=== PATIENT | male | born 1960 | race Caucasian/White ===

== ENCOUNTER 2022-03-31 15:21 | Outpatient (CLI) | payer OTHER, SELFPAY ==
[2022-03-31 15:17] LABS: Albumin* 4.4 g/dL (3.3-5.0); Chloride* 98 mmol/L (96-114); Sodium* 136 mmol/L (135-149)
[2022-03-31 15:18] LABS: Potassium* 4.3 mmol/L (3.6-5.1)
[2022-03-31 15:20] LABS: Alanine Aminotransferase* 30 U/L (4-50); Alkaline Phosphatase* 59 U/L (40-150); Aspartate Amino Transferase* 34 U/L (12-35); Bilirubin Total* 1.1 mg/dL (0.1-1.5); Blood Urea Nitrogen* 24 mg/dL (7-30); Calcium* 9.7 mg/dL (8.4-10.6); Carbon Dioxide* 32 mmol/L (20-32); Cholesterol* 166 mg/dL (90-199); Estimated Glomerular Filt Rate 86 ml/min; Glucose* 91 mg/dL (60-115); Total Protein* 6.4 g/dL (6.0-8.3); Triglycerides* 88 mg/dL (40-149)
[2022-03-31 15:21] LABS: HDL Cholesterol* 55 mg/dL (>=40); LDL Cholesterol Calculated 93 mg/dL (<100)
[2022-03-31 15:51] LABS: PSA Screen* 0.85 ng/mL (0.10-4.00)
== END 2022-03-31 15:22 | disposition home or self-care (01) ==
PROVIDERS: PCP Family Medicine; Visit Provider Family Medicine
DX: Z12.5 Encounter for screening for malignant neoplasm of prostate (principal); Z13.228 Encounter for screening for other metabolic disorders
CPT/HCPCS: 80053; 80061; 84153

== ENCOUNTER 2024-01-23 13:08 | Outpatient (CLI) | payer OTHER, SELFPAY | END 2024-01-23 13:09 | disposition home or self-care (01) | LOC: LKVREF 13:08 | PROVIDERS: PCP Family Medicine; Visit Provider Nurse Practitioner Family | DX: R50.9 Fever, unspecified (principal) | CPT/HCPCS: 86618 ==

== ENCOUNTER 2024-01-29 18:31 | Outpatient (CLI) | payer OTHER, SELFPAY ==
[2024-01-29 18:56] LABS: Appearance Urine Clear (Clear); Bilirubin Urine Negative (Negative); Blood Urine Negative (Negative); Color Urine Yellow (Yellow); Glucose Urine Negative (Negative); Ketones Urine Negative (Negative); Leukocyte Esterase Urine Negative (Negative); Nitrite Urine Negative (Negative); Protein Urine Negative (Negative); Specific Gravity Urine 1.025 (1.000-1.030); Urobilinogen Urine 0.2 (0.2-1.0)
[2024-01-29 18:59] LABS: Basophils Absolute Auto 0.02 K/uL (0.00-0.30); Basophils Percent Auto 0.3 % (0.0-3.0); Eosinophils Absolute Auto 0.02 K/uL (0.00-0.50); Eosinophils Percent Auto 0.3 % (0.0-7.0); Hematocrit 37.3 % (37.0-53.0); Hemoglobin* 12.4 gm/dL (13.5-17.5); Immature Granulocytes Abs Auto 0.01 K/uL (0.00-0.30); Immature Granulocytes Pct Auto 0.1 %; Lymphocytes Percent Auto 10.7 % (20-44); Mean Corpuscular HGB Conc 33 gm/dL (32-36); Mean Corpuscular Hemoglobin 29 pg (26-34); Mean Corpuscular Volume 87 fL (80-100); Monocytes Percent Auto 6.3 % (0.0-11.0); Neutrophils Percent Auto 82.3 % (42.0-72.0); Platelet Count* 138 K/uL (140-440); RDW Coefficient of Variation % 12.2 % (11.5-15.5); Red Blood Count 4.27 m/uL (4.30-5.90); White Blood Count* 7.31 K/uL (4.50-11.00)
[2024-01-29 19:03] LABS: Slide Review Reflex No
[2024-01-29 19:13] LABS: Albumin* 3.7 g/dL (3.3-5.0); Chloride* 96 mmol/L (96-114); Sodium* 130 mmol/L (135-149)
[2024-01-29 19:14] LABS: Potassium* 4.3 mmol/L (3.6-5.1)
[2024-01-29 19:16] LABS: Anion Gap 5 mEq/L (7-15); Aspartate Amino Transferase* 75 U/L (12-35); Bilirubin Total* 0.8 mg/dL (0.1-1.5); Carbon Dioxide* 29 mmol/L (20-32); Estimated Glomerular Filt Rate 85 ml/min; Total Protein* 6.4 g/dL (6.0-8.3)
[2024-01-29 19:17] LABS: Alanine Aminotransferase* 73 U/L (4-50); Alkaline Phosphatase* 64 U/L (40-150); Blood Urea Nitrogen* 15 mg/dL (7-30); Calcium* 8.9 mg/dL (8.4-10.6); Glucose* 129 mg/dL (60-115)
[2024-01-29 20:21] LABS: Erythrocyte SedimentationRate* 31 mm/hr (2-15)
== END 2024-01-29 18:32 | disposition home or self-care (01) ==
PROVIDERS: PCP Family Medicine; Visit Provider Family Medicine
DX: R50.9 Fever, unspecified (principal); R53.83 Other fatigue; E03.9 Hypothyroidism, unspecified; I10 Essential (primary) hypertension
CPT/HCPCS: 36415; 80053; 81003; 84443; 85025; 85651; 86140; 86480; 87040; 87077; 87186; 87468; 87469; 87484; 87798

== ENCOUNTER 2024-04-17 08:40 | Outpatient (CLI) | payer OTHER, SELFPAY ==
--- OUTSIDE RECORDS SUMMARY | 2024-04-18 08:23 | XMS_ITS | Clinical Summary ---
Author Organization [facility] Address [place], [place] [address] Care Team Providers Care Carton Wrapper Name Role Phone Fritz Hitchcock MD Primary Care Provider [phone] Allergies No known active allergies Medications Medication Sig Dispensed Refills Start Date End Date Status aspirin 81 mg tablet Take 1 tablet by mouth once daily with a meal. 0 11/12/2009 Active cholecalciferol (VITAMIN D) 1,000 unit tablet Take 1 tablet by mouth once daily. 0 05/12/2010 Active multivitamin (MVI) tablet Take 1 tablet by mouth once daily. 0 11/09/2011 Active pravastatin (PRAVACHOL) 40 mg tabletIndications:Ot her hyperlipidemia Take 1 tablet by mouth at bedtime. 90 tablet 3 12/22/2015 Active coenzyme Q10 (H2Q COQ10) 200 mg/gram powd Take by mouth. 0 12/22/2015 Active omega 9-usn-zlg-fish oil (FISH OIL) 900-1,400 mg cpDR Take by mouth. 0 12/22/2015 Act taz Calcium-Cholecalcife rol, D3, (CALCIUM 500+D) 500 mg(1,250mg) -400 unit chewable tablet Take 1 tablet by mouth 3 times daily with meals. 0 12/22/2015 Active magnesium gluconate (MAGONATE) 500 mg Take 1 tablet by mouth 2 times daily. 0 12/22/2015 Active loratadine (CLARITIN) 10 mg tablet Take 1 tablet by mouth once daily. 0 12/22/2015 Active amoxicillin (AMOXIL) 500 mg capsuleIndications:P hysical exam 4 prior to Dental work 32 capsule 0 12/22/2015 Active HYDROcodone-acetamin ophen, 5-325 mg, (NORCO) per tabletIndications:Mi dline low back pain without sciatica, unspecified chronicity Take 1 tablet by mouth every 4 hours if needed for Pain Max acetaminophen dose: 4000mg in 24 hrs. 60 tablet 04/11/2016 Active predniSONE (DELTASONE) 20 mg tabletIndications:Po kike alea Take 2 for 5 days, then 1 for 5 days. 15 tablet 04/11/2016 Active Active Problems Problem Noted Date Diagnosed Date H/O aortic valve replacement 12/24/2015 Other and unspecified hyperlipidemia 04/30/2011 Spinal stenosis, unspecified region other than c ervical 04/30/2011 Pain medication agreement 04/30/2011 Overview (04/30/2011): Controlled substance agreement for her OxyContin 10 mg 40 per month on file and signed 04/30/2011. Designated pharmacy: Prescribing physician: Dori Hitchcock Diagnosis: Spinal stenosis Routine health maintenance 11/12/2009 Overview (11/12/2009): Last CPX: 06/2009 Last Lipids: 04/2009 Encounters Date Type Department Care Team Description 02/01/2024 Lab Requisition [facility] [phone] Unknown, Doctor from Last 3 Months Immunizations Name Administration Dates Next Due Td (Age >=7 Years) 07/24/2006 Family History Medical History Relation Name Comments Cancer-prostate Father Heart Disease Father bypass Hyperlipidemia Father Hypertension Father Cancer Mother lung Relation Name Status Comments Father Mother Social History Tobacco Use Types Packs/Day Years Used Date Smoking Tobacco: Never Smokeless Tobacco: Never Tobacco Cessation:Counseling Given: Yes Alcohol Use Standard Drinks/Week Comments No 0 (1 standard drink = 0.6 oz pur e alcohol) Sex and Gender Information Value Date Recorded Sex Assigned at Not on file Gender Identity Not on file Sexual Orientation Not on file Obstetrics History Last Filed Vital Signs Vital Sign Reading Time Taken Comments Blood Pressure 122/80 03/29/2016 2:18 PM CDT Pulse 64 12/22/2015 8:58 AM CDT Temperature 36.7 ??C (98 ??F) 07/23/2014 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 Respiratory Rate - - Oxygen Saturation - - Inhaled Oxygen Concentration - - Weight 88.9 kg (196 lb) 03/29/2016 2:18 PM CDT Height 177.8 cm (5' 10) 12/22/2015 8:58 AM CDT Body Mass Index 28.12 12/22/2015 8:58 AM CDT Plan of Treatment Health Maintenance Due Date Last Done Comments Tdap 10/27/1971 HIV for age 15-65 10/27/1975 Hepatitis C screening for age 18-79 1978 Zoster (shingles) series for age 50+ (1 of 2) 2010 Tetanus booster 07/24/2016 07/24/2006 BMI (ht and wt on same day) for age 18+ 12/21/2016 12/22/2015 Depression screening for age 12+ 12/21/2016 12/22/2015 Lipids for age 45-75 12/21/2020 12/22/2015, 07/23/2014, 02/28/2012, Additional history exists COVID-19 vaccine series ( season) 2024 Influenza for age 50-64 02/11/2024 Colonoscopy through age 75 08/30/2032 08/30/2022, Pneumococcal series for age 6-64 Aged Out No longer eligible based on patient's age to complete this topic Procedures Procedure Name Priority Date/Time Associated Diagnosis Comments REFERRAL ID/JORDAN,NONURINE Routine 01/29/2024 6:40 PM CDT SCAN-COLONOSCOPY 08/30/2022 10:0 0 AM CDT LIPID PANEL Routine 12/22/2015 9:49 AM CDT Other hyperlipidemia from Last 3 Months or Most Recently Relevant to Health Maintenance Results * (ABNORMAL) REFERRAL ID/SUSC,NONURINE (01/29/2024 6:40 PM CDT) CULTURE RESULT(A) 02/04/2024 11:36 AM CDT [facility] CULTURE Streptococcus mitis group 02/04/2024 11:36 AM CDT [facility] Comment:Further identified a s - Streptococcus sanguinis Blood Client Collect / Unknown 01/29/2024 6:40 PM CDT 02/01/2024 10:01 PM CDT Narrative Organism Antibiotic Method Susceptibility Streptococcus mitis group PENICILLIN 0.25: I Streptococcus mitis group CEFTRIAXONE <=0.12: S Streptococcus mitis group ERYTHROMYCIN <=0.12: S Streptococcus mitis group CLINDAMYCIN <=0.25: S Streptococcus mitis group VANCOMYCIN 0.5: S Streptococcus mitis group AMPICILLIN 0.5: I Streptococcus mitis group CLARITHROMYCIN S Doctor Unknown MICROBIOLOGY [facility] [address] [place] [id number], * SCAN-COLONOSCOPY (08/30/2022 10:00 AM CDT) Narrative Procedure Note Armand Lyles DO - 08/30/2022 9:05 AM CDT [facility] [address], [address], [place] [address] Patient Name: Adonis Ritchie Gender: Male Exam Date: 08/30/2022 Visit Number: [id number] Age: 61 Years 10 Months Date of : 1960 Attending MD: Armand Lyles DO Medical Record#: [id number] ----- Procedure: Colonoscopy Indications: Colorectal cancer screening Referring MD: Seferino Hanley MD Primary MD: Seferino Hanley MD Medications: Intra Procedure Medications: Patient received monitored anesthesia care. Complications: No immediate complications Procedure: An examination of the heart and lungs was performed and found to be withinacceptable limits. The patient was therefore deemed a reasonablecandidate for endoscopy and monitored anesthesia care. The risks and benefits of the procedure were explained to the patient.After obtaining informed consent, the patient received monitoredanesthesia care and I passed the scope without difficulty via the rectumto the cecum. The appendiceal orifice and ic valve were identified. Thescope was retroflexed during the examination The quality of the prep wasgood (Saravanan/Gat Split). This was a complete examination throughout the entire colon. Findings: The entire colon was normal. Impression: Screening Colonoscopy Plan: Repeat colonoscopy in 10 years. If you have signs or symptoms of lower GI illness or a new diagnosis ofcolon cancer in an immediate family member, you should contact your GIprovider or your primary provider to discuss whether your next examshould be repeated sooner. We will attempt to contact you at appropriate intervals via U.S. mail. Wemay not be able to find you or contact you at that time, therefore youshould know that the responsibility for following our recommendation restswith you. If you don't hear from us at the time your procedure is due,please contact our office to schedule an appointment. If your contactinformation should change, please contact our office so that we can updateyour records. Electronically signed by: Armand Lyles DO 08/30/2022 Medications: Medication Dose Sig Description PRN Status PRN Reason Comments aspirin 81 mg Tab 81 mg take 1 tablet (81MG) by oral route every day N atorvastatin 20 mg tablet 20 mg take 1 tablet by oral route every day N calcium citrate 200 mg (950 mg) tablet 200 mg (950 mg) N Claritin 10 mg chewable tablet 10 mg N lisinopril 20 mg tablet 20 mg take 1 tablet by oral route every day N Mag Glycinate 100 mg tablet 100 mg take 4 by oral route every day N Allergies: Medication Name Ingredient Reaction Comment NO KNOWN DRUG ALLERGIES Vital Signs: Date Time Systolic Diastolic Height Weight BMI 08/30/2022 9:44 AM 145 82 70 in 170.01 24.40 Race: White Ethnicity: Not or Preferred Language: Azerbaijani cc: Seferino Hanley MD cc: Seferino Hanley MD cc: John Escobedo MD [facility] [phone] Armand Mart Rafal GABRIEL OTHER * (ABNORMAL) LIPID PANEL (12/22/2015 9:49 AM CDT) CHOLESTEROL,TOTAL 259(H) 100 - 199 mg/dL 12/22/2015 3:40 PM CDT [facility] TRIGLYCERIDES 388(H) <150 mg/dL 12/22/2015 3:40 PM CDT [facility] [email or web address] [facility] HDL CHOLESTEROL 38(L) >40 mg/dL 12/22/2015 3:40 PM CDT [facility] NON-HDL CHOLESTEROL 221(H) <145 mg/dl 12/22/2015 3:40 PM CDT [facility] CHOL/HDL RATIO 6.82(H) <4.50 12/22/2015 3:40 PM CDT [facility] LDL CHOLESTEROL 143(H) <=130 mg/dL 12/22/2015 3:40 PM CDT [facility] [email or web address] [facility] PATIENT STATUS NOT GIVEN 12/22/2015 3:40 PM CDT [facility] [email or web address] [facility] Blood BLOOD SPECIMEN / Unknown Venipuncture / Unknown 12/22/2015 9:49 AM CDT 12/22/2015 9:49 AM CDT Fritz Hitchcock MD CHEMISTRY [facility] [address] [place] [address], [place] from Last 3 Months or Most Recently Relevant to Health Maintenance Care Teams Carton Wrapper Relationship Specialty Start Date End Date Fritz Hitchcock MD PCP - General 09/02/09
--- OUTSIDE RECORDS SUMMARY | 2024-04-18 08:23 | XMS_ITS | Clinical Summary ---
Author Organization [facility] Address [address] [address] Phone Care Team Providers Care Armature Straightener Name Role Phone Unavailable Primary Care Provider Unavailabl e Medications Medication Sig Dispensed Refills Start Date End Date Status amoxicillin (AMOXIL) 500 MG capsule 4 capsules 1 hour prior to proceedure 12/22/2015 Active aspirin (ST WING) 81 MG EC tablet 1 (one) time each day at the same time Active aspirin (ST WING) 81 MG EC tablet Take 81 mg by mouth in the morning. Active Calcium Carb-Cholecalciferol 500-10 MG-MCG chewable tablet Chew 1 tablet in the morning and 1 tablet at noon and 1 tablet in the evening. 12/22/2015 Active calcium carbonate (OS-HAWK) 600 MG tablet Take 1 tablet by mouth in the morning. Active cholecalciferol (Vitamin D-[address]) 25 MCG (1000 UT) tablet Take 1,000 Units by mouth in the morning. 05/12/2010 Active cholecalciferol (VITAMIN D-3 SUPER STRENGTH) 50 MCG (2000 UT) tablet Take 50 mcg by mouth in the morning. Active coenzyme Q-10 200 MG capsule Take 1 tablet by mouth in the morning. Active HYDROcodone-acetamin ophen (NORCO) 5-325 MG per tablet Take 1 tablet by mouth every 30 minutes as needed 04/11/2016 Active lisinopril (PRINIVIL) 20 MG tablet Take 20 mg by mouth in the morning. 04/06/2023 Active lisinopril (PRINIVIL) 20 MG tablet 1 (one) time each day at the same time Active loratadine (CLARITIN) 10 MG tablet Take 10 mg by mouth 12/22/2015 Activ e Lutein 20 MG capsule Take 20 mg by mouth in the morning. Active magnesium, as gluconate, (Mag-G) 500 (27 Mg) MG tablet Take 500 mg by mouth in the morning and 500 mg in the evening. 12/22/2015 Active Multiple Vitamin (One-A-Day Essential) tablet Take 1 tablet by mouth in the morning. 11/09/2011 Active [place]-3 Fatty Acids (Fish Oil Triple Strength) 1400 MG capsule Take by mouth 12/22/2015 Active omega-3 (FISH OIL) 1200 MG capsule Take 2,400 mg by mouth in the morning. Active pravastatin (PRAVACHOL) 40 MG tablet Take 40 mg by mouth in the morning. 12/22/2015 Active predniSONE (DELTASONE) 20 MG tablet every 12 hours 04/11/2016 Active rosuvastatin (CRESTOR) 20 MG tablet Take 20 mg by mouth in the morning. 04/06/2023 Active rosuvastatin (CRESTOR) 20 MG tablet 1 (one) time each day at the same time Active Active Problems Problem Noted Date Diagnosed Date Aortic valve regurgitation 02/26/2024 Overview (02/26/2024): per 09/25 echo, mild (1+) aortic valve regurgitation Bilateral inguinal hernia 02/26/2024 Bacteremia 01/30/2024 Aneurysm of ascending aorta 09/23/2015 Overview (02/26/2024): Per 09/16/15 echo, ascending aorta 3.8 cm History of aortic valve replacement 01/22/2014 Sleep apnea 01/22/2014 Hyperlipidemia 04/30/2011 Spinal stenosis, excluding cervical region 04/30 Encounters Date Type Department Care Team Description 03/14/2024 Telephone [facility] [address] [place] [address] Isaura Johns RN 02/27/2024 9:00 AM CDT Office Visit [facility] [address] [place] [address] Diamond Gerardo PA Bacteremia (Primary Dx); History of aortic valve replacement; Aneurysm of ascending aorta (CMS-HCC) from Last 3 Months Immunizations Name Administration Dates Next Due Td 07/24/2006 Tdap 05/17/2022 Social History Tobacco Use Types Packs/Day Years Used Date Smoking Tobacco: Never Assessed Sex and Gender Information Value Date Recorded Sex Assigned at Not on file Gender Identity Not on file Sexual Orientation Not on file Plan of Treatment Health Maintenance Due Date Last Done Comments Pneumococcal PPSV23 Highest Risk Adult (1 of 3 - PCV13 ) 10/27/1979 Influenza Vaccine (#1) 2024
--- OUTSIDE RECORDS SUMMARY | 2024-04-18 08:23 | XMS_ITS | Encounter Summary ---
Author Organization [facility] Address [address] [address] Phone Care Team Providers Care Cider Press Operator Name Role Phone Unavailable Primary Care Provider Unavailabl e Encounter Details Date Type Department Care Team (Late st Contact Info) Description 02/27/2024 9:00 AM CDT Office Visit [facility] [address] [place] [address] Diamond Gerardo PA [address] [place], [place] [phone] Bacteremia (Primary Dx); History of aortic valve replacement; Aneurysm of ascending aorta ([facility]) Social History Tobacco Use Types Packs/Day Years Used Date Smoking Tobacco: Never Assessed Sex and Gender Information Value Date Recorded Sex Assigned at Not on file Gender Identity Not on file Sexual Orientation Not on file documented as of this encounter Progress Notes * OSCAR Rothman - 02/27/2024 9:00 AM CDT Images from the original note were not included. Infectious Disease Progress Note History of Present Illness: Adonis Ritchie is a 63 y.o. male with a history of bicuspid aortic valve with history of aortic valve replacement in 2009. [facility]-week history of fevers, weakness, sweating episodes and chills. He was sent home but called 2 days later and told that his blood cultures were positive for gram-positive cocci, ultimately growing Streptococcus sanguinous. He was subsequently transferred to [facility] for further care. RUSH was negative for santa rosa or bioprosthetic valve vegetations, no evidence of endocarditis. Given high risk organism, plan was for prolonged course of IV antibiotics with Ceftriaxone. He is doing well and tolerating antibiotics without problem. He presently has no complaints. He is due to follow-up with Cardiology in March. Review of Systems Constitutional: Negative. Respiratory: Negative. Cardiovascular: Negative. Gastrointestinal: Negative. Musculoskeletal: Negative. Skin: Negative. All other systems reviewed and are negative. Current Outpatient Medications Medication Sig Dispense Refill amoxicillin (AMOXIL) 500 MG capsule 4 capsules 1 hour prior to proceedure Calcium Carb-Cholecalciferol 500-10 MG-MCG chewable tablet Chew 1 tablet in the morning and 1 tablet at noon and 1 tablet in the evening. cefTRIAXone (ROCEPHIN) 2 g injection Infuse 2 g into a venous catheter 1 (one) time each day at thesame time cholecalciferol (Vitamin D-[address]) 25 MCG (1000 UT) tablet Take 1,000 Units by mouth in the morning. HYDROcodone-acetaminophen (NORCO) 5-325 MG per tablet Take 1 tablet by mouth every 30 minutes as needed lisinopril (PRINIVIL) 20 MG tablet Take 20 mg by mouth in the morning. loratadine (CLARITIN) 10 MG tablet Take 10 mg by mouth magnesium, as gluconate, (Mag-G) 500 (27 Mg) MG tablet Take 500 mg by mouth in the morning and 500 mg in the evening. Multiple Vitamin (One-A-Day Essential) tablet Take 1 tablet by mouth in the morning. [place]-3 Fatty Acids (Fish Oil Triple Strength) 1400 MG capsule Take by mouth pravastatin (PRAVACHOL) 40 MG tablet Take 40 mg by mouth in the morning. predniSONE (DELTASONE) 20 MG tablet every 12 hours rosuvastatin (CRESTOR) 20 MG tablet Take 20 mg by mouth in the morning. aspirin (ST WING) 81 MG EC tablet 1 (one) time each day at the same time aspirin (ST WING) 81 MG EC tablet Take 81 mg by mouth in the morning. calcium carbonate (OS-HAWK) 600 MG tablet Take 1 tablet by mouth in the morning. cholecalciferol (VITAMIN D-3 SUPER STRENGTH) 50 MCG (2000 UT) tablet Take 50 mcg by mouth in the morning. coenzyme Q-10 200 MG capsule Take 1 tablet by mouth in the morning. lisinopril (PRINIVIL) 20 MG tablet 1 (one) time each day at the same time Lutein 20 MG capsule Take 20 mg by mouth in the morning. omega-3 (FISH OIL) 1200 MG capsule Take 2,400 mg by mouth in the morning. rosuvastatin (CRESTOR) 20 MG tablet 1 (one) time each day at the same time No current facility-administered medications for this visit. Objective There were no vitals taken for this visit. Physical Exam Unable to do a physical exam as this was a phone visit. Laboratory Data: Component Latest Ref Rng 02/22/2024 7:50 AM WBC 4.0 - 11.0 10e3/uL 5.5 RBC Count 4.40 - 5.90 10e6/uL 4.30 (L) Hemoglobin 13.3 - 17.7 g/dL 12.8 (L) Hematocrit 40.0 - 53.0 % 38.8 (L) MCV 78 - 100 fL 90 MCH 26.5 - 33.0 pg 29.8 MCHC 31.5 - 36.5 g/dL 33.0 RDW 10.0 - 15.0 % 13.6 Platelet Count 150 - 450 10e3/uL 182 % Neutrophils % 62 % Lymphocytes % 23 % Monocytes % 10 % Eosinophils % 4 % Basophils % 1 % Immature Granulocytes % 0 NRBCs per 100 WBC <1 /100 0 Absolute Neutrophils 1.6 - 8.3 10e3/uL 3.4 Absolute Lymphocytes 0.8 - 5.3 10e3/uL 1.3 Absolute Monocytes 0.0 - 1.3 10e3/uL 0.6 Absolute Eosinophils 0.0 - 0.7 10e3/uL 0.2 Absolute Basophils 0.0 - 0.2 10e3/uL 0.0 Absolute Immature Granulocytes <=0.4 10e3/uL 0.0 Absolute NRBCs 10e3/uL 0.0 Creatinine 0.67 - 1.17 mg/dL 1.02 GFR Estimate >60 mL/min/1.73m2 83 ALT 0 - 70 U/L 25 AST 0 - 45 U/L 26 CRP Inflammation <5.00 mg/L <3.00 02/01/2024 1644 02/06/2024 2046 Blood Culture Hand, Right [[id number]] Blood from Hand, Right Final result Component Value Culture No Growth 01/30/2024202902/06/2024 0707 Blood Culture Peripheral Blood [[id number]] (Abnormal) Peripheral Blood Edited Result - FINAL Component Value Culture Positive on the 1st day of incubation Abnormal Streptococcus sanguinis Panic C 2 of 2 bottles Susceptibilities done on previous cultures 01/30/2024 1628 02/06/2024 0706 Blood Culture Arm, Right [[id number]] (Abnormal) Blood from Arm, Right Final result Component Value Culture Positive on the 1st day of incubation Abnormal Streptococcus sanguinis Panic 2 of 2 bottles Susceptibility Streptococcus sanguinis GEE Cefotaxime <=0.25 ug/mL Susceptible Ceftriaxone <=0.25 ug/mL Susceptible Clindamycin <=0.12 ug/mL Susceptible Meropenem <=0.25 ug/mL Susceptible Penicillin 0.25 ug/mL Intermediate Vancomycin 0.5 ug/mL Susceptible Radiology Results: Complete RUSH Adult 02/01/24 Interpretation Summary Status post surgical bioprosthetic aortic valve replacement with a 25-mm tissue prosthesis for bicuspid aortic valve disease, 2009. No evidence of prosthetic or santa rosa valve endocarditis. 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 No periprosthetic regurgitation. Trace to mild prosthetic regurgitation. The prosthetic valve opens well. Mean systolic gradient 24 mmHg. Normal left ventricular systolic function. Estimated LVEF 60-65%. Normal right ventricular size and systolic function. Bubble study negative for inter-atrial shunt. Assessment 63 yo presented to an OSH for 2-week history of fevers, weakness, sweating episodes and chills. History of bicuspid aortic valve with history of aortic valve replacement in 2009 Blood cultures were positive for strep sanguinis RUSH with no evidence of endocarditis. Discharged on Ceftriaxone, doing well. Recommendations Strep sanguinis GEE to PCN is intermediate, Ceftriaxone GEE is 0.25 Continue Ceftriaxone for 6 weeks total (until 03/14/24). Upon completion of antibiotics, remove PICC. Repeat blood cultures one week after stopping IV antibiotics. Follow up with Cardiology as planned in March. Follow up with ID as needed. Patient and plan discussed with Dr. Gustavo Gerardo PA-C documented in this encounter Plan of Treatment Not on file documented as of this encounter Visit Diagnoses Diagnosis Bacteremia- Primary History of aortic valve replacement Aneurysm of ascending aorta (CMS-HCC) documented in this encounter
--- OUTSIDE RECORDS SUMMARY | 2024-04-18 08:23 | XMS_ITS | Encounter Summary ---
Author Organization [facility] Address [address] [place] [address] Phone Care Team Providers Care Coil Placer Name Role Phone Unavailable Primary Care Provider Unavailabl e Encounter Details Date Type Department Care Team (Late st Contact Info) Description 03/14/2024 Telephone [facility] [address] [place] [address] Isaura Johns RN Social History Tobacco Use Types Packs/Day Years Used Date Smoking Tobacco: Never Assessed Sex and Gender Information Value Date Recorded Sex Assigned at Not on file Gender Identity Not on file Sexual Orientation Not on file documented as of this encounter Miscellaneous Notes * Telephone Encounter - Patricia Villarreal RN - 03/26/2024 9:06 AM CDT Received final blood cultures which are no growth for bacteria - call to patient reviewed labs, he is feeling well and afebrile today, has follow up with cardiology in the near future. All questions answered patient verbalized understanding and agrees with plan. * Telephone Encounter - Isaura Johns RN - 03/14/2024 11:17 AM CDT Spoke with spouse to set up where blood culture orders can go. Faxed to [facility] out patient lab. Adonis will go next week to have the blood draw. documented in this encounter Plan of Treatment Not on file documented as of this encounter Visit Diagnoses Not on filedocumented in this encounter
--- OUTSIDE RECORDS SUMMARY | 2024-04-18 08:23 | XMS_ITS | Patient Health Record ---
Author Organization [facility] at N Address [address] [facility] [place] [address] Care Team Providers Care Receiving Dock Checker Name Role Phone JOVI WILLIAMSON Primary Care Provider Unavailabl e Allergies No Known Allergies Reason For Referral No Information Medications Medication SIG (Take, Route, Frequency, Duration) Notes Start Date End Date Status Amoxicillin 500 MG 1 tablet Orally twice a day for dental work Active predniSONE 20 MG 1 tablet Orally twice a day with rash Active Lisinopril 20 MG 1 tablet Orally Once a day Active Rosuvastatin Calcium 20 MG 1 tablet Orally Once a day Active Aspirin 81 81 MG 1 tablet Orally Once a day Active Social History Tobacco Use: Social History Observation Description Date Details (start date - stop date) Never Smoker NA - NA Tobacco Use/Smoking Question Answer Notes Are you a nonsmoker Problems Problem Type SNOMED Code ICD Code Onset Dates Problem Status W/U Status Risk Notes Problem [id number] Non-recurrent bilateral inguinal hernia without obstruction or gangrene (K40.20) Active confirmed Plan Of Treatment No Information Insurance Providers Payer Name Payer Address Payer Phone Subscriber Number Group Number Insured Name Patient Relationship to Insured Coverage Start Date Coverage End Date [employer] [facility] [address] [address] [place] [address] [id number] LEOALEA JESSICA Self - patient is the insured Medical (General) History Medical History History ICD Code external hemorrhoids Inguinal hernia Back pain Aortic valve replacement Allergic reaction (Acute) HTN Surgical History Surgery Date(Month/Year) Aortic valve replaced colonoscopy 08/30/22
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
--- OUTSIDE RECORDS SUMMARY | 2024-04-18 08:24 | XMS_ITS | Encounter Summary ---
Author Organization [facility] Address [address] [place] [address]. [place] [address] Care Team Providers Care Ehs Manager Name Role Phone Seferino Hanley MD Primary Care Provider [phone] Physicians, [place] Family Unavailable [phone] [phone] Martinez Rogers MD Unavailable Encounter Details Date Type Department Care Team (Late st Contact Info) Description 03/20/2024 12:05 PM CDT Lab [facility] [address] [place] [address] Bacteremia Social History Tobacco Use Types Packs/Day Years Used Date Smoking Tobacco: Never Smokeless Tobacco: Former Quit: 1979 Alcohol Use Standard Drinks/Week Comments No 0 (1 standard drink = 0.6 oz pur e alcohol) PHQ-2 Answer Date Recorded PHQ-2 Score 0 07/04/2022 Adolescent Education Answer Date Record ed Getting [...] Answer Date Recorded Do you have housing? (Housin g is defined as stable permanent housing and does not include staying ouside in a car, in a tent, in an abandoned building, in an overnight custodial, or couch-surfing.) No 01/31/2024 Are you worried [...] on file Legal Sex Male 2:58 AM HEADING PINNER Gender Identity Not on file Sexual Orientation Not on file documented as of this encounter Plan of Treatment Upcoming Encounters Date Type Department Care Team (Late st Contact Info) Description 04/22/2024 12:30 PM HEADING PINNER Office Visit [facility] [place] [facility] [address] [address] Seferino Hanley MD [address] [place] [phone] documented as of this encounter Procedures Procedure Name Priority Date/Time Associated Diagnosis Comments CRP INFLAMMATION STAT 03/20/2024 12:1 2 PM CDT Bacteremia BLOOD CULTURE Routine 03/20/2024 12:12 PM CDT Bacteremia documented in this encounter Results * Blood Culture Arm, Right (03/20/2024 12:12 PM CDT) Culture No Growth 03/25/2024 4:06 PM CDT [facility] Blood STRUCTURE OF RIGHT UPPER LIMB / Unknown Venipuncture / Unknown 03/20/2024 12:12 PM CDT 03/20/2024 12:13 PM CDT us Diamond Gerardo PA-C LAB - MICRO GENERAL ORDER PRICILLA Final Result [facility] Inf. Diseases Diag. Lab [address] [facility], [address] [place] [address], [facility] * CRP inflammation (03/20/2024 12:12 PM CDT) CRP Inflammation <3.00 <5.00 mg/L 03/20/20 12:31 PM CDT LABORATORY Blood STRUCTURE OF RIGHT UPPER LIMB / Unknown Venipuncture / Unknown 03/20/2024 12:12 PM CDT 03/20/2024 12:13 PM CDT us Lacey Chen MD LAB - BLOOD ORDERABLES Final Res ult [facility] Acute [facility] Lab [address] Lab (1st floor, no room number) [place] [address], [facility] documented in this encounter Visit Diagnoses Diagnosis Bacteremia documented in this encounter Care Teams Ehs Manager Relationship Specialty Start Date End Date Seferino Hanley MD [address] [place] [address] PCP - General Family Medicine 05/13/22 Physicians, [place] [facility] [address] [place] [phone] Assigned PCP 07/06/23 Martinez Rogers MD [address] [place] [address] Cardiovascular Disease 12/22/23 documented as of this encounter
--- OUTSIDE RECORDS SUMMARY | 2024-04-18 08:24 | XMS_ITS | Encounter Summary ---
Author Organization [facility] Address [address] [place] [address]. [place] [address] Care Team Providers Care Earth Science Faculty Member Name Role Phone Seferino Hanley MD Primary Care Provider [phone] Physicians, [place] Family Unavailable [phone] [phone] Martinez Rogers MD Unavailable Encounter Details Date Type Department Care Team (Latest Contact Info) Description 03/27/2024 Travel Social History Tobacco Use Types Packs/Day Years Used Date Smoking Tobacco: Never Smokeless Tobacco: Former Quit: 1978 Alcohol Use Standard Drinks/Week Comments No 0 [...] on file Legal Sex Male 2:58 AM MANAGER USER INTERFACE Gender Identity Not on file Sexual Orientation Not on file documented as of this encounter Plan of Treatment Upcoming Encounters Date Type Department Care Team (Late st Contact Info) Description 04/22/2024 12:30 PM MANAGER USER INTERFACE Office Visit [facility] [address] [place] [address] [place] [phone] Seferino Hanley MD [address] [place] [address] documented as of this encounter Visit Diagnoses Not on filedocumented in this encounter Care Teams Earth Science Faculty Member Relationship Specialty Start Date End Date Seferino Hanley MD [address] [place] [phone] PCP - General Family Medicine 05/13/22 Physicians, [place] [address] [address] [facility] [address] [place] [address] [phone] Assigned PCP 07/06/23 Martinez Rogers MD [address] [place] [address] Cardiovascular Disease 12/22/23 documented as of this encounter
--- OUTSIDE RECORDS SUMMARY | 2024-04-18 08:24 | XMS_ITS | Encounter Summary ---
Author Organization [facility] Address [address] [place] [address]. [place] [address] Care Team Providers Care Traffic Reporter Name Role Phone Seferino Hanley MD Primary Care Provider + -[phone] Physicians, [facility] Unavailable + [phone] Martinez Rogers MD Unavailable Reason for Visit * Reason Comments Wart Wart on right foot p inky toe, wants removed today.Has been frozen a few times before over the years and gets smaller and asx. As it gets bigger it will start to become more irritating again. Has been bothersome recently. No other warts. Derm Problem Two areas on back, s imilar to prior cysts he had removed. No drainage, pain or redness. 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 Epidermoid cyst of skin of back Has had prior cysts removed, no current s/sx infection, reviewed option of elective removal. 2. Plantar warts (Primary) Recurrent with intermittent follow-up, reviewed tx options and discussed referral to podiatry givenrecurrent nature. Pt declines, elects cryo here. - DESTRUCT BENIGN LESION, UP TO 14 Cyst removal scheduled next week Reasons to follow-up sooner or seek emergent care reviewed. Seferino Hanley MD, [facility] Subjective Adonis Ritchie is a 63 year old male who presents to clinic today for the following health issues: HPI Chief Complaint Patient presents with Wart Wart on right foot pinky toe, wants removed today. Has been frozen a few times before over the years and gets smaller and asx. As it gets bigger it will start to become more irritating again. Has been bothersome recently. No other warts. Derm Problem Two areas on back, similar to prior cysts he had removed. No drainage, pain or redness. Objective BP 132/80 (BP Location: Right arm, Patient Position: Sitting, Cuff Size: Adult Large) Pulse 69 Resp 18 Wt 79.4 kg (175 lb) SpO2 99% BMI 25.84 kg/m?? Body mass index is 25.84 kg/m??. Alert, NAD NC/AT Sclerae anicteric Regular Resp nonlabored Speech intact. Appropriate affect Epidermoid cyst left perisp thoracic area. One plantar wart, 8mm, medial 5th toe R foot. PROCEDURE: After verbal consent obtained, the wart was pared with a #15 blade. Then liquid nitrogenwas applied to both the wart on R 5th toet. Liquid nitrogen is then applied in 3 freeze/thaw cycles. Tolerated well. No complications. Declined bandage. Post-procedure precautions reviewed. documented in this encounter Nursing Notes * Magaly Conde CMA - 04/03/2024 9:00 AM CDT Chief Complaint Patient presents with Wart Wart on right foot pinky toe, wants removed today Pre-visit Screening: Immunizations: up to date Colonoscopy: is up to date Mammogram: na Asthma Action Test/Plan: na PHQ9: phq2 done today GAD7: na Questioned patient about current smoking habits Pt. has never smoked. Ok to leave detailed message on voice mail for today's visit only yes., phone # ph documented in this encounter Plan of Treatment Upcoming Encounters Date Type Department Care Team (Late st Contact Info) Description 04/22/2024 12:30 PM INTERNETWORKING TECHNICIAN Office Visit [facility] [address] [phone] Seferino Hanley MD [address] [place] [phone] documented as of this encounter Procedures Procedure Name Priority Date/Time Associated Diagnosis Comments ID DESTRUCT BENIGN LESION, UP TO 14 Routine 04/04/2024 5:33 PM CDT Plantar warts documented in this encounter Visit Diagnoses Diagnosis Plantar warts- Primary Plantar wart Epidermoid cyst of skin of back documented in this encounter Care Teams Traffic Reporter Relationship Specialty Start Date End Date Seferino Hanley MD [address] [place] [address] PCP - General Family Medicine 05/13/22 Physicians, [address] [place] [phone] Assigned PCP 07/06/23 Martinez Rogers MD [address] [place] [address] Cardiovascular Disease 12/22/23 documented as of this encounter
--- OUTSIDE RECORDS SUMMARY | 2024-04-18 08:24 | XMS_ITS | Encounter Summary ---
Author Organization [facility] Address [address] [place] [address]. [place] [address] Care Team Providers Care Slab Conditioner Supervisor Name Role Phone Seferino Hanley MD Primary Care Provider [phone] [phone] Physicians, [place] Family Unavailable [phone] [phone] Martinez Rogers MD Unavailable Encounter Details Date Type Department Care Team (Latest Contact Info) Description 04/02/2024 Travel Social History Tobacco Use Types Packs/Day [...] on file Legal Sex Male 2:58 AM CYCLE DIRECTOR Gender Identity Not on file Sexual Orientation Not on file documented as of this encounter Plan of Treatment Upcoming Encounters Date Type Department Care Team (Late st Contact Info) Description 04/22/2024 12:30 PM CYCLE DIRECTOR Office Visit [facility] Physicians [address] [place] [address] [place] [phone] Seferino Hanley MD [address] [place] [phone] documented as of this encounter Visit Diagnoses Not on filedocumented in this encounter Care Teams Slab Conditioner Supervisor Relationship Specialty Start Date End Date Seferino Hanley MD [address] [place] [address] [phone] PCP - General Family Medicine 05/13/22 Physicians, [place] [address] [address] [facility] [address] [place] [address] [phone] Assigned PCP 07/06/23 Martinez Rogers MD [address] [place] [address] Cardiovascular Disease 12/22/23 documented as of this encounter
--- OUTSIDE RECORDS SUMMARY | 2024-04-18 08:24 | XMS_ITS | Referral Summary ---
Author Organization [place] Address [address] [place] [address] Care Team Providers Care Doctor Of Dental Medicine Name Role Phone Seferino Hanley MD Primary Care Provider [phone] [facility], [place] [facility] Unavailable + [phone] Jeet Milligan MD Unavailable Encounters Date Type Department Care Team Description 04/10/2024 Travel 04/10/2024 11:00 AM CDT Office Visit [facility] [address] [place] [address] [address] [place] [phone] Seferino Hanley MD Epidermoid cyst of skin of back (Primary Dx) 04/03/2024 9:00 AM CDT Office Visit [facility] [address] [place] [address] [address] [place] [phone] Seferino Hanley MD Plantar warts (Primary Dx); Epidermoid cyst of skin of back 04/02/2024 Travel 04/02/2024 7:45 AM CDT Office Visit [facility] [place] [address] [facility] [address] [place] [phone] Jeet Milligan MD Ascending aorta dilatation (H); Essential hypertension; Hyperlipidemia LDL goal <100; S/P AVR (aortic valve replacement) 03/27/2024 Travel 03/27/2024 7:19 AM CDT - 03/27/2024 11:59 PM CDT Hospital Encounter [facility] [address] [facility] [address] [place] [phone] Jeet Milligan MD Ascending aorta dilatation (H) Discharge Disposition: Home or Self Care 03/20/2024 Travel 03/20/2024 12:05 PM CDT Lab [facility] [address] [place] [address] Bacteremia 03/14/2024 Orders Only [facility] [address] [place] [address] Diamond Gerardo PA-C Bacteremia (Primary Dx) 03/08/2024 Orders Only [facility] [address] [place] [phone] Lacey Chen MD Bacteremia (Primary Dx) 03/08/2024 Home Infusion [facility] [address] [place] [phone] Jake Beyer RPH Bacteremia (Primary Dx) 02/07/2024 Care Coordination [facility] [address] [place] [address] Seferino Hanley MD Clinic Care Coordination - Post Hospital (Bacteremia ) 02/06/2024 Telephone [facility] [place] [address] [place] [phone] Jeet Milligan MD Appointment (Hospital follow up ) 01/30/2024 5:37 PM CDT - 02/05/2024 7:25 PM CDT Hospital Encounter [place] [address] [facility] [address] [place] [address] Joselito Mar MD Biala, Vivek, MD Bacteremia Discharge Disposition: Home or Self Care 02/02/2024 Home Infusion ([facility]) [facility] [address] [place] [phone] Gila Miramontes RPH Home Infusion 02/01/2024 Hospital Encounter [facility] [address] [place] [address] Taina Ignacio MD 01/30/2024 Travel from Last 3 Months Allergies No known active allergies Medications calcium carbonate (OS-HAWK) 600 MG tablet Take 1 tablet by mouth at bedtime Active MAGNESIUM GLYCINATE PLUS PO Take 1 tablet by mouth at bedtime Active [place]-3 Fatty Acids (FISH OIL) 1200 MG CAPS Take 2,400 mg by mouth daily Active Coenzyme Q10 (COQ-10) 200 MG CAPS Take 1 tablet by mouth daily Active loratadine (CLARITIN) 10 MG tablet Take 10 mg by mouth daily as needed for allergies or other (when goes outside) Active Multiple Vitamins-Mineral s (MULTI FOR HIM PO) Take by mouth daily Active aspirin 81 MG EC tablet Take 81 mg by mouth at bedtime Active vitamin D3 (CHOLECALCIFEROL ) 50 mcg (2000 units) tablet Take 50 mcg by mouth at bedtime Active Lutein 20 MG CAPS Take 20 mg by mouth daily Active lisinopril (ZESTRIL) 20 MG tabletIndication s:Essential hypertension Take 1 tablet (20 mg) by mouth daily. 90 tablet 3 4 Active rosuvastatin (CRESTOR) 20 MG tabletIndication s:Hyperlipidemia LDL goal <100 Take 1 tablet (20 mg) by mouth at bedtime. 90 tablet 3 4 Active amoxicillin (AMOXIL) 500 MG capsuleIndicatio ns:S/P AVR (aortic valve replacement) 4 capsules 1 hour prior to proceedure 4 capsule 1 4 Active rosuvastatin (CRESTOR) 20 MG tabletIndication s:Hyperlipidemia LDL goal <100 Take 1 tablet (20 mg) by mouth at bedtime 90 tablet 3 3 024 Discontin ued(Reord er (No AVS)) lisinopril (ZESTRIL) 20 MG tabletIndication s:Essential hypertension Take 1 tablet (20 mg) by mouth daily 90 tablet 3 3 024 Discontin ued(Reord er (No AVS)) amoxicillin (AMOXIL) 500 MG capsuleIndicatio ns:S/P AVR (aortic valve replacement) 4 capsules 1 hour prior to proceedure 4 capsule 1 3 10/22/2 024 Discontin ued(Reord er (No AVS)) Active Problems Problem Noted Date Diagnosed Date Bacteremia 01/30/2024 Thoracic ascending aortic aneurysm 09/23/2015 S/P AVR (aortic valve replacement) 01/22/2014 Sleep apnea 01/22/2014 Hyperlipidemia 04/30/2011 Pain medication agreement 04/30/2011 Overview (12/10/2019): Controlled substance agreement for her OxyContin 10 mg 40 per month on file and signed 04/30/2011. Designated pharmacy: Prescribing physician: Dori Hitchcock Diagnosis: Spinal stenosis Spinal stenosis of lumbar re gion without neurogenic claudication 04/30/2011 Routine health maintenance 11/12/2009 Overview (12/10/2019): Last CPX: 06/2009 Last Lipids: 04/2009 Ascending aorta dilatation Overview (09/22/2015): Per 09/16/15 echo, ascending aorta 3.8 cm Aortic valve regurgitation Overview (09/22/2015): per 09/25 echo, mild (1+) aortic valve regurgitation Immunizations Name Administration Dates Next Due TDAP (Adacel,Boostrix) 05/17/2022 Td (Adult), Adsorbed 07/24/2006 Social History Tobacco Use Types Packs/Day Years [...] in an abandoned building, in an overnight half-way, or couch-surfing.) No 01/31/2024 Are you worried [...] on file Legal Sex Male 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 Gender Identity Not on file Sexual Orientation Not on file Last Filed Vital Signs Vital Sign Reading Time Taken Comments Blood Pressure 124/78 04/10/2024 11:01 AM CDT Pulse 73 04/10/2024 11:01 AM CDT Temperature 36.4 ??C (97.6 ??F) 04/10/2024 1 1:01 AM CDT Respiratory Rate 18 04/03/2024 9:07 AM CDT Oxygen Saturation 96% 04/10/2024 11: 01 AM CDT Inhaled Oxygen Concentration - - Weight 79.3 kg (174 lb 12.8 oz) 024 11:01 AM CDT Height 175.3 cm (5' 9) 04/02/2024 7:50 AM CDT Body Mass Index 25.81 04/02/2024 7:50 AM CDT Plan of Treatment Upcoming Encounters Date Type Department Care Team (Late st Contact Info) Description 04/22/2024 12:30 PM 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 Office Visit [facility] [address] [place] [address] [address] [place] [address] Seferino Hanley MD [address] [place] [address] Medical Devices Implanted Type Area Marking Stitcher Device Identifier Shelf Expiration Date Model / Serial / Lot Aortic Valve-25 Mm Bioprosthetic Valve Procedures Procedure Name Priority Date/Time Associated Diagnosis Comments NC EXC BENIGN SKIN LESION TRUNK/ARM/LEG 2.1-3.0 CM Routine 04/10/2024 12:21 PM CDT Epidermoid cyst of skin of back NC DESTRUCT BENIGN LESION, UP TO 14 Routine 04/04/2024 5:33 PM CDT Plantar warts ECHO COMPLETE Routine 03/27/2024 8:14 AM CDT Ascending aorta dilatation (H) BLOOD CULTURE Routine 03/20/2024 12:12 PM CDT Bacteremia CRP INFLAMMATION STAT 03/20/2024 12:1 2 PM CDT Bacteremia CRP INFLAMMATION STAT 03/08/2024 8:05 AM CDT Bacteremia CBC WITH PLATELETS & DIFFERENTIAL Routine 03/07/2024 8:05 AM CDT Bacteremia CBC WITH PLATELETS AND DIFFERENTIAL Routine 03/07/2024 8:05 AM CDT Bacteremia CREATININE Routine 03/07/2024 8:05 AM CDT Bacteremia AST Routine 03/07/2024 8:05 AM CDT Bacteremia ALT Routine 03/07/2024 8:05 AM CDT Bacteremia CBC WITH PLATELETS & DIFFERENTIAL Routine 02/28/2024 8:15 AM CDT Bacteremia CBC WITH PLATELETS AND DIFFERENTIAL Routine 02/28/2024 8:15 AM CDT Bacteremia CREATININE Routine 02/28/2024 8:15 AM CDT Bacteremia CRP INFLAMMATION Routine 02/28/2024 8:15 AM CDT Bacteremia AST Routine 02/28/2024 8:15 AM CDT Bacteremia ALT Routine 02/28/2024 8:15 AM CDT Bacteremia CBC WITH PLATELETS & DIFFERENTIAL Routine 02/22/2024 7:50 AM CDT Bacteremia CBC WITH PLATELETS AND DIFFERENTIAL Routine 02/22/2024 7:50 AM CDT Bacteremia CREATININE Routine 02/22/2024 7:50 AM CDT Bacteremia CRP INFLAMMATION Routine 02/22/2024 7:50 AM CDT Bacteremia AST Routine 02/22/2024 7:50 AM CDT Bacteremia ALT Routine 02/22/2024 7:50 AM CDT Bacteremia CBC WITH PLATELETS & DIFFERENTIAL Routine 02/15/2024 9:00 AM CDT Bacteremia CBC WITH PLATELETS AND DIFFERENTIAL Routine 02/15/2024 9:00 AM CDT Bacteremia CREATININE Routine 02/15/2024 9:00 AM CDT Bacteremia CRP INFLAMMATION Routine 02/15/2024 9:00 AM CDT Bacteremia AST Routine 02/15/2024 9:00 AM CDT Bacteremia ALT Routine 02/15/2024 9:00 AM CDT Bacteremia CBC WITH PLATELETS & DIFFERENTIAL Routine 02/08/2024 8:15 AM CDT Bacteremia CBC WITH PLATELETS AND DIFFERENTIAL Routine 02/08/2024 8:15 AM CDT Bacteremia CREATININE Routine 02/08/2024 8:15 AM CDT Bacteremia CRP INFLAMMATION Routine 02/08/2024 8:15 AM CDT Bacteremia AST Routine 02/08/2024 8:15 AM CDT Bacteremia ALT Routine 02/08/2024 8:15 AM CDT Bacteremia XR CHEST PORT 1 VIEW STAT 02/05/2024 6:26 PM CDT PICC SINGLE LUMEN PLACEMENT Routine 02/05/2024 6:22 PM CDT MAGNESIUM Routine 02/05/2024 6:56 AM CDT POTASSIUM Routine 02/05/2024 6:56 AM CDT CREATININE Routine 02/05/2024 6:56 AM CDT PLATELET COUNT Routine 02/05/2024 6:56 AM CDT EXTRA PURPLE TOP TUBE Routine 02/04/2024 7:11 AM CDT EXTRA TUBE Routine 02/04/2024 7:11 AM CDT MAGNESIUM Routine 02/04/2024 7:11 AM CDT POTASSIUM Routine 02/04/2024 7:11 AM CDT CREATININE Routine 02/04/2024 7:11 AM CDT MAGNESIUM Routine 02/03/2024 5:45 AM CDT POTASSIUM Routine 02/03/2024 5:45 AM CDT CREATININE Routine 02/03/2024 5:45 AM CDT BASIC METABOLIC PANEL Routine 02/02/2024 6:39 AM CDT CBC WITH PLATELETS Routine 02/02/2024 6: 39 AM CDT MAGNESIUM Routine 02/02/2024 6:39 AM CDT BLOOD CULTURE STAT 02/01/2024 4:44 PM CDT POTASSIUM Routine 02/01/2024 4:44 PM CDT ECHO RUSH Routine 02/01/2024 1:42 PM CDT CBC WITH PLATELETS & DIFFERENTIAL Routine 02/01/2024 9:21 AM CDT T4 FREE Routine 02/01/2024 9:21 AM CDT CBC WITH PLATELETS AND DIFFERENTIAL Routine 02/01/2024 9:21 AM CDT MAGNESIUM Routine 02/01/2024 9:21 AM CDT TSH WITH FREE T4 REFLEX Routine 02/01/2024 9:21 AM CDT BASIC METABOLIC PANEL Routine 02/01/2024 9:21 AM CDT MAGNESIUM Routine 01/31/2024 6:53 AM CDT CBC WITH PLATELETS Routine 01/31/2024 6: 53 AM CDT BASIC METABOLIC PANEL Routine 01/31/2024 6:53 AM CDT EKG 12-LEAD, TRACING ONLY STAT 01/30/2024 9:33 PM CDT XR CHEST 2 VIEWS STAT 01/30/2024 8:34 PM CDT BLOOD CULTURE STAT 01/30/2024 8:30 PM CDT INFLUENZA A/B, RSV, & SARS-COV2 PCR STAT 01/30/2024 6:01 PM CDT CBC WITH PLATELETS & DIFFERENTIAL STAT 01/30/2024 4:28 PM CDT VERIGENE GP PANEL Routine 01/30/2024 4:2 8 PM CDT BLOOD CULTURE STAT 01/30/2024 4:28 PM CDT HEPATIC FUNCTION PANEL STAT 01/30/2024 4:28 PM CDT PROCALCITONIN STAT 01/30/2024 4:28 PM CDT CRP INFLAMMATION STAT 01/30/2024 4:28 PM CDT CBC WITH PLATELETS AND DIFFERENTIAL STAT 01/30/2024 4:28 PM CDT LACTIC ACID WHOLE BLOOD STAT 01/30/2024 4:28 PM CDT BASIC METABOLIC PANEL STAT 01/30/2024 4:28 PM CDT POTASSIUM (EXTERNAL RESULT) Routine 01/29/2024 6:40 PM CDT CREATININE (EXTERNAL RESULT) Routine 01/29/2024 6:40 PM CDT GLUCOSE (EXTERNAL RESULT) Routine 01/29/2024 6:40 PM CDT AST (EXTERNAL RESULT) Routine 01/29/2024 6:40 PM CDT ALT (EXTERNAL RESULT) Routine 01/29/2024 6:40 PM CDT LAB RESULT - HIM SCAN 01/29/2024 12:00 AM CDT XRAY IMAGING - HIM SCAN 01/23/2024 12:00 AM CDT LIPID PANEL (BFP) Routine 06/24/2020 Essential hypertension from Last 3 Months or Most Recently Relevant to Health Maintenance Results * ECHO COMPLETE (03/27/2024 8:14 AM CDT) [facility] Signature LVEF 65-70% CARDIOLOGY RESULTS Anatomical Region Laterality Modality Echocardiography 03/27/2024 7:27 AM CDT Narrative 03/27/2024 11:02 AM CDT [id number]^SRINI^JEET^[facility] Echocardiography Laboratory [address] [place] [address] Name: JESSICA RITCHIE : 1960 Study Date: 03/27/2024 07:27 AM Age: 63 yrs Gender: Male Patient Location: [facility] Reason For Study: Ascending aorta dilatation (H) Ordering Physician: JEET MILLIGAN Referring Physician: Seferino Hanley Performed By: Yuly Boswell RDCS BSA: 2.0 m2 Height: 69 in Weight: 175 lb HR: 61 BP: 139/75 mmHg Procedure Complete Echo Adult. Interpretation Summary 25mm Bioprosthetic AV with Pericardial patch of the aorta The gradients across the aortic valve are somewhat higher than we typically see with a bioprosthetic valve but they are less than last year. There is mild (1+) aortic regurgitation. On the short axis views the aortic regurgitation appears to be valvular rather than paravalvular. The aortic regurgitation is highly eccentric which makes it somewhat difficult to assess the degree of aortic regurgitation but it is most likely mild especially when viewed in the parasternal short axis views. The visual ejection fraction is 65-70%. Left ventricular systolic function is normal. Ascending aorta dilatation is present. The ascending aorta is the same dimension as it was last year [4.0 cm] Left Ventricle The left ventricle is normal in size. There is mild concentric left ventricular hypertrophy. The visual ejection fraction is 65-70%. Left ventricular systolic function is normal. Diastolic Doppler findings (E/E' ratio and/or other parameters) suggest left ventricular filling pressures are normal. Right Ventricle The right ventricle is normal in size and function. Atria Normal left atrial size. Right atrial size is normal. There is no color Doppler evidence of an atrial shunt. Mitral Valve The mitral valve leaflets are mildly thickened. There is mild (1+) mitral regurgitation. Tricuspid Valve There is mild (1+) tricuspid regurgitation. The right ventricular systolic pressure is approximated at 19.0 mmHg plus the right atrial pressure. Aortic Valve Thickened aortic valve leaflets. There is mild (1+) aortic regurgitation. There is an eccentric jet of aortic insufficiency directed against the septum. On the short axis views the aortic regurgitation appears to be valvular rather than paravalvular. The aortic regurgitation is highly eccentric which makes it somewhat difficult to assess the degree of aortic regurgitation but it is most likely mild especially when viewed in the parasternal short axis views. The peak AoV pressure gradient is 34.0 mmHg. The mean AoV pressure gradient is 17.5 mmHg. The gradients across the aortic valve are somewhat higher than we typically see with a bioprosthetic valve but they are less than last year. 25mm Bioprosthetic AV with Pericardial patch of the aorta. Pulmonic Valve There is trace pulmonic valvular regurgitation. Normal pulmonic valve velocity. Vessels The aortic root is normal size. Ascending aorta dilatation is present. IVC diameter <2.1 cm collapsing >50% with sniff suggests a normal RA pressure of 3 mmHg. Pericardium There is no pericardial effusion. Rhythm Sinus rhythm was noted. MMode/2D Measurements & Calculations IVSd: 1.3 cm LVIDd: 4.4 cm LVIDs: 2.1 cm LVPWd: 1.2 cm FS: 51.2 % LV mass(C)d: 198.8 grams LV mass(C)dI: 101.8 grams/m2 Ao root diam: 3.3 cm LA dimension: 3.9 cm asc Aorta Diam: 4.0 cm LA/Ao: 1.2 LVOT diam: 2.0 cm LVOT area: 3.0 cm2 Ao root diam index Ht(cm/m): 1.9 Ao root diam index BSA (cm/m2): 1.7 Asc Ao diam index BSA (cm/m2): 2.1 Asc Ao diam index Ht(cm/m): 2.3 LA Volume (BP): 57.7 ml LA Volume Index (BP): 29.6 ml/m2 RV Base: 3.5 cm RWT: 0.55 TAPSE: 1.8 cm Doppler Measurements & Calculations MV E max haseeb: 84.9 cm/sec MV A max haseeb: 69.2 cm/sec MV E/A: 1.2 MV dec time: 0.26 sec Ao V2 max: 293.1 cm/sec Ao max P.0 mmHg Ao V2 mean: 191.3 cm/sec Ao mean P.5 mmHg Ao V2 VTI: 59.7 cm THIERRY(I,D): 1.5 cm2 THIERRY(V,D): 1.5 cm2 AI P1/2t: 604.2 msec LV V1 max P.0 mmHg LV V1 max: 141.0 cm/sec LV V1 VTI: 29.8 cm SV(LVOT): 89.9 ml SI(LVOT): 46.1 ml/m2 PA acc time: 0.10 sec TR max haseeb: 217.7 cm/sec TR max P.0 mmHg AV Haseeb Ratio (DI): 0.48 THIERRY Index (cm2/m2): 0.77 E/E' av.3 Lateral E/e': 9.0 Medial E/e': 7.6 RV S Haseeb: 11.2 cm/sec Report approved by: Sheron Dunn 03/27/2024 11:02 AM Procedure Note Deepak Harrington MD - 03/27/2024 [id number]^SRINI^JEET^[facility] Echocardiography Laboratory [address] [place] [address] Name: JESSICA RITCHIE : 1960 Study Date: 03/27/2024 07:27 AM Age: 63 yrs Gender: Male Patient Location: [facility] Reason For Study: Ascending aorta dilatation (H) Ordering Physician: JEET MILLIGAN Referring Physician: Seferino Hanley Performed By: Yuly Boswell RDCS BSA: 2.0 m2 Height: 69 in Weight: 175 lb HR: 61 BP: 139/75 mmHg Procedure Complete Echo Adult. Interpretation Summary 25mm Bioprosthetic AV with Pericardial patch of the aorta The gradients across the aortic valve are somewhat higher than wetypically see with a bioprosthetic valve but they are less than last year. There is mild (1+) aortic regurgitation. On the short axis views the aortic regurgitation appears to be valvularrather than paravalvular. The aortic regurgitation is highly eccentric whichmakes it somewhat difficult to assess the degree of aortic regurgitation but it ismost likely mild especially when viewed in the parasternal short axis views. The visual ejection fraction is 65-70%. Left ventricular systolic function is normal. Ascending aorta dilatation is present. The ascending aorta is the same dimension as it was last year [4.0 cm] Left Ventricle The left ventricle is normal in size. There is mild concentric left ventricular hypertrophy. The visual ejection fraction is 65-70%. Left ventricular systolic function is normal. Diastolic Doppler findings(E/E' ratio and/or other parameters) suggest left ventricular filling pressuresare normal. Right Ventricle The right ventricle is normal in size and function. Atria Normal left atrial size. Right atrial size is normal. There is no color Doppler evidence of an atrial shunt. Mitral Valve The mitral valve leaflets are mildly thickened. There is mild (1+)mitral regurgitation. Tricuspid Valve There is mild (1+) tricuspid regurgitation. The right ventricularsystolic pressure is approximated at 19.0 mmHg plus the right atrial pressure. Aortic Valve Thickened aortic valve leaflets. There is mild (1+) aorticregurgitation. There is an eccentric jet of aortic insufficiency directed against theseptum. On the short axis views the aortic regurgitation appears to be valvularrather than paravalvular. The aortic regurgitation is highly eccentric whichmakes it somewhat difficult to assess the degree of aortic regurgitation but it ismost likely mild especially when viewed in the parasternal short axis views.The peak AoV pressure gradient is 34.0 mmHg. The mean AoV pressure gradientis 17.5 mmHg. The gradients across the aortic valve are somewhat higher thanwe typically see with a bioprosthetic valve but they are less than lastyear. 25mm Bioprosthetic AV with Pericardial patch of the aorta. Pulmonic Valve There is trace pulmonic valvular regurgitation. Normal pulmonic valve velocity. Vessels The aortic root is normal size. Ascending aorta dilatation is present.IVC diameter <2.1 cm collapsing >50% with sniff suggests a normal RA pressureof 3 mmHg. Pericardium There is no pericardial effusion. Rhythm Sinus rhythm was noted. MMode/2D Measurements & Calculations IVSd: 1.3 cm LVIDd: 4.4 cm LVIDs: 2.1 cm LVPWd: 1.2 cm FS: 51.2 % LV mass(C)d: 198.8 grams LV mass(C)dI: 101.8 grams/m2 Ao root diam: 3.3 cm LA dimension: 3.9 cm asc Aorta Diam: 4.0 cm LA/Ao: 1.2 LVOT diam: 2.0 cm LVOT area: 3.0 cm2 Ao root diam index Ht(cm/m): 1.9 Ao root diam index BSA (cm/m2): 1.7 Asc Ao diam index BSA (cm/m2): 2.1 Asc Ao diam index Ht(cm/m): 2.3 LA Volume (BP): 57.7 ml LA Volume Index (BP): 29.6 ml/m2 RV Base: 3.5 cm RWT: 0.55 TAPSE: 1.8 cm Doppler Measurements & Calculations MV E max haseeb: 84.9 cm/sec MV A max haseeb: 69.2 cm/sec MV E/A: 1.2 MV dec time: 0.26 sec Ao V2 max: 293.1 cm/sec Ao max P.0 mmHg Ao V2 mean: 191.3 cm/sec Ao mean P.5 mmHg Ao V2 VTI: 59.7 cm THIERRY(I,D): 1.5 cm2 THIERRY(V,D): 1.5 cm2 AI P1/2t: 604.2 msec LV V1 max P.0 mmHg LV V1 max: 141.0 cm/sec LV V1 VTI: 29.8 cm SV(LVOT): 89.9 ml SI(LVOT): 46.1 ml/m2 PA acc time: 0.10 sec TR max haseeb: 217.7 cm/sec TR max P.0 mmHg AV Haseeb Ratio (DI): 0.48 THIERRY Index (cm2/m2): 0.77 E/E' av.3 Lateral E/e': 9.0 Medial E/e': 7.6 RV S Haseeb: 11.2 cm/sec Report approved by: Sheron Dunn 03/27/2024 11:02 AM us Jeet Milligan MD CV ECHO ORDERABLES Edited Result - Final * CRP inflammation (03/20/2024 12:12 PM CDT) Only the most recent of7 resultswithin the time period is included. [facility] CRP Inflammation <3.00 <5.00 mg/L 03/20/20 12:31 PM CDT LABORATORY Blood STRUCTURE OF RIGHT UPPER LIMB / Unknown Venipuncture / Unknown 03/20/2024 12:12 PM CDT 03/20/2024 12:13 PM CDT us Lacey Chne MD LAB - BLOOD ORDERABLES Final Res ult LABORATORY [facility] Lab [address] [facility] Lab (1st floor, no room number) [place] [address], [facility] * Blood Culture Arm, Right (03/20/2024 12:12 PM CDT) Only the most recent of4 resultswithin the time period is included. [facility] Culture No Growth 03/25/2024 4:06 PM CDT [facility] Blood STRUCTURE OF RIGHT UPPER LIMB / Unknown Venipuncture / Unknown 03/20/2024 12:12 PM CDT 03/20/2024 12:13 PM CDT us Diamond Gerardo PA-C LAB - MICRO GENERAL ORDER PRICILLA Final Result [facility]ORAT[facility] Inf. Diseases Diag. Lab [address] [facility], [address] [place] [address] * CBC with platelets and differential (03/07/2024 8:05 AM CDT) Only the most recent of7 resultswithin the time period is included. WBC Count 6.7 4.0 - 11.0 10e3/uL 03/07/2024 10:21 AM CDT [facility]ATORY RBC Count 4.70 4.40 - 5.90 10e6/uL 03/07/2024 10:21 AM CDT [facility] Hemoglobin 14.1 13.3 - 17.7 g/dL 03/07/2024 10:21 AM CDT [facility] Hematocrit 41.8 40.0 - 53.0 % 03/07/2024 10:21 AM CDT [facility] MCV 89 78 - 100 fL 03/07/2024 10:21 AM CDT [facility] MCH 30.0 26.5 - 33.0 pg 03/07/2024 10:21 AM CDT [facility] MCHC 33.7 31.5 - 36.5 g/dL 03/07/2024 10:21 AM CDT [facility] RDW 13.3 10.0 - 15.0 % 03/07/2024 10:21 AM CDT [facility] Platelet Count 209 150 - 450 10e3/uL 03/07/2024 10:21 AM CDT [facility] % Neutrophils 70 % 03/07/2024 10:21 AM CDT [facility] % Lymphocytes 18 % 03/07/2024 10:21 AM CDT [facility] % Monocytes 8 % 03/07/2024 10:21 AM CDT [facility] % Eosinophils 4 % 03/07/2024 10:21 AM CDT [facility] % Basophils 0 % 03/07/2024 10:21 AM CDT [facility] % Immature Granulocytes 0 % 03/07/2024 10:21 AM CDT [facility] NRBCs per 100 WBC 0 <1 /100 024 10:21 AM CDT [facility] Absolute Neutrophils 4.7 1.6 - 8.3 10e3/uL 03/07/2024 10:21 AM CDT [facility] Absolute Lymphocytes 1.2 0.8 - 5.3 10e3/uL 03/07/2024 10:21 AM CDT [facility] Absolute Monocytes 0.6 0.0 - 1.3 10e3/uL 03/07/2024 10:21 AM CDT [facility] Absolute Eosinophils 0.2 0.0 - 0.7 10e3/uL 03/07/2024 10:21 AM CDT [facility] Absolute Basophils 0.0 0.0 - 0.2 10e3/uL 03/07/2024 10:21 AM CDT [facility] Absolute Immature Granulocytes 0.0 <=0.4 10e3/uL 03/07/2024 10:21 AM CDT [facility] Absolute NRBCs 0.0 10e3/uL 03/07/2024 10:21 AM CDT [facility] Blood CENTRAL VENOUS CATHETER / Unknown Client Draw / Unknown 03/07/2024 8:05 AM CDT 03/07/2024 10:16 AM CDT us Shaheeni Gustavo BRIGHT LAB - BLOOD ORDERABLES Final Res ult LABORATORY [facility] [address] Lab (1st floor, no room number) [place] [address], [facility] * Creatinine (03/07/2024 8:05 AM CDT) Only the most recent of8 resultswithin the time period is included. Creatinine 1.03 0.67 - 1.17 mg/dL 03/07/2024 10:45 AM CDT [facility] GFR Estimate 82 >60 mL/min/1.7 3m2 03/07/2024 10:45 AM CDT [facility] Comment:eGFR calculated usin 2020 CKD-EPI equation. Blood CENTRAL VENOUS CATHETER / Unknown Client Draw / Unknown 03/07/2024 8:05 AM CDT 03/07/2024 10:16 AM CDT Lacey Chen MD LAB - BLOOD ORDERABLES Final Res ult Performing Organization Address [facility] Co de Phone Number [facility] Lab [address] Lab (1st floor, no room number) [place] [address] * AST (03/07/2024 8:05 AM CDT) Only the most recent of5 resultswithin the time period is included. AST 29 0 - 45 U/L 03/07/2024 10:45 AM CDT [facility] Blood CENTRAL VENOUS CATHETER / Unknown Client Draw / Unknown 03/07/2024 8:05 AM CDT 03/07/2024 10:16 AM CDT us Lacey Chen MD LAB - BLOOD ORDERABLES Final Res ult Performing Organization Address [facility] Co de Phone Number [facility] [address] Lab (1st floor, no room number) [place] [address] * ALT (03/07/2024 8:05 AM CDT) Only the most recent of5 resultswithin the time period is included. ALT 25 0 - 70 U/L 03/07/2024 10:45 AM CDT [facility] Blood CENTRAL VENOUS CATHETER / Unknown Client Draw / Unknown 03/07/2024 8:05 AM CDT 03/07/2024 10:16 AM CDT Lacey Chen MD LAB - BLOOD ORDERABLES Final Res ult Performing Organization Address City/[facility]/ZIP Co de Phone Number [facility] [address] Lab (1st floor, no room number) [place] [address], [facility] * XR Chest Port 1 View (02/05/2024 6:26 PM CDT) Anatomical Region Laterality Modality Chest Digital Radiogra phy 02/05/2024 6:26 PM CDT Impressions 02/05/2024 7:09 PM CDT IMPRESSION: Right PICC line tip at the cavoatrial level. No acute airspace disease. Normal cardiac silhouette. Narrative 02/05/2024 7:09 PM CDT EXAM: XR CHEST PORT 1 VIEW LOCATION: [facility] DATE: 02/05/2024 INDICATION: RN placed PICC, verify tip placement. COMPARISON: 01/30/2024. Procedure Note Patrick Garcia MD - 02/05/2024 EXAM: XR CHEST PORT 1 VIEW LOCATION: [facility] DATE: 02/05/2024 INDICATION: RN placed PICC, verify tip placement. COMPARISON: 01/30/2024. IMPRESSION: Right PICC line tip at the cavoatrial level. No acute airspacedisease. Normal cardiac silhouette. Danyell Barrett MD IMG DIAGNOSTIC IMAGING ORDERABLE S Final Result * Single Lumen PICC Placement (02/05/2024 6:22 PM CDT) Narrative Kenya Becker RN - 02/05/2024 6:22 PM CDT Kenya Becker RN ? 02/05/2024 ??6:43 PM [facility] Single Lumen PICC Placement Date/Time: 02/05/2024 6:22 PM Performed by: Kenya Becker RN Authorized by: Danyell Barrett MD ??Indications: vascular access UNIVERSAL PROTOCOL Site Marked: Yes Prior Images Obtained and Reviewed: ??Yes Required items: Required blood products, implants, devices and special equipment available ?? Patient identity confirmed: ??Verbally with patient, arm band and hospital-assigned identification number NA - No sedation, light sedation, or local anesthesia Confirmation Checklist: ??Patient's identity using two indicators, relevant allergies, procedure was appropriate and matched the consent or emergent situation and correct equipment/implants were available Time out: Immediately prior to the procedure a time out was called ?? [place] Protocol: the Joint Commission [place] Protocol was followed ?? Preparation: Patient was prepped and draped in usual sterile fashion ?? ANESTHESIA Local Anesthetic: ??Lidocaine 1% without epinephrine Anesthetic Total (mL): ??1 SEDATION Patient Sedated: No ?? Skin prep agent: skin prep agent completely dried prior to procedure Sterile barriers: maximum sterile barriers were used: cap, mask, sterile gown, sterile gloves, and large sterile sheet Hand hygiene: hand hygiene performed prior to central venous catheter insertion Type of line used: PICC Catheter type: single lumen Lumen type: power PICC and valved Catheter size: 4 Fr Brand: [employer] Lot number: [id number] Placement method: MST and venipuncture Number of attempts: 1 Difficulty threading catheter: no Successful placement: yes Orientation: right Location: basilic vein Tip Location: SVC Arm circumference: adults 10 cm Extremity circumference: 30 Visible catheter length: 4 Total catheter length: 52 Internal Lumen Volume: 48 mL Dressing and securement: chlorhexidine patch applied, site cleansed, subcutaneous anchor securement system, transparent securement dressing, transparent dressing, sterile dressing applied, securement device and line secured Post procedure assessment: placement verified by 3CG technology, blood return through all ports and placement verified by x-ray PROCEDURE Patient Tolerance: ??Patient tolerated the procedure well with no immediate complicationsDescribe Procedure: Nursing note Successfully placed single lumen PICC on the right basilic vein on one attempt with good blood return noted. Tip placement is in the low SVC/CAJ, confirmed with 3CG Sherlock tip confirmation system. Pt bedside nurse notified that PICC is ready for use immediately. Bedside nurse asked if CXR needed, the clinician told her no, it is not necessary to expose pt to radiation when 3 CG Sherlock tip confirmation system was used to confirm the tip location. Pt bedside RN went and discussed with the floor charge nurse, and came back and told the clinician that charge said CXR is needed. The clinician explained to both charge nurse and pt bedside nurse why CXR is not necessary on this case. Strip image taken after the procedure was placed on the pt folder. Disposal: sharps and needle count correct at the end of procedure, needles and guidewire disposed in sharps container Danyell Barrett MD PROCEDURE/MINOR SURGICAL ORDERAB LES Edited Result - Final * Potassium (02/05/2024 6:56 AM CDT) Only the most recent of4 resultswithin the time period is included. Potassium 3.9 3.4 - 5.3 mmol/L 02/05/2024 7:24 AM CDT [facility] Blood STRUCTURE OF RIGHT HAND / Unknown Venipuncture / Unknown 02/05/2024 6:56 AM CDT 02/05/2024 7:02 AM CDT Osmar Triplett MD LAB - BLOOD ORDERABLES Final Res ult LABORATORY [facility] [address] Lab (1st floor, no room number) [address] * Platelet count (02/05/2024 6:56 AM CDT) Platelet Count 296 150 - 450 10e3/uL 02/05/2024 7:05 AM CDT [facility] Blood STRUCTURE OF RIGHT HAND / Unknown Venipuncture / Unknown 02/05/2024 6:56 AM CDT 02/05/2024 7:02 AM CDT Alan Alvarez MD LAB - BLOOD ORDERABLES Final Res ult Performing Organization Address [facility]/ZIP Co de Phone Number [facility] [address] Lab (1st floor, no room number) [address] * Magnesium (02/05/2024 6:56 AM CDT) Only the most recent of6 resultswithin the time period is included. Magnesium 2.3 1.7 - 2.3 mg/dL 02/05/2024 7:24 AM CDT [facility] Blood STRUCTURE OF RIGHT HAND / Unknown Venipuncture / Unknown 02/05/2024 6:56 AM CDT 02/05/2024 7:02 AM CDT us Osmar Triplett MD LAB - BLOOD ORDERABLES Final Res ult LABORATORY [facility] [address] Lab (1st floor, no room number) [place] [address] * Extra Purple Top Tube (02/04/2024 7:11 AM CDT) Hold Specimen JIC 02/04/2024 8:31 AM CDT LABORATORY Blood BLOOD SPECIMEN / Unknown Venipuncture / Unknown 02/04/2024 7:11 AM CDT 02/04/2024 7:18 AM CDT us Alan Alvarez MD LAB - BLOOD ORDERABLES Final Res ult Performing Organization Address [facility]/ZIP Co de Phone Number LABORATORY [facility] [address] Lab (1st floor, no room number) [place] [phone] * (ABNORMAL) Basic metabolic panel (02/02/2024 6:39 AM CDT) Only the most recent of4 resultswithin the time period is included. Sodium 137 135 - 145 mmol/L 02/02/2024 7:49 AM CDT [facility] Potassium 4.1 3.4 - 5.3 mmol/L 02/02/2024 7:49 AM CDT LABORATORY Chloride 102 98 - 107 mmol/L 02/02/2024 7:49 AM CDT LABORATORY Carbon Dioxide (CO2) 24 22 - 29 mmol/L 02/02/2024 7:49 AM CDT [facility] Anion Gap 11 7 - 15 mmol/L 02/02/2024 7:49 AM CDT [facility] Urea Nitrogen 12.3 8.0 - 23.0 mg/dL 02/02/2024 7:49 AM CDT [facility] Creatinine 1.05 0.67 - 1.17 mg/dL 02/02/2024 7:49 AM CDT [facility] GFR Estimate 80 >60 mL/min/1.7 3m2 02/02/2024 7:49 AM CDT [facility] Comment:eGFR calculated usin 2020 CKD-EPI equation. Calcium 8.7(L) 8.8 - 10.4 mg/dL 02/02/2024 7:49 AM CDT [facility] Comment:Reference intervals for this test were updated on 12/26/2023 to reflect our healthy population more accurately. There may be differences in the flagging of prior results with similar values performed with this method. Those prior results can be interpreted in the context of the updated reference intervals. Glucose 96 70 - 99 mg/dL 02/02/2024 7:49 AM CDT [facility] Blood STRUCTURE OF RIGHT HAND / Unknown Venipuncture / Unknown 02/02/2024 6:39 AM CDT 02/02/2024 7:23 AM CDT us Osmar Triplett MD LAB - BLOOD ORDERABLES Final Res ult RH LABORATORY [facility] [address] [facility] Lab (1st floor, no room number) [place] [address], [facility] * (ABNORMAL) CBC with platelets (02/02/2024 6:39 AM CDT) Only the most recent of2 resultswithin the time period is included. WBC Count 6.0 4.0 - 11.0 10e3/uL 02/02/2024 7:27 AM CDT [facility] RBC Count 3.91(L) 4.40 - 5.90 10e6/uL 02/02/2024 7:27 AM CDT [facility] Hemoglobin 11.4(L) 13.3 - 17.7 g/dL 02/02/2024 7:27 AM CDT [facility] Hematocrit 35.0(L) 40.0 - 53.0 % 02/02/2024 7:27 AM CDT [facility] MCV 90 78 - 100 fL 02/02/2024 7:27 AM CDT [facility] MCH 29.2 26.5 - 33.0 pg 02/02/2024 7:27 AM CDT [facility] MCHC 32.6 31.5 - 36.5 g/dL 02/02/2024 7:27 AM CDT [facility] RDW 12.3 10.0 - 15.0 % 02/02/2024 7:27 AM CDT [facility] Platelet Count 241 150 - 450 10e3/uL 02/02/2024 7:27 AM CDT LABORATORY Blood STRUCTURE OF RIGHT HAND / Unknown Venipuncture / Unknown 02/02/2024 6:39 AM CDT 02/02/2024 7:23 AM CDT us Osmar Triplett MD LAB - BLOOD ORDERABLES Final Res ult LABORATORY [facility] [address] [facility] Lab (1st floor, no room number) [place] [address], [facility] * ECHO RUSH (02/01/2024 1:42 PM CDT) LVEF 60-65% CARDIOLOGY RESULTS Anatomical Region Laterality Modality Echocardiography 02/01/2024 11:5 3 AM CDT Narrative 02/01/2024 4:16 PM CDT [id number] [facility], [facility] [id number]^ARAVIND^[facility] Echocardiography Laboratory [address] [place] [address] Name: JESSICA RITCHIE : 1960 Study Date: 02/01/2024 11:53 AM Age: 63 yrs Gender: Male Patient Location: [facility] Reason For Study: Endocarditis Ordering Physician: ALAN ALVAREZ Performed By: MONET Coto BSA: 2.0 m2 Height: 69 in Weight: 175 lb HR: 83 BP: 133/81 mmHg Procedure Complete RUSH Adult. 3D image acquisition, reconstruction, and real-time interpretation was performed. RUSH Probe serial #[id number] ([id number]) was used during the procedure. The heart rate, respiratory rate and response to care were monitored throughout the procedure with the assistance of the nurse. Interpretation Summary Status post surgical bioprosthetic aortic valve replacement with a 25-mm tissue prosthesis for bicuspid aortic valve disease, 2009. No evidence of prosthetic or [place] valve endocarditis. 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 No periprosthetic regurgitation. Trace to mild prosthetic regurgitation. The prosthetic valve opens well. Mean systolic gradient 24 mmHg. Normal left ventricular systolic function. Estimated LVEF 60-65%. Normal right ventricular size and systolic function. Bubble study negative for inter-atrial shunt. RUSH I determined this patient to be an appropriate candidate for the planned sedation and procedure and have reassessed the patient immediately prior to sedation and procedure. Total sedation time: 15 minutes of continuous bedside 1:1 monitoring. Versed (3mg) was given intravenously. Fentanyl (50mcg) was given intravenously. 3D image acquisition, reconstruction, and real-time interpretation was performed. Prior to the exam, the oral cavity was checked and no overcrowding was noted. Consent to the procedure was obtained prior to sedation. The transesophageal probe was passed without difficulty. There were no complications associated with this procedure. Left Ventricle The left ventricle is normal in size. There is normal left ventricular wall thickness. Left ventricular systolic function is normal. The visual ejection fraction is 60-65%. Right Ventricle The right ventricle is normal in size and function. Atria Normal left atrial size. No left atrial mass or thrombus visualized. Right atrial size is normal. No evidence of right atrial mass/thrombus. A contrast injection (Bubble Study) was performed that was negative for flow across the interatrial septum. There is no atrial shunt seen. The left atrial appendage was well visualized and free of thrombus. Mitral Valve The mitral valve leaflets appear normal. There is no evidence of stenosis, fluttering, or prolapse. There is no vegetation seen on the mitral valve. There is mild (1+) mitral regurgitation. Tricuspid Valve Normal tricuspid valve. There is no vegetation on the tricuspid valve. There is trace tricuspid regurgitation. Aortic Valve There is a bioprosthetic aortic valve. The prosthetic aortic valve is well- seated. The prosthetic aortic valve appears to open well. Mean systolic gradient 24 mmHg. This degree of valvular regurgitation is within normal limits. Pulmonic Valve Normal pulmonic valve. There is no vegetation on the pulmonic valve. There is trace pulmonic valvular regurgitation. Vessels Normal size aorta. Normal size ascending aorta. Normal ascending, transverse (arch), and descending aorta. Normal pulmonary venous drainage. Pericardial/Pleural There is no pericardial effusion. Rhythm Sinus rhythm was noted. Doppler Measurements & Calculations Ao V2 max: 328.3 cm/sec Ao max P.0 mmHg Ao V2 mean: 225.8 cm/sec Ao mean P.7 mmHg Ao V2 VTI: 60.4 cm Report approved by: Dr Taina Moreno 02/01/2024 04:16 PM Procedure Note Taina Ignacio MD - 02/01/2024 [id number]^ARAVIND^[facility] Echocardi[facility] Laboratory [address] [place] [address] Name: TERRANCE JESSICA W : 1960 Study Date: 02/01/2024 11:53 AM Age: 63 yrs Gender: Male Patient Location: [facility] Reason For Study: Endocarditis Ordering Physician: ALAN ALVAREZ Performed By: MONET Coto BSA: 2.0 m2 Height: 69 in Weight: 175 lb HR: 83 BP: 133/81 mmHg Procedure Complete RUSH Adult. 3D image acquisition, reconstruction, and real-time interpretation was performed. RUSH Probe serial #[id number] ([id number]) was used duringthe procedure. The heart rate, respiratory rate and response to care were monitored throughout the procedure with the assistance of the nurse. Interpretation Summary Status post surgical bioprosthetic aortic valve replacement with a 25-mm tissue prosthesis for bicuspid aortic valve disease, 2009. No evidence of prosthetic or [place] valve endocarditis. 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 No periprostheticregurgitation. Trace to mild prosthetic regurgitation. The prosthetic valve opens well. Mean systolic gradient 24 mmHg. Normal left ventricular systolic function. Estimated LVEF 60-65%. Normal right ventricular size and systolic function. Bubble study negative for inter-atrial shunt. RUSH I determined this patient to be an appropriate candidate for the planned sedation and procedure and have reassessed the patient immediately priorto sedation and procedure. Total sedation time: 15 minutes of continuousbedside 1:1 monitoring. Versed (3mg) was given intravenously. Fentanyl (50mcg)was given intravenously. 3D image acquisition, reconstruction, and real-time interpretation was performed. Prior to the exam, the oral cavity waschecked and no overcrowding was noted. Consent to the procedure was obtained priorto sedation. The transesophageal probe was passed without difficulty. Therewere no complications associated with this procedure. Left Ventricle The left ventricle is normal in size. There is normal left ventricularwall thickness. Left ventricular systolic function is normal. The visualejection fraction is 60-65%. Right Ventricle The right ventricle is normal in size and function. Atria Normal left atrial size. No left atrial mass or thrombus visualized.Right atrial size is normal. No evidence of right atrial mass/thrombus. Acontrast injection (Bubble Study) was performed that was negative for flow acrossthe interatrial septum. There is no atrial shunt seen. The left atrialappendage was well visualized and free of thrombus. Mitral Valve The mitral valve leaflets appear normal. There is no evidence ofstenosis, fluttering, or prolapse. There is no vegetation seen on the mitralvalve. There is mild (1+) mitral regurgitation. Tricuspid Valve Normal tricuspid valve. There is no vegetation on the tricuspid valve.There is trace tricuspid regurgitation. Aortic Valve There is a bioprosthetic aortic valve. The prosthetic aortic valve iswell- seated. The prosthetic aortic valve appears to open well. Mean systolic gradient 24 mmHg. This degree of valvular regurgitation is within normal limits. Pulmonic Valve Normal pulmonic valve. There is no vegetation on the pulmonic valve. Thereis trace pulmonic valvular regurgitation. Vessels Normal size aorta. Normal size ascending aorta. Normal ascending,transverse (arch), and descending aorta. Normal pulmonary venous drainage. Pericardial/Pleural There is no pericardial effusion. Rhythm Sinus rhythm was noted. Doppler Measurements & Calculations Ao V2 max: 328.3 cm/sec Ao max P.0 mmHg Ao V2 mean: 225.8 cm/sec Ao mean P.7 mmHg Ao V2 VTI: 60.4 cm Report approved by: Dr Taina Moreno 02/01/2024 04:16 PM Alan Alvarez MD CV ECHO ORDERABLES Edited Result - Final * (ABNORMAL) TSH with free T4 reflex (02/01/2024 9:21 AM CDT) TSH 4.50(H) 0.30 - 4.20 uIU/mL 02/01/2024 10:06 AM CDT [facility] Blood STRUCTURE OF LEFT HAND / Unknown Venipuncture / Unknown 02/01/2024 9:21 AM CDT 02/01/2024 9:36 AM CDT Key Penn MD LAB - BLOOD ORDERABLES Final Result Performing Organization Address City/[facility]/ZIP Co de Phone Number [facility] [email or web address] Lab (1st floor, no room number) [place] [address] * T4 free (02/01/2024 9:21 AM CDT) Free T4 1.12 0.90 - 1.70 ng/dL 02/01/2024 11:10 AM CDT [facility] Blood STRUCTURE OF LEFT HAND / Unknown Venipuncture / Unknown 02/01/2024 9:21 AM CDT 02/01/2024 9:36 AM CDT us Key Penn MD LAB - BLOOD ORDERABLES Final Result [facility] Lab [address] Lab (1st floor, no room number) [place] [address] * EKG 12-lead, tracing only (01/30/2024 9:33 PM CDT) Systolic Blood Pressure mmHg RADIOLOGY RESULTS Diastolic Blood Pressure mmHg RADIOLOGY RESULTS Ventricular Rate 75 BPM RAD IOLOGY RESULTS Atrial Rate 75 BPM RADIOLOG Y RESULTS NC Interval 180 ms RADIOLOG Y RESULTS QRS Duration 90 ms RADIOLO GY RESULTS QT 372 ms RADIOLOGY RESULTS QTc 415 ms RADIOLOGY RESULTS P Carroll 34 degrees RADIOLOGY RESULTS R AXIS 43 degrees RADIOLOGY RESULTS T Carroll 51 degrees RADIOLOGY RESULTS Interpretation ECG Sinus rhythm Minimal voltage criteria for LVH, may be normal variant ( Sokolow-Tse ) Borderline ECG When compared with ECG of 18-Oct-2022 10:50, No significant change was found Unconfirmed report - interpretation of this ECG is computer generated - see medical record for final interpretation Confirmed by - EMERGENCY ROOM, PHYSICIAN ([id number]), senior technical editor FARZANA GOLDBERG ([id number]) on 01/31/2024 6:48:46 AM RADIOLOGY RESULTS 01/30/2024 9:33 PM CDT 01/31/2024 6:48 AM CDT us Alan Alvarez MD ECG ORDERABLES Edited Result - Final RADIOLOGY RESULTS * Chest XR, PA & LAT (01/30/2024 8:34 PM CDT) Anatomical Region Laterality Modality Chest Computed Radiogr aphy 01/30/2024 8:34 PM CDT Impressions 01/30/2024 9:15 PM CDT IMPRESSION: Heart size is normal. Aortic valve replacement. Lungs are clear bilaterally. Mediastinum and visualized bony structures are unremarkable. Narrative 01/30/2024 9:15 PM CDT EXAM: XR CHEST 2 VIEWS LOCATION: [facility] DATE: 01/30/2024 INDICATION: Fever, chills. COMPARISON: 07/16/2009 Procedure Note Sunil Richardson MD - 01/30/2024 EXAM: XR CHEST 2 VIEWS LOCATION: [facility] DATE: 01/30/2024 INDICATION: Fever, chills. COMPARISON: 07/16/2009 IMPRESSION: Heart size is normal. Aortic valve replacement. Lungs areclear bilaterally. Mediastinum and visualized bony structures areunremarkable. Joselito Mar MD IMG DIAGNOSTIC IMAGING ORDERABLE S Final Result * Symptomatic Influenza A/B, RSV, & SARS-CoV2 PCR (COVID-19) Nasopharyngeal (01/30/2024 6:01 PM CDT) Influenza A PCR Negative Negative 01/30/2024 7:01 PM CDT [facility] Influenza B PCR Negative Negative 01/30/2024 7:01 PM CDT [facility] RSV PCR Negative Negative 01/30/2024 7:01 PM CDT [facility] SARS CoV2 PCR Negative Negative 01/30/2024 7:01 PM CDT [facility] Comment:NEGATIVE: SARS-CoV-2 (COVID-19) RNA not detected, presumed negative. Swab NASOPHARYNGEAL STRUCTURE / Unknown Non-blood Collection / Unknown 01/30/2024 6:01 PM CDT 01/30/2024 6:23 PM CDT Narrative [facility] - 01/30/2024 7:01 PM CDT Testing was performed using the Xpert Xpress CoV2/Flu/RSV Assay on the Are [employer] Human GeneXpert Instrument. This test should be ordered for the detection of SARS-CoV-2, influenza, and RSV viruses in individuals who meet clinical and/or epidemiological criteria. Test performance is unknown in asymptomatic patients. This test is for in vitro diagnostic use under the FDA EUA for laboratories certified under CLIA to perform high or moderate complexity testing. This test has not been FDA cleared or approved. A negative result does not rule out the presence of PCR inhibitors in the specimen or target RNA in concentration below the limit of detection for the assay. If only one viral target is positive but coinfection with multiple targets is suspected, the sample should be re-tested with another FDA cleared, approved, or authorized test, if coinfection would change clinical management. This test was validated by the [facility] [employer]. These laboratories are certified under the Clinical Laboratory Improvement Amendments of 1988 (CLIA-88) as qualified to perform high complexity laboratory testing. us Joselito Mar MD LAB - MICRO GENERAL ORDERABLES F inal Result [facility] Lab [address] Lab (1st floor, no room number) [place] [address], [facility] * (ABNORMAL) Verigene GP Panel (01/30/2024 4:28 PM CDT) Staphylococcus species Not Detected Not Detected 01/31/2024 2:17 PM CDT [facility] Staphylococcus aureus Not Detected Not Detected 01/31/2024 2:17 PM CDT [facility] Staphylococcus epidermidis Not Detected Not Detected 01/31/2024 2:17 PM CDT [facility] Staphylococcus lugdunensis Not Detected Not Detected 01/31/2024 2:17 PM CDT [facility] Enterococcus faecalis Not Detected Not Detected 01/31/2024 2:17 PM CDT [facility] Enterococcus faecium Not Detected Not Detected 01/31/2024 2:17 PM CDT [facility] Streptococcus species Detected(A) Not Detected 01/31/2024 2:17 PM CDT [facility] Comment:Positive for Strepto coccus species other than Streptococcus pneumococcus, Streptococcus anginosus group, Streptococcus pyogenes and Streptococcus agalactiae. Performed using Pocketigene multiplex nucleic acid test. Final identification and antimicrobial susceptibility testing will be verified by standard methods. Streptococcus agalactiae Not Detected Not Detected 01/31/2024 2:17 PM CDT [facility] Streptococcus anginosus group Not Detected Not Detected 01/31/2024 2:17 PM CDT [facility] Streptococcus pneumoniae Not Detected Not Detected 01/31/2024 2:17 PM CDT [facility] Streptococcus pyogenes Not Detected Not Detected 01/31/2024 2:17 PM CDT [facility] Listeria species Not Detected Not Detected 01/31/2024 2:17 PM CDT [facility] Blood STRUCTURE OF RIGHT UPPER LIMB / Unknown Venipuncture / Unknown 01/30/2024 4:28 PM CDT 01/30/2024 5:06 PM CDT Narrative [facility] - 01/31/2024 2:17 PM CDT Specimen tested with Verigene multiplex, gram-positive blood culture nucleic acid test for the following targets: Staphylococcus aureus, Staphylococcus epidermidis, Staphylococcus lugdunensis, other Staphylococcus species, Enterococcus faecalis, Enterococcus faecium, Streptococcus species, Streptococcus agalactiae, Streptococcus anginosus group, Streptococcus pneumoniae, Streptococcus pyogenes, Listeria species, mecA (methicillin resistance), and Juan David/vanB (vancomycin resistance). us Tito Waller MD LAB - MICRO GENERAL ORDE VITALIY Final Result [facility] Inf. Diseases Diag. Lab [address] [facility], [address] [place] [address] * (ABNORMAL) Procalcitonin (01/30/2024 4:28 PM CDT) Procalcitonin 0.85(H) <0.50 ng/mL 01/30/2024 6:30 PM CDT LABORATORY Comment: Interpretation and Recommendations <0.5 ng/mL: Systemic bacterial infection unlikely. Local bacterial infection is possible. 0.5-1.99 ng/mL: Systemic bacterial infection possible, but various other conditions are known to induce PCT as well. >=2.00 ng/mL: Systemic bacterial infection likely, unless other causes are known. Decision to start antibiotics should not be based on procalcitonin level alone. See Procalcitonin Guidance document for more details. [email or web address] Factors that may affect PCT levels (not all-inclusive): ?? - Increased PCT level ?Severe trauma/carrillo ?Invasive surgery ?Cooling therapy after cardiac arrest/surgery ?Treatment with agents which stimulate cytokines ?Acute kidney injury ?Chronic kidney disease and end stage renal disease ?Acute graft vs host disease ?Non-specific shock causing decreased organ perfusion and/or infarction ?? - Normal or unchanged PCT level ?Early in infections (if low and infection is suspected, repeating in 6-12 hours is recommended) ?Chronic infections (endocarditis, osteomyelitis, prosthetic device/graft infections) ?Localized infections (cellulitis, wound infections, intra-abdominal abscess) Note: PCT has not been extensively studied in /, pediatrics, severe immunosuppression, and cystic fibrosis. Blood STRUCTURE OF RIGHT UPPER LIMB / Unknown Venipuncture / Unknown 01/30/2024 4:28 PM CDT 01/30/2024 5:01 PM CDT Joselito Mar MD LAB - BLOOD ORDERABLES Final Res ult Performing Organization Address [facility] Co de Phone Number [facility] [email or web address] Lab (1st floor, no room number) [address] * Lactic acid whole blood (01/30/2024 4:28 PM CDT) Lactic Acid 1.1 0.7 - 2.0 mmol/L 01/30/2024 5:11 PM CDT LABORATORY Blood STRUCTURE OF RIGHT UPPER LIMB / Unknown Venipuncture / Unknown 01/30/2024 4:28 PM CDT 01/30/2024 5:01 PM CDT Tito Waller MD LAB - BLOOD ORDERABLES F inal Result Performing Organization Address [facility]/ZIP Co de Phone Number [facility] Lab [email or web address] Lab (1st floor, no room number) [address] * (ABNORMAL) Hepatic function panel (01/30/2024 4:28 PM CDT) Protein Total 6.4 6.4 - 8.3 g/dL 01/30/2024 8:56 PM CDT LABORATORY Albumin 3.4(L) 3.5 - 5.2 g/dL 01/30/2024 8:56 PM CDT LABORATORY Bilirubin Total 0.5 <=1.2 mg/dL 01/30/2024 8:56 PM CDT LABORATORY Alkaline Phosphatase 66 40 - 150 U/L 01/30/2024 8:56 PM CDT [facility] LABORATORY AST 44 0 - 45 U/L 01/30/2024 8:56 PM CDT LABORATORY ALT 64 0 - 70 U/L 01/30/2024 8:56 PM CDT LABORATORY Bilirubin Direct <0.20 0.00 - 0.30 mg/dL 01/30/2024 8:56 PM CDT LABORATORY Blood STRUCTURE OF RIGHT UPPER LIMB / Unknown Venipuncture / Unknown 01/30/2024 4:28 PM CDT 01/30/2024 5:01 PM CDT us Joselito Mar MD LAB - BLOOD ORDERABLES Final Res ult LABORATORY [facility] [address] [facility] Lab (1st floor, no room number) [place] [address], [facility] * Potassium (External Result) (01/29/2024 6:40 PM CDT) Potassium (External) 4.3 3.6 - 5.1 mmol/L [facility] Blood 01/29/2024 6:[address] [facility] - 01/29/2024 6:40 PM CDT [facility]-External Lab Results us Provider Outside LAB - HIM EXTERNAL RESULT Edite d Result - Final [facility] [address] [place] [address], [facility] [phone] * (ABNORMAL) Glucose (External Result) (01/29/2024 6:40 PM CDT) Glucose (External) 129(A) 60 - 115 mg/dL [facility] Blood 01/29/2024 6:40 PM CDT [facility] - 01/29/2024 6:40 PM CDT [facility]-External Lab Results us Provider Outside LAB - [facility] EXTERNAL RESULT Final Result Performing Organization Address [facility]/ZIP Co de Phone Number [address] [phone] * Creatinine (External Result) (01/29/2024 6:40 PM CDT) Creatinine (External) 1.0 0.5 - 1.5 mg/dL [facility] Blood 01/29/2024 6:40 PM CDT [facility] - 01/29/2024 6:40 PM CDT [facility]-External Lab Results us Provider Outside LAB - [facility] EXTERNAL RESULT Final Result Performing Organization Address [facility]/ZIP Co de Phone Number [address] [address], [facility] [phone] * (ABNORMAL) AST (External Result) (01/29/2024 6:40 PM CDT) AST (External) 75(A) 12 - 35 U/L [facility] Blood 01/29/2024 6:40 PM CDT [facility] - 01/29/2024 6:40 PM CDT [facility]-External Lab Results us Provider Outside LAB - HIM EXTERNAL RESULT Final Result Performing Organization Address [facility]/ZIP Co de Phone Number [address] [address], [facility] [phone] * (ABNORMAL) ALT (External Result) (01/29/2024 6:40 PM CDT) ALT (External) 73(A) 4 - 50 U/L [facility] Blood 01/29/2024 6:[address] [facility] - 01/29/2024 6:40 PM CDT [facility]-External Lab Results us Provider Outside LAB - HIM EXTERNAL RESULT Final Result [facility] [address] [place] [address], [facility] [phone] * Lab Result - HIM Scan (01/29/2024 12:00 AM CDT) 01/29/2024 us Provider Outside NON-BEAKER LAB TESTING Final Result * Xray Imaging - HIM Scan (01/23/2024 12:00 AM CDT) Anatomical Region Laterality Modality Other 01/23/2024 us Provider Outside IMG DIAGNOSTIC IMAGING ORDERABL ES Final Result * (ABNORMAL) Lipid Panel ([facility]) (06/24/2020) Cholesterol 211(A) 0 - 199 mg/dL [facility] Triglycerides 82 0 - 149 mg/dL [facility] HDL Cholesterol 63 40 - 150 mg/dL [facility] LDL Cholesterol Direct 132(A) 0 - 130 mg/dL [facility] Cholesterol/HDL Ratio 3 0 - 5 [facility] Blood specimen (specimen) 06/24/2020 us Fritz Hitchcock MD LAB - NON-BEAKER BLOOD LAB S Final Result [facility] [address] [place] [address] [address] [place] [address], [facility] from Last 3 Months or Most Recently Relevant to Health Maintenance [place] [address] [address] [employer] Advance Directives For more information, please contact: [phone] * Full Code (Latest Code Status on File) Date Activated Date Inactivated Comments 02/05/2024 9:36 AM Question Answer Comments Code status determined by: Discussion with yumiko nt/ legal decision maker * Full Code Date Activated Date Inactivated Comments 01/30/2024 10:09 PM 02/05/2024 9:36 AM All basic a nd advanced life-sustaining interventions are performed as appropriate Question Answer Comments Code status determined by: Discussion with patie nt/ legal decision maker Care Teams Doctor Of Dental Medicine Relationship Specialty Start Date End Date Seferino Hanley MD [address] [place] [address] PCP - General Family Medicine 05/13/22 Physicians, [address] [place] [id number] Assigned PCP 07/06/23 Jeet Milligan MD [address] [facility] [address] [place] [address] Cardiovascular Disease 12/22/23
--- OUTSIDE RECORDS SUMMARY | 2024-04-18 08:24 | XMS_ITS | Encounter Summary ---
Author Organization [facility] Address [address] [place] [address]. [place] [address] Care Team Providers Care Wafer Machine Operator Name Role Phone Seferino Hanley MD Primary Care Provider [phone] [facility] Unavailable + [phone] Jeet Milligan MD Unavailable Reason for Referral * CV Testing (Routine) - Pending Review Specialty Diagnoses / Procedures Referred By Contac t Referred To Contact Diagnoses Ascending aorta dilatation (H) S/P AVR (aortic valve replacement) Procedures Echocardiogram Complete ZZHC TTE W/DOPPLER, COMPLETE [facility] ECHO COMPLETE W DOPPLER W CONTRAST ZZHC ECHO COMPLETE W DOPPLER W/O CONTRAST ZZHC IV PUSH SINGLE, INITIAL SUBSTANCE ZZHC US GUIDE FOR PERICARDIOCENTESIS ZZHC ECHO MYOCARD BX ZZC INJECTION, PERFLUTREN LIPID MICROSPHERES, PER ML ZZHC STATISTIC IV PUSH SINGLE INITIAL SUBSTANCE WA ECHO MYOCARD BX WA INJECTION, PERFLUTREN LIPID MICROSPHERES, PER ML WA TTE W/DOPPLER, COMPLETE WA IV PUSH SINGLE, INITIAL SUBSTANCE WA TTE W/DOPPLER, COMPLETE WA TTE W/DOPPLER, COMPLETE HC US GUIDE FOR PERICARDIOCENTESIS HC ECHO MYOCARD BX HC IV PUSH SINGLE, INITIAL SUBSTANCE HC STATISTIC IV PUSH SINGLE INITIAL SUBSTANCE HC ECHO COMPLETE W DOPPLER W CONTRAST HC ECHO COMPLETE W DOPPLER W/O CONTRAST Jeet Milligan MD [address] [place] [address] Phone: tel: fax: Referral ID Status Reason Start Date Expiration Date V isits Requested Visits Authorized [id number] Pending Review 04/02/2024 04/02/2025 1 1 * CV Testing (Routine) - Pending Review Specialty Diagnoses / Procedures Referred By Contac t Referred To Contact Diagnoses Ascending aorta dilatation (H) S/P AVR (aortic valve replacement) Procedures Echocardiogram Complete ZZHC TTE W/DOPPLER, COMPLETE ZZHC ECHO COMPLETE W DOPPLER W CONTRAST ZZHC ECHO COMPLETE W DOPPLER W/O CONTRAST ZZHC IV PUSH SINGLE, INITIAL SUBSTANCE ZZHC US GUIDE FOR PERICARDIOCENTESIS ZZHC ECHO MYOCARD BX ZZC INJECTION, PERFLUTREN LIPID MICROSPHERES, PER ML ZZHC STATISTIC IV PUSH SINGLE INITIAL SUBSTANCE WA ECHO MYOCARD BX WA INJECTION, PERFLUTREN LIPID MICROSPHERES, PER ML WA TTE W/DOPPLER, COMPLETE WA IV PUSH SINGLE, INITIAL SUBSTANCE WA TTE W/DOPPLER, COMPLETE WA TTE W/DOPPLER, COMPLETE HC US GUIDE FOR PERICARDIOCENTESIS HC ECHO MYOCARD BX HC IV PUSH SINGLE, INITIAL SUBSTANCE HC STATISTIC IV PUSH SINGLE INITIAL SUBSTANCE HC ECHO COMPLETE W DOPPLER W CONTRAST HC ECHO COMPLETE W DOPPLER W/O CONTRAST Jeet Milligan MD [address] [place] [address] Phone: tel: fax: Referral ID Status Reason Start Date Expiration Date V isits Requested Visits Authorized [id number] Pending Review 04/02/2024 04/02/2025 1 1 * Consultation (Routine: Next available opening) - Pending Review Specialty Diagnoses / Procedures Referred By Contac t Referred To Contact Cardiovascular Disease Diagnoses Ascending aorta dilatation (H) S/P AVR (aortic valve replacement) Jeet Milligan MD [address] [place] [address] Phone: tel: fax: Referral ID Status Reason Start Date Expiration Date V isits Requested Visits Authorized [id number] Pending Review 04/02/2024 04/02/2025 1 1 Question Answer Follow-up with: Self Scheduling Instructions: [facility] will call you to coordinate your care as prescribed by your provider. If you have concerns about scheduling, please call [phone]. Comments [facility] will call you to coordinate your care as prescribed by your provider. If you have concerns about scheduling, please call [phone]. Reason for Visit * Reason Comments Follow Up 2 year follow up * Consultation (Routine: Next available opening) - Closed Specialty Diagnoses / Procedures Referred By Contac t Referred To Contact Cardiovascular Disease Diagnoses Ascending aorta dilatation (H) Jeet Milligan MD [address] [place] [address] Phone: tel: fax: Referral ID Status Reason Start Date Expiration Date Visits Re quested Visits Authorized [id number] Closed 04/06/2023 04/05/2024 1 1 Encounter Details Date Type Department Care Team (Late st Contact Info) Description 04/02/2024 7:45 AM CDT Office Visit [facility] [address] [place] [phone] Jeet Milligan MD [address] [place] [id number] Ascending aorta dilatation (H); Essential hypertension; Hyperlipidemia LDL goal <100; S/P AVR (aortic valve replacement) Social History Tobacco Use Types Packs/Day Years Used Date Smoking Tobacco: Never Smokeless Tobacco: Former Quit: 1979 Tobacco Cessation:Counseling Given: Not Answered Alcohol Use [...] on file 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 Gender Identity Not on file Sexual Orientation Not on file documented as of this encounter Last Filed Vital Signs Vital Sign Reading Time Taken Comments Blood Pressure 112/70 04/02/2024 7:50 AM CDT Pulse 66 04/02/2024 7:50 AM CDT Temperature - - Respiratory Rate - - Oxygen Saturation - - Inhaled Oxygen Concentration - - Weight 78.9 kg (174 lb) 04/02/2024 7:50 AM CDT Height 175.3 cm (5' 9) 04/02/2024 7:50 AM CDT Body Mass Index 25.7 04/02/2024 7:50 AM CDT documented in this encounter Patient Instructions * Patient Instructions* Jeet Milligan MD - 04/02/2024 7:45 AM CDT Images from the original note were not included. April 02, 2024 Thank you for allowing our Cardiology team to participate in your care. Please note the following changes to your heart treatment plan: Medication changes: - none Tests to be done: - TTE in 6 months - TTE in 12 months Follow up: - Follow up in 1 year, or sooner as needed For scheduling, please call [phone]. Please contact our team through [employer] or our Nurse Team Voicemail service [phone], or the General Clinic [phone] for any questions or concerns. If you are having a medical emergency, please call [phone]. Sincerely, Jeet Milligan MD, [facility] Cardiology [facility] - [facility] - [place] documented in this encounter Progress Notes * Jeet Milligan MD - 04/02/2024 7:45 AM CDT Images from the original note were not included. Cardiology Clinic Progress Note: April 02, 2024 Patient Name: Jessica Carlos Patient Consult indication: s/p SAVR HPI: I had the opportunity to see patient Jessica Carlos in cardiology clinic for a follow up visit.Patient is followed by our colleague Dr. Seferino Hanley MD with Primary Care. As you know, patient is a pleasant 63-year-old male with a past medical history significant for bicuspid aortic valve complicated by severe aortic stenosis status post minimally invasive bioprosthetic aortic valve replacement with a pericardial patch of the aorta (06/2009), HTN, HL, coronary calciumscore 24.7 (2016), who presents for follow up. Patient was previously followed by my colleague Dr. Cook. Patient initially presented with syncope in 2008, and was found to have severe aortic stenosis due to bicuspid aortic valve. He underwent minimally invasive aortic valve replacement with a 25 mm bioprosthetic aortic valve with a pericardial patch of the aorta on 06/24/2009. He has done well since then, though over the last several years has been noted to have mild aortic insufficiency and an elevated gradient across the prosthetic valve. Since our last visit 03/2022, patient was hospitalized 01/2024 with fevers, weakness, chills, found to have Streptococcus sanguinous bacteremia. RUSH was negative for belkofski or bioprosthetic valve vegetations, no evidence of endocarditis. Given high risk organism he was treated with a prolonged course of IV antibiotics. He does endorse that he may have had a dental procedure prior to this and had forgotten to take the amoxicillin prophylaxis that we prescribed before, though he did not wish to discuss this further. TTE 03/27/2024 demonstrates stable bioprosthetic aortic valve gradients, V-max 2.9 m/s, mean gradient 17.5 mmHg, mild AI. Overall similar to prior TTE 04/05/2023. Blood cultures have cleared. CRP normalized. He is no longer on antibiotics. Patient continues to be very active, engages in softball, pickleball, regular exercising without issue. Specifically no chest pain, chest pressure, normal shortness of breath. BP in clinic 112/70 mmHg, similar to his blood pressure log that he brings with him today in clinic. Assessment and Plan/Recommendations: # BAV and severe aortic stenosis s/p SAVR with a 25 mm bioprosthetic aortic valve with a pericardial patch of the aorta on 06/24/2009. Mild aortic insufficiency present since at least 2010, mean gradient was mildly elevated since 11/2011. Stable on recent TTE 03/2024. # Bacteremia 01/2024, no endocarditis on RUSH 02/01/2204 # Dilated ascending aorta, history of pericardial patch at time of SAVR. 4.[address] 01/2020. St[address] CT 03/2022. # HTN. Well controlled. # HL. Well controlled on statin. # Mild calcific CAD. CT calcium scan 06/15/2020 demonstrated a total calcium score of 24.7. On aspirin and statin - Overall patient is in stable cardiac health, he has recovered well from the bacteremia, follow-upTTE demonstrates stable bioprosthetic aortic valve function - Reviewed natural course of bioprosthetic valve dysfunction, anticipate will need valve replacement in the future, [facility], assured patient that we would be able to send records to facilitate this as appropriate - Continue current regimen of aspirin, lisinopril, rosuvastatin, amoxicillin for endocarditis prophylaxis - Encouraged continued healthy lifestyle habits including regular aerobic exercise - TTE in 6 months - Follow-up in 1 year with repeat TTE at that time, or sooner as needed Thank you for allowing our team to participate in the care of Jessica Carlos. Please do not hesitate to call or page me with any questions or concerns. Sincerely, Jeet Milligan MD, [facility] Cardiology Text Page April 02, 2024 Voice recognition software utilized. Total time spent on this encounter today: Greater than 40 minutes, providing care in this encounterincluding, but not limited to, reviewing prior medical records, laboratory data, imaging studies, diagnostic studies, procedure notes, formulating an assessment and plan, recommendations, discussion and counseling with patient face to face, dictation. Past Medical History: Past Medical History: Diagnosis Date Aortic valve regurgitation per 09/25 echo, mild (1+) aortic valve regurgitation Bicuspid aortic valve Hx of AVR in 2009 Hyperlipidemia Mild dilation of ascending aorta Spinal stenosis Past Surgical History: Past Surgical History: Procedure Laterality Date REPLACE VALVE AORTIC 06/2009 Medications (outpatient): Current Outpatient Medications Medication Sig Dispense Refill amoxicillin (AMOXIL) 500 MG capsule 4 capsules 1 hour prior to proceedure 4 capsule 1 aspirin 81 MG EC tablet Take 81 mg by mouth at bedtime calcium carbonate (OS-HAWK) 600 MG tablet Take 1 tablet by mouth at bedtime Coenzyme Q10 (COQ-10) 200 MG CAPS Take 1 tablet by mouth daily lisinopril (ZESTRIL) 20 MG tablet Take 1 tablet (20 mg) by mouth daily. 90 tablet 3 loratadine (CLARITIN) 10 MG tablet Take 10 mg by mouth daily as needed for allergies or other (whengoes outside) Lutein 20 MG CAPS Take 20 mg by mouth daily MAGNESIUM GLYCINATE PLUS PO Take 1 tablet by mouth at bedtime Multiple Vitamins-Minerals (MULTI FOR HIM PO) Take by mouth daily [place]-3 Fatty Acids (FISH OIL) 1200 MG CAPS Take 2,400 mg by mouth daily rosuvastatin (CRESTOR) 20 MG tablet Take 1 tablet (20 mg) by mouth at bedtime. 90 tablet 3 vitamin D3 (CHOLECALCIFEROL) 50 mcg (2000 units) tablet Take 50 mcg by mouth at bedtime Allergies: No Known Allergies Social History: History Drug Use Not on file History Smoking Status Never Smokeless Tobacco Former Quit date: 1978 Social History Substance and Sexual Activity Alcohol use: No Family History: Family History Problem Relation Age of Onset Cancer Mother Cardiovascular Father Review of Systems: A complete review of systems was negative except as mentioned in the History of Present Illness. Objective & Physical Exam: BP 112/70 Pulse 66 Ht 1.753 m (5' 9) Wt 78.9 kg (174 lb) BMI 25.70 kg/m?? Wt Readings from Last 2 Encounters: 04/02/24 78.9 kg (174 lb) 01/30/24 79.4 kg (175 lb) Body mass index is 25.7 kg/m??. Body surface area is 1.96 meters squared. Constitutional: appears stated age, in no apparent distress, appears to be well nourished Pulmonary: clear to auscultation bilaterally, no wheezes, no rales, no increased work of breathing Cardiovascular: JVP normal, regular rate, regular rhythm, 1-2/6 JUAN DAVID at the RUSB, no lower extremityedema Neurologic: awake, alert, moves all extremities Skin: no jaundice, warm on limited exam Data reviewed: Lab Results Component Value Date WBC 6.7 03/07/2024 WBC 14.8 (H) 04/19/2019 RBC 4.70 03/07/2024 RBC 5.18 04/19/2019 HGB 14.1 03/07/2024 HGB 15.8 06/24/2020 HCT 41.8 03/07/2024 HCT 46.8 04/19/2019 MCV 89 03/07/2024 MCV 90 04/19/2019 MCH 30.0 03/07/2024 MCH 29.5 04/19/2019 MCHC 33.7 03/07/2024 MCHC 32.7 04/19/2019 RDW 13.3 03/07/2024 RDW 12.1 04/19/2019 PLT 209 03/07/2024 PLT 193 04/19/2019 Sodium Date Value Ref Range Status 02/02/2024 137 135 - 145 mmol/L Final 06/24/2020 140.4 135 - 146 mmol/L Final Potassium Date Value Ref Range Status 02/05/2024 3.9 3.4 - 5.3 mmol/L Final 06/24/2020 4.9 3.5 - 5.3 mmol/L Final Chloride Date Value Ref Range Status 02/02/2024 102 98 - 107 mmol/L Final 06/24/2020 101.4 98 - 110 mmol/L Final Carbon Dioxide Date Value Ref Range Status 06/24/2020 29.6 20 - 32 mmol/L Final Carbon Dioxide (CO2) Date Value Ref Range Status 02/02/2024 24 22 - 29 mmol/L Final Anion Gap Date Value Ref Range Status 02/02/2024 11 7 - 15 mmol/L Final 04/19/2019 4 3 - 14 mmol/L Final Glucose Date Value Ref Range Status 02/02/2024 96 70 - 99 mg/dL Final 06/24/2020 99 60 - 99 mg/dL Final Urea Nitrogen Date Value Ref Range Status 02/02/2024 12.3 8.0 - 23.0 mg/dL Final 06/24/2020 17 7 - 25 mg/dL Final BUN/Creatinine Ratio Date Value Ref Range Status 06/24/2020 13.1 6 - 22 Final Creatinine Date Value Ref Range Status 03/07/2024 1.03 0.67 - 1.17 mg/dL Final 06/24/2020 1.30 0.60 - 1.30 mg/dL Final GFR Estimate Date Value Ref Range Status 03/07/2024 82 >60 mL/min/1.73m2 Final Comment: eGFR calculated using 2020 CKD-EPI equation. 04/19/2019 79 >60 mL/min/[1.73_m2] Final Comment: Non GFR Calc Starting 05/29/2018, serum creatinine based estimated GFR (eGFR) will be calculated using the Chronic Kidney Disease Epidemiology Collaboration (CKD-EPI) equation. Calcium Date Value Ref Range Status 02/02/2024 8.7 (L) 8.8 - 10.4 mg/dL Final Comment: Reference intervals for this test were updated on 12/26/2023 to reflect our healthy population more accurately. There may be differences in the flagging of prior results with similar values performed with this method. Those prior results can be interpreted in the context of the updated reference intervals. 06/24/2020 10.2 8.6 - 10.3 mg/dL Final Bilirubin Total Date Value Ref Range Status 01/30/2024 0.5 <=1.2 mg/dL Final 04/19/2019 0.8 0.2 - 1.3 mg/dL Final Alkaline Phosphatase Date Value Ref Range Status 01/30/2024 66 40 - 150 U/L Final 04/19/2019 54 40 - 150 U/L Final ALT Date Value Ref Range Status 03/07/2024 25 0 - 70 U/L Final 04/19/2019 43 0 - 70 U/L Final AST Date Value Ref Range Status 03/07/2024 29 0 - 45 U/L Final 04/19/2019 27 0 - 45 U/L Final Recent Labs Lab Test 06/24/20 0000 CHOL 211* HDL 63 LDL 132* TRIG 82 CHOLHDLRATIO 3 Lab Results Component Value Date A1C 5.9 06/22/2009 Recent Results (from the past 4320 hour(s)) Echocardiogram Complete Result Value LVEF 65-70% Narrative [id number]^SRINI^JEET^Yumiko [facility] Echocardiography Laboratory [address] [place] [address] Name: JESSICA CARLOS : 1960 Study Date: 03/27/2024 07:27 AM Age: 63 yrs Gender: Male Patient Location: [facility] Reason For Study: Ascending aorta dilatation (H) [...] same dimension as it was last year 4.0 cm Left Ventricle The left ventricle is normal [...] approved by: Sheron Dunn 03/27/2024 11:02 AM Echocardiogram RUSH Result Value LVEF 60-65% [facility] [id number]^ARAVIND^BLU [facility] Echocardiography Laboratory [address] [place] [id number] Name: JESSICA CARLOS : 1960 Study Date: 02/01/2024 11:53 AM Age: 63 yrs Gender: Male Patient Location: [facility] Reason For Study: Endocarditis Ordering Physician: BLU NAZARIO Performed By: MONET Coto BSA: 2.0 m2 [...] disease, 2009. No evidence of prosthetic or belkofski valve endocarditis. 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 PROFESSOR Office Visit [facility] [address] [place] [address] [address] [place] [phone] Seferino Hanley MD [address] [place] [address] [address] [place] [address] Scheduled Orders Name Type Priority Associated Diagnoses Order Schedule Echocardiogram Complete Echocardiography Routine Ascending aorta dilatation (H) S/P AVR (aortic valve replacement) Expected: 10/01/2024 (Approximate), Expires: 07/03/2025 Echocardiogram Complete Echocardiography Routine Ascending aorta dilatation (H) S/P AVR (aortic valve replacement) Expected: 04/02/2025 (Approximate), Expires: 07/03/2025 Scheduled Referrals Name Type Priority Associated Diagnoses Orde r Schedule Follow-Up with Cardiology Referral Routine: Next available opening Ascending aorta dilatation (H) S/P AVR (aortic valve replacement) Expected: 04/02/2025 (Approximate), Expires: 04/02/2025 documented as of this encounter Visit Diagnoses Diagnosis Ascending aorta dilatation (H) Thoracic aortic ectasia Essential hypertension Unspecified essential hypertension Hyperlipidemia LDL goal <100 Other and unspecified hyperlipidemia S/P AVR (aortic valve replacement) Heart valve replaced by other means documented in this encounter Care Teams Wafer Machine Operator Relationship Specialty Start Date End Date Seferino Hanley MD [address] [place] [address] PCP - General Family Medicine 05/13/22 Physicians, [place] [address] [facility] [address] [place] [phone] Assigned PCP 07/06/23 Jeet Milligan MD [address] [place] [address] Cardiovascular Disease 12/22/23 documented as of this encounter
--- OUTSIDE RECORDS SUMMARY | 2024-04-18 08:24 | XMS_ITS | Clinical Summary ---
Author Organization [place] Address [address] [place] [address] Care Team Providers Care Director Oracle Name Role Phone Seferino Hanley MD Primary Care Provider [phone] [facility], [place] [facility] Unavailable [phone] Jeet Milligan MD Unavailable Allergies No known active allergies Medications calcium carbonate (OS-HAWK) 600 MG tablet Take 1 tablet by mouth at bedtime Active MAGNESIUM GLYCINATE PLUS PO Take 1 tablet by mouth at bedtime Active [place]-3 Fatty Acids (FISH OIL) 1200 MG CAPS [...] prior to proceedure 4 capsule 1 3 024 Discontin ued(Reord er (No AVS)) Active [...] 09/25 echo, mild (1+) aortic valve regurgitation Encounters Date Type Department Care Team Description 04/10/2024 11:00 AM CDT Office Visit [facility]icians [address] [place] [address] [address] [place] [address] Seferino Hanley MD Epidermoid cyst of skin of back (Primary Dx) 04/10/2024 Travel 04/03/2024 9:00 AM CDT Office Visit [facility] [address] [place] [address] [address] [place] [phone] Seferino Hanley MD Plantar warts (Primary Dx); Epidermoid cyst of skin of back 04/02/2024 7:45 AM CDT Office Visit [facility] [address] [place] [phone] Jeet Milligan MD Ascending aorta dilatation (H); Essential hypertension; Hyperlipidemia LDL goal <100; S/P AVR (aortic valve replacement) 04/02/2024 Travel 03/27/2024 7:19 AM CDT - 03/27/2024 11:59 PM CDT Hospital Encounter [facility] [address] [place] [address] Jeet Milligan MD Ascending aorta dilatation (H) Discharge Disposition: Home or Self Care 03/27/2024 Travel 03/20/2024 12:05 PM CDT Lab [facility] [address] [place] [address] Bacteremia 03/20/2024 Travel 03/14/2024 Orders Only [facility] [address] [place] [address] Diamond Gerardo PA-C Bacteremia (Primary Dx) 03/08/2024 Orders Only [facility] [address] [place] [phone] Lacey Chen MD Bacteremia (Primary Dx) 03/08/2024 Home Infusion [facility] [address] [place] [phone] Jake Beyer RPH Bacteremia (Primary Dx) 02/07/2024 Care Coordination [facility] [address] [place] [address] [address] [place] [phone] Seferino Hanley MD Clinic Care Coordination - Post Hospital (Bacteremia ) 02/06/2024 Telephone [facility] [place] [address] [facility] [address] [place] [address] Jeet Milligan MD Appointment (Hospital follow up ) 02/02/2024 Home Infusion ([facility]) [facility] [address] [place] [address] Gila Miramontes [facility] Home Infusion 02/01/2024 Hospital Encounter [facility] [address] [place] [phone] Taina Ignacio MD 01/30/2024 5:37 PM CDT - 02/05/2024 7:25 PM CDT Hospital Encounter [place] [address] [facility] [address] [place] [phone] Joselito Mar MD Biala, Vivek, MD Bacteremia Discharge Disposition: Home or Self Care 01/30/2024 Travel from Last 3 Months Immunizations Name Administration Dates Next Due TDAP (Adacel,Boostrix) 05/17/2022 Td (Adult), Adsorbed 07/24/2006 Family History Medical History Relation Comments Cardiovascular Father Cancer Mother Relation Status Comments Father Alive HTN, CAD Mother (Age 70) Social History Tobacco Use Types Packs/Day Years [...] Date Recorded Do you have housing? 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 Office Visit [facility] [address] [place] [phone] Seferino Hanley MD [address] [place] [address] Health Maintenance Due Date Last Done Comments ADVANCE CARE PLANNING 1960 ANNUAL REVIEW OF HM ORDERS 1960 CT COLONOGRAPHY 1960 FIT 1960 FLEX SIG 1960 YEARLY PREVENTIVE VISIT 1960 sDNA (Cologuard) 1960 HIV SCREENING 10/27/1975 HEPATITIS C SCREENING 1978 LIPID 06/24/2021 06/24/2020, 07/23/2014 INFLUENZA VACCINE (#1) 2024 BMP 02/01/2025 02/02/2024, 01/11, 01/31/2024, Additional history exists COVID-19 Vaccine ( - season) 2025 Postponed from 02/11/2024 (Other) RSV VACCINE (1 - Risk 60-74 years 1-dose series) 04/03/2025 Postponed from 2020 (Other) ZOSTER IMMUNIZATION (1 of 2) 04/03/2025 Postponed from 2010 (Insurance Coverage) GLUCOSE 02/01/2027 02/02/2024, 01/11, 01/31/2024, Additional history exists DTAP/TDAP/TD IMMUNIZATION (2 - Td or Tdap) 05/17/2032 05/17/2022, 07/24/2006 COLONOSCOPY 08/30/2032 08/30/2022 COLORECTAL CANCER SCREENING 08/30/2032 PHQ-2 (once per calendar year) Completed 04/03/2024, 07/04/2022, 05/17/2022, Additional history exists HPV IMMUNIZATION Aged Out No longer e ligible based on patient's age to complete this topic MENINGITIS IMMUNIZATION Aged Out No l onger eligible based on patient's age to complete this topic Pneumococcal Vaccine: Pediatrics (0 to 5 Years) and At-Risk Patients (6 to 64 Years) Aged Out No longer eligible based on patient's age to complete this topic RSV MONOCLONAL ANTIBODY Aged Out No l onger eligible based on patient's age to complete this topic Medical Devices Implanted Type Area Fleet Coordinator Device Identifier Shelf Expiration Date Model / Serial / Lot Aortic Valve-25 Mm Bioprosthetic Valve Procedures Procedure Name Priority Date/Time Associated Diagnosis Comments MI EXC BENIGN SKIN LESION TRUNK/ARM/LEG 2.1-3.0 CM Routine 04/10/2024 12:21 PM CDT Epidermoid cyst of skin of back MI DESTRUCT BENIGN LESION, UP TO 14 Routine [...] * ECHO COMPLETE (03/27/2024 8:14 AM CDT) LVEF 65-70% CARDIOLOGY RESULTS Anatomical Region Laterality Modality Echocardiography 03/27/2024 7:27 AM CDT Narrative 03/27/2024 11:02 AM CDT [id number]^SRINI^JEET^[facility] Echocardiography Laboratory [address] [place] [address] Name: JESSICA RITCHIE : 1960 Study Date: 03/27/2024 07:27 AM Age: 63 yrs Gender: Male Patient Location: [facility] Reason For Study: Ascending aorta [...] Procedure Note Deepak Harrington MD - 03/27/2024 [id number]^SRINI^JEET^[facility] Echocardiography Laboratory [address] [place] [address] Name: JESSICA RITCHIE : 1960 Study Date: 03/27/2024 07:27 AM Age: 63 yrs Gender: Male Patient Location: [facility] Reason For Study: Ascending aorta [...] of7 resultswithin the time period is included. Pathologist [facility] CRP Inflammation <3.00 <5.00 mg/L 03/20/20 12:31 PM CDT LABORATORY Blood STRUCTURE OF RIGHT UPPER LIMB / Unknown Venipuncture / Unknown 03/20/2024 12:12 PM CDT 03/20/2024 12:13 PM CDT us Lacey Chen MD LAB - BLOOD ORDERABLES Final Res ult LABORATORY [facility] Acute Care Lab [address] [facility] Lab (1st floor, no room number) [place] [address], [facility] * Blood Culture Arm, Right (03/20/2024 12:12 PM CDT) Only the most recent of4 resultswithin the time period is included. [facility] Culture No Growth 03/25/2024 4:06 PM CDT [facility] ID[facility] LABORATORY Blood STRUCTURE OF RIGHT UPPER LIMB / Unknown Venipuncture / Unknown 03/20/2024 12:12 PM CDT 03/20/2024 12:13 PM CDT us Diamond Gerardo PA-C LAB - MICRO GENERAL ORDER PRICILLA Final Result [facility] IDD LABORATORY [facility] Inf. Diseases Diag. Lab [address] [facility], [address] [place] [phone], [facility] * CBC with platelets and differential (03/07/2024 [...] NRBCs 0.0 10e3/uL 03/07/2024 10:21 AM CDT LABORATORY Blood CENTRAL VENOUS CATHETER / Unknown Client Draw / Unknown 03/07/2024 8:05 AM CDT 03/07/2024 10:16 AM CDT us Dipi Gustavo BRIGHT LAB - BLOOD ORDERABLES Final Res ult LABORATORY [facility] Acute Care Lab [address] Lab (1st floor, no room number) [place] [address], [facility] * Creatinine (03/07/2024 8:05 AM CDT) Only the most recent of8 resultswithin the time period is included. Creatinine 1.03 0.67 - 1.17 mg/dL 03/07/2024 10:45 AM CDT LABORATORY GFR Estimate 82 >60 mL/min/1.7 3m2 03/07/2024 10:45 AM CDT RH LABORATORY Comment:eGFR calculated usin 2020 CKD-EPI equation. Blood CENTRAL VENOUS CATHETER / Unknown Client Draw / Unknown 03/07/2024 8:05 AM CDT 03/07/2024 10:16 AM CDT Lacey Chen MD LAB - BLOOD ORDERABLES Final Res ult Performing Organization Address City/[facility]/ZIP Co de Phone Number [facility] Lab [address] [employer] Lab (1st floor, no room number) [place] [phone] [place] [address] * AST (03/07/2024 8:05 AM CDT) Only the most recent of5 resultswithin the time period is included. AST 29 0 - 45 U/L 03/07/2024 10:45 AM CDT RH LABORATORY Blood CENTRAL VENOUS CATHETER / Unknown Client Draw / Unknown 03/07/2024 8:05 AM CDT 03/07/2024 10:16 AM CDT us Lacey Chen MD LAB - BLOOD ORDERABLES Final Res ult Performing Organization Address City/[facility]/ZIP Co de Phone Number [facility] [address] Lab (1st floor, no room number) [place] [phone] * ALT (03/07/2024 8:05 AM CDT) Only the most recent of5 resultswithin the time period is included. ALT 25 0 - 70 U/L 03/07/2024 10:45 AM CDT RH LABORATORY Blood CENTRAL VENOUS CATHETER / Unknown Client Draw / Unknown 03/07/2024 8:05 AM CDT 03/07/2024 10:16 AM CDT Lacey Chen MD LAB - BLOOD ORDERABLES Final Res ult [facility] [address] Lab (1st floor, no room number) [address] * XR Chest Port 1 View (02/05/2024 6:26 PM CDT) Anatomical Region Laterality Modality Chest Digital Radiogra phy 02/05/2024 6:26 PM CDT Impressions 02/05/2024 7:09 PM CDT IMPRESSION: Right PICC line tip at the cavoatrial level. No acute airspace disease. Normal cardiac silhouette. Narrative 02/05/2024 7:09 PM CDT EXAM: XR CHEST PORT 1 VIEW LOCATION: [facility] DATE: 02/05/2024 INDICATION: RN placed PICC, verify tip placement. COMPARISON: 01/30/2024. Procedure Note Patrick Garcia MD - 02/05/2024 EXAM: XR CHEST PORT 1 VIEW LOCATION: [facility] DATE: 02/05/2024 INDICATION: RN placed PICC, verify tip placement. COMPARISON: 01/30/2024. IMPRESSION: Right PICC line tip at the cavoatrial level. No acute airspacedisease. Normal cardiac silhouette. Danyell Barrett MD IMG DIAGNOSTIC IMAGING ORDERABLE S Final Result * Single Lumen PICC Placement (02/05/2024 6:22 PM CDT) Narrative Kenya Becker RN - 02/05/2024 6:22 PM CDT Kenya Becker RN ? 02/05/2024 ??6:43 PM [facility] Single Lumen PICC Placement Date/Time: 02/05/2024 6:22 [...] procedure a time out was called ?? [place] Protocol: the Joint Commission [place] Protocol was followed ?? Preparation: Patient was [...] and valved Catheter size: 4 Fr Brand: Bard Lot number: [id number] Placement method: MST and venipuncture Number of [...] needles and guidewire disposed in sharps container us Danyell Barrett MD PROCEDURE/MINOR SURGICAL ORDERAB LES [...] ORDERABLES Final Res ult Performing Organization Address City/[facility]/ZIP Co de Phone Number [facility] Care Lab [address] Lab (1st floor, no room number) [place] [phone] * Platelet count (02/05/2024 6:56 AM CDT) Platelet Count 296 150 - 450 10e3/uL 02/05/2024 7:05 AM CDT LABORATORY Blood STRUCTURE OF RIGHT HAND / Unknown Venipuncture / Unknown 02/05/2024 6:56 AM CDT 02/05/2024 7:02 AM CDT Alan Alvarez MD LAB - BLOOD ORDERABLES Final Res ult Performing Organization Address [facility] Co de Phone Number [facility] [address] Lab (1st floor, no room number) [place] [phone] [place] [address] * Magnesium (02/05/2024 6:56 AM CDT) Only the most recent of6 resultswithin the time period is included. Magnesium 2.3 1.7 - 2.3 mg/dL 02/05/2024 7:24 AM CDT LABORATORY Blood STRUCTURE OF RIGHT HAND / Unknown Venipuncture / Unknown 02/05/2024 6:56 AM CDT 02/05/2024 7:02 AM CDT us Osmar Triplett MD LAB - BLOOD ORDERABLES Final Res ult [facility] Acute Care Lab [address] Lab (1st floor, no room number) [place] [phone] [place] [address] * Extra Purple Top Tube (02/04/2024 7:11 AM CDT) Hold Specimen JIC 02/04/2024 8:31 AM CDT LABORATORY Blood BLOOD SPECIMEN / Unknown Venipuncture / Unknown 02/04/2024 7:11 AM CDT 02/04/2024 7:18 AM CDT us Alan Alvarez MD LAB - BLOOD ORDERABLES Final Res ult LABORATORY [facility] Care Lab [address] Lab (1st floor, no room number) [address] * (ABNORMAL) Basic metabolic panel (02/02/2024 6:39 AM CDT) Only the most recent of4 resultswithin the time period is included. Sodium 137 135 - 145 mmol/L 02/02/2024 7:49 AM CDT LABORATORY Potassium 4.1 3.4 - 5.3 mmol/L 02/02/2024 7:49 AM CDT LABORATORY Chloride 102 98 - 107 mmol/L 02/02/2024 7:49 AM CDT LABORATORY Carbon Dioxide (CO2) 24 22 - 29 mmol/L 02/02/2024 7:49 AM CDT LABORATORY Anion Gap 11 7 - 15 mmol/L 02/02/2024 7:49 AM CDT LABORATORY Urea Nitrogen 12.3 8.0 - 23.0 mg/dL 02/02/2024 7:49 AM CDT LABORATORY Creatinine 1.05 0.67 - 1.17 mg/dL 02/02/2024 7:49 AM CDT LABORATORY GFR Estimate 80 >60 mL/min/1.7 3m2 02/02/2024 7:49 AM CDT LABORATORY Comment:eGFR calculated us2020 CKD-EPI equation. Calcium 8.7(L) 8.8 - 10.4 [...] BLOOD ORDERABLES Final Res ult RH LABORATORY [facility] Lab [address] [facility] Lab (1st floor, no room number) [place] [address], [facility] * (ABNORMAL) CBC with platelets (02/02/2024 6:39 [...] - 450 10e3/uL 02/02/2024 7:27 AM CDT RH LABORATORY Blood STRUCTURE OF RIGHT HAND / Unknown Venipuncture / Unknown 02/02/2024 6:39 AM CDT 02/02/2024 7:23 AM CDT Osmar Triplett MD LAB - BLOOD ORDERABLES Final Res ult LABORATORY [facility] Lab [address] [facility] Lab (1st floor, no room number) [place] [address] * ECHO [place] (02/01/2024 1:42 PM CDT) LVEF 60-65% CARDIOLOGY RESULTS Anatomical Region Laterality Modality Echocardiography 02/01/2024 11:5 3 AM CDT Narrative 02/01/2024 4:16 PM CDT [id number] [facility] [id number]^ARAVIND^[facility] Echocardiography Laboratory [address] [place] [address] Name: JESSICA RITCHIE : 1960 Study Date: 02/01/2024 11:53 AM Age: 63 yrs Gender: Male Patient Location: [facility] Reason For Study: Endocarditis Ordering Physician: ALAN [...] disease, 2009. No evidence of prosthetic or [place] valve endocarditis. 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 [...] Procedure Note Taina Ignacio MD - 02/01/2024 [id number] [facility] [id number]^ARAVIND^[facility] Echocardiography Laboratory [address] [place] [address] Name: JESSICA RITCHIE : 1960 Study Date: 02/01/2024 11:53 AM Age: 63 yrs Gender: Male Patient Location: [facility] Reason For Study: Endocarditis Ordering Physician: ALAN [...] disease, 2009. No evidence of prosthetic or [place] valve endocarditis. 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 [...] BLOOD ORDERABLES Final Result Performing Organization Address City/[facility]/ZIP Co de Phone Number [facility] [address] Lab (1st floor, no room number) [address] * T4 free (02/01/2024 9:21 AM CDT) Free T4 1.12 0.90 - 1.70 ng/dL 02/01/2024 11:10 AM CDT RH LABORATORY Blood STRUCTURE OF LEFT HAND / Unknown Venipuncture / Unknown 02/01/2024 9:21 AM CDT 02/01/2024 9:36 AM CDT Key Penn MD LAB - BLOOD ORDERABLES Final Result [facility] Acute Care Lab [address] [employer] Lab (1st floor, no room number) [place] [address] * EKG 12-lead, tracing only (01/30/2024 9:33 PM CDT) Systolic Blood Pressure mmHg RADIOLOGY RESULTS Diastolic Blood Pressure mmHg RADIOLOGY RESULTS Ventricular Rate 75 BPM RAD IOLOGY RESULTS Atrial Rate 75 BPM RADIOLOG Y RESULTS MI Interval 180 ms RADIOLOG Y RESULTS QRS Duration 90 ms RADIOLO GY RESULTS QT 372 ms RADIOLOGY RESULTS QTc 415 ms RADIOLOGY RESULTS P [place] 34 degrees RADIOLOGY RESULTS R AXIS 43 degrees RADIOLOGY RESULTS T [place] 51 degrees RADIOLOGY RESULTS Interpretation ECG Sinus rhythm Minimal voltage criteria for LVH, may be normal variant ( Sokolow-Tse ) Borderline ECG When compared with ECG of 18-Oct-2022 10:50, No significant change was found Unconfirmed report - interpretation of this ECG is computer generated - see medical record for final interpretation Confirmed by - EMERGENCY ROOM, PHYSICIAN ([id number]), technical editor FARZANA GOLDBERG ([id number]) on 01/31/2024 6:48:46 AM RADIOLOGY RESULTS 01/30/2024 [...] CDT EXAM: XR CHEST 2 VIEWS LOCATION: [facility] DATE: 01/30/2024 INDICATION: Fever, chills. COMPARISON: 07/16/2009 Procedure Note Sunil Richardson MD - 01/30/2024 EXAM: XR CHEST 2 VIEWS LOCATION: [facility] DATE: 01/30/2024 INDICATION: Fever, chills. COMPARISON: 07/16/2009 [...] the Xpert Xpress CoV2/Flu/RSV Assay on the [employer] GeneXpert Instrument. This test should be ordered [...] management. This test was validated by the [facility] Electrolytic Ozone. These laboratories are certified under the Clinical Laboratory Improvement Amendments of 1988 (CLIA-88) as qualified to perform high complexity laboratory testing. Joselito Mar MD LAB - MICRO GENERAL ORDERABLES F inal Result LABORATORY [facility] Lab [address] Lab (1st floor, no room number) [place] [address], [facility] * (ABNORMAL) Verigene GP Panel (01/30/2024 4:28 [...] Streptococcus pyogenes and Streptococcus agalactiae. Performed using [employer] multiplex nucleic acid test. Final identification and [...] ORDE VITALIY Final Result [facility]U IDD LABORATORY [facility] Inf. Diseases Diag. Lab [address] [facility], [address] [place] [address] * (ABNORMAL) Procalcitonin (01/30/2024 4:28 PM CDT) [...] See Procalcitonin Guidance document for more details. [email or web address] [email or web address] Factors that may affect PCT levels (not [...] ORDERABLES Final Res ult Performing Organization Address [facility] Co de Phone Number [facility] Care Lab [address] [employer] Lab (1st floor, no room number) [address] [place] [address] * Lactic acid whole blood (01/30/2024 4:28 PM CDT) Lactic Acid 1.1 0.7 - 2.0 mmol/L 01/30/2024 5:11 PM CDT LABORATORY Blood STRUCTURE OF RIGHT UPPER LIMB / Unknown Venipuncture / Unknown 01/30/2024 4:28 PM CDT 01/30/2024 5:01 PM CDT Tito Waller MD LAB - BLOOD ORDERABLES F inal Result Performing Organization Address [facility] Co de Phone Number [facility] Lab [address] Lab (1st floor, no room number) [address] [place] [address] * (ABNORMAL) Hepatic function panel (01/30/2024 4:28 PM CDT) Protein Total 6.4 6.4 - 8.3 g/dL 01/30/2024 8:56 PM CDT LABORATORY Albumin 3.4(L) 3.5 - 5.2 g/dL 01/30/2024 8:56 PM CDT LABORATORY Bilirubin Total 0.5 <=1.2 mg/dL 01/30/2024 8:56 PM CDT LABORATORY Alkaline Phosphatase 66 40 - 150 U/L 01/30/2024 8:56 PM CDT LABORATORY AST 44 0 - 45 U/L [...] - BLOOD ORDERABLES Final Res ult LABORATORY [facility] Lab [address] [facility] Lab (1st floor, no room number) [place] [address], [facility] * Potassium (External Result) (01/29/2024 6:40 PM CDT) Potassium (External) 4.3 3.6 - 5.1 mmol/L [facility] Blood 01/29/2024 6:40 PM CDT Narrative [facility] - 01/29/2024 6:40 PM CDT [facility]-External Lab Results us Provider Outside LAB - HIM EXTERNAL RESULT Edite d Result - Final [facility] [address] [place] [address], [facility] [phone] * (ABNORMAL) Glucose (External Result) (01/29/2024 6:40 PM CDT) Glucose (External) 129(A) 60 - 115 mg/dL [facility] Blood 01/29/2024 6:40 PM CDT [facility] - 01/29/2024 6:40 PM CDT [facility]-External Lab Results us Provider Outside LAB - HIM EXTERNAL RESULT Final Result Performing Organization Address [facility]/ZIP Co de Phone Number [address] [address], [facility] [phone] * Creatinine (External Result) (01/29/2024 6:40 PM CDT) Creatinine (External) 1.0 0.5 - 1.5 mg/dL [facility] Blood 01/29/2024 6:40 PM CDT [facility] - 01/29/2024 6:40 PM CDT [facility]-External Lab Results us Provider Outside LAB - [facility] EXTERNAL RESULT Final Result Performing Organization Address [facility] Co de Phone Number [address] [address], [facility] [phone] * (ABNORMAL) AST (External Result) (01/29/2024 6:40 PM CDT) AST (External) 75(A) 12 - 35 U/L [facility] Blood 01/29/2024 6:40 PM CDT [facility] - 01/29/2024 6:40 PM CDT [facility]-External Lab Results us Provider Outside LAB - HIM EXTERNAL RESULT Final Result Performing Organization Address City/[facility]/ZIP Co de Phone Number [address] [address], [facility] [phone] * (ABNORMAL) ALT (External Result) (01/29/2024 6:40 PM CDT) ALT (External) 73(A) 4 - 50 U/L [facility] Blood 01/29/2024 6:40 PM CDT [facility] - 01/29/2024 6:40 PM CDT [facility]-External Lab Results us Provider Outside LAB - HIM EXTERNAL RESULT Final Result [facility] [address] [place] [address], [facility] [phone] * Lab Result - HIM Scan (01/29/2024 [...] 5 [facility] Blood specimen (specimen) 06/24/2020 Fritz Hitchcock MD LAB - NON-BEAKER BLOOD LAB S Final Result [facility] [address] [place] [address], [facility] from Last 3 Months or Most Recently Relevant to Health Maintenance Insurance [employer] [facility] [employer] Advance Directives For more information, please contact: [phone] * Full Code (Latest Code Status on File) Date Activated Date Inactivated Comments 02/05/2024 9:36 AM Question Answer Comments Code status determined by: Discussion with markiee nt/ legal decision maker * Full Code Date Activated Date Inactivated Comments 01/30/2024 10:09 PM 02/05/2024 9:36 AM All basic a nd advanced life-sustaining interventions are performed as appropriate Question Answer Comments Code status determined by: Discussion with patie nt/ legal decision maker Care Teams Director Oracle Relationship Specialty Start Date End Date Seferino Hanley MD [address] [place] [address] PCP - General Family Medicine 05/13/22 Physicians, [address] [facility] [address] [place] [phone] Assigned PCP 07/06/23 Jeet Milligan MD [address] [place] [address] Cardiovascular Disease 12/22/23
--- OUTSIDE RECORDS SUMMARY | 2024-04-18 08:24 | XMS_ITS | Encounter Summary ---
Author Organization [facility] Address [address] [place] [address]. [place] [address] Care Team Providers Care Automotive Machinist Name Role Phone Seferino Hanley MD Primary Care Provider [phone] Physicians, [place] [facility] Unavailable [phone] Jeet Milligan MD Unavailable Reason for Referral * CV Testing (Routine) - Closed Specialty Diagnoses / Procedures Referred By Contac t Referred To Contact Cardiology Diagnoses Ascending aorta dilatation (H) Procedures Echocardiogram Complete ZZHC TTE W/DOPPLER, COMPLETE ZZHC ECHO COMPLETE W DOPPLER W CONTRAST ZZHC ECHO COMPLETE W DOPPLER W/O CONTRAST ZZHC IV PUSH SINGLE, INITIAL SUBSTANCE ZZHC US GUIDE FOR PERICARDIOCENTESIS ZZHC ECHO MYOCARD BX ZZC INJECTION, PERFLUTREN LIPID MICROSPHERES, PER ML ZZHC STATISTIC IV PUSH SINGLE INITIAL SUBSTANCE MS ECHO MYOCARD BX MS INJECTION, PERFLUTREN LIPID MICROSPHERES, PER ML MS TTE W/DOPPLER, COMPLETE MS IV PUSH SINGLE, INITIAL SUBSTANCE MS TTE W/DOPPLER, COMPLETE MS TTE W/DOPPLER, COMPLETE HC US GUIDE FOR PERICARDIOCENTESIS HC ECHO MYOCARD BX HC IV PUSH SINGLE, INITIAL SUBSTANCE HC STATISTIC IV PUSH SINGLE INITIAL SUBSTANCE HC ECHO COMPLETE W DOPPLER W CONTRAST HC ECHO COMPLETE W DOPPLER W/O CONTRAST Jeet Milligan MD [address] [place] [address] Phone: tel: fax: [facility] [address] [facility] [address] [place] [address] Phone: tel: fax: Referral ID Status Reason Start Date Expiration Date Visits Re quested Visits Authorized [id number] Closed 04/06/2023 04/05/2024 1 1 Reason for Visit * CV Testing (Routine) - Closed Specialty Diagnoses / Procedures Referred By Contac t Referred To Contact Cardiology Diagnoses Ascending aorta dilatation (H) Procedures Echocardiogram Complete ZZHC TTE W/DOPPLER, COMPLETE ZZHC ECHO COMPLETE W DOPPLER W CONTRAST ZZHC ECHO COMPLETE W DOPPLER W/O CONTRAST ZZHC IV PUSH SINGLE, INITIAL SUBSTANCE ZZHC US GUIDE FOR PERICARDIOCENTESIS ZZHC ECHO MYOCARD BX ZZC INJECTION, PERFLUTREN LIPID MICROSPHERES, PER ML ZZHC STATISTIC IV PUSH SINGLE INITIAL SUBSTANCE MS ECHO MYOCARD BX MS INJECTION, PERFLUTREN LIPID MICROSPHERES, PER ML MS TTE W/DOPPLER, COMPLETE MS IV PUSH SINGLE, INITIAL SUBSTANCE MS TTE W/DOPPLER, COMPLETE MS TTE W/DOPPLER, COMPLETE HC US GUIDE FOR PERICARDIOCENTESIS HC ECHO MYOCARD BX HC IV PUSH SINGLE, INITIAL SUBSTANCE HC STATISTIC IV PUSH SINGLE INITIAL SUBSTANCE HC ECHO COMPLETE W DOPPLER W CONTRAST HC ECHO COMPLETE W DOPPLER W/O CONTRAST Jeet Milligan MD [address] [place] [address] Phone: tel: fax: [facility] [address] [facility] [address] [place] [address] Phone: tel: fax: Referral ID Status Reason Start Date Expiration Date Visits Re quested Visits Authorized [id number] Closed 04/06/2023 04/05/2024 1 1 Encounter Details Date Type Department Care Team (Latest Contact Info) Description 03/27/2024 7:19 AM CDT - 03/27/2024 11:59 PM CDT Hospital Encounter [facility] [address] [facility] [address] [place] [address] Jeet Milligan MD [address] [place] [id number] Ascending aorta dilatation (H) Discharge Disposition: Home or Self Care Social History Tobacco Use Types Packs/Day Years [...] in an abandoned building, in an overnight mcfp, or couch-surfing.) No 01/31/2024 Are you worried [...] on file 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 Gender Identity Not on file Sexual Orientation Not on file documented as of this encounter Medications at Time of Discharge aspirin 81 MG EC tablet Take 81 mg by mouth at bedtime calcium carbonate (OS-HAWK) 600 MG tablet Take 1 tablet by mouth at bedtime Coenzyme Q10 (COQ-10) 200 MG CAPS Take 1 tablet by mouth daily loratadine (CLARITIN) 10 MG tablet Take 10 mg by mouth daily as needed for allergies or other (when goes outside) Lutein 20 MG CAPS Take 20 mg by mouth daily MAGNESIUM GLYCINATE PLUS PO Take 1 tablet by mouth at bedtime Multiple Vitamins-Minerals (MULTI FOR HIM PO) Take by mouth daily [place]-3 Fatty Acids (FISH OIL) 1200 MG CAPS Take 2,400 mg by mouth daily vitamin D3 (CHOLECALCIFEROL) 50 mcg (2000 units) tablet Take 50 mcg by mouth at bedtime amoxicillin (AMOXIL) 500 MG capsuleIndications :S/P AVR (aortic valve replacement) 4 capsules 1 hour prior to proceedure 4 capsule 1 04/25/2023 4 lisinopril (ZESTRIL) 20 MG tabletIndications: Essential hypertension Take 1 tablet (20 mg) by mouth daily 90 tablet 3 04/06/2023 4 rosuvastatin (CRESTOR) 20 MG tabletIndications: Hyperlipidemia LDL goal <100 Take 1 tablet (20 mg) by mouth at bedtime 90 tablet 3 04/06/2023 4 documented as of this encounter Plan of Treatment Upcoming Encounters Date Type Department Care Team (Late st Contact Info) Description 04/22/2024 12:30 PM FINANCIAL SUPERVISOR Office Visit [facility] [address] [place] [phone] Seferino Hanley MD [address] [place] [address] documented as of this encounter Procedures Procedure Name Priority Date/Time Associated Diagnosis Comments ECHO COMPLETE Routine 03/27/2024 8:14 AM CDT Ascending aorta dilatation (H) documented in this encounter Results * ECHO COMPLETE (03/27/2024 8:14 AM CDT) LVEF 65-70% CARDIOLOGY RESULTS Anatomical Region Laterality Modality Echocardiography 03/27/2024 7:27 AM CDT Narrative 03/27/2024 11:02 AM CDT [id number]^JEET^[facility] [address] [place] [address] Name: JESSICA CARLOS : 1960 Study Date: 03/27/2024 07:27 AM Age: 63 yrs Gender: Male Patient Location: [facility] Reason For Study: Ascending aorta dilatation [...] Procedure Note Deepak Harrington MD - 03/27/2024 [id number]^SRINI^JEET^[facility] [address] [place] [address] Name: JESSICA CARLOS : 1960 Study Date: 03/27/2024 07:27 AM Age: 63 yrs Gender: Male Patient Location: [facility] Reason For Study: Ascending aorta dilatation [...] CV ECHO ORDERABLES Edited Result - Final documented in this encounter Visit Diagnoses Diagnosis Ascending aorta dilatation (H) Thoracic aortic ectasia documented in this encounter Care Teams Automotive Machinist Relationship Specialty Start Date End Date Seferino Hanley MD [address] [place] [address] PCP - General Family Medicine 05/13/22 Physicians, [address] [place] [phone] Assigned PCP 07/06/23 Jeet Milligan MD [address] [place] [address] Cardiovascular Disease 12/22/23 documented as of this encounter
--- OUTSIDE RECORDS SUMMARY | 2024-04-18 08:24 | XMS_ITS | Encounter Summary ---
Author Organization [facility] Address [address] [place] [address]. [place] [address] Care Team Providers Care Curriculum Assistant Name Role Phone Seferino Hanley MD Primary Care Provider [phone] Physicians, [place] Family Unavailable [phone] [phone] Martinez Rogers MD Unavailable Encounter Details Date Type Department Care Team (Latest Contact Info) Description 04/10/2024 Travel Social History Tobacco Use Types Packs/Day [...] in an abandoned building, in an overnight snf, or couch-surfing.) No 01/31/2024 Are you worried [...] on file Legal Sex Male 2:58 AM TEAMCENTER SOLUTION ARCHITECT Gender Identity Not on file Sexual Orientation Not on file documented as of this encounter Plan of Treatment Upcoming Encounters Date Type Department Care Team (Late st Contact Info) Description 04/22/2024 12:30 PM TEAMCENTER SOLUTION ARCHITECT Office Visit [facility] [address] [place] [address] [place] [phone] Seferino Hanley MD [address] [place] [address] documented as of this encounter Visit Diagnoses Not on filedocumented in this encounter Care Teams Curriculum Assistant Relationship Specialty Start Date End Date Seferino Hanley MD [address] [place] [phone] PCP - General Family Medicine 05/13/22 Physicians, [place] [address] [address] [facility] [address] [place] [phone] Assigned PCP 07/06/23 Martinez Rogers MD [address] [place] [address] Cardiovascular Disease 12/22/23 documented as of this encounter
--- OUTSIDE RECORDS SUMMARY | 2024-04-18 08:24 | XMS_ITS | Encounter Summary ---
Author Organization [facility] Address [address] [place] [address]. 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 Gender Identity Not on file Sexual Orientation Not on file documented as of this encounter Plan of Treatment Upcoming Encounters Date Type Department Care Team (Late st Contact Info) Description 04/22/2024 12:30 PM LOGISTICS ACCOUNT MANAGER Office Visit [facility] [address] [place] [address] [place] [phone] Seferino Hanley MD [address] [place] [address] documented as of this encounter Visit Diagnoses Not on filedocumented in this encounter Care Teams Double End Tenoner Setter Relationship Specialty Start Date End Date Seferino Hanley MD [address] [place] [phone] PCP - General Family Medicine 05/13/22 Physicians, [place] [address] [address] [facility] [address] [place] [address] [phone] Assigned PCP 07/06/23 Martinez Rogers MD [address] [place] [address] Cardiovascular Disease 12/22/23 documented as of this encounter
--- OUTSIDE RECORDS SUMMARY | 2024-04-18 08:25 | XMS_ITS | Encounter Summary ---
Author Organization [facility] Address [address] [facility] [address] Care Team Providers Care Bucket Hooker Name Role Phone Seferino Hanley MD Primary Care Provider [phone] Physicians, [place] Family Unavailable [phone] Martinez Rogers MD Unavailable Encounter Details Date Type Department Care Team (Late st Contact Info) Description 03/08/2024 Home Infusion [facility] [address] [place] [address] Pepito, Jake, RPH Bacteremia (Primary Dx) Social History Tobacco Use Types [...] Answer Date Recorded Do you have housing? (Philin g is defined as stable permanent housing and does not include staying ouside in a car, in a tent, in an abandoned building, in an overnight fpc, or couch-surfing.) No 01/31/2024 Are you worried [...] on file Legal Sex Male 2:58 AM FLAP PRESSER Gender Identity Not on file Sexual Orientation Not on file documented as of this encounter Plan of Treatment Upcoming Encounters Date Type Department Care Team (Late st Contact Info) Description 04/22/2024 12:30 PM FLAP PRESSER Office Visit [facility] [address] [place] [phone] Seferino Hanley MD [address] [place] [address] documented as of this encounter Procedures Procedure Name Priority Date/Time Associated Diagnosis Comments CRP INFLAMMATION STAT 03/08/2024 8:05 AM CDT Bacteremia documented in this encounter Results * CRP inflammation (03/08/2024 8:05 AM CDT) CRP Inflammation <3.00 <5.00 mg/L 03/08/20 3:34 PM CDT [facility] Blood BLOOD SPECIMEN / Unknown Venipuncture / Unknown 03/08/2024 8:05 AM CDT 03/08/2024 3:21 PM CDT us Lacey Chen MD LAB - BLOOD ORDERABLES Final Res ult LABORATORY [facility] [address] [facility] (1st floor, no room number) [place] [address], [facility] documented in this encounter Visit Diagnoses Diagnosis Bacteremia- Primary documented in this encounter Care Teams Bucket Hooker Relationship Specialty Start Date End Date Seferino Hanley MD [address] [place] [address] PCP - General Family Medicine 05/13/22 Physicians, [place] [address] [address] [facility] [address] [place] [phone] Assigned PCP 07/06/23 Martinez Rogers MD [address] [place], [place] [phone] Cardiovascular Disease 12/22/23 documented as of this encounter
--- OUTSIDE RECORDS SUMMARY | 2024-04-18 08:25 | XMS_ITS | Encounter Summary ---
Author Organization [facility] Address [address] [place] [address] Care Team Providers Care Customer Loyalty Representative Name Role Phone None, Bfp Primary Care Provider UnavailFritz Waldrop MD Primary Care Provider Cynthia vailable Fritz Lagunas MD Unavailable Unavailab Barron Godron MD Unavailable Unavail able Martinez Rogers MD Unavailable Seferino Hanley MD Primary Care Provider [phone] [phone] Fritz Lagunas MD Unavailable Unavailab vero [facility] Unavailable + [phone] Martinez Rogers MD Unavailable Encounter Details Date Type Department Care Team (Late st Contact Info) Description 11/30/2010 Office Visit-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 DATE: 11/30/2010 JESSICA CARLOS DATE OF : 1960 AGE: [age] years old Referring Physician: FRITZ LAGUNAS Referring Clinic: [facility] CURRENT DIAGNOSES 1. - Valve Replacement AV, V43.3 ALLERGIES NKA MEDICATIONS (prior to changes made today) 1. Aspirin 81 mg Tablet, 1 p.o. daily 2. Pravastatin 20 mg Tablet, 1 p.o. daily 3. Vitamin D 1,000 unit Tablet, 1 p.o. daily 4. Claritin 10 mg Tablet, 1 p.o. PRN as Directed CHIEF COMPLAINTS Followup of - Valve Replacement AV HISTORY OF PRESENT ILLNESS I had the pleasure of seeing Mr. Carlos today. This 50-year-old gentleman was seen in followup ofhis history of a bicuspid aortic valve, for which he underwent a bioprosthetic aortic valve replacement in June of 2009. He was noted to have a mildly dilated ascending aorta at that time, and it was unclear whether this was related to aortic pathology that can accompany bicuspid aortic valves or just a function of post stenotic dilatation. He has had borderline blood pressures and has been reluctant to consider FRANCISCO/ARB treatment for his dilated aorta and blood pressure. I had him take a number of blood pressures over the year. He states, these are averaging right around 140/70 to 80, although they are occasionally 145. He has not calibrated his cuff within the last year with an office cuff. Otherwise, he is feeling well and at full activity without limitations. He has no new symptoms or intervening problems. His review of systems is negative. Follow-up echocardiography was done to follow up on his valve and his aorta. He now has a normal left ventricular chamber size (it was dilated preoperatively) with an ejection fraction of 60 to 65%. There was essentially normal bioprosthetic aortic valve function with mild AI and a mean pressure gradient of 11 mmHg, which is normal for this valve and is unchanged from a year ago. The ascending aorta was without further change. PAST HISTORY Past Medical Illnesses: dyslipidemia Past Cardiac Illnesses: severe aortic stenosis, aortic valve stenosis, heart murmur since childhood, bicuspid aortic valve Cardiac and Vascular Surgeries: 06/21 AVR- 25-mm tissue prosthesis with a pericardial patch of his aorta Cardiac/Vasc Procedures-Invasive: PTCA 05/20 Cardiology Procedures-NonInvasive: echo 04/20, CT thoracic abd 06/21: moderate calcified AV, mild-mod left ventricular hypertrophy, echo 07/22, 03/21 Cardiac Cath Results: normal coronary arteries by angiography 05/20 PMHx Echo Results: 04/20 moderately dilated LA and LV, calcified AV, severe aortic stenosis, mod- severe aortic insufficiency Left Ventricular Ejection Fraction: 60-65% by echo 04/20, 07/22 EF 55-60% by echo, EF<GT>55% by Echo -Mar 2010 SOCIAL HISTORY Alcohol Use - denies drinking; Smoking - never smoked; Diet - low sodium (less than 2 grams), fruits and veggies and caffeine use-1-2 per day; Exercise - 2-3 days a week to gym and treadmill; Seat Belt Use - always; 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 INTEGUMENTARY denies any change in hair or nails, rashes, or skin lesions. EYES wears eye glasses/contact lenses EARS, NOSE, THROAT, MOUTH denies any hearing loss, epistaxis, hoarseness or difficulty speaking. RESPIRATORY denies dyspnea, snoring, cough, wheezing or hemoptysis. CARDIOVASCULAR negative for palpitations, chest pain, orthopnea, PND, peripheral edema, syncope or claudication. ABDOMINAL denies ulcer disease, hematochezia or melena. MUSCULOSKELETAL denies any history of arthritic symptoms or back problems. NEUROLOGICAL denies any history of recurrent strokes, headaches, TIA, or seizure disorder. PSYCHIATRIC denies any history of depression, substance abuse or change in cognitive functions. ENDOCRINE denies any history of thyroid disease or diabetes mellitus. HEMATOLOGICAL/IMMUNOLOGIC seasonal allergies PHYSICAL EXAMINATION VITAL SIGNS: Blood Pressure: 130/80Sitting, Left arm, large cuff Pulse- 62.00/min. Weight- 196.00 lbs. Height- 70.00 Temperature- .00 CONSTITUTIONAL well developed, well nourished, in no acute distress SKIN warm and dry to touch, no apparent skin lesions, or masses noted. HEAD normocephalic, atraumatic EYES Pupils equal and round ENT no pallor or cyanosis, dentition good NECK JVP normal, no carotid bruit, thyroid not enlarged CHEST clear to auscultation, normal respiratory excursion, healed right chest incision CARDIAC S1,S2, no S3 or S4 present, regular rhythm, apical impulse not displaced, grade 3/6 systolic ejection murmur heard best at the base radiating to the LLSB ABDOMEN abdomen soft, bowel sounds normoactive PERIPHERAL PULSES pulses full and equal in all extremities, no bruits auscultated. EXTREMITIES & BACK no clubbing, cyanosis or edema NEUROLOGICAL no gross motor deficits noted, affect appropriate, oriented to time, person and place. MEDICATIONS UPDATED/STARTED TODAY: Claritin 10 mg Tablet, 1 p.o. PRN as Directed, #0 Vitamin D 1,000 unit Tablet, 1 p.o. daily, #0 MEDICATIONS REFILLED/STOPPED TODAY: Carvedilol 3.125 Mg Tablet 1 p.o. in AM 2 in PM #-1 Substitution IMPRESSIONS/PLAN 1. Status-post aortic valve replacement for a bicuspid aortic valve. Normal valve function, asymptomatic. 2. Mild ascending aortic dilatation. Again, this may have been related to his aortic stenosis. I will repeat an echocardiogram in one year and if it is unchanged, we can then go to less frequent echocardiograms. 3. Borderline hypertension. I would prefer to see his average blood pressure 130 systolic or less. He has gained some weight and I think he might be able to obtain those pressures with lifestyle intervention, and we reviewed the appropriate lifestyle interventions today. He will try this for a year. He will continue to follow his blood pressure and have his blood pressure cuff calibrated. I will see him back in a year, as above. It was a pleasure seeing this gentleman. Please let me know if you have any questions. TODAYS ORDERS 1. F/U with Barron Cook MD 1 year 2. 2D, color flow, doppler 1 year Barron Cook M.D. documented in this encounter Plan of Treatment Upcoming Encounters Date Type Department Care Team (Late st Contact Info) Description 04/22/2024 12:30 PM INSPECTOR MACHINED PARTS Office Visit [facility] [address] [place] [phone] Seferino Hanley MD [address] [place] [address] documented as of this encounter Visit Diagnoses Not on filedocumented in this encounter Additional Health Concerns Infection Onset Date Last Indicated Resolved Time Rule Out COVID-19 01/30/2024 01/30/2024 01/30/2024 7:01 PM CDT documented as of this encounter Care Teams Customer Loyalty Representative Relationship Specialty Start Date End Date None, Bfp PCP - General 06/25/99 11/20/11 Fritz Lagunas MD PCP - General Family Practice 11/21/11 07/29/20 Seferino Hanley MD [address] [place] [address] PCP - General Family Medicine 05/13/22 Fritz Lagunas MD INACTIVE IN [place] 10/09/2020 Assigned PCP 11/22/19 05/27/22 Barron Cook MD Assigned Heart and Vascular Provider 04/03/20 03/27/21 Martinez Rogers MD [address] [facility] [address] [place] [address] Assigned Heart and Vascular Provider 03/28/21 11/01/23 Fritz Lagunas MD INACTIVE IN [place] 10/09/2020 Assigned PCP 08/06/22 03/03/23 Physicians, [address] [place] [address] Assigned PCP 07/06/23 Martinez Rogers MD [address] [place] [id number] Cardiovascular Disease 12/22/23 documented as of this encounter
--- OUTSIDE RECORDS SUMMARY | 2024-04-18 08:25 | XMS_ITS | Encounter Summary ---
Author Organization [place] Address [facility] [place] [address] Care Team Providers Care Miller Apprentice Name Role Phone Seferino Hanley MD Primary Care Provider [phone] [facility] Unavailable + -[phone] Martinez Rogers MD Unavailable Reason for Visit * Reason Onset Date Comments Appointment 02/06/2024 Hospital follow up Encounter Details Date Type Department Care Team (Late st Contact Info) Description 02/06/2024 Telephone [facility] [place] [address] [facility] [address] [place] [address] Martinez Rogers MD [address] [facility] [address] [place], [place] [address] Appointment (Hospital follow up ) Social History Tobacco Use Types Packs/Day Years [...] in an abandoned building, in an overnight group home, or couch-surfing.) No 01/31/2024 Are you worried [...] on file 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 Martinez Rogers MD Hiljus, Audrey G, RN Cc: P Te[facility] Heart Team 2 Caller: Unspecified (Yesterday, 12:46 PM) I wasn't involved with the hospitalization so if the hospital team wanted follow up sooner then should have a TTE and LEI follow up sooner if able or other MD no other availability. [phone] called patient's spouse. They will discuss if they feel they need to talk with someone before March. They do NOT want to lose their spot with Dr. Rogers. They are willing to come to [place] or [facility] and will meet with an LEI if they feel they need to talk with someone before March. They will all back if they want a visit. * Telephone Encounter - Sally Girard - 02/06/2024 12:46 PM CDT [facility] Phone Message May a detailed message be left on voicemail: yes Reason for Call: Other: Patient's spouse Ludivina called to schedule appt with Dr. Rogers within 2-3 weeks per recent hospital discharge paper. Ludivina stated patient was in the ER due to a bacterial infection. There is no availability within 2-3 weeks, and Ludivina wanting to know if it's ok for them tojust wait until Mar appt to be seen. Please call Ludivina back to further discuss. Action Taken: Other: Cardiology Travel Screening: Not Applicable Thank you! [facility] documented in this encounter Plan of Treatment Upcoming Encounters Date Type Department Care Team (Late st Contact Info) Description 04/22/2024 12:30 PM STEEL RULE INSPECTOR Office Visit [facility] [address] [place] [address] [place] [phone] Seferino Hanley MD [address] [place] [phone] documented as of this encounter Visit Diagnoses Not on filedocumented in this encounter Care Teams Miller Apprentice Relationship Specialty Start Date End Date Seferino Hanley MD [address] [place] [id number] PCP - General Family Medicine 05/13/22 Physicians, [place] [address] [phone] Assigned PCP 07/06/23 Martinez Rogers MD [address] [place] [id number] Cardiovascular Disease 12/22/23 documented as of this encounter
--- OUTSIDE RECORDS SUMMARY | 2024-04-18 08:25 | XMS_ITS | Encounter Summary ---
Author Organization [place] Address [address] [place] [address] Care Team Providers Care Burring Machine Operator Name Role Phone Seferino Hanley MD Primary Care Provider [phone] Physicians, [place] Family Unavailable [phone] Martinez Rogers MD Unavailable Reason for Visit * Reason Comments Clinic Care Coordination - Post Hospital Bacteremia Encounter Details Date Type Department Care Team (Latest Contact Info) Description 02/07/2024 Care Coordination [facility] [address] [phone] Seferino Hanley MD [address] [phone] Clinic Care Coordination - Post Hospital (Bacteremia ) Social History Tobacco Use Types Packs/Day [...] in an abandoned building, in an overnight jail, or couch-surfing.) No 01/31/2024 Are you worried [...] on file 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 He was dischargedon 02/05/24 with instructions to follow up with PCP and with infectious disease. PCP: Seferino Hanley Referral Source: ED/IP List Utilization: Last PCP Appt.: 07/29/22 Health Maintenance Reviewed: Yes Current Medical Health Concerns: Please review patients current medical problem list. Patient/Caregiver Understanding: NA-did not answer the phone at this time Medication Management: NA-did not answer the phone Functional Status: NA-did not answer the phone to review Current Behavioral Health Concerns: NA-did not answer the phone to review Patient/Caregiver Understanding: NA-did not answer the phone to review Psychosocial: NA-did not answer the phone Gaps: NA Resources Given: NA Plan: I attempted to reach the patient by phone but there was no answer. I was able to send him a mychartmessage informing him to call and get scheduled. documented in this encounter Plan of Treatment Upcoming Encounters Date Type Department Care Team (Late st Contact Info) Description 04/22/2024 12:30 PM FUEL CELL ENGINEER Office Visit [facility] [address] [place] [address] [place] [phone] Seferino Hanley MD [address] [place] [address] [place] [address] documented as of this encounter Visit Diagnoses Not on filedocumented in this encounter Care Teams Burring Machine Operator Relationship Specialty Start Date End Date Seferino Hanley MD [address] [place] [phone] PCP - General Family Medicine 05/13/22 Physicians, [address] [place] [address] [phone] Assigned PCP 07/06/23 Martinez Rogers MD [address] [place] [address] Cardiovascular Disease 12/22/23 documented as of this encounter
--- OUTSIDE RECORDS SUMMARY | 2024-04-18 08:25 | XMS_ITS | Encounter Summary ---
Author Organization [place] Address [facility] [place] [address] Care Team Providers Care Primary Care Nurse Practitioner Name Role Phone Seferino Hanley MD Primary Care Provider [phone] Phys[facility], [place] [facility] Unavailable + [phone] Martinez Rogers MD Unavailable Encounter Details Date Type Department Care Team (Late st Contact Info) Description 03/14/2024 [facility] [address] [place] [address] Diamond Gerardo PA-C [address] [facility] [address] [place], [place] [phone] Bacteremia (Primary Dx) Social History Tobacco Use [...] in an abandoned building, in an overnight [place] [facility], or couch-surfing.) No 01/31/2024 Are you worried [...] on file 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 Gender Identity Not on file Sexual Orientation Not on file documented as of this encounter Plan of Treatment Upcoming Encounters Date Type Department Care Team ([facility] Contact Info) Description 04/22/2024 12:30 PM TEAM FACILITATOR Office Visit [facility] [address] [place] [address] [phone] Seferino Hanley MD [address] [place] [phone] documented as of this encounter Results * Blood Culture Arm, Right (03/20/2024 12:12 PM CDT) Culture No Growth 03/25/2024 4:06 PM CDT [facility] Blood STRUCTURE OF RIGHT UPPER LIMB / Unknown Venipuncture / Unknown 03/20/2024 12:12 PM CDT 03/20/2024 12:13 PM CDT us Diamond Gerardo PA-C LAB - MICRO GENERAL ORDER PRICILLA Final Result [facility] Inf. Diseases Diag. Lab [address] [facility], [address] [place] [address], [facility] documented in this encounter Visit Diagnoses Diagnosis Bacteremia- Primary documented in this encounter Care Teams Primary Care Nurse Practitioner Relationship Specialty Start Date End Date Seferino Hanley MD [address] [place] [address] PCP - General Family Medicine 05/13/22 Physicians, [address] [place] [phone] Assigned PCP 07/06/23 Martinez Rogers MD [address] [place], [place] [phone] Cardiovascular Disease 12/22/23 documented as of this encounter
--- OUTSIDE RECORDS SUMMARY | 2024-04-18 08:25 | XMS_ITS | Encounter Summary ---
Author Organization [facility] Address [address] [place] [address] Care Team Providers Care Warehouse Attendant Name Role Phone Tressa Hanley MD Primary Care Provider [phone] [facility] [place] [facility] [facility] Unavailable + [phone] Martinez Rogers MD Unavailable Reason for Referral * Care Coordination (Routine: Next available opening) - Pending Review Specialty Diagnoses / Procedures Referred By Contac t Referred To Contact Diagnoses Bacteremia Justin Elizalde MD [address] [place] [address] Phone: tel:[phone] fax: Referral ID Status Reason Start Date Expiration Date V isits Requested Visits Authorized [id number] Pending Review 02/05/2024 02/04/2025 1 1 Question Answer Reason for Referral: Care Transition Transition: Inpatient to outpatient Clinical Staff have discussed the Care Coordination Referral with the patient and/or caregiver: No Comments * Consultation (Routine: Next available opening) Specialty Diagnoses / Procedures Referred By Contac t Referred To Contact Diagnoses [facility] [address] [place] [address] Phone: tel: fax: Referral ID Status Reason Start Date Expiration Date Visits Re quested Visits Authorized Question Answer Preferred Location: [facility] Infusion - [phone] May draw labs from Venous Catheter: Yes Comments See ID notes for plan, duration Reason for Visit * Reason Comments Abnormal Labs * Auth/Cert Specialty Diagnoses / Procedures Referred By Sherif t Referred To Contact EMERGENCY MEDICINE Diagnoses Bacteremia [facility] Emergency Dept [address] [place] [address] Phone: tel: fax: Referral ID Status Reason Start Date Expiration Date Visits Re quested Visits Authorized [id number] 1 1 Encounter Details Date Type Department Care Team (Late st Contact Info) Description 01/30/2024 5:37 PM CDT - 02/05/2024 7:25 PM CDT Hospital Encounter [facility] 3 Medical Surgical [address] [place] [id number] Joselito Mar MD [facility] [address] [place], [place] [id number] Alan Alvarez MD [address] [facility] [place] [id number] Bacteremia Discharge Disposition: Home or Self Care Social [...] on file Legal Sex Male 2:58 AM [employer] Gender Identity Not on file Sexual Orientation Not on file documented as of this encounter Last Filed Vital Signs Vital Sign Reading Time Taken Comments Blood Pressure 135/82 02/05/2024 4:44 PM CDT Pulse 70 02/05/2024 4:44 PM CDT Temperature 37 ??C (98.6 ??F) 02/05/2024 4:44 PM CDT Respiratory Rate 17 02/05/2024 4:44 PM CDT Oxygen Saturation 98% 02/05/2024 4:44 PM CDT Inhaled Oxygen Concentration - - Weight 79.4 kg (175 lb) 01/30/2024 10:12 PM CDT Height 175.3 cm (5' 9) 01/30/2024 4:07 PM CDT Body Mass Index 25.84 01/30/2024 4:07 PM CDT documented in this encounter Discharge Summaries * Justin Elizalde MD - 02/05/2024 9:38 AM CDT [facility] Hospitalist Discharge Summary Date of Admission: 01/30/2024 Date of Discharge: 02/05/2024 Discharging Provider: Justin Elizalde MD, MD Discharge Service: Hospitalist Service Discharge Diagnoses Fever with gram-positive coccemia concern for subacute bacterial endocarditis of bioprosthetic aortic valve Streptococcus sanguinous bacteremia Benign essential hypertension Dyslipidemia Euthyroid sick syndrome Clinically Significant Risk Factors # Overweight: Estimated body mass index is 25.84 kg/m?? as calculated from the following: Height as of this encounter: 1.753 m (5' 9). Weight as of this encounter: 79.4 kg (175 lb). Follow-ups Needed After Discharge Follow-up Appointments Follow-up and recommended labs and tests Follow up with primary care provider, TRESSA HANLEY, within 7 days to evaluate medication change, to evaluate treatment change, and for hospital follow- up. Follow-up with infectious disease service as scheduled. Recommended to follow-up as well with cardiology in the next 2 to 3 weeks. Unresulted Labs Ordered in the Past 30 Days of this Admission Date and Time Order Name Status Description 02/01/2024 11:47 AM Blood Culture Hand, Right Preliminary 01/30/2024 8:13 PM Blood Culture Peripheral Blood Preliminary 01/30/2024 4:14 PM Blood Culture Arm, Right Preliminary These results will be followed up by PCP, ID Discharge Disposition Discharged to home Condition at discharge: Stable Hospital Course Addendum: PICC line was inserted IV antibiotics planned and prescribed by ID service Patient eventually was discharged in the hospital with continuation of antibiotics as outpatient Redd is a pleasant gentleman with prior history of bioprosthetic aortic valve sequelae initially presented with generalized weakness, intermittent fevers and eventually found with Streptococcus bacteremia with concerns for possible subacute bacterial endocarditis. Fortunately DAVID revealed no clear evidence of endocarditis or abscess. He is currently being treated with IV antibiotics with intentions and plans to continue upon discharge. Awaiting for PICC line insertion and logistics for outpatient IV antibiotics. Fortunately he responded well currently remained afebrile. Stable hemodynamics. Tolerating oral diet with no complaints of any nausea vomiting or diarrhea. He is hopeful for hospital discharge soon as able. Micah Ritchie is a 63 year old male admitted on 01/30/2024. He has history of bicuspid aortic valve with history of aortic valve replacement in 2009. He was seen in [facility] with a 2-week history of fevers, weakness, sweating episodes and chills. He was called today that his blood cultures are positive for gram-positive cocci and came to the ER. Blood cultures growing Streptococcussanguinous. DAVID negative for agdaagux or bioprosthetic valve vegetations, no evidence of endocarditis. Given high risk organism we will still plan on prolonged course of IV antibiotics. Could likely get PICC on 02/04 if last blood culture remains negative. Fever with gram-positive coccemia concern for subacute bacterial endocarditis of bioprosthetic aortic valve Streptococcus sanguinous bacteremia -Started on vancomycin and ceftriaxone. Follow-up on repeat blood cultures. -Infectious disease following, appreciate assistance -Blood cultures from 01/29 growing Streptococcus sanguinous in 2/2 bottles -DAVID without evidence of endocarditis, however high risk organism with strep sanguinous so will need 6 weeks IV antibiotics per ID -PICC could be placed Sunday 02/04 if last blood culture from 01/31 remains negative, social work andID helping with home infusion set up -Narrowed to ceftriaxone alone based on culture sensitivity result Abnormal thyroid testing at outside hospital He was started on Synthroid but given he does not have any symptoms of hypothyroidism and has acuteillness, he likely had euthyroid sick syndrome. TSH elevated to 4.5, free T4 normal at 1.12. No thyroid replacement right now. Will likely need repeat test done as an outpatient after acute illness resolves. Essential hypertension Prior to admission on lisinopril, will hold due to low normal blood pressure. Hyperlipidemia On Crestor, can be continued. Diet: Regular diet after DAVID DVT Prophylaxis: Heparin SQ Malcolm Catheter: Not present Lines: None Cardiac Monitoring: None Code Status: Full code DVT Prophylaxis: Pneumatic Compression Devices Code Status: Full Code Consultations This Hospital Stay PHARMACY TO DOSE VANCO PHARMACY TO DOSE VANCO INFECTIOUS DISEASES IP CONSULT CARE MANAGEMENT / SOCIAL WORK IP CONSULT CARE MANAGEMENT / SOCIAL WORK IP CONSULT CARE MANAGEMENT / SOCIAL WORK IP CONSULT Code Status Full Code Time Spent on this Encounter I, Justin Elizalde MD, MD, personally saw the patient today and spent greater than 30 minutes discharging this patient. Justin Elizalde MD, MD [address] SURGICAL [address] [facility] [address] Physical Exam Vital Signs: Temp: 97.7 ??F (36.5 ??C) Temp src: Oral BP: 122/74 Pulse: 76 Resp: 16 SpO2: 96 % O2 Device: None (Room air) Weight: 175 lbs 0 oz HEENT; Atraumatic, normocephalic, pinkish conjuctiva, pupils bilateral reactive Skin: warm and moist, no rashes Lungs: equal chest expansion, clear to auscultation, no wheezes, no stridor, no crackles, Heart: normal rate, normal rhythm, no rubs or gallops. Abdomen: normal bowel sounds, no tenderness, no peritoneal signs, no guarding Extremities: no deformities, no edema Neuro; follow commands, alert and oriented x3, spontaneous speech, coherent, moves all extremities spontaneously Psych; no hallucination, euthymic mood, not agitated Primary Care Physician TRESSA HANLEY Discharge Orders Reason for your hospital stay Redd is a pleasant gentleman with prior history of bioprosthetic aortic valve sequelae initially presented with generalized weakness, intermittent fevers and eventually found with Streptococcus bacteremia with concerns for possible subacute bacterial endocarditis. Fortunately DAVID revealed no clear evidence of endocarditis or abscess. He is currently being treated with IV antibiotics with intentions and plans to continue upon discharge. Awaiting for PICC line insertion and logistics for outpatient IV antibiotics. Fortunately he responded well currently remained afebrile. Stable hemodynamics. Tolerating oral diet with no complaints of any nausea vomiting or diarrhea. He is hopeful for hospital discharge soon as able. Follow-up and recommended labs and tests Follow up with primary care provider, TRESSA HANLEY, within 7 days to evaluate medication change, to evaluate treatment change, and for hospital follow- up. Follow-up with infectious disease service as scheduled. Recommended to follow-up as well with cardiology in the next 2 to 3 weeks. Activity Your activity upon discharge: activity as tolerated Full Code Diet Follow this diet upon discharge: Current Diet:Orders Placed This Encounter Combination Diet Regular Diet Adult Significant Results and Procedures Most Recent 3 CBC's: Recent Labs Lab Test 08/26/24 0656 02/02/24 0639 02/01/24 0921 01/31/24 0653 WBC -- 6.0 7.9 8.3 HGB -- 11.4* 13.1* 11.2* MCV -- 90 88 88 PLT 296 241 240 159 Most Recent 3 BMP's: Recent Labs Lab Test 02/05/24 0656 02/04/24 0711 02/03/24 0545 02/02/24 0639 02/01/24 1644 02/01/24 0921 01/31/24 0653 NA -- -- -- 137 -- 137 133* POTASSIUM 3.9 4.3 4.2 4.1 < > 4.2 4.7 CHLORIDE -- -- -- 102 -- 101 98 CO2 -- -- -- 24 -- BUN -- -- -- 12.3 -- 14.3 11.4 CR 0.97 1.02 1.02 1.05 -- 1.08 1.05 ANIONGAP -- -- -- 11 -- 11 12 HAWK -- -- -- 8.7* -- 9.4 8.5* GLC -- -- -- 96 -- 98 99 < > = values in this interval not displayed. Most Recent 2 LFT's: Recent Labs Lab Test 01/30/24 1628 04/19/19 0451 AST 44 27 ALT 64 43 ALKPHOS 66 54 BILITOTAL 0.5 0.8 , Results for orders placed or performed during the hospital encounter of 01/30/24 Chest XR, PA & LAT Narrative EXAM: XR CHEST 2 VIEWS LOCATION: [facility] DATE: 01/30/2024 INDICATION: Fever, chills. COMPARISON: 07/16/2009 Impression IMPRESSION: Heart size is normal. Aortic valve replacement. Lungs are clear bilaterally. Mediastinum and visualized bony structures are unremarkable. Echocardiogram DAVID Value LVEF 60-65% Narrative [id number] [facility] [id number]^BIALA^[facility] [address] [place] [address] Name: MICAH RITCHIE : 1960 Study Date: 02/01/2024 11:53 AM Age: 63 yrs Gender: Male Patient Location: [facility] Reason For Study: Endocarditis Ordering Physician: ALAN ALVAREZ Performed By: MONET Coto BSA: 2.0 m2 Height: 69 in Weight: 175 lb HR: 83 BP: 133/81 mmHg Procedure Complete DAVID Adult. 3D image acquisition, reconstruction, and real-time interpretation was performed. DAVID Probe serial #[id number] ([id number]) was used during the procedure. The heart rate, respiratory rate and response to care were monitored throughout the procedure with the assistance of the nurse. Interpretation Summary Status post surgical bioprosthetic aortic valve replacement with a 25-mm tissue prosthesis for bicuspid aortic valve disease, 2009. No evidence of prosthetic or agdaagux valve endocarditis. 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 No periprosthetic regurgitation. Trace to mild prosthetic regurgitation. The prosthetic valve opens well. Mean systolic gradient 24 mmHg. Normal left ventricular systolic function. Estimated LVEF 60-65%. Normal right ventricular size and systolic function. Bubble study negative for inter-atrial shunt. DAVID I determined this patient to be an [...] by: Dr Taina Moreno 02/01/2024 04:16 PM Discharge Medications Current Discharge Medication List CONTINUE these medications which have NOT CHANGED Details amoxicillin (AMOXIL) 500 MG capsule 4 capsules 1 hour prior to proceedure Qty: 4 capsule, Refills: 1 Associated Diagnoses: S/P AVR (aortic valve replacement) aspirin 81 MG EC tablet Take 81 mg by mouth at bedtime calcium carbonate (OS-HAWK) 600 MG tablet Take 1 tablet by mouth at bedtime Coenzyme Q10 (COQ-10) 200 MG CAPS Take 1 tablet by mouth daily lisinopril (ZESTRIL) 20 MG tablet Take 1 tablet (20 mg) by mouth daily Qty: 90 tablet, Refills: 3 Associated Diagnoses: Essential hypertension loratadine (CLARITIN) 10 MG tablet Take 10 mg by mouth daily as needed for allergies or other (whengoes outside) Lutein 20 MG CAPS Take 20 mg by mouth daily MAGNESIUM GLYCINATE PLUS PO Take 1 tablet by mouth at bedtime Multiple Vitamins-Minerals (MULTI FOR HIM PO) Take by mouth daily Carolina-3 Fatty Acids (FISH OIL) 1200 MG CAPS Take 2,400 mg by mouth daily rosuvastatin (CRESTOR) 20 MG tablet Take 1 tablet (20 mg) by mouth at bedtime Qty: 90 tablet, Refills: 3 Associated Diagnoses: Hyperlipidemia LDL goal <100 vitamin D3 (CHOLECALCIFEROL) 50 mcg (2000 units) tablet Take 50 mcg by mouth at bedtime Allergies No Known Allergies documented in this encounter Discharge Instructions * Discharge Instructions* Layla Hanley RN - 02/05/2024 3:34 PM CDT Your doctor has ordered IV antibiotics after your hospital stay. This service will be provided by [facility]. They will contact you regarding your first visit. If you have any questions about this service, please call them at . * Attachments The following attachments cannot be sent through Care Everywhere. * PICC (Peripherally Inserted Central Catheter) (Iraqi) * Caring for Your PICC or Central IV Line: Video (Iraqi) * Getting Treatment Through a PICC or Central Line: Video (Iraqi) * Blood Culture (Iraqi) documented in this encounter Medications at Time of Discharge [...] FOR HIM PO) Take by mouth daily Carolina-3 Fatty Acids (FISH OIL) 1200 MG CAPS Take 2,400 mg by mouth daily vitamin D3 (CHOLECALCIFEROL) 50 mcg (2000 units) tablet Take 50 mcg by mouth at bedtime cefTRIAXone (ROCEPHIN) 2 GM vialIndications:En docarditis Inject 2 g over 30 minutes into the vein every 24 hours. 02/05/2024 4 amoxicillin (AMOXIL) 500 MG capsuleIndications :S/P AVR [...] 04/06/2023 4 documented as of this encounter Progress Notes * Brenda Santana RN - 02/05/2024 7:25 PM CDT Pt discharged to home at this time. PICC placed, flushes well. Discharge instructions read and pt verbalizes understanding. transporting to home. * Layla Hanley RN - 02/05/2024 1:47 PM CDT Care Management Discharge Note Discharge Date: 02/05/2024 Discharge Disposition: Home Infusion Discharge Services: None Discharge DME: None Discharge Transportation: family or friend will provide Education Provided on the Discharge Plan: Yes Persons Notified of Discharge Plans: Bedside RN, provider, patient Patient/Family in Agreement with the Plan: Yes Additional Information: CM following for care coordination/discharge planning to home with anticipated need for home IV abx. Per bedside RN patient will have line placement this afternoon. [facility] is planning to follow for home IV abx at discharge. If patient discharges today with home IV abx, home infusion referral will need to be on the discharge order. [facility] requesting discharge orders signed by 1630 if patient is discharging today, hospitalist notified. Bedside RN was updated that we anticipate patient will need to get his antibiotic dose today prior to discharge as home infusion would plan to see him at home tomorrow for teaching and first home dose. Layla Hanley RN, BSN Inpatient Care Coordination [facility] [phone] * Leni Pereira CRNI - 02/05/2024 11:53 AM CDT [facility] Received request for benefit check should pt require home IV abx. This patient has coverage for IV abx through their [employer] plan, patient has a deductible of $7,800.00 (met $184.47 to date).Once the deductible is met patient is covered at 100%. [facility] has no line preference. I spoke with Redd to introduce home infusion services and review benefits. He would like to proceedwith [facility] for home IV abx needs. Addendum @ 1545h: Pt will discharge home today with new IV ceftriaxone q24hrs. Pt requesting a homeRN visit tomorrow for IV teaching around 1600h, which [facility] will coordinate. Pt will need to dose his IV ceftriaxone at [facility] today prior to discharge home. Pt will need PICC line prior to discharge home. [facility] will deliver medication and supplies to pt's home this evening. Pt instructed on proper abx storage and he verbalized understanding. Thank you for the referral. Leni Pereira RN [facility] Liaison [phone] (Mon thru Fri 8am - 5pm) [phone] Office * Danyell Barrett MD - 02/05/2024 11:37 AM CDT Images from the original note were not included. [facility] Infectious Disease Progress Note Date of Service : 02/05/2024 Assessment 63 yo presented to the OSH for 2-week history of fevers, weakness, sweating episodes and chills. He was called yesterday that his blood cultures are positive for gram-positive cocci and came to the ER. He was also tested for Lyme disease and was told that his Lyme test was negative. Nevertheless he was prescribed doxycycline for possible unspecified tickborne illness and he has taken 1 dose History of bicuspid aortic valve with history of aortic valve replacement in 2009 DAVID pending Blood cultures here are are positive for strep species further identified as strep sanguis pending susceptibilities Full report of blood cultures from OSH are also pending He was started on Vanco and ceftriaxone. Now just on Ceftriaxone Recommendations Strep sanguinis GEE to PCN is intermediate, Ceftriaxone GEE is 0.25 Continue Ceftriaxone PICC OPIV antibiotic orders placed in [facility] for 6 weeks from negative blood cxs (01/31) until 03/14 Can discharge from the ID stand point once antibiotics are arranged Follow with Dr Chen in 3 weeks Danyell Barrett MD Interval History Feels ok, no new complaints, tolerating antibiotics without side effects Planned for discharge today. DAVID has remained negative for endocarditis Physical Exam Temp: 97.7 ??F (36.5 ??C) Temp src: Oral BP: 122/74 Pulse: 76 Resp: 16 SpO2: 96 % O2 Device: None (Room air) Vitals: 01/30/24 1607 01/30/24 2212 Weight: 77.1 kg (170 lb) 79.4 kg (175 lb) Vital Signs with Ranges Temp: [97.7 ??F (36.5 ??C)-97.9 ??F (36.6 ??C)] 97.7 ??F (36.5 ??C) Pulse: [64-76] 76 Resp: [16-21] 16 BP: (119-122)/(72-77) 122/74 SpO2: [96 %-99 %] 96 % Constitutional: Awake, alert, cooperative, no apparent distress Lungs: non labored breathing Skin: No rashes, no cyanosis, no edema Other: Medications Current Facility-Administered Medications Medication Dose Route Frequency Provider Last Rate Last Admin Current Facility-Administered Medications Medication Dose Route Frequency Provider Last Rate Last Admin aspirin (ASA) chewable tablet 81 mg 81 mg Oral Daily Alan Alvarez MD 81 mg at 02/04/24 2150 cefTRIAXone (ROCEPHIN) 2 g vial to attach to NS 100 ml bag for ADULTS or NS 50 ml bag for PEDS 2 g Intravenous Q24H Alan Alvarez MD 200 mL/hr at 02/04/24 1810 2 g at 02/04/24 1810 rosuvastatin (CRESTOR) tablet 20 mg 20 mg Oral At Bedtime Alan Alvarez MD 20 mg at 02/04/24 2150 sodium chloride (PF) 0.9% PF flush 3 mL 3 mL Intracatheter Q8H Alan Alvarez MD 3 mL at 02/04/24 1641 Data All microbiology laboratory data reviewed. Recent Labs Lab Test 02/05/24 0656 02/02/24 0639 02/01/24 0921 01/31/24 0653 WBC -- 6.0 7.9 8.3 HGB -- 11.4* 13.1* 11.2* HCT -- 35.0* 39.4* 33.7* MCV -- 90 88 88 PLT 296 241 240 159 Recent Labs Lab Test 02/05/24 0656 02/04/24 0711 02/03/24 0545 CR 0.97 1.02 1.02 Microbiology 02/01/2024 1644 02/04/2024 2046 Blood Culture Hand, Right [[id number]] Blood from Hand, Right Preliminary result Component Value Culture No growth after 3 days P 01/30/2024 2030 02/05/2024 0953 Blood Culture Peripheral Blood [[id number]] (Abnormal) Peripheral Blood Preliminary result Component Value Culture Positive on the 1st day of incubation Abnormal P Streptococcus sanguinis Panic C 2 of 2 bottles Susceptibilities done on previous cultures 01/30/2024 1801 01/30/2024 1901 Symptomatic Influenza A/B, RSV, & SARS-CoV2 PCR (COVID-19) Nasopharyngeal [[id number]] Swab from Nasopharyngeal Final result Component Value Influenza A PCR Negative Influenza B PCR Negative RSV PCR Negative SARS CoV2 PCR Negative NEGATIVE: SARS-CoV-2 (COVID-19) RNA not detected, presumed negative. 01/30/2024 1628 02/05/2024 0954 Blood Culture Arm, Right [[id number]] (Abnormal) Blood from Arm, Right Preliminary result Component Value Culture Positive on the 1st day of incubation Abnormal P Streptococcus sanguinis Panic P 2 of 2 bottles Susceptibility Streptococcus sanguinis GEE Amoxicillin/Clavulanate <=0.5 ug/mL * Cefepime <=0.25 ug/mL * Cefotaxime <=0.25 ug/mL Susceptible Ceftriaxone <=0.25 ug/mL Susceptible Clindamycin <=0.12 ug/mL Susceptible Daptomycin 1 ug/mL Susceptible * Erythromycin <=0.12 ug/mL Susceptible * Levofloxacin <=1 ug/mL Susceptible * Linezolid 1 ug/mL Susceptible * Meropenem <=0.25 ug/mL Susceptible Moxifloxacin <=1 ug/mL * Penicillin 0.25 ug/mL Intermediate Tetracycline <=1 ug/mL Susceptible * Vancomycin 0.5 ug/mL Susceptible 01/31 David nterpretation Summary Status post surgical bioprosthetic aortic valve replacement with a 25-mm tissue prosthesis for bicuspid aortic valve disease, 2009. No evidence of prosthetic or agdaagux valve endocarditis. 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 No periprosthetic regurgitation. Trace to mild prosthetic regurgitation. The prosthetic valve opens well. Mean systolic gradient 24 mmHg. Normal left ventricular systolic function. Estimated LVEF 60-65%. Normal right ventricular size and systolic function. Bubble study negative for inter-atrial shunt. * Osmar Triplett MD - 02/04/2024 12:32 PM CDT [facility] Hospitalist Progress Note Provider : Osmar Triplett MD Date of Service (when I saw the patient): 02/04/2024 Assessment & Plan Micah Ritchie is a 63 year old male admitted on 01/30/2024. He has history of bicuspid aortic valve with history of aortic valve replacement in 2009. He was seen in [facility] with a 2-week history of fevers, weakness, sweating episodes and chills. He was called today that his blood cultures are positive for gram-positive cocci and came to the ER. Blood cultures growing Streptococcussanguinous. DAVID negative for agdaagux or bioprosthetic valve vegetations, no evidence of endocarditis. Given high risk organism we will still plan on prolonged course of IV antibiotics. Could likely get PICC on 02/04 if last blood culture remains negative. Fever with gram-positive coccemia concern for subacute bacterial endocarditis of bioprosthetic aortic valve Streptococcus sanguinous bacteremia -Started on vancomycin and ceftriaxone. Follow-up on repeat blood cultures. -Infectious disease following, appreciate assistance -Blood cultures from 01/29 growing Streptococcus sanguinous in 2/2 bottles -DAVID without evidence of endocarditis, however high risk organism with strep sanguinous so will need 6 weeks IV antibiotics per ID -PICC could be placed Sunday 02/04 if last blood culture from 01/31 remains negative, social work andID helping with home infusion set up -Narrowed to ceftriaxone alone based on culture sensitivity result Abnormal thyroid testing at outside hospital He was started on Synthroid but given he does not have any symptoms of hypothyroidism and has acuteillness, he likely had euthyroid sick syndrome. TSH elevated to 4.5, free T4 normal at 1.12. No thyroid replacement right now. Will likely need repeat test done as an outpatient after acute illness resolves. Essential hypertension Prior to admission on lisinopril, will hold due to low normal blood pressure. Hyperlipidemia On Crestor, can be continued. Diet: Regular diet after DAVID DVT Prophylaxis: Heparin SQ Malcolm Catheter: Not present Lines: None Cardiac Monitoring: None Code Status: Full code DVT Prophylaxis: Pneumatic Compression Devices Code Status: Full Code Disposition: Hopeful for discharge 02/04 if blood cultures remain negative, PICC can be placed at that time. Social work helping with outpatient infusion set up. Osmar Triplett MD Interval History No acute events overnight. Feeling well, no acute concerns or complaints. -Data reviewed today: I reviewed all new labs and imaging results over the last 24 hours. I personally reviewed no images or EKG's today. Physical Exam Temp: 97.7 ??F (36.5 ??C) Temp src: Oral BP: 133/79 Pulse: 67 Resp: 22 SpO2: 97 % O2 Device: None (Room air) Vitals: 01/30/24 1607 01/30/24 2212 Weight: 77.1 kg (170 lb) 79.4 kg (175 lb) Vital Signs with Ranges Temp: [97.6 ??F (36.4 ??C)-97.7 ??F (36.5 ??C)] 97.7 ??F (36.5 ??C) Pulse: [62-77] 67 Resp: [18-22] 22 BP: (125-144)/(7-79) 133/79 SpO2: [96 %-97 %] 97 % I/O last 3 completed shifts: In: 1200 [P.O.:1200] Out: - GEN: Alert, oriented x 3, appears comfortable, NAD. HEENT: Normocephalic/atraumatic, no scleral icterus, no nasal discharge, mouth moist. CV: Regular rate and rhythm, no murmur or JVD. S1 + S2 noted, no S3 or S4. LUNGS: Clear to auscultation bilaterally without rales/rhonchi/wheezing/retractions. Symmetric chest rise on inhalation noted. ABD: Active bowel sounds, soft, non-tender/non-distended. No rebound/guarding/rigidity. EXT: No edema or cyanosis. Hands/feet warm to touch with good signs of peripheral perfusion. No joint synovitis noted. SKIN: Dry to touch, no exanthems noted in the visualized areas. NEURO: Symmetric muscle strength, sensation to touch grossly intact. No new focal deficits appreciated. Medications Current Facility-Administered Medications Medication Dose Route Frequency Provider Last Rate Last Admin Current Facility-Administered Medications Medication Dose Route Frequency Provider Last Rate Last Admin aspirin (ASA) chewable tablet 81 mg 81 mg Oral Daily Alan Alvarez MD 81 mg at 02/03/242131 cefTRIAXone (ROCEPHIN) 2 g vial to attach to NS 100 ml bag for ADULTS or NS 50 ml bag for PEDS 2 g Intravenous Q24H Alan Alvarez MD 200 mL/hr at 02/03/24 192 2 g at 02/03/241923 rosuvastatin (CRESTOR) tablet 20 mg 20 mg Oral At Bedtime Alan Alvarez MD 20 mg at 02/03/242131 sodium chloride (PF) 0.9% PF flush 3 mL 3 mL Intracatheter Q8H Alan Alvarez MD 3 mL at 02/04/24 1139 Data Recent Labs Lab 02/04/24 0711 02/03/24 0545 02/02/24 0639 02/01/24 1644 02/01/24 0921 01/31/24 0653 01/30/24 1628 WBC -- -- 6.0 -- 7.9 8.3 7.9 HGB -- -- 11.4* -- 13.1* 11.2* 12.5* MCV -- -- 90 -- 88 88 89 PLT -- -- 241 -- 240 159 162 NA -- -- 137 -- 137 133* 135 POTASSIUM 4.3 4.2 4.1 < > 4.2 4.7 4.4 CHLORIDE -- -- 102 -- 101 98 98 CO2 -- -- -- BUN -- -- 12.3 -- 14.3 11.4 13.3 CR 1.02 1.02 1.05 -- 1.08 1.05 1.09 ANIONGAP -- -- 11 -- 11 12 13 HAWK -- -- 8.7* -- 9.4 8.5* 9.0 GLC -- -- 96 -- 98 99 97 ALBUMIN -- -- -- -- -- -- 3.4* PROTTOTAL -- -- -- -- -- -- 6.4 BILITOTAL -- -- -- -- -- -- 0.5 ALKPHOS -- -- -- -- -- -- 66 ALT -- -- -- -- -- -- 64 AST -- -- -- -- -- -- 44 < > = values in this interval not displayed. No results found for this or any previous visit (from the past 24 hour(s)). * Osmar Triplett MD - 02/03/2024 12:57 PM CDT [facility] Hospitalist Progress Note Provider : Osmar Triplett MD Date of Service (when I saw the patient): 02/03/2024 Assessment & Plan Micah Ritchie is a 63 year old male admitted on 01/30/2024. He has history of bicuspid aortic valve with history of aortic valve replacement in 2009. He was seen in [facility] with a 2-week history of fevers, weakness, sweating episodes and chills. He was called today that his blood cultures are positive for gram-positive cocci and came to the ER. Blood cultures growing Streptococcussanguinous. DAVID negative for agdaagux or bioprosthetic valve vegetations, no evidence of endocarditis. Given high risk organism we will still plan on prolonged course of IV antibiotics. Could likely get PICC on 02/04 if last blood culture remains negative. Fever with gram-positive coccemia concern for subacute bacterial endocarditis of bioprosthetic aortic valve Streptococcus sanguinous bacteremia -Started on vancomycin and ceftriaxone. Follow-up on repeat blood cultures. -Infectious disease following, appreciate assistance -Blood cultures from 01/29 growing Streptococcus sanguinous in 2/2 bottles -DAVID without evidence of endocarditis, however high risk organism with strep sanguinous so will need 6 weeks IV antibiotics per ID -PICC could be placed Monday if last blood culture from 01/31 remains negative, social work helping with home infusion set up -Narrowed to ceftriaxone alone based on culture sensitivity results Abnormal thyroid testing at outside hospital He was started on Synthroid but given he does not have any symptoms of hypothyroidism and has acuteillness, he likely had euthyroid sick syndrome. TSH elevated to 4.5, free T4 normal at 1.12. No thyroid replacement right now. Will likely need repeat test done as an outpatient after acute illness resolves. Essential hypertension Prior to admission on lisinopril, will hold due to low normal blood pressure. Hyperlipidemia On Crestor, can be continued. Diet: Regular diet after DAVID DVT Prophylaxis: Heparin SQ Malcolm Catheter: Not present Lines: None Cardiac Monitoring: None Code Status: Full code DVT Prophylaxis: Pneumatic Compression Devices Code Status: Full Code Disposition: Hopeful for discharge 02/04 if blood cultures remain negative, PICC can be placed at that time. Social work helping with outpatient infusion set up. Osmar Triplett MD Interval History No acute events overnight. Feeling well, no acute concerns or complaints. -Data reviewed today: I reviewed all new labs and imaging results over the last 24 hours. I personally reviewed no images or EKG's today. Physical Exam Temp: 97.7 ??F (36.5 ??C) Temp src: Oral BP: 117/75 Pulse: 64 Resp: 18 SpO2: 93 % O2 Device: None (Room air) Vitals: 01/30/24 1607 01/30/24 2212 Weight: 77.1 kg (170 lb) 79.4 kg (175 lb) Vital Signs with Ranges Temp: [97.7 ??F (36.5 ??C)-97.9 ??F (36.6 ??C)] 97.7 ??F (36.5 ??C) Pulse: [64-70] 64 Resp: [17-18] 18 BP: (111-123)/(71-75) 117/75 SpO2: [93 %-97 %] 93 % I/O last 3 completed shifts: In: 850 [P.O.:850] Out: 1600 [Urine:1600] GEN: Alert, oriented x 3, appears comfortable, NAD. HEENT: Normocephalic/atraumatic, no scleral icterus, no nasal discharge, mouth moist. CV: Regular rate and rhythm, no murmur or JVD. S1 + S2 noted, no S3 or S4. LUNGS: Clear to auscultation bilaterally without rales/rhonchi/wheezing/retractions. Symmetric chest rise on inhalation noted. ABD: Active bowel sounds, soft, non-tender/non-distended. No rebound/guarding/rigidity. EXT: No edema or cyanosis. Hands/feet warm to touch with good signs of peripheral perfusion. No joint synovitis noted. SKIN: Dry to touch, no exanthems noted in the visualized areas. NEURO: Symmetric muscle strength, sensation to touch grossly intact. No new focal deficits appreciated. Medications Current Facility-Administered Medications Medication Dose Route Frequency Provider Last Rate Last Admin Current Facility-Administered Medications Medication Dose Route Frequency Provider Last Rate Last Admin aspirin (ASA) chewable tablet 81 mg 81 mg Oral Daily Alan Alvarez MD 81 mg at 02/02/242151 cefTRIAXone (ROCEPHIN) 2 g vial to attach to NS 100 ml bag for ADULTS or NS 50 ml bag for PEDS 2 g Intravenous Q24H Alan Alvarez MD 200 mL/hr at 02/02/242026 2 g at 02/02/242026 [Held by provider] heparin ANTICOAGULANT injection 5,000 Units 5,000 Units Subcutaneous Q8H Alan Alvarez MD 5,000 Units at 01/31/24 1355 rosuvastatin (CRESTOR) tablet 20 mg 20 mg Oral At Bedtime Alan Alvarez MD 20 mg at 02/02/242151 sodium chloride (PF) 0.9% PF flush 3 mL 3 mL Intracatheter Q8H Alan Alvarez MD 3 mL at 02/03/24 0115 vancomycin (VANCOCIN) 1,750 mg in 0.9% NaCl 500 mL intermittent infusion 1,750 mg Intravenous Q24H Alan Alvarez MD 250 mL/hr at 02/02/24 2146 1,750 mg at 02/02/24 2146 Data Recent Labs Lab 02/03/24 0545 02/02/24 0639 02/01/24 1644 02/01/24 0921 01/31/24 0653 01/30/24 1628 WBC -- 6.0 -- 7.9 8.3 7.9 HGB -- 11.4* -- 13.1* 11.2* 12.5* MCV -- 90 -- 88 88 89 PLT -- 241 -- 240 159 162 NA -- 137 -- 137 133* 135 POTASSIUM 4.2 4.1 3.9 4.2 4.7 4.4 CHLORIDE -- 102 -- 101 98 98 CO2 -- 24 -- 25 23 24 BUN -- 12.3 -- 14.3 11.4 13.3 CR 1.02 1.05 -- 1.08 1.05 1.09 ANIONGAP -- 11 -- 11 12 13 HAWK -- 8.7* -- 9.4 8.5* 9.0 GLC -- 96 -- 98 99 97 ALBUMIN -- -- -- -- -- 3.4* PROTTOTAL -- -- -- -- -- 6.4 BILITOTAL -- -- -- -- -- 0.5 ALKPHOS -- -- -- -- -- 66 ALT -- -- -- -- -- 64 AST -- -- -- -- -- 44 No results found for this or any previous visit (from the past 24 hour(s)). * Osmar Triplett MD - 02/02/2024 2:07 PM CDT [facility] Hospitalist Progress Note Provider : Osmar Triplett MD Date of Service (when I saw the patient): 02/02/2024 Assessment & Plan Micah Ritchie is a 63 year old male admitted on 01/30/2024. He has history of bicuspid aortic valve with history of aortic valve replacement in 2009. He was seen in [facility] with a 2-week history of fevers, weakness, sweating episodes and chills. He was called today that his blood cultures are positive for gram-positive cocci and came to the ER. Blood cultures growing Streptococcussanguinous. DAVID negative for agdaagux or bioprosthetic valve vegetations, no evidence of endocarditis. Given high risk organism we will still plan on prolonged course of IV antibiotics. Could likely get PICC on 02/04 if last blood culture remains negative. Fever with gram-positive coccemia concern for subacute bacterial endocarditis of bioprosthetic aortic valve Streptococcus sanguinous bacteremia -Started on vancomycin and ceftriaxone. Follow-up on repeat blood cultures. -Infectious disease following, appreciate assistance -Blood cultures from 01/29 growing Streptococcus sanguinous in 2/2 bottles -DAVID without evidence of endocarditis, however high risk organism with strep sanguinous so will need 6 weeks IV antibiotics per ID -PICC could be placed Monday if last blood culture remains negative, social work helping with home infusion set up -Await culture sensitivities before narrowing antibiotics, hopeful for ceftriaxone alone Abnormal thyroid testing at outside hospital He was started on Synthroid but given he does not have any symptoms of hypothyroidism and has acuteillness, he likely had euthyroid sick syndrome. TSH elevated to 4.5, free T4 normal at 1.12. No thyroid replacement right now. Will likely need repeat test done as an outpatient after acute illness resolves. Essential hypertension Prior to admission on lisinopril, will hold due to low normal blood pressure. Hyperlipidemia On Crestor, can be continued. Diet: Regular diet after DAVID DVT Prophylaxis: Heparin SQ Malcolm Catheter: Not present Lines: None Cardiac Monitoring: None Code Status: Full code DVT Prophylaxis: Pneumatic Compression Devices Code Status: Full Code Disposition: Hopeful for discharge 02/04 if blood cultures remain negative, PICC can be placed at that time. Social work helping with outpatient infusion set up. Osmar Triplett MD Interval History No acute events overnight. TTE negative, discussed with patient that the bacteremia is still high risk for endocarditis so he will need prolonged course of IV antibiotics. Patient understanding of this plan. Discussed that we need negative cultures x 72 hours before PICC placement, will be here until Monday. -Data reviewed today: I reviewed all new labs and imaging results over the last 24 hours. I personally reviewed no images or EKG's today. Physical Exam Temp: 97.5 ??F (36.4 ??C) Temp src: Oral BP: 111/64 Pulse: 74 Resp: 18 SpO2: 97 % O2 Device: None (Room air) Vitals: 01/30/24 1607 01/30/24 2212 Weight: 77.1 kg (170 lb) 79.4 kg (175 lb) Vital Signs with Ranges Temp: [97.4 ??F (36.3 ??C)-98.5 ??F (36.9 ??C)] 97.5 ??F (36.4 ??C) Pulse: [59-77] 74 Resp: [16-18] 18 BP: (111-122)/(63-75) 111/64 SpO2: [96 %-97 %] 97 % I/O last 3 completed shifts: In: - Out: 1750 [Urine:1750] GEN: Alert, oriented x 3, appears comfortable, NAD. HEENT: Normocephalic/atraumatic, no scleral icterus, no nasal discharge, mouth moist. CV: Regular rate and rhythm, no murmur or JVD. S1 + S2 noted, no S3 or S4. LUNGS: Clear to auscultation bilaterally without rales/rhonchi/wheezing/retractions. Symmetric chest rise on inhalation noted. ABD: Active bowel sounds, soft, non-tender/non-distended. No rebound/guarding/rigidity. EXT: No edema or cyanosis. Hands/feet warm to touch with good signs of peripheral perfusion. No joint synovitis noted. SKIN: Dry to touch, no exanthems noted in the visualized areas. NEURO: Symmetric muscle strength, sensation to touch grossly intact. No new focal deficits appreciated. Medications Current Facility-Administered Medications Medication Dose Route Frequency Provider Last Rate Last Admin Current Facility-Administered Medications Medication Dose Route Frequency Provider Last Rate Last Admin aspirin (ASA) chewable tablet 81 mg 81 mg Oral Daily Alan Alvarez MD 81 mg at 02/01/242112 cefTRIAXone (ROCEPHIN) 2 g vial to attach to NS 100 ml bag for ADULTS or NS 50 ml bag for PEDS 2 g Intravenous Q24H Alan Alvarez MD 2 g at 02/01/242014 [Held by provider] heparin ANTICOAGULANT injection 5,000 Units 5,000 Units Subcutaneous Q8H Alan Alvarez MD 5,000 Units at 01/31/24 1355 rosuvastatin (CRESTOR) tablet 20 mg 20 mg Oral At Bedtime Alan Alvarez MD 20 mg at 02/01/242112 sodium chloride (PF) 0.9% PF flush 3 mL 3 mL Intracatheter Q8H Alan Alvarez MD 3 mL at 02/02/24 0536 vancomycin (VANCOCIN) 1,750 mg in 0.9% NaCl 500 mL intermittent infusion 1,750 mg Intravenous Q24H Alan Alvarez MD 250 mL/hr at 02/01/242112 1,750 mg at 02/01/242112 Data Recent Labs Lab 02/02/24 0639 02/01/24 1644 02/01/24 0921 01/31/24 0653 01/30/24 1628 WBC 6.0 -- 7.9 8.3 7.9 HGB 11.4* -- 13.1* 11.2* 12.5* MCV 90 -- 88 88 89 PLT 241 -- 240 159 162 NA 137 -- 137 133* 135 POTASSIUM 4.1 3.9 4.2 4.7 4.4 CHLORIDE 102 -- 101 98 98 CO2 24 -- 25 23 24 BUN 12.3 -- 14.3 11.4 13.3 CR 1.05 -- 1.08 1.05 1.09 ANIONGAP 11 -- 11 12 13 HAWK 8.7* -- 9.4 8.5* 9.0 GLC 96 -- 98 99 97 ALBUMIN -- -- -- -- 3.4* PROTTOTAL -- -- -- -- 6.4 BILITOTAL -- -- -- -- 0.5 ALKPHOS -- -- -- -- 66 ALT -- -- -- -- 64 AST -- -- -- -- 44 No results found for this or any previous visit (from the past 24 hour(s)). * Lacey Chen MD - 02/02/2024 11:56 AM CDT [facility] Infectious Disease Progress Note Date of Service (when I saw the patient): 02/02/2024 Assessment & Plan Micah Ritchie is a 63 year old male who was admitted on 01/30/2024. Impression: 63 yo presented to the OSH for 2-week history of fevers, weakness, sweating episodes and chills. He was called yesterday that his blood cultures are positive for gram-positive cocci and came to the ER. He was also tested for Lyme disease and was told that his Lyme test was negative. Nevertheless he was prescribed doxycycline for possible unspecified tickborne illness and he has taken 1 dose History of bicuspid aortic valve with history of aortic valve replacement in 2009 DAVID pending Blood cultures here are are positive for strep species further identified as strep sanguis pending susceptibilities Full report of blood cultures from OSH are also pending He was started on Vanco and ceftriaxone Recommendations Strep sanguis in the cultures DAVID: no endocarditis Continue on vancomycin and ceftriaxone Follow up on the susceptibilities Anticipate 6 weeks of IV Antibiotics on discharge should be ready early next week given still waiting on repeat cultures Lacey Chen MD Interval History No fever DAVID negative Physical Exam Temp: 97.5 ??F (36.4 ??C) Temp src: Oral BP: 111/64 Pulse: 74 Resp: 18 SpO2: 97 % O2 Device: None (Room air) Oxygen Delivery: 4 LPM Vitals: 01/30/24 1607 01/30/24 2212 Weight: 77.1 kg (170 lb) 79.4 kg (175 lb) Vital Signs with Ranges Temp: [97.4 ??F (36.3 ??C)-98.5 ??F (36.9 ??C)] 97.5 ??F (36.4 ??C) Pulse: [59-83] 74 Resp: [7-22] 18 BP: (111-171)/(63-106) 111/64 SpO2: [96 %-100 %] 97 % GENERAL APPEARANCE: awake EYES: Eyes grossly normal to inspection NECK: no adenopathy RESP: lungs clear CV: regular rates and rhythm LYMPHATICS: normal ant/post cervical and supraclavicular nodes ABDOMEN: soft, nontender MS: extremities normal SKIN: no suspicious lesions or rashes Medications Current Facility-Administered Medications Medication Dose Route Frequency Provider Last Rate Last Admin Current Facility-Administered Medications Medication Dose Route Frequency Provider Last Rate Last Admin aspirin (ASA) chewable tablet 81 mg 81 mg Oral Daily Alan Alvarez MD 81 mg at 02/01/242112 cefTRIAXone (ROCEPHIN) 2 g vial to attach to NS 100 ml bag for ADULTS or NS 50 ml bag for PEDS 2 gIntravenous Q24H Alan Alvarez MD 2 g at 02/01/242014 [Held by provider] heparin ANTICOAGULANT injection 5,000 Units 5,000 Units Subcutaneous Q8H Alan Alvarez MD 5,000 Units at 01/31/24 1355 rosuvastatin (CRESTOR) tablet 20 mg 20 mg Oral At Bedtime Alan Alvarez MD 20 mg at 02/01/242112 sodium chloride (PF) 0.9% PF flush 3 mL 3 mL Intracatheter Q8H Alan Alvarez MD 3 mL at 02/02/24 0536 vancomycin (VANCOCIN) 1,750 mg in 0.9% NaCl 500 mL intermittent infusion 1,750 mg Intravenous Q24H Alan Alvarez MD 250 mL/hr at 02/01/242112 1,750 mg at 02/01/242112 Data All microbiology laboratory data reviewed. Recent Labs Lab Test 02/02/24 0639 02/01/24 0921 01/31/24 0653 WBC 6.0 7.9 8.3 HGB 11.4* 13.1* 11.2* HCT 35.0* 39.4* 33.7* MCV 90 88 88 PLT 241 240 159 Recent Labs Lab Test 02/02/24 0639 02/01/24 0921 01/31/24 0653 CR 1.05 1.08 1.05 No lab results found. No lab results found. Invalid input(s): All cultures: Recent Labs Lab 02/01/24 1644 01/30/24 2030 01/30/24 1628 CULTURE No growth after 12 hours Positive on the 1st day of incubation* Streptococcus sanguinis* Positive on the 1st day of incubation* Streptococcus sanguinis* Blood culture: Results for orders placed or performed during the hospital encounter of 01/30/24 Blood Culture Hand, Right Specimen: Hand, Right; Blood Result Value Ref Range Culture No growth after 12 hours Blood Culture Peripheral Blood Specimen: Peripheral Blood Result Value Ref Range Culture Positive on the 1st day of incubation (A) Culture Streptococcus sanguinis (AA) Blood Culture Arm, Right Specimen: Arm, Right; Blood Result Value Ref Range Culture Positive on the 1st day of incubation (A) Culture Streptococcus sanguinis (AA) Urine culture: No results found for this or any previous visit. * Osmar Triplett MD - 02/01/2024 3:30 PM CDT [facility] Hospitalist Progress Note Provider : Osmar Triplett MD Date of Service (when I saw the patient): 02/01/2024 Assessment & Plan Micah Ritchie is a 63 year old male admitted on 01/30/2024. He has history of bicuspid aortic valve with history of aortic valve replacement in 2009 He was seen in [facility] with a 2-week history of fevers, weakness, sweating episodes andchills. He was called today that his blood cultures are positive for gram-positive cocci and came to the ER. He was also tested for Lyme disease and was told that his Lyme test was negative. Nevertheless he was prescribed doxycycline for possible unspecified tickborne illness and he has taken 1 dose this morning. He was also noted to have abnormal thyroid test and was started on Synthroid 50 mcg daily. 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 He denies any localizing infectious symptoms like sore throat, URI symptoms, cough, expectoration, abdominal pain or dysuria. Upon arrival to ER, the temperature was 98.4 with heart rate of 68, blood pressure of 160/69 with oxygen saturation of 99% on room air. CMP and CBC were unremarkable but had elevated procalcitonin of0.85 and elevated CRP of 73. Repeat blood cultures were drawn in the ER, growing staph species. Fever with gram-positive coccemia concern for subacute bacterial endocarditis of bioprosthetic aortic valve Streptococcus sanguinous bacteremia -Started on vancomycin and ceftriaxone. Follow-up on repeat blood cultures. -Infectious disease following, appreciate assistance -Blood cultures from 01/29 growing Streptococcus sanguinous in 2/2 bottles -DAVID being completed 01/31. May need cardiovascular surgery given prosthetic valve if there is evidence of endocarditis. Will consult cardiology following DAVID pending results. Abnormal thyroid testing at outside hospital. -He was started on Synthroid but given he does not have any symptoms of hypothyroidism and has acute illness, he likely had euthyroid sick syndrome. TSH elevated to 4.5, free T4 normal at 1.12. Will likely need repeat test done as an outpatient after acute illness resolves. Essential hypertension. -Prior to admission on lisinopril, will hold due to low normal blood pressure. Hyperlipidemia. -On Crestor, can be continued. Diet: Regular diet after DAVID DVT Prophylaxis: Heparin SQ Malcolm Catheter: Not present Lines: None Cardiac Monitoring: None Code Status: Full code DVT Prophylaxis: Pneumatic Compression Devices Code Status: Full Code Disposition: TBD pending DAVID results and possible need for procedural intervention if there is evidence of bioprosthetic valve endocarditis Osmar Triplett MD Interval History No acute events overnight. Was n.p.o. overnight for DAVID today. No acute concerns or complaints at this time, will follow-up after DAVID to discuss next steps based on results. -Data reviewed today: I reviewed all new labs and imaging results over the last 24 hours. I personally reviewed no images or EKG's today. Physical Exam Temp: 98.5 ??F (36.9 ??C) Temp src: Oral BP: 121/63 Pulse: 73 Resp: 16 SpO2: 96 % O2 Device: None (Room air) Oxygen Delivery: 4 LPM Vitals: 01/30/24 1607 01/30/24 2212 Weight: 77.1 kg (170 lb) 79.4 kg (175 lb) Vital Signs with Ranges Temp: [98 ??F (36.7 ??C)-98.6 ??F (37 ??C)] 98.5 ??F (36.9 ??C) Pulse: [69-83] 73 Resp: [7-22] 16 BP: (110-171)/(63-106) 121/63 SpO2: [95 %-100 %] 96 % I/O last 3 completed shifts: In: - Out: 3725 [Urine:3725] GEN: Alert, oriented x 3, appears comfortable, NAD. HEENT: Normocephalic/atraumatic, no scleral icterus, no nasal discharge, mouth moist. CV: Regular rate and rhythm, no murmur or JVD. S1 + S2 noted, no S3 or S4. LUNGS: Clear to auscultation bilaterally without rales/rhonchi/wheezing/retractions. Symmetric chest rise on inhalation noted. ABD: Active bowel sounds, soft, non-tender/non-distended. No rebound/guarding/rigidity. EXT: No edema or cyanosis. Hands/feet warm to touch with good signs of peripheral perfusion. No joint synovitis noted. SKIN: Dry to touch, no exanthems noted in the visualized areas. NEURO: Symmetric muscle strength, sensation to touch grossly intact. No new focal deficits appreciated. Medications Current Facility-Administered Medications Medication Dose Route Frequency Provider Last Rate Last Admin Current Facility-Administered Medications Medication Dose Route Frequency Provider Last Rate Last Admin aspirin (ASA) chewable tablet 81 mg 81 mg Oral Daily Alan Alvarez MD 81 mg at 01/31/24 0906 cefTRIAXone (ROCEPHIN) 2 g vial to attach to NS 100 ml bag for ADULTS or NS 50 ml bag for PEDS 2 g Intravenous Q24H Alan Alvarez MD 2 g at 01/31/242012 [Held by provider] heparin ANTICOAGULANT injection 5,000 Units 5,000 Units Subcutaneous Q8H Alan Alvarez MD 5,000 Units at 01/31/24 1355 rosuvastatin (CRESTOR) tablet 20 mg 20 mg Oral At Bedtime Alan Alvarez MD 20 mg at 01/31/24 2110 sodium chloride (PF) 0.9% PF flush 3 mL 3 mL Intracatheter Q8H Alan Alvarez MD 3 mL at 02/01/24 0614 vancomycin (VANCOCIN) 1,750 mg in 0.9% NaCl 500 mL intermittent infusion 1,750 mg Intravenous Q24H Alan Alvarez MD 250 mL/hr at 01/31/24 2100 1,750 mg at 01/31/24 2100 Data Recent Labs Lab 02/01/24 0921 01/31/24 0653 01/30/24 1628 WBC 7.9 8.3 7.9 HGB 13.1* 11.2* 12.5* MCV 88 88 89 PLT -- 159 162 NA 137 133* 135 POTASSIUM 4.2 4.7 4.4 CHLORIDE 101 98 98 CO2 25 23 24 BUN 14.3 11.4 13.3 CR 1.08 1.05 1.09 ANIONGAP 11 12 13 HAWK 9.4 8.5* 9.0 GLC 98 99 97 ALBUMIN -- -- 3.4* PROTTOTAL -- -- 6.4 BILITOTAL -- -- 0.5 ALKPHOS -- -- 66 ALT -- -- 64 AST -- -- 44 No results found for this or any previous visit (from the past 24 hour(s)). * Lacey Chen MD - 02/01/2024 11:47 AM CDT [facility] Infectious Disease Progress Note Date of Service (when I saw the patient): 02/01/2024 Assessment & Plan Micah Ritchie is a 63 year old male who was admitted on 01/30/2024. Impression: 63 yo presented to the OSH for 2-week history of fevers, weakness, sweating episodes and chills. He was called yesterday that his blood cultures are positive for gram-positive cocci and came to the ER. He was also tested for Lyme disease and was told that his Lyme test was negative. Nevertheless he was prescribed doxycycline for possible unspecified tickborne illness and he has taken 1 dose History of bicuspid aortic valve with history of aortic valve replacement in 2009 DAVID pending Blood cultures here are are positive for strep species further identified as strep sanguis pending susceptibilities Full report of blood cultures from OSH are also pending He was started on Vanco and ceftriaxone Recommendations Follow-up in the full culture report from outside hospital Follow-up on the pending DAVID Continue current antibiotics Follow-up on the blood cultures here Repeat blood cultures daily till clears Lacey Chen MD Interval History Not in room Physical Exam Temp: 98.4 ??F (36.9 ??C) Temp src: Oral BP: 133/78 Pulse: 75 Resp: 22 SpO2: 97 % O2 Device: None (Room air) Vitals: 01/30/24 1607 01/30/24 2212 Weight: 77.1 kg (170 lb) 79.4 kg (175 lb) Vital Signs with Ranges Temp: [98 ??F (36.7 ??C)-98.6 ??F (37 ??C)] 98.4 ??F (36.9 ??C) Pulse: [69-77] 75 Resp: [18-22] 22 BP: (110-133)/(68-78) 133/78 SpO2: [95 %-97 %] 97 % Medications Current Facility-Administered Medications Medication Dose Route Frequency Provider Last Rate Last Admin sodium chloride 0.9 % infusion 1,000 mL Intravenous Continuous Alan Alvarez MD sodium chloride 0.9 % infusion 1,000 mL Intravenous Continuous Taina Ignacio MD Current Facility-Administered Medications Medication Dose Route Frequency Provider Last Rate Last Admin aspirin (ASA) chewable tablet 81 mg 81 mg Oral Daily Alan Alvarez MD 81 mg at 01/31/24 0906 benzocaine 20% (HURRICAINE/TOPEX) 20 % spray 0.5-2 mL 1-4 spray Mouth/Throat Once Alan Alvarez MD benzocaine 20% (HURRICAINE/TOPEX) 20 % spray 0.5-2 mL 1-4 spray Mouth/Throat Once Taina Ignacio MD benzocaine 20% (HURRICAINE/TOPEX) 20 % spray cefTRIAXone (ROCEPHIN) 2 g vial to attach to NS 100 ml bag for ADULTS or NS 50 ml bag for PEDS 2 g Intravenous Q24H Alan Alvarez MD 2 g at 01/31/242012 fentaNYL (PF) (SUBLIMAZE) 100 MCG/2ML injection flumazenil (ROMAZICON) 0.5 MG/5ML injection glycopyrrolate (ROBINUL) 0.2 MG/ML injection glycopyrrolate (ROBINUL) injection 0.1 mg 0.1 mg Intravenous Once Taina Ignacio MD [Held by provider] heparin ANTICOAGULANT injection 5,000 Units 5,000 Units Subcutaneous Q8H Alan Alvarez MD 5,000 Units at 01/31/24 1355 lidocaine (viscous) (XYLOCAINE) 2 % solution 15 mL 15 mL Mouth/Throat Once Alan Alvarez MD lidocaine (viscous) (XYLOCAINE) 2 % solution 15 mL 15 mL Mouth/Throat Once Taina Ignacio MD lidocaine (XYLOCAINE) 5 % ointment Topical Once Alan Alvarez MD Or lidocaine (XYLOCAINE) 4 % solution 1.5 mL 1.5 mL Topical Once Alan Alvarez MD lidocaine (XYLOCAINE) 5 % ointment Topical Once Taina Ignacio MD Or lidocaine (XYLOCAINE) 4 % solution 1.5 mL 1.5 mL Topical Once Taina Ignacio MD midazolam (VERSED) 1 MG/ML injection naloxone (NARCAN) 0.4 MG/ML injection rosuvastatin (CRESTOR) tablet 20 mg 20 mg Oral At Bedtime Alan Alvarez MD 20 mg at 01/31/24 2110 sodium chloride (PF) 0.9% PF flush 3 mL 3 mL Intracatheter Q8H Alan Alvarez MD 3 mL at 02/01/24 0614 vancomycin (VANCOCIN) 1,750 mg in 0.9% NaCl 500 mL intermittent infusion 1,750 mg Intravenous Q24H Alan Alvarez MD 250 mL/hr at 01/31/24 2100 1,750 mg at 01/31/24 2100 Data All microbiology laboratory data reviewed. Recent Labs Lab Test 02/01/24 0921 01/31/24 0653 01/30/24 1628 06/24/20 0809 04/19/19 0451 WBC 7.9 8.3 7.9 -- 14.8* HGB 13.1* 11.2* 12.5* < > 15.3 HCT 39.4* 33.7* 38.1* -- 46.8 MCV 88 88 89 -- 90 PLT -- 159 162 -- 193 < > = values in this interval not displayed. Recent Labs Lab Test 01/31/24 0653 01/30/24 1628 10/18/22 1106 CR 1.05 1.09 0.95 No lab results found. No lab results found. Invalid input(s): All cultures: Recent Labs Lab 01/30/24202901/30/24 162 CULTURE Positive on the 1st day of incubation* Streptococcus sanguinis* Positive on the 1st day of incubation* Streptococcus sanguinis* Blood culture: Results for orders placed or performed during the hospital encounter of 01/30/24 Blood Culture Peripheral Blood Specimen: Peripheral Blood Result Value Ref Range Culture Positive on the 1st day of incubation (A) Culture Streptococcus sanguinis (AA) Blood Culture Arm, Right Specimen: Arm, Right; Blood Result Value Ref Range Culture Positive on the 1st day of incubation (A) Culture Streptococcus sanguinis (AA) Urine culture: No results found for this or any previous visit. * Millicent Briones RN - 01/31/2024 3:00 PM CDT 01/31/24 1000 Critical Test Results/Notification Critical Lab Result (Lab Name and Value) Gram postive Cocci in pairs and chains What Time Did The Lab Notify You? 1450 Provider Notified yes Date of Provider Notification 01/31/24 Time of Provider Notification 1452 Mechanism of Provider notification page What Provider Did You Notify? Dr. Penn Response orders obtained * Millicent Briones RN - 01/31/2024 2:30 PM CDT 01/31/24 1400 Critical Test Results/Notification Critical Lab Result (Lab Name and Value) positive streptococcus species What Time Did The Lab Notify You? 1425 Provider Notified yes Date of Provider Notification 01/31/24 Time of Provider Notification 1426 Mechanism of Provider notification page What Provider Did You Notify? Dr. Penn Response orders obtained * Millicent Briones RN - 01/31/2024 11:50 AM CDT 01/31/24 1100 Critical Test Results/Notification Critical Lab Result (Lab Name and Value) Gram Postive Cocci in chains and kieran. What Time Did The Lab Notify You? 1143 Provider Notified yes Date of Provider Notification 01/31/24 Time of Provider Notification 1144 Mechanism of Provider notification page What Provider Did You Notify? Dr. Penn Response orders obtained * Key Penn MD - 01/31/2024 10:36 AM CDT [facility] Hospitalist Progress Note Provider : Key Penn MD, MD Date of Service (when I saw the patient): 01/31/2024 Assessment & Plan Micah Ritchie is a 63 year old male admitted on 01/30/2024. He has history of bicuspid aortic valve with history of aortic valve replacement in 2009 He was seen in [facility] with a 2-week history of fevers, weakness, sweating episodes andchills. He was called today that his blood cultures are positive for gram-positive cocci and came to the ER. He was also tested for Lyme disease and was told that his Lyme test was negative. Nevertheless he was prescribed doxycycline for possible unspecified tickborne illness and he has taken 1 dose this morning. He was also noted to have abnormal thyroid test and was started on Synthroid 50 mcg daily. 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 He denies any localizing infectious symptoms like sore throat, URI symptoms, cough, expectoration, abdominal pain or dysuria. Upon arrival to ER, the temperature was 98.4 with heart rate of 68, blood pressure of 160/69 with oxygen saturation of 99% on room air. CMP and CBC were unremarkable but had elevated procalcitonin of0.85 and elevated CRP of 73. Repeat blood cultures were drawn in the ER. 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 -Started on vancomycin and ceftriaxone. Follow-up on repeat blood cultures. -I called lab at [facility] today. Final culture and sensitivity not available yet. Will follow culture and sensitivity report -DAVID planned for tomorrow. NPO after midnight. Given prosthetic valve he might be a candidate for surgery, defer decision to ID. Will consult cardiology depending on DAVID findings including size of vegetations and any periannular abscesses. Addendum: 12:10 PM. Per report from lab, positive for Gram positive cocci in pairs and chains. Final result pending. Will await ID input. Abnormal thyroid testing at outside hospital. -He was started on Synthroid but given he does not have any symptoms of hypothyroidism and has acute illness, he likely had euthyroid sick syndrome. - Will check TSH and free T4 Essential hypertension. -Prior to admission on lisinopril, will hold due to low normal blood pressure.. Hyperlipidemia. -On Crestor, can be continued. Diet: Regular diet, n.p.o. at midnight for DAVID. DVT Prophylaxis: Heparin SQ Malcolm Catheter: Not present Lines: None Cardiac Monitoring: None Code Status: Full code DVT Prophylaxis: Pneumatic Compression Devices Code Status: Full Code Disposition: Expected discharge in 1-2 days Key Penn MD Interval History Patient seen and examined today. Chart reviewed. Patient stated that he is feeling OK. He denies fever today. He has no chills. He also denies cough, shortness of breath, chest pain, nausea, vomiting. He has no abdominal pain. -Data reviewed today: I reviewed all new labs and imaging results over the last 24 hours. I personally reviewed no images or EKG's today. Physical Exam Temp: 98.6 ??F (37 ??C) Temp src: Oral BP: 105/65 Pulse: 68 Resp: 20 SpO2: 94 % O2 Device: None (Room air) Vitals: 01/30/24 1607 01/30/24 2212 Weight: 77.1 kg (170 lb) 79.4 kg (175 lb) Vital Signs with Ranges Temp: [98.4 ??F (36.9 ??C)-98.6 ??F (37 ??C)] 98.6 ??F (37 ??C) Pulse: [68-94] 68 Resp: [18-20] 20 BP: (105-129)/(65-71) 105/65 SpO2: [94 %-99 %] 94 % I/O last 3 completed shifts: In: 354 [I.V.:354] Out: 650 [Urine:650] GEN: Alert, oriented x 3, appears comfortable, NAD. HEENT: Normocephalic/atraumatic, no scleral icterus, no nasal discharge, mouth moist. CV: Regular rate and rhythm, no murmur or JVD. S1 + S2 noted, no S3 or S4. LUNGS: Clear to auscultation bilaterally without rales/rhonchi/wheezing/retractions. Symmetric chest rise on inhalation noted. ABD: Active bowel sounds, soft, non-tender/non-distended. No rebound/guarding/rigidity. EXT: No edema or cyanosis. Hands/feet warm to touch with good signs of peripheral perfusion. No joint synovitis noted. SKIN: Dry to touch, no exanthems noted in the visualized areas. NEURO: Symmetric muscle strength, sensation to touch grossly intact. No new focal deficits appreciated. Medications Current Facility-Administered Medications Medication Dose Route Frequency Provider Last Rate Last Admin lactated ringers infusion Intravenous Continuous Alan Alvarez MD 75 mL/hr at 01/31/24 0103 New Bagat 01/31/24 0103 Current Facility-Administered Medications Medication Dose Route Frequency Provider Last Rate Last Admin aspirin (ASA) chewable tablet 81 mg 81 mg Oral Daily Alan Alvarez MD 81 mg at 01/31/24 0906 cefTRIAXone (ROCEPHIN) 2 g vial to attach to NS 100 ml bag for ADULTS or NS 50 ml bag for PEDS 2 g Intravenous Q24H Alan Alvarez MD heparin ANTICOAGULANT injection 5,000 Units 5,000 Units Subcutaneous Q8H Alan Alvarez MD 5,000 Units at 01/31/24 0548 rosuvastatin (CRESTOR) tablet 20 mg 20 mg Oral At Bedtime Alan Alvarez MD 20 mg at 01/30/24 2322 sodium chloride (PF) 0.9% PF flush 3 mL 3 mL Intracatheter Q8H Alan Avlarez MD vancomycin (VANCOCIN) 1,750 mg in 0.9% NaCl 500 mL intermittent infusion 1,750 mg Intravenous Q24H Alan Alvarez MD Data Recent Labs Lab 01/31/24 0653 01/30/24 1628 WBC 8.3 7.9 HGB 11.2* 12.5* MCV 88 89 PLT 159 162 NA 133* 135 POTASSIUM 4.7 4.4 CHLORIDE 98 98 CO2 23 24 BUN 11.4 13.3 CR 1.05 1.09 ANIONGAP 12 13 HAWK 8.5* 9.0 GLC 99 97 ALBUMIN -- 3.4* PROTTOTAL -- 6.4 BILITOTAL -- 0.5 ALKPHOS -- 66 ALT -- 64 AST -- 44 Recent Results (from the past 24 hour(s)) Chest XR, PA & LAT Narrative EXAM: XR CHEST 2 VIEWS LOCATION: [facility] DATE: 01/30/2024 INDICATION: Fever, chills. COMPARISON: 07/16/2009 Impression IMPRESSION: Heart size is normal. Aortic valve replacement. Lungs are clear bilaterally. Mediastinum and visualized bony structures are unremarkable. documented in this encounter H&P Notes * Alan Alvarez MD - 01/30/2024 8:36 PM CDT [facility] History and Physical - Hospitalist Service Date of Admission: 01/30/2024 Assessment & Plan Micah Ritchie is a 63 year old male admitted on 01/30/2024. He has history of bicuspid aortic valve with history of aortic valve replacement in 2009 He was seen in [facility] with a 2-week history of fevers, weakness, sweating episodes andchills. He was called today that his blood cultures are positive for gram-positive cocci and came to the ER. He was also tested for Lyme disease and was told that his Lyme test was negative. Nevertheless he was prescribed doxycycline for possible unspecified tickborne illness and he has taken 1 dose this morning. He was also noted to have abnormal thyroid test and was started on Synthroid 50 mcg daily. 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 He denies any localizing infectious symptoms like sore throat, URI symptoms, cough, expectoration, abdominal pain or dysuria. Upon arrival to ER, the temperature was 98.4 with heart rate of 68, blood pressure of 160/69 with oxygen saturation of 99% on room air. CMP and CBC were unremarkable but had elevated procalcitonin of0.85 and elevated CRP of 73. Repeat blood cultures were drawn in the ER. 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 Started on vancomycin and ceftriaxone. Follow-up on repeat blood cultures. Please call [facility] in the morning to get culture and sensitivity report. Follow-up on repeat blood cultures done in the ER. DAVID in the morning. Given prosthetic valve he might be a candidate for surgery, defer decision to ID. Consult cardiology depending on DAVID findings including size of vegetations and any periannular abscesses. Check EKG, placed on telemetry. Continue aspirin. Abnormal thyroid testing at outside hospital. He was started on Synthroid but given he does not have any symptoms of hypothyroidism and has acuteillness, he likely had euthyroid sick syndrome. Check thyroid panel again in the morning, hold off on starting Synthroid. Essential hypertension. Prior to admission on lisinopril, will hold due to low normal blood pressure.. Hyperlipidemia. On Crestor, can be continued. Diet: Regular diet, n.p.o. at midnight for DAVID. DVT Prophylaxis: Heparin SQ Malcolm Catheter: Not present Lines: None Cardiac Monitoring: None Code Status: Full code Clinically Significant Risk Factors Present on Admission # Drug Induced Platelet Defect: home medication list includes an antiplatelet medication # Hypertension: Home medication list includes antihypertensive(s) # Overweight: Estimated body mass index is 25.1 kg/m?? as calculated from the following: Height as of this encounter: 1.753 m (5' 9). Weight as of this encounter: 77.1 kg (170 lb). Disposition Plan Medically Ready for Discharge: Anticipated in 2-4 Days Alan Alvarez MD Hospitalist Service [facility] Securely message with Mevvy (more info) Text page via [facility] Paging/Directory Chief Complaint Fevers History is obtained from the patient. at bedside. History of Present Illness Micah Ritchie is a 63 year old male admitted on 01/30/2024. He has history of bicuspid aortic valve with history of aortic valve replacement in 2009 He was seen in [facility] with a 2-week history of fevers, weakness, sweating episodes andchills. He was called today that his blood cultures are positive for gram-positive cocci and came to the ER. He was also tested for Lyme disease and was told that his Lyme test was negative. Nevertheless he was prescribed doxycycline for possible unspecified tickborne illness and he has taken 1 dose this morning. He was also noted to have abnormal thyroid test and was started on Synthroid 50 mcg daily. 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 He denies any localizing infectious symptoms like sore throat, URI symptoms, cough, expectoration, abdominal pain or dysuria. Upon arrival to ER, the temperature was 98.4 with heart rate of 68, blood pressure of 160/69 with oxygen saturation of 99% on room air. CMP and CBC were unremarkable but had elevated procalcitonin of0.85 and elevated CRP of 73. Repeat blood cultures were drawn in the ER. Past Medical History Past Medical History: Diagnosis Date Aortic valve regurgitation per 09/25 echo, mild (1+) aortic valve regurgitation Bicuspid aortic valve Hx of AVR in 2009 Hyperlipidemia Mild dilation of ascending aorta Spinal stenosis Past Surgical History Past Surgical History: Procedure Laterality Date REPLACE VALVE AORTIC 06/2009 Prior to Admission Medications Prior to Admission Medications Prescriptions Last Dose Informant Patient Reported? Taking? Cholecalciferol (VITAMIN D-3 PO) Yes No Coenzyme Q10 (COQ-10) 200 MG CAPS Yes No Sig: Take by mouth daily HYDROcodone-acetaminophen (NORCO) 7.5-325 MG per tablet No No Sig: Take 1 tablet by mouth every 6 hours as needed for severe pain Patient not taking: Reported on 07/29/2022 MAGNESIUM GLYCINATE PLUS PO Yes No Multiple Vitamins-Minerals (MULTI FOR HIM PO) Yes No Sig: Take by mouth daily [place]-3 Fatty Acids (FISH OIL) 1200 MG CAPS Yes No Sig: Take 2,400 mg by mouth daily amoxicillin (AMOXIL) 500 MG capsule No No Si capsules 1 hour prior to proceedure aspirin 81 MG tablet Yes No Sig: Take 81 mg by mouth daily calcium carbonate (OS-HAWK) 600 MG tablet Yes No Sig: Take 1 tablet by mouth daily lisinopril (ZESTRIL) 20 MG tablet No No Sig: Take 1 tablet (20 mg) by mouth daily loratadine (CLARITIN) 10 MG tablet Yes No Sig: Take 10 mg by mouth daily rosuvastatin (CRESTOR) 20 MG tablet No No Sig: Take 1 tablet (20 mg) by mouth at bedtime Facility-Administered Medications: None Review of Systems The 10 point Review of Systems is negative other than noted in the HPI or here. Physical Exam Vital Signs: Temp: 98.4 ??F (36.9 ??C) Temp src: Temporal BP: 116/69 Pulse: 68 Resp: 18 SpO2: 99 % Weight: 170 lbs 0 oz General Appearance: Alert awake and oriented x 3 Respiratory: Clear to auscultation Cardiovascular: S1-S2 normal. Systolic and diastolic murmur in aortic area. GI: Soft and nontender Skin: No rash Other: No edema Medical Decision Making MANAGEMENT DISCUSSED with the following over the past 24 hours: ER provider, RN, patient and Data I have personally reviewed the following data over the past 24 hrs: 7.9 \ 12.5 (L) / 162 135 98 13.3 / 97 4.4 24 1.09 \ ALT: 64 AST: 44 AP: 66 TBILI: 0.5 ALB: 3.4 (L) TOT PROTEIN: 6.4 LIPASE: N/A Procal: 0.85 (H) CRP: 73.42 (H) Lactic Acid: 1.1 Imaging results reviewed over the past 24 hrs: Recent Results (from the past 24 hour(s)) Chest XR, PA & LAT Narrative EXAM: XR CHEST 2 VIEWS LOCATION: [facility] DATE: 01/30/2024 INDICATION: Fever, chills. COMPARISON: 07/16/2009 Impression IMPRESSION: Heart size is normal. Aortic valve replacement. Lungs are clear bilaterally. Mediastinum and visualized bony structures are unremarkable. documented in this encounter Procedure Notes * Kenya Becker RN - 02/05/2024 6:36 PM CDTAssociated Order(s): Single Lumen PICC Placement [facility] Single Lumen PICC Placement Date/Time: 02/05/2024 6:22 PM Performed by: Kenya Becker RN Authorized by: Danyell Barrett MD Indications: vascular access UNIVERSAL PROTOCOL Site Marked: Yes Prior Images Obtained and Reviewed: Yes Required items: Required blood products, implants, devices and special equipment available Patient identity confirmed: Verbally with patient, arm band and hospital- assigned identification number NA - No sedation, light sedation, or local anesthesia Confirmation Checklist: Patient's identity using two indicators, relevant allergies, procedure was appropriate and matched the consent or emergent situation and correct equipment/implants were available Time out: Immediately prior to the procedure a time out was called [place] Protocol: the Joint Commission [place] Protocol was followed Preparation: Patient was prepped and draped in usual sterile fashion ANESTHESIA Local Anesthetic: Lidocaine 1% without epinephrine Anesthetic Total (mL): 1 SEDATION Patient Sedated: No Skin prep agent: skin prep agent completely dried prior to procedure Sterile barriers: maximum sterile barriers were used: cap, mask, sterile gown, sterile gloves, and large sterile sheet Hand hygiene: hand hygiene performed prior to central venous catheter insertion Type of line used: PICC Catheter type: single lumen Lumen type: power PICC and valved Catheter size: 4 Fr Brand: Bard Lot number: [id number] Placement method: MST and venipuncture Number of attempts: 1 Difficulty threading catheter: no Successful placement: yes Orientation: right Location: basilic vein Tip Location: SVC Arm circumference: adults 10 cm Extremity circumference: 30 Visible catheter length: 4 Total catheter length: 52 Internal Lumen Volume: 48 mL Dressing and securement: chlorhexidine patch applied, site cleansed, subcutaneous anchor securementsystem, transparent securement dressing, transparent dressing, sterile dressing applied, securementdevice and line secured Post procedure assessment: placement verified by 3CG technology, blood return through all ports andplacement verified by x-ray PROCEDURE Patient Tolerance: Patient tolerated the procedure well with no immediate complicationsDescribe Procedure: Nursing note Successfully placed single lumen PICC on the right basilic vein on one attempt with good blood return noted. Tip placement is in the low SVC/CAJ, confirmed with 3CG Sherlock tip confirmation system. Pt bedside nurse notified that PICC is ready for use immediately. Bedside nurse asked if CXR needed,the clinician told her no, it is not [...] needles and guidewire disposed in sharps container documented in this encounter Consult Notes * Layla Hanley RN - 02/02/2024 3:05 PM CDTAssociated Order(s): CARE MANAGEMENT / SOCIAL WORK IP CONSULT Care Management Initial Consult General Information Assessment completed with: Patient, Type of CM/SW Visit: Initial Assessment Primary Care Provider verified and updated as needed: Readmission within the last 30 days: no previous admission in last 30 days Reason for Consult: care coordination/care conference, discharge planning Communication Assessment Patient's communication style: spoken language (Iraqi or Bilingual) Hearing Difficulty or Deaf: no Wear Glasses or Blind: yes Cognitive Cognitive/Neuro/Behavioral: WDL Level of Consciousness: alert Arousal Level: opens eyes spontaneously Orientation: oriented x 4 Mood/Behavior: calm, cooperative Best Language: 0 - No aphasia Speech: clear, spontaneous Living Environment: Current living Arrangements: house Current Resources: Equipment currently used at home: none Lifestyle & Psychosocial Needs: Social Determinants of Health Food Insecurity: Low Risk (01/31/2024) Food Insecurity Within the past 12 months, did you worry that your food would run out before you got money to buy more?: No Within the past 12 months, did the food you bought just not last and you didn???t have money to getmore?: No Depression: Not at risk (07/04/2022) PHQ-2 PHQ-2 Score: 0 Housing Stability: High Risk (01/31/2024) Housing Stability Do you have housing? : No Are you worried about losing your housing?: No Tobacco Use: Medium Risk (07/29/2022) Patient History Smoking Tobacco Use: Never Smokeless Tobacco Use: Former Passive Exposure: Not on file Financial Resource Strain: Low Risk (01/31/2024) Financial Resource Strain Within the past 12 months, have you or your family members you live with been unable to get utilities (heat, electricity) when it was really needed?: No Alcohol Use: Not on file Transportation Needs: Low Risk (01/31/2024) Transportation Needs Within the past 12 months, has lack of transportation kept you from medical appointments, getting your medicines, non-medical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 improvingOverall Patient Progress: improving Outcome Evaluation: On IV Rocephine Q24 hours. BC is still negative growth. Pssible discharge on Monday with PICC insertion for continued ABX treatment. * Plan of Care - Marilu Adorno RN - 02/04/2024 1:40 PM CDT Pt A&Ox4. Denies pain. Up ad shabbir. Ambulates [place] frequently. On IV rocephin, blood cultures positive on 01/29 and pending. Possible PICC placement on Monday pending on blood cultures. Cardiology, ID, SW following. Potential discharge home tomorrow with PICC placement. Current blood cultures - nogrowth x 2 days. Goal Outcome Evaluation: Plan of Care Reviewed With: patient Overall Patient Progress: improvingOverall Patient Progress: improving Outcome Evaluation: continue IV abx, possible PICC placement tomorrow. Problem: Adult Inpatient Plan of Care Goal: Plan of Care Review Description: The Plan of Care Review/Shift note should be completed every shift. The Outcome Evaluation is a brief statement about your assessment that the patient is improving, declining, or no change. This information will be displayed automatically on your shift note. Outcome: Progressing Flowsheets (Taken 02/04/2024 1340) Outcome Evaluation: continue IV abx, possible PICC placement tomorrow. Plan of Care Reviewed With: patient Overall Patient Progress: improving Goal: Patient-Specific Goal (Individualized) Description: You can add care plan individualizations to a care plan. Examples of Individualizationmight be: Parent requests to be called daily at 9am for status, I have a hard time hearing out of my right ear, or Do not touch me to wake me up as it startles me. Outcome: Progressing Goal: Absence of Hospital-Acquired Illness or Injury Outcome: Progressing Intervention: Identify and Manage Fall Risk Recent Flowsheet Documentation Taken 02/04/2024 1157 by Marilu Adorno RN Safety Promotion/Fall Prevention: safety round/check completed Intervention: Prevent Skin Injury Recent Flowsheet Documentation Taken 02/04/2024 1157 by Marilu Adorno RN Body Position: position changed independently Intervention: Prevent and Manage VTE (Venous Thromboembolism) Risk Recent Flowsheet Documentation Taken 02/04/2024 1157 by Marilu Adorno RN VTE Prevention/Management: SCDs off (sequential compression devices) Goal: Optimal Comfort and Wellbeing Outcome: Progressing Goal: Readiness for Transition of Care Outcome: Progressing * Plan of Care - Kay Key RN - 02/04/2024 4:56 AM CDT BP 125/77 Pulse 62 Temp 97.6 ??F Resp 20 SpO2 97% Patient is alert and oriented x4, no complaint of pain during the night, independent in his room, continent of bowel and bladder, tolerating diet well, IV saline locked. Slept well at night. Problem: Adult Inpatient Plan of Care Goal: Plan of Care Review Description: The Plan of Care Review/Shift note should be completed every shift. The Outcome Evaluation is a brief statement about your assessment that the patient is improving, declining, or no change. This information will be displayed automatically on your shift note. Outcome: Progressing Goal: Patient-Specific Goal (Individualized) Description: You can add care plan individualizations to a care plan. Examples of Individualizationmight be: Parent requests to be called daily at 9am for status, I have a hard time hearing out of my right ear, or Do not touch me to wake me up as it startles me. Outcome: Progressing Goal: Absence of Hospital-Acquired Illness or Injury Outcome: Progressing Intervention: Identify and Manage Fall Risk Recent Flowsheet Documentation Taken 02/04/2024205 by Kay Key RN Safety Promotion/Fall Prevention: safety round/check completed Intervention: Prevent Skin Injury Recent Flowsheet Documentation Taken 02/04/2024205 by Kay Key RN Body Position: position changed independently Intervention: Prevent Infection Recent Flowsheet Documentation Taken 02/04/2024205 by Kay Key RN Infection Prevention: cohorting utilized hand hygiene promoted rest/sleep promoted single patient room provided Goal: Optimal Comfort and Wellbeing Outcome: Progressing Goal: Readiness for Transition of Care Outcome: Progressing Problem: Comorbidity Management Goal: Blood Pressure in Desired Range Outcome: Progressing Problem: Infection Goal: Absence of Infection Signs and Symptoms Outcome: Progressing * Plan of Care - Cheri Davis RN - 02/03/2024 10:23 PM CDT A&O X4. Vitals stable. Up ad shabbir. Ambulated the hallway several times. Continue with ABX Rocephin. IV Vancomycin discontinued. Problem: Adult Inpatient Plan of Care Goal: Plan of Care Review Description: The Plan of Care Review/Shift note should be completed every shift. The Outcome Evaluation is a brief statement about your assessment that the patient is improving, declining, or no change. This information will be displayed automatically on your shift note. Outcome: Progressing Flowsheets (Taken 02/03/2024 2219) Outcome Evaluation: IV vancomycin discontinued. Continue IV ABX Rocephine Q 24 hours. Plan of Care Reviewed With: patient spouse Overall Patient Progress: improving Goal: Patient-Specific Goal (Individualized) Description: You can add care plan individualizations to a care plan. Examples of Individualizationmight be: Parent requests to be called daily at 9am for status, I have a hard time hearing out of my right ear, or Do not touch me to wake me up as it startles me. Outcome: Progressing Goal: Absence of Hospital-Acquired Illness or Injury Outcome: Progressing Intervention: Identify and Manage Fall Risk Recent Flowsheet Documentation Taken 02/03/2024 1634 by Cheri Davis RN Safety Promotion/Fall Prevention: nonskid shoes/slippers when out of bed safety round/check completed Intervention: Prevent Skin Injury Recent Flowsheet Documentation Taken 02/03/2024 1634 by Cheri Davis RN Body Position: position changed independently Intervention: Prevent and Manage VTE (Venous Thromboembolism) Risk Recent Flowsheet Documentation Taken 02/03/2024 1634 by Cheri Davis RN VTE Prevention/Management: SCDs off (sequential compression devices) Intervention: Prevent Infection Recent Flowsheet Documentation Taken 02/03/2024 1634 by Cheri Davis RN Infection Prevention: hand hygiene promoted single patient room provided Goal: Optimal Comfort and Wellbeing Outcome: Progressing Intervention: Monitor Pain and Promote Comfort Recent Flowsheet Documentation Taken 02/03/2024 1935 by Cheri Davis RN Pain Management Interventions: medication (see MAR) Taken 02/03/2024 1629 by Cheri Davis RN Pain Management Interventions: declines rest Goal: Readiness for Transition of Care Outcome: Progressing Problem: Comorbidity Management Goal: Blood Pressure in Desired Range Outcome: Progressing Intervention: Maintain Blood Pressure Management Recent Flowsheet Documentation Taken 02/03/2024 1634 by Cheri Davis, drill rig operator Review/Management: medications reviewed Problem: Infection Goal: Absence of Infection Signs and Symptoms Outcome: Progressing Goal Outcome Evaluation: Plan of Care Reviewed With: patient, spouse Overall Patient Progress: improvingOverall Patient Progress: improving Outcome Evaluation: IV vancomycin discontinued. Continue IV ABX Rocephine Q 24 hours. * Plan of Care - Marilu Adorno RN - 02/03/2024 1:06 PM CDT Pt A&Ox4. Denies pain. Up ad shabbir. Ambulates [place] frequently. Shower today. On IV rocephin, blood cultures positive on 01/29 and pending. Possible PICC placement on Monday pending on blood cultures. Cardiology, ID, SW following. Discharge TBD. Goal Outcome Evaluation: Plan of Care Reviewed With: patient Overall Patient Progress: improvingOverall Patient Progress: improving Outcome Evaluation: IV abx, continue POC, vanco level check at 1800. Problem: Adult Inpatient Plan of Care Goal: Plan of Care Review Description: The Plan of Care Review/Shift note should be completed every shift. The Outcome Evaluation is a brief statement about your assessment that the patient is improving, declining, or no change. This information will be displayed automatically on your shift note. Outcome: Progressing Flowsheets (Taken 02/03/2024 1208) Outcome Evaluation: IV abx, continue POC, vanco level check at 1800. Plan of Care Reviewed With: patient Overall Patient Progress: improving Goal: Patient-Specific Goal (Individualized) Description: You can add care plan individualizations to a care plan. Examples of Individualizationmight be: Parent requests to be called daily at 9am for status, I have a hard time hearing out of my right ear, or Do not touch me to wake me up as it startles me. Outcome: Progressing Goal: Absence of Hospital-Acquired Illness or Injury Outcome: Progressing Intervention: Identify and Manage Fall Risk Recent Flowsheet Documentation Taken 02/03/2024 1154 by Marilu Adorno RN Safety Promotion/Fall Prevention: safety round/check completed Taken 02/03/2024 0905 by Marilu Adorno RN Safety Promotion/Fall Prevention: safety round/check completed Taken 02/03/2024 0725 by Marilu Adorno RN Safety Promotion/Fall Prevention: safety round/check completed Intervention: Prevent Skin Injury Recent Flowsheet Documentation Taken 02/03/2024 0725 by Marilu Adorno RN Body Position: position changed independently Intervention: Prevent and Manage VTE (Venous Thromboembolism) Risk Recent Flowsheet Documentation Taken 02/03/2024 1154 by Marilu Adorno RN VTE Prevention/Management: SCDs off (sequential compression devices) Goal: Optimal Comfort and Wellbeing Outcome: Progressing Goal: Readiness for Transition of Care Outcome: Progressing * Plan of Care - Amy Roman RN - 02/03/2024 2:30 AM CDT Goal Outcome Evaluation: Plan of Care Reviewed With: patient Overall Patient Progress: improvingOverall Patient Progress: improving Outcome Evaluation: .Stable Vitals VSS Neuro A&Ox4 Respiratory 97% RA Cardiac/Tele WDL GI/ WDL Skin Intact LDAs PIV SL Labs K+ Mag protocols, recheck in for am Diet Regular Activity Ind Plan Awaiting repeat cultures. Continue with antibiotics. Problem: Adult Inpatient Plan of Care Goal: Plan of Care Review Description: The Plan of Care Review/Shift note should be completed every shift. The Outcome Evaluation is a brief statement about your assessment that the patient is improving, declining, or no change. This information will be displayed automatically on your shift note. Outcome: Progressing Flowsheets (Taken 02/03/2024 022) Outcome Evaluation: . Plan of Care Reviewed With: patient Overall Patient Progress: improving Goal: Patient-Specific Goal (Individualized) Description: You can add care plan individualizations to a care plan. Examples of Individualizationmight be: Parent requests to be called daily at 9am for status, I have a hard time hearing out of my right ear, or Do not touch me to wake me up as it startles me. Outcome: Progressing Goal: Absence of Hospital-Acquired Illness or Injury Outcome: Progressing Intervention: Identify and Manage Fall Risk Recent Flowsheet Documentation Taken 02/03/2024 0002 by Amy Roman RN Safety Promotion/Fall Prevention: safety round/check completed clutter free environment maintained Intervention: Prevent Skin Injury Recent Flowsheet Documentation Taken 02/03/2024 0002 by Amy Roman RN Body Position: position changed independently Goal: Optimal Comfort and Wellbeing Outcome: Progressing Intervention: Monitor Pain and Promote Comfort Recent Flowsheet Documentation Taken 02/03/2024 0138 by Amy Roman RN Pain Management Interventions: rest Taken 02/03/2024 0121 by Amy Roman RN Pain Management Interventions: rest Taken 02/03/2024 0037 by Amy Roman RN Pain Management Interventions: medication (see MAR) Taken 02/03/2024 0001 by Amy Roman RN Pain Management Interventions: rest Goal: Readiness for Transition of Care Outcome: Progressing * Plan of Care - Cheri Davis RN - 02/02/2024 7:32 PM CDT Patient is A&OX4. LS clear. VSS stable. Tele discontinued. Patient ambulated the hallway independently per MD's order. MD states it is ok for patient to ambulate independently or with his . Continue on IV Rocephin and Iv Vancomycin. Continue POC and monitoring. Problem: Adult Inpatient Plan of Care Goal: Plan of Care Review Description: The Plan of Care Review/Shift note should be completed every shift. The Outcome Evaluation is a brief statement about your assessment that the patient is improving, declining, or no change. This information will be displayed automatically on your shift note. Outcome: Progressing Flowsheets (Taken 02/02/20241928) Outcome Evaluation: Up independently, MD ok for patient to ambulate indepently. Gave Hydromophone for lower back pain. Ambulated the [place] [address]. Plan of Care Reviewed With: patient Overall Patient Progress: improving Goal: Patient-Specific Goal (Individualized) Description: You can add care plan individualizations to a care plan. Examples of Individualizationmight be: Parent requests to be called daily at 9am for status, I have a hard time hearing out of my right ear, or Do not touch me to wake me up as it startles me. Outcome: Progressing Goal: Absence of Hospital-Acquired Illness or Injury Outcome: Progressing Intervention: Identify and Manage Fall Risk Recent Flowsheet Documentation Taken 02/02/2024 1546 by Cheri Davis RN Safety Promotion/Fall Prevention: safety round/check completed nonskid shoes/slippers when out of bed Intervention: Prevent Skin Injury Recent Flowsheet Documentation Taken 02/02/2024 1546 by Cheri Davis RN Body Position: position changed independently Intervention: Prevent and Manage VTE (Venous Thromboembolism) Risk Recent Flowsheet Documentation Taken 02/02/2024 1546 by Cheri Davis RN VTE Prevention/Management: SCDs on (sequential compression devices) Intervention: Prevent Infection Recent Flowsheet Documentation Taken 02/02/2024 1546 by Cheri Davis RN Infection Prevention: hand hygiene promoted single patient room provided Goal: Optimal Comfort and Wellbeing Outcome: Progressing Intervention: Monitor Pain and Promote Comfort Recent Flowsheet Documentation Taken 02/02/2024 1543 by Cheri Davis RN Pain Management Interventions: medication (see MAR) Goal: Readiness for Transition of Care Outcome: Progressing Problem: Comorbidity Management Goal: Blood Pressure in Desired Range Outcome: Progressing Intervention: Maintain Blood Pressure Management Recent Flowsheet Documentation Taken 02/02/2024 1546 by Cheri Davis RN Medication Review/Management: medications reviewed Problem: Infection Goal: Absence of Infection Signs and Symptoms Outcome: Progressing Goal Outcome Evaluation: Plan of Care Reviewed With: patient Overall Patient Progress: improvingOverall Patient Progress: improving Outcome Evaluation: Up independently, ok for patient to ambulate indepently. Gave Hydromophone for lower back pain. Ambulated the [place] [address]. * Plan of Care - Marilu Adorno RN - 02/02/2024 2:49 PM CDT Pt A&Ox4. Denies pain. Up ad shabbir. Ambulates [place] frequently. Tele discontinued. NSR. DAVID yesterday - negative for endocarditis. On IV ABX, blood cultures positive and pending. Possible PICC placement on Monday pending on blood cultures. Cardiology, ID, SW following. Discharge TBD. Goal Outcome Evaluation: Plan of Care Reviewed With: patient Overall Patient Progress: improvingOverall Patient Progress: improving Outcome Evaluation: up ad shabbir, DAVID - negative for endocarditits. BC positive. IV abx. Problem: Adult Inpatient Plan of Care Goal: Plan of Care Review Description: The Plan of Care Review/Shift note should be completed every shift. The Outcome Evaluation is a brief statement about your assessment that the patient is improving, declining, or no change. This information will be displayed automatically on your shift note. Outcome: Progressing Flowsheets (Taken 02/02/2024 1231) Outcome Evaluation: up ad shabbir, DAVID - negative for endocarditits. BC positive. IV abx. Plan of Care Reviewed With: patient Overall Patient Progress: improving Goal: Patient-Specific Goal (Individualized) Description: You can add care plan individualizations to a care plan. Examples of Individualizationmight be: Parent requests to be called daily at 9am for status, I have a hard time hearing out of my right ear, or Do not touch me to wake me up as it startles me. Outcome: Progressing Goal: Absence of Hospital-Acquired Illness or Injury Outcome: Progressing Intervention: Identify and Manage Fall Risk Recent Flowsheet Documentation Taken 02/02/2024 09 by Marilu Adorno RN Safety Promotion/Fall Prevention: safety round/check completed Taken 02/02/2024 0730 by Marilu Adorno RN Safety Promotion/Fall Prevention: safety round/check completed Intervention: Prevent Skin Injury Recent Flowsheet Documentation Taken 02/02/2024 09 by Marilu Adorno RN Body Position: position changed independently Intervention: Prevent and Manage VTE (Venous Thromboembolism) Risk Recent Flowsheet Documentation Taken 02/02/2024 09 by Marilu Adorno RN VTE Prevention/Management: SCDs off (sequential compression devices) Goal: Optimal Comfort and Wellbeing Outcome: Progressing Goal: Readiness for Transition of Care Outcome: Progressing * Plan of Care - Alejandra Arizmendi RN - 02/02/2024 4:30 AM CDT [id number] Inpatient Progress Note: BP 118/75 (BP Location: Left arm) Pulse 59 Temp 97.6 ??F (36.4 ??C) (Oral) Resp 18 Ht 1.753m (5' 9) Wt 79.4 kg (175 lb) SpO2 96% BMI 25.84 kg/m?? Orientation: A&O x4 Pain status: Pt complained of 4/10 lower back pain, Managed w oral dilaudid. Activity: Ind Resp: WDL, denies SOB Cardiac: WDL, denies chest pain GI: WDL : WDL, voids spontaneously Skin: X, scattered bruising LDA: R forearm Infusions: SL- IV Vanco and Rocephin Pertinent Labs: new pending- pending D/C Diet: Regular Consults: ID/Cardiology Discharge Plan: TBD Pt had DAVID yesterday pending results-cardiology to review Will continue to monitor and provide cares. Alejandra Arizmendi RN Problem: Adult Inpatient Plan of Care Goal: Plan of Care Review Description: The Plan of Care Review/Shift note should be completed every shift. The Outcome Evaluation is a brief statement about your assessment that the patient is improving, declining, or no change. This information will be displayed automatically on your shift note. Outcome: Progressing Flowsheets (Taken 02/02/2024 0428) Outcome Evaluation: A&Ox 4, Ind in room. Pt having lower back pain 4/10 managed w oral dilaudid. Pt on Vanco & Rocephin. BC pending for D/C tomorrow. Cardiology DAVID pending review in morning. Plan of Care Reviewed With: patient Overall Patient Progress: improving Goal: Patient-Specific Goal (Individualized) Description: You can add care plan individualizations to a care plan. Examples of Individualizationmight be: Parent requests to be called daily at 9am for status, I have a hard time hearing out of my right ear, or Do not touch me to wake me up as it startles me. Outcome: Progressing Goal: Absence of Hospital-Acquired Illness or Injury Outcome: Progressing Intervention: Identify and Manage Fall Risk Recent Flowsheet Documentation Taken 02/02/2024 003 by Alejandra Arizmendi RN Safety Promotion/Fall Prevention: safety round/check completed room organization consistent room door open nonskid shoes/slippers when out of bed clutter free environment maintained Intervention: Prevent Skin Injury Recent Flowsheet Documentation Taken 02/02/2024 003 by Alejandra Arizmenid RN Body Position: position changed independently Goal: Optimal Comfort and Wellbeing Outcome: Progressing Intervention: Monitor Pain and Promote Comfort Recent Flowsheet Documentation Taken 02/02/2024 0123 by Alejandra Arizmendi RN Pain Management Interventions: medication (see MAR) Goal: Readiness for Transition of Care Outcome: Progressing Problem: Comorbidity Management Goal: Blood Pressure in Desired Range Outcome: Progressing Intervention: Maintain Blood Pressure Management Recent Flowsheet Documentation Taken 02/02/202435 by Alejandra Arizmendi RN Medication Review/Management: medications reviewed Problem: Infection Goal: Absence of Infection Signs and Symptoms Outcome: Progressing Goal Outcome Evaluation: Plan of Care Reviewed With: patient Overall Patient Progress: improvingOverall Patient Progress: improving Outcome Evaluation: A&Ox 4, Ind in room. Pt having lower back pain 4/10 managed w oral dilaudid. Pt on Vanco & Rocephin. BC pending for D/C tomorrow. Cardiology DAVID pending review in morning. * Plan of Care - Kelly Snyder RN - 02/01/2024 10:12 PM CDT Problem: Adult Inpatient Plan of Care Goal: Plan of Care Review Description: The Plan of Care Review/Shift note should be completed every shift. The Outcome Evaluation is a brief statement about your assessment that the patient is improving, declining, or no change. This information will be displayed automatically on your shift note. Outcome: Progressing Flowsheets (Taken 02/01/20242203) Outcome Evaluation: Mild headache reported, but declined pain med, IV vanco and rocephin. Pending result for blood culture before discharge home tomorrow. Plan of Care Reviewed With: patient Overall Patient Progress: improving Goal: Patient-Specific Goal (Individualized) Description: You can add care plan individualizations to a care plan. Examples of Individualizationmight be: Parent requests to be called daily at 9am for status, I have a hard time hearing out of my right ear, or Do not touch me to wake me up as it startles me. Outcome: Progressing Goal: Absence of Hospital-Acquired Illness or Injury Outcome: Progressing Intervention: Identify and Manage Fall Risk Recent Flowsheet Documentation Taken 02/01/20242028 by Kelly Snyder RN Safety Promotion/Fall Prevention: assistive device/personal items within reach clutter free environment maintained increased rounding and observation increase visualization of patient lighting adjusted nonskid shoes/slippers when out of bed patient and family education room organization consistent safety round/check completed Goal: Optimal Comfort and Wellbeing Outcome: Progressing Goal: Readiness for Transition of Care Outcome: Progressing Problem: Comorbidity Management Goal: Blood Pressure in Desired Range Outcome: Progressing Intervention: Maintain Blood Pressure Management Recent Flowsheet Documentation Taken 02/01/20242028 by Kelly Snyder RN Medication Review/Management: medications reviewed Problem: Infection Goal: Absence of Infection Signs and Symptoms Outcome: Progressing Goal Outcome Evaluation: Plan of Care Reviewed With: patient Overall Patient Progress: improvingOverall Patient Progress: improving Outcome Evaluation: Mild headache reported, but declined pain med, IV vanco and rocephin. Pending result for blood culture before discharge home tomorrow. * Plan of Care - Lindsey Randall RN - 02/01/2024 7:25 PM CDT Goal Outcome Evaluation: Plan of Care Reviewed With: patient, spouse Overall Patient Progress: improving Outcome Evaluation: Tolerating regular diet. Independent. Dilaudid and tylenol given for head and back pain. Problem: Adult Inpatient Plan of Care Goal: Plan of Care Review Outcome: Progressing Flowsheets (Taken 02/01/2024 1924) Outcome Evaluation: Tolerating regular diet. Independent. Dilaudid and tylenol given for head and back pain. Plan of Care Reviewed With: patient spouse Overall Patient Progress: improving Goal: Patient-Specific Goal (Individualized) Outcome: Progressing Goal: Absence of Hospital-Acquired Illness or Injury Outcome: Progressing Intervention: Identify and Manage Fall Risk Recent Flowsheet Documentation Taken 02/01/20241827 by Lindsey Randall RN Safety Promotion/Fall Prevention: assistive device/personal items within reach clutter free environment maintained increased rounding and observation increase visualization of patient lighting adjusted nonskid shoes/slippers when out of bed patient and family education room organization consistent safety round/check completed Intervention: Prevent Skin Injury Recent Flowsheet Documentation Taken 02/01/20241827 by Lindsey Randall RN Body Position: position changed independently Intervention: Prevent and Manage VTE (Venous Thromboembolism) Risk Recent Flowsheet Documentation Taken 02/01/20241827 by Lindsey Randall RN VTE Prevention/Management: SCDs off (sequential compression devices) Goal: Optimal Comfort and Wellbeing Outcome: Progressing Intervention: Monitor Pain and Promote Comfort Recent Flowsheet Documentation Taken 02/01/20241827 by Lindsey Randall RN Pain Management Interventions: pain management plan reviewed with patient/caregiver Goal: Readiness for Transition of Care Outcome: Progressing Problem: Comorbidity Management Goal: Blood Pressure in Desired Range Outcome: Progressing Problem: Infection Goal: Absence of Infection Signs and Symptoms Outcome: Progressing * Pre-Procedure - Taina Ignacio MD - 02/01/2024 11:39 AM CDT GENERAL PRE-PROCEDURE: Procedure: Transesophageal echocardiogram. Date/Time: 02/01/2024 11:39 AM Verbal consent obtained?: Yes Written consent obtained?: Yes Risks and benefits: Risks, benefits and alternatives were discussed Consent given by: Patient Patient states understanding of procedure being performed: Yes Patient's understanding of procedure matches consent: Yes Procedure consent matches procedure scheduled: Yes Expected level of sedation: Moderate Appropriately NPO: Yes ASA Class: 2 Mallampati : Grade 2- soft palate, base of uvula, tonsillar pillars, and portion of posterior pharyngeal wall visible Lungs: Lungs clear with good breath sounds bilaterally Heart: Normal heart sounds and rate History & Physical reviewed: History and physical reviewed and no updates needed Statement of review: I have reviewed the lab findings, diagnostic data, medications, and the plan for sedation * Plan of Care - Millicent Briones RN - 02/01/2024 11:20 AM CDT Goal Outcome Evaluation: Plan of Care Reviewed With: patient, spouse Overall Patient Progress: improvingOverall Patient Progress: improving Outcome Evaluation: DAVID completed this AM, pain managed with prn dilaudid and tylenol, continues with abx tx. A/Ox4, up independently, VSS, on RA, denies sob, DAVID done this shift, continues with poc. Problem: Adult Inpatient Plan of Care Goal: Plan of Care Review Description: The Plan of Care Review/Shift note should be completed every shift. The Outcome Evaluation is a brief statement about your assessment that the patient is improving, declining, or no change. This information will be displayed automatically on your shift note. 02/01/2024 1117 by Millicent Briones RN Outcome: Progressing Flowsheets (Taken 02/01/2024 1117) Outcome Evaluation: DAVID completed this AM, pain managed with prn dilaudid and tylenol, continues with abx tx. Plan of Care Reviewed With: patient spouse Overall Patient Progress: improving 02/01/2024 1116 by Millicent Briones RN Outcome: Progressing Flowsheets (Taken 02/01/2024 1116) Outcome Evaluation: DAVID completed this AM, pain managed with prn dilaudid and tylenol, continues with abx tx. Goal: Patient-Specific Goal (Individualized) Description: You can add care plan individualizations to a care plan. Examples of Individualizationmight be: Parent requests to be called daily at 9am for status, I have a hard time hearing out of my right ear, or Do not touch me to wake me up as it startles me. Outcome: Progressing Goal: Absence of Hospital-Acquired Illness or Injury Outcome: Progressing Intervention: Identify and Manage Fall Risk Recent Flowsheet Documentation Taken 02/01/2024 1100 by Millicent Briones RN Safety Promotion/Fall Prevention: activity supervised safety round/check completed Intervention: Prevent and Manage VTE (Venous Thromboembolism) Risk Recent Flowsheet Documentation Taken 02/01/2024 1100 by Millicent Briones RN VTE Prevention/Management: SCDs off (sequential compression devices) Intervention: Prevent Infection Recent Flowsheet Documentation Taken 02/01/2024 1100 by Millicent Briones RN Infection Prevention: single patient room provided Goal: Optimal Comfort and Wellbeing Outcome: Progressing Goal: Readiness for Transition of Care Outcome: Progressing Problem: Comorbidity Management Goal: Blood Pressure in Desired Range Outcome: Progressing Intervention: Maintain Blood Pressure Management Recent Flowsheet Documentation Taken 02/01/2024 1100 by Millicent Briones RN Medication Review/Management: medications reviewed Problem: Infection Goal: Absence of Infection Signs and Symptoms Outcome: Progressing Problem: Adult Inpatient Plan of Care Goal: Patient-Specific Goal (Individualized) Description: You can add care plan individualizations to a care plan. Examples of Individualizationmight be: Parent requests to be called daily at 9am for status, I have a hard time hearing out of my right ear, or Do not touch me to wake me up as it startles me. Outcome: Progressing * Plan of Care - Jillian Petersen RN - 02/01/2024 4:07 AM CDT A&O. VSS. C/o back pain- PRN Dilaudid given. LS clear. Tele SR. NPO at midnight for DAVID today. Independent in room. Continue IV antibiotics. Goal Outcome Evaluation: Plan of Care Reviewed With: patient Overall Patient Progress: no changeOverall Patient Progress: no change Outcome Evaluation: Continue antibiotics Problem: Adult Inpatient Plan of Care Goal: Plan of Care Review Description: The Plan of Care Review/Shift note should be completed every shift. The Outcome Evaluation is a brief statement about your assessment that the patient is improving, declining, or no change. This information will be displayed automatically on your shift note. Outcome: Progressing Flowsheets (Taken 02/01/2024 0406) Outcome Evaluation: Continue antibiotics Plan of Care Reviewed With: patient Overall Patient Progress: no change Goal: Patient-Specific Goal (Individualized) Description: You can add care plan individualizations to a care plan. Examples of Individualizationmight be: Parent requests to be called daily at 9am for status, I have a hard time hearing out of my right ear, or Do not touch me to wake me up as it startles me. Outcome: Progressing Goal: Absence of Hospital-Acquired Illness or Injury Outcome: Progressing Intervention: Identify and Manage Fall Risk Recent Flowsheet Documentation Taken 02/01/2024 0005 by Jillian Petersen RN Safety Promotion/Fall Prevention: safety round/check completed nonskid shoes/slippers when out of bed Intervention: Prevent Skin Injury Recent Flowsheet Documentation Taken 02/01/2024 0005 by Jillian Petersen RN Body Position: position changed independently Intervention: Prevent and Manage VTE (Venous Thromboembolism) Risk Recent Flowsheet Documentation Taken 02/01/2024 0005 by Jillian Petersen RN VTE Prevention/Management: SCDs off (sequential compression devices) Goal: Optimal Comfort and Wellbeing Outcome: Progressing Intervention: Monitor Pain and Promote Comfort Recent Flowsheet Documentation Taken 02/01/2024 0134 by Jillian Petersen RN Pain Management Interventions: medication (see MAR) Taken 02/01/2024 0014 by Jillian Petersen RN Pain Management Interventions: declines Goal: Readiness for Transition of Care Outcome: Progressing * Plan of Care - Janell Silver RN - 01/31/2024 11:03 PM CDT Goal Outcome Evaluation: Plan of Care Reviewed With: patient Outcome Evaluation: c/o back pain, po Dilaudid 2mg given. IV abx x2 given. NPO afte rmidnight. C/o LINN, prn Tylenol given. A & O, VSS, Tele SR, LS clear, O2 96% RA, K+ & Mg+ protocol, recheck am. Abx infusing. DAVID tomorrow. Use urinal. Transfer SBA/Independent in room. Continue POC and monitoring. Problem: Adult Inpatient Plan of Care Goal: Plan of Care Review Description: The Plan of Care Review/Shift note should be completed every shift. The Outcome Evaluation is a brief statement about your assessment that the patient is improving, declining, or no change. This information will be displayed automatically on your shift note. Outcome: Progressing Flowsheets (Taken 01/31/2024 2300) Outcome Evaluation: c/o back pain, po Dilaudid 2mg given. IV abx x2 given. NPO afte rmidnight Plan of Care Reviewed With: patient Goal: Patient-Specific Goal (Individualized) Description: You can add care plan individualizations to a care plan. Examples of Individualizationmight be: Parent requests to be called daily at 9am for status, I have a hard time hearing out of my right ear, or Do not touch me to wake me up as it startles me. Outcome: Progressing Goal: Absence of Hospital-Acquired Illness or Injury Outcome: Progressing Intervention: Identify and Manage Fall Risk Recent Flowsheet Documentation Taken 01/31/2024 1600 by Janell Silver RN Safety Promotion/Fall Prevention: activity supervised treat underlying cause treat reversible contributory factors nonskid shoes/slippers when out of bed Intervention: Prevent Skin Injury Recent Flowsheet Documentation Taken 01/31/2024 1600 by Janell Silver RN Body Position: position changed independently Intervention: Prevent and Manage VTE (Venous Thromboembolism) Risk Recent Flowsheet Documentation Taken 01/31/2024 1600 by Janell Silver RN VTE Prevention/Management: (pt refused) SCDs off (sequential compression devices) Intervention: Prevent Infection Recent Flowsheet Documentation Taken 01/31/2024 2154 by Janell Silver RN Infection Prevention: single patient room provided Goal: Optimal Comfort and Wellbeing Outcome: Progressing Intervention: Monitor Pain and Promote Comfort Recent Flowsheet Documentation Taken 01/31/2024 1904 by Janell Silver RN Pain Management Interventions: medication (see MAR) Goal: Readiness for Transition of Care Outcome: Progressing Problem: Comorbidity Management Goal: Blood Pressure in Desired Range Outcome: Progressing Intervention: Maintain Blood Pressure Management Recent Flowsheet Documentation Taken 01/31/2024 1600 by Janell Silver RN Medication Review/Management: medications reviewed * Plan of Care - Millicent Briones RN - 01/31/2024 11:16 AM CDT Goal Outcome Evaluation: Plan of Care Reviewed With: patient Overall Patient Progress: improvingOverall Patient Progress: improving Outcome Evaluation: VSS, DAVID rescheduled to 02/01/24 at 1100 to be NPO tonight. A/Ox4 up A1, VSS, denies sob, on RA. Tolerates diet with fair appetite, continues with poc. Problem: Adult Inpatient Plan of Care Goal: Plan of Care Review Description: The Plan of Care Review/Shift note should be completed every shift. The Outcome Evaluation is a brief statement about your assessment that the patient is improving, declining, or no change. This information will be displayed automatically on your shift note. Outcome: Progressing Flowsheets (Taken 01/31/2024 1114) Outcome Evaluation: VSS, DAVID rescheduled to 02/01/24 at 1100 to be NPO tonight. Plan of Care Reviewed With: patient Overall Patient Progress: improving Goal: Patient-Specific Goal (Individualized) Description: You can add care plan individualizations to a care plan. Examples of Individualizationmight be: Parent requests to be called daily at 9am for status, I have a hard time hearing out of my right ear, or Do not touch me to wake me up as it startles me. Outcome: Progressing Goal: Absence of Hospital-Acquired Illness or Injury Outcome: Progressing Intervention: Identify and Manage Fall Risk Recent Flowsheet Documentation Taken 01/31/2024 1000 by Millicent Briones RN Safety Promotion/Fall Prevention: safety round/check completed Intervention: Prevent and Manage VTE (Venous Thromboembolism) Risk Recent Flowsheet Documentation Taken 01/31/2024 1000 by Millicent Briones RN VTE Prevention/Management: SCDs off (sequential compression devices) Intervention: Prevent Infection Recent Flowsheet Documentation Taken 01/31/2024 1000 by Millicent Briones RN Infection Prevention: hand hygiene promoted single patient room provided Goal: Optimal Comfort and Wellbeing Outcome: Progressing Goal: Readiness for Transition of Care Outcome: Progressing Problem: Comorbidity Management Goal: Blood Pressure in Desired Range Outcome: Progressing Intervention: Maintain Blood Pressure Management Recent Flowsheet Documentation Taken 01/31/2024 1000 by Millicent Briones RN Medication Review/Management: medications reviewed Problem: Adult Inpatient Plan of Care Goal: Patient-Specific Goal (Individualized) Description: You can add care plan individualizations to a care plan. Examples of Individualizationmight be: Parent requests to be called daily at 9am for status, I have a hard time hearing out of my right ear, or Do not touch me to wake me up as it startles me. Outcome: Progressing * Plan of Care - Isidro Bradshaw RN - 01/31/2024 6:19 AM CDT Pt is alert and oriented. PRN Dilaudid and Tylenol administered to manage pain. Pt denies any shortness of breath and on room air. Tele: SR. IV LR infusing at 75ml/hr. Pt is SBA to the bathroom. NPO maintained. Plan: DAVID today. BP 107/66 (BP Location: Left arm) Pulse 72 Temp 98.4 ??F (36.9 ??C) (Oral) Resp 19 Ht 1.753m (5' 9) Wt 79.4 kg (175 lb) SpO2 94% BMI 25.84 kg/m?? Problem: Adult Inpatient Plan of Care Goal: Plan of Care Review Description: The Plan of Care Review/Shift note should be completed every shift. The Outcome Evaluation is a brief statement about your assessment that the patient is improving, declining, or no change. This information will be displayed automatically on your shift note. Outcome: Progressing Flowsheets (Taken 01/31/2024617) Outcome Evaluation: PRN Dilaudid and Tylenol administered to manage pain. Plan of Care Reviewed With: patient Overall Patient Progress: no change Problem: Adult Inpatient Plan of Care Goal: Plan of Care Review Description: The Plan of Care Review/Shift note should be completed every shift. The Outcome Evaluation is a brief statement about your assessment that the patient is improving, declining, or no change. This information will be displayed automatically on your shift note. Outcome: Progressing Flowsheets (Taken 01/31/2024617) Outcome Evaluation: PRN Dilaudid and Tylenol administered to manage pain. Plan of Care Reviewed With: patient Overall Patient Progress: no change Goal: Patient-Specific Goal (Individualized) Description: You can add care plan individualizations to a care plan. Examples of Individualizationmight be: Parent requests to be called daily at 9am for status, I have a hard time hearing out of my right ear, or Do not touch me to wake me up as it startles me. Outcome: Progressing Goal: Absence of Hospital-Acquired Illness or Injury Outcome: Progressing Intervention: Identify and Manage Fall Risk Recent Flowsheet Documentation Taken 01/31/2024 0600 by Isidro Bradshaw RN Safety Promotion/Fall Prevention: safety round/check completed Taken 01/31/2024 0400 by Isidro Bradshaw RN Safety Promotion/Fall Prevention: safety round/check completed Taken 01/31/2024 0300 by Isidro Bradshaw RN Safety Promotion/Fall Prevention: safety round/check completed Taken 01/31/2024 0200 by Isidro Bradshaw RN Safety Promotion/Fall Prevention: safety round/check completed Taken 01/31/2024 0101 by Isidro Bradshaw RN Safety Promotion/Fall Prevention: safety round/check completed lighting adjusted assistive device/personal items within reach clutter free environment maintained room organization consistent patient and family education Taken 01/31/2024 0000 by Isidro Bradshaw RN Safety Promotion/Fall Prevention: safety round/check completed Taken 01/30/2024 2300 by Isidro Bradshaw RN Safety Promotion/Fall Prevention: safety round/check completed Intervention: Prevent Skin Injury Recent Flowsheet Documentation Taken 01/31/2024 010 by Isidro Bradshaw RN Body Position: position changed independently Goal: Optimal Comfort and Wellbeing Outcome: Progressing Intervention: Monitor Pain and Promote Comfort Recent Flowsheet Documentation Taken 01/31/2024 0533 by Isidro Bradshaw RN Pain Management Interventions: medication (see MAR) Taken 01/31/2024 010 by Isidro Bradshaw RN Pain Management Interventions: medication (see MAR) Goal: Readiness for Transition of Care Outcome: Progressing Problem: Comorbidity Management Goal: Blood Pressure in Desired Range Outcome: Progressing Intervention: Maintain Blood Pressure Management Recent Flowsheet Documentation Taken 01/31/2024 010 by Isidro Bradshaw RN Medication Review/Management: medications reviewed Goal Outcome Evaluation: Plan of Care Reviewed With: patient Overall Patient Progress: no changeOverall Patient Progress: no change Outcome Evaluation: PRN Dilaudid and Tylenol administered to manage pain. * Plan of Care - Cheri Davis RN - 01/31/2024 12:04 AM CDT Assumed care at 2200. Vitals stable. Denied pain at the time of assessment. Reg diet. Up with SBA to bathroom. Vancomycin infusing. Has LR to infuse. Next shift nurse updated. Continue POC and monitoring. Problem: Adult Inpatient Plan of Care Goal: Plan of Care Review Description: The Plan of Care Review/Shift note should be completed every shift. The Outcome Evaluation is a brief statement about your assessment that the patient is improving, declining, or no change. This information will be displayed automatically on your shift note. Outcome: Progressing Flowsheets (Taken 01/31/2024 0003) Outcome Evaluation: A&OX4. VSS stable. Afebrile. Vancomycin infsuing. Plan of Care Reviewed With: patient spouse Overall Patient Progress: no change Goal: Patient-Specific Goal (Individualized) Description: You can add care plan individualizations to a care plan. Examples of Individualizationmight be: Parent requests to be called daily at 9am for status, I have a hard time hearing out of my right ear, or Do not touch me to wake me up as it startles me. Outcome: Progressing Goal: Absence of Hospital-Acquired Illness or Injury Outcome: Progressing Intervention: Identify and Manage Fall Risk Recent Flowsheet Documentation Taken 01/30/20242232 by Cheri Davis RN Safety Promotion/Fall Prevention: activity supervised nonskid shoes/slippers when out of bed Intervention: Prevent Skin Injury Recent Flowsheet Documentation Taken 01/30/20242232 by Cheri Davis RN Body Position: position changed independently Intervention: Prevent and Manage VTE (Venous Thromboembolism) Risk Recent Flowsheet Documentation Taken 01/30/20242232 by Cheri Davis RN VTE Prevention/Management: SCDs off (sequential compression devices) Intervention: Prevent Infection Recent Flowsheet Documentation Taken 01/30/20242232 by Cheri Davis RN Infection Prevention: hand hygiene promoted single patient room provided Goal: Optimal Comfort and Wellbeing Outcome: Progressing Goal: Readiness for Transition of Care Outcome: Progressing Intervention: Mutually Develop Transition Plan Recent Flowsheet Documentation Taken 01/30/20242248 by Cheri Davis RN Equipment Currently Used at Home: none Problem: Comorbidity Management Goal: Blood Pressure in Desired Range Outcome: Progressing Intervention: Maintain Blood Pressure Management Recent Flowsheet Documentation Taken 01/30/20242232 by Cheri Davis RN Medication Review/Management: medications reviewed Goal Outcome Evaluation: Plan of Care Reviewed With: patient, spouse Overall Patient Progress: no changeOverall Patient Progress: no change Outcome Evaluation: A&OX4. VSS stable. Afebrile. Vancomycin infsuing. * Pharmacy-Admission Medication History - Reggie Forman RPH - 01/30/2024 11:29 PM CDT Pharmacist Admission Medication History Admission medication history is complete. The information provided in this note is only as accurateas the sources available at the time of the update. Information Source(s): Patient and Family member via in-person Changes made to [employer] medication list: Added: Lutein Deleted: [place] prn (from 2022) Changed: Loratadine to prn, times on some entries Allergies reviewed with patient and updates made in EHR: no Medication History Completed By: Reggie Forman RPH 01/30/2024 11:29 PM [facility] [employer] Med List Medication Sig Last Dose amoxicillin (AMOXIL) 500 MG capsule 4 capsules 1 hour prior to proceedure aspirin 81 MG EC tablet Take 81 mg by mouth at bedtime 01/29/2024 at hs calcium carbonate (OS-HAWK) 600 MG tablet Take 1 tablet by mouth at bedtime 01/29/2024 at hs Coenzyme Q10 (COQ-10) 200 MG CAPS Take 1 tablet by mouth daily 01/30/2024 at am lisinopril (ZESTRIL) 20 MG tablet Take 1 tablet (20 mg) by mouth daily 01/30/2024 at am loratadine (CLARITIN) 10 MG tablet Take 10 mg by mouth daily as needed for allergies or other (whengoes outside) 01/29/2024 Lutein 20 MG CAPS Take 20 mg by mouth daily MAGNESIUM GLYCINATE PLUS PO Take 1 tablet by mouth at bedtime 01/29/2024 Multiple Vitamins-Minerals (MULTI FOR HIM PO) Take by mouth daily 01/30/2024 at am [place]-3 Fatty Acids (FISH OIL) 1200 MG CAPS Take 2,400 mg by mouth daily 01/30/2024 at am rosuvastatin (CRESTOR) 20 MG tablet Take 1 tablet (20 mg) by mouth at bedtime 01/29/2024 at hs vitamin D3 (CHOLECALCIFEROL) 50 mcg (2000 units) tablet Take 50 mcg by mouth at bedtime 01/29/2024 at hs * Pharmacy-Vancomycin Dosing Service - Rocky Fraser [facility] - 01/30/2024 10:24 PM CDT Pharmacy Vancomycin Initial Note Date of Service January 30, 2024 Patient's 1960 63 year old, male Indication: Endocarditis Current estimated CrCl = Estimated Creatinine Clearance: 75.6 mL/min (based on SCr of 1.09 mg/dL). Creatinine for last 3 days 01/30/2024: 4:28 PM Creatinine 1.09 mg/dL Recent Vancomycin Level(s) for last 3 days No results found for requested labs within last 3 days. Vancomycin IV Administrations (past 72 hours) vancomycin (VANCOCIN) 1,750 mg in 0.9% NaCl 500 mL intermittent infusion (mg) 1,750 mg New Bag 01/30/242129 Nephrotoxins and other renal medications (From now, onward) Start Dose/Rate Route Frequency Ordered Stop 01/31/241999 vancomycin (VANCOCIN) 1,750 mg in 0.9% NaCl 500 mL intermittent infusion 1,750 mg 250 mL/hr over 2 Hours Intravenous EVERY 24 HOURS 01/30/24222301/30/242019 vancomycin (VANCOCIN) 1,750 mg in 0.9% NaCl 500 mL intermittent infusion 1,750 mg 250 mL/hr over 2 Hours Intravenous ONCE 01/30/242017 Contrast Orders - past 72 hours (72h ago, onward) None [employer] Prediction of Planned Initial Vancomycin Regimen Loading dose: 1750 mg IV x1 Regimen: 1750 mg IV every 24 hours. Start time: 1999 on 01/31/2024 Exposure target: AUC24 (range)400-600 mg/L.hr AUC24,ss: 554 mg/L.hr Probability of AUC24 > 400: 83 % Ctrough,ss: 15.1 mg/L Probability of Ctrough,ss > 20: 28 % Probability of nephrotoxicity (Lodise DEVENDRA 2008): 10 % Plan: Start vancomycin 1750 mg IV q24h. Vancomycin monitoring method: AUC Vancomycin therapeutic monitoring goal: 400-600 mg*h/L Pharmacy will check vancomycin levels as appropriate in 3-5 Days. Serum creatinine levels will be ordered daily for the first week of therapy and at least twice weekly for subsequent weeks. Rocky Fraser RPH documented in this encounter Plan of Treatment Upcoming Encounters Date Type Department Care Team (Late st Contact Info) Description 04/22/2024 12:30 PM SHELLFISH CHECKER Office Visit [facility] [address] [place] [address] [phone] Tressa Hanley MD [address] [place] [id number] Scheduled Referrals Name Type Priority Associated Diagnoses Order Schedule Home Infusion Referral Referral Routine: Next available opening Bacteremia Ordered: 02/05/2024 Primary Care - Care Coordination Referral Referral Routine: Next available opening Bacteremia Expected: 02/05/2024 (Approximate), Expires: 02/04/2025 documented as of this encounter Procedures Procedure Name Priority Date/Time Associated Diagnosis Comments XR CHEST PORT 1 VIEW STAT 02/05/2024 6:26 PM CDT PICC SINGLE LUMEN PLACEMENT Routine 02/05/2024 6:22 PM CDT POTASSIUM Routine 02/05/2024 6:56 AM CDT PLATELET COUNT Routine 02/05/2024 6:56 AM CDT MAGNESIUM Routine 02/05/2024 6:56 AM CDT CREATININE Routine 02/05/2024 6:56 AM CDT EXTRA TUBE Routine 02/04/2024 7:11 AM CDT EXTRA PURPLE TOP TUBE Routine 02/04/2024 7:11 AM CDT POTASSIUM Routine 02/04/2024 7:11 AM CDT MAGNESIUM Routine 02/04/2024 7:11 AM CDT CREATININE Routine 02/04/2024 7:11 AM CDT POTASSIUM Routine 02/03/2024 5:45 AM CDT MAGNESIUM Routine 02/03/2024 5:45 AM CDT CREATININE Routine 02/03/2024 5:45 AM CDT MAGNESIUM Routine 02/02/2024 6:39 AM CDT BASIC METABOLIC PANEL Routine 02/02/2024 6:39 AM CDT CBC WITH PLATELETS Routine 02/02/2024 6: 39 AM CDT POTASSIUM Routine 02/01/2024 4:44 PM CDT BLOOD CULTURE STAT 02/01/2024 4:44 PM CDT ECHO DAVID Routine 02/01/2024 1:42 PM CDT CBC WITH PLATELETS AND DIFFERENTIAL Routine 02/01/2024 9:21 AM CDT CBC WITH PLATELETS & DIFFERENTIAL Routine 02/01/2024 9:21 AM CDT TSH WITH FREE T4 REFLEX Routine 02/01/2024 9:21 AM CDT T4 FREE Routine 02/01/2024 9:21 AM CDT MAGNESIUM Routine 02/01/2024 9:21 AM CDT BASIC METABOLIC PANEL Routine 02/01/2024 9:21 AM CDT MAGNESIUM Routine 01/31/2024 6:53 AM CDT BASIC METABOLIC PANEL Routine 01/31/2024 6:53 AM CDT CBC WITH PLATELETS Routine 01/31/2024 6: 53 AM CDT EKG 12-LEAD, TRACING ONLY STAT 01/30/2024 9:33 PM CDT XR CHEST 2 VIEWS STAT 01/30/2024 8:34 PM CDT BLOOD CULTURE STAT 01/30/2024 8:30 PM CDT INFLUENZA A/B, RSV, & SARS-COV2 PCR STAT 01/30/2024 6:01 PM CDT VERIGENE GP PANEL Routine 01/30/2024 4:2 8 PM CDT CBC WITH PLATELETS AND DIFFERENTIAL STAT 01/30/2024 4:28 PM CDT PROCALCITONIN STAT 01/30/2024 4:28 PM CDT CBC WITH PLATELETS & DIFFERENTIAL STAT 01/30/2024 4:28 PM CDT LACTIC ACID WHOLE BLOOD STAT 01/30/2024 4:28 PM CDT HEPATIC FUNCTION PANEL STAT 4:28 PM CDT CRP INFLAMMATION STAT 01/30/2024 4:28 PM CDT BLOOD CULTURE STAT 01/30/2024 4:28 PM CDT BASIC METABOLIC PANEL STAT 01/30/2024 4:28 PM CDT documented in this encounter Results * XR Chest Port 1 View (02/05/2024 6:26 PM CDT) Anatomical Region Laterality Modality Chest Digital Radiogra phy 02/05/2024 6:26 PM CDT Impressions 02/05/2024 7:09 PM CDT IMPRESSION: Right PICC line tip at the cavoatrial level. No acute airspace disease. Normal cardiac silhouette. Narrative 02/05/2024 7:09 PM CDT EXAM: XR CHEST PORT 1 VIEW LOCATION: [facility] DATE: 02/05/2024 INDICATION: RN placed PICC, verify tip placement. COMPARISON: 01/30/2024. Procedure Note Patrick Garcia MD - 02/05/2024 EXAM: XR CHEST PORT 1 VIEW LOCATION: [facility] DATE: 02/05/2024 INDICATION: RN placed PICC, verify tip placement. COMPARISON: 01/30/2024. IMPRESSION: Right PICC line tip at the cavoatrial level. No acute airspacedisease. Normal cardiac silhouette. Danyell Barrett MD IMG DIAGNOSTIC IMAGING ORDERABLE S Final Result * Single Lumen PICC Placement (02/05/2024 6:22 PM CDT) Narrative Kenya Becker RN - 02/05/2024 6:22 PM CDT Kenya Becker RN ? 02/05/2024 ??6:43 PM [facility] Single Lumen PICC Placement Date/Time: [...] procedure a time out was called ?? [place] Protocol: the Joint [facility] [place] Protocol was followed ?? Preparation: Patient was [...] and valved Catheter size: 4 Fr Brand: Praedicat Lot number: [id number] Placement method: MST and venipuncture Number of [...] ORDERAB LES Edited Result - Final * Creatinine (02/05/2024 6:56 AM CDT) Creatinine 0.97 0.67 - 1.17 mg/dL 02/05/2024 7:24 AM CDT LABORATORY GFR Estimate 88 >60 mL/min/1.7 3m2 02/05/2024 7:24 AM CDT LABORATORY Comment:eGFR calculated usin 2020 CKD-EPI equation. Blood STRUCTURE OF RIGHT HAND / Unknown Venipuncture / Unknown 02/05/2024 6:56 AM CDT 02/05/2024 7:02 AM CDT us Alan Alvarez MD LAB - BLOOD ORDERABLES Final Res ult [facility] [address] Lab (1st floor, no room number) [place] [address] * Platelet count (02/05/2024 6:56 AM CDT) Platelet Count 296 150 - 450 10e3/uL 02/05/2024 7:05 AM CDT LABORATORY Blood STRUCTURE OF RIGHT HAND / Unknown Venipuncture / Unknown 02/05/2024 6:56 AM CDT 02/05/2024 7:02 AM CDT us Alan Alvarez MD LAB - BLOOD ORDERABLES Final Res ult [facility] [address] Lab (1st floor, no room number) [place] [address] * Magnesium (02/05/2024 6:56 AM CDT) Magnesium 2.3 1.7 - 2.3 mg/dL 02/05/2024 7:24 AM CDT RH LABORATORY Blood STRUCTURE OF RIGHT HAND / Unknown Venipuncture / Unknown 02/05/2024 6:56 AM CDT 02/05/2024 7:02 AM CDT us Osmar Triplett MD LAB - BLOOD ORDERABLES Final Res ult [facility] [address] Lab (1st floor, no room number) [place] [phone] [place] [address] * Potassium (02/05/2024 6:56 AM CDT) Potassium 3.9 3.4 - 5.3 mmol/L 02/05/2024 7:24 AM CDT RH LABORATORY Blood STRUCTURE OF RIGHT HAND / Unknown Venipuncture / Unknown 02/05/2024 6:56 AM CDT 02/05/2024 7:02 AM CDT us Osmar Triplett MD LAB - BLOOD ORDERABLES Final Res ult [facility] [address] Lab (1st floor, no room number) [place] [phone] [place] [address] * Extra Purple Top Tube (02/04/2024 7:11 AM CDT) Hold Specimen JIC 02/04/2024 8:31 AM CDT RH LABORATORY Blood BLOOD SPECIMEN / Unknown Venipuncture / Unknown 02/04/2024 7:11 AM CDT 02/04/2024 7:18 AM CDT us Alan Alvarez MD LAB - BLOOD ORDERABLES Final Res ult [facility] [address] Lab (1st floor, no room number) [place] [phone] [place] [address] * Creatinine (02/04/2024 7:11 AM CDT) Creatinine 1.02 0.67 - 1.17 mg/dL 02/04/2024 7:36 AM CDT RH LABORATORY GFR Estimate 83 >60 mL/min/1.7 3m2 02/04/2024 7:36 AM CDT RH LABORATORY Comment:eGFR calculated usin 2020 CKD-EPI equation. Blood BLOOD SPECIMEN / Unknown Venipuncture / Unknown 02/04/2024 7:11 AM CDT 02/04/2024 7:17 AM CDT Alan Alvarez MD LAB - BLOOD ORDERABLES Final Res ult Performing Organization Address City/[facility]/ZIP Co de Phone Number LABORATORY [facility] Lab [address] Lab (1st floor, no room number) [address] * (ABNORMAL) Magnesium (02/04/2024 7:11 AM CDT) Magnesium 2.5(H) 1.7 - 2.3 mg/dL 02/04/2024 7:36 AM CDT LABORATORY Blood BLOOD SPECIMEN / Unknown Venipuncture / Unknown 02/04/2024 7:11 AM CDT 02/04/2024 7:17 AM CDT Osmar Triplett MD LAB - BLOOD ORDERABLES Final Res ult LABORATORY [facility] Lab [address] Lab (1st floor, no room number) [address] * Potassium (02/04/2024 7:11 AM CDT) Potassium 4.3 3.4 - 5.3 mmol/L 02/04/2024 7:36 AM CDT LABORATORY Blood BLOOD SPECIMEN / Unknown Venipuncture / Unknown 02/04/2024 7:11 AM CDT 02/04/2024 7:17 AM CDT us Osmar Triplett MD LAB - BLOOD ORDERABLES Final Res ult [facility] [address] Lab (1st floor, no room number) [place] [address] * Creatinine (02/03/2024 5:45 AM CDT) Creatinine 1.02 0.67 - 1.17 mg/dL 02/03/2024 6:21 AM CDT LABORATORY GFR Estimate 83 >60 mL/min/1.7 3m2 02/03/2024 6:21 AM CDT LABORATORY Comment:eGFR calculated usin g 2020 CKD-EPI equation. Blood STRUCTURE OF LEFT HAND / Unknown Venipuncture / Unknown 02/03/2024 5:45 AM CDT 02/03/2024 6:01 AM CDT us Alan Alvarez MD LAB - BLOOD ORDERABLES Final Res ult Performing Organization Address [facility]/ZIP Co de Phone Number [facility] [address] Lab (1st floor, no room number) [place] [phone] * (ABNORMAL) Magnesium (02/03/2024 5:45 AM CDT) Magnesium 2.4(H) 1.7 - 2.3 mg/dL 02/03/2024 6:21 AM CDT LABORATORY Blood STRUCTURE OF LEFT HAND / Unknown Venipuncture / Unknown 02/03/2024 5:45 AM CDT 02/03/2024 6:01 AM CDT us Osmar Triplett MD LAB - BLOOD ORDERABLES Final Res ult [facility] [address] Lab (1st floor, no room number) [place] [address] * Potassium (02/03/2024 5:45 AM CDT) Potassium 4.2 3.4 - 5.3 mmol/L 02/03/2024 6:21 AM CDT RH LABORATORY Blood STRUCTURE OF LEFT HAND / Unknown Venipuncture / Unknown 02/03/2024 5:45 AM CDT 02/03/2024 6:01 AM CDT Osmar Triplett MD LAB - BLOOD ORDERABLES Final Res ult LABORATORY [facility] [address] Lab (1st floor, no room number) [place] [address] * (ABNORMAL) Basic metabolic panel (02/02/2024 6:39 AM CDT) Sodium 137 135 - 145 mmol/L 02/02/2024 7:49 AM CDT LABORATORY Potassium 4.1 3.4 - 5.3 mmol/L 02/02/2024 7:49 AM CDT RH LABORATORY Chloride 102 98 - 107 mmol/L [...] AM CDT RH LABORATORY Comment:eGFR calculated usin g 2020 CKD-EPI equation. Calcium 8.7(L) 8.8 - [...] BLOOD ORDERABLES Final Res ult RH LABORATORY [facility] [address] [facility] Lab (1st floor, no room number) [place] [address] * (ABNORMAL) CBC with platelets (02/02/2024 6:39 AM CDT) WBC Count 6.0 4.0 - 11.0 10e3/uL [...] LAB - BLOOD ORDERABLES Final Res ult [facility] [address] Lab (1st floor, no room number) [place] [address] * Magnesium (02/02/2024 6:39 AM CDT) Magnesium 2.3 1.7 - 2.3 mg/dL 02/02/2024 7:49 AM CDT RH LABORATORY Blood STRUCTURE OF RIGHT HAND / Unknown Venipuncture / Unknown 02/02/2024 6:39 AM CDT 02/02/2024 7:23 AM CDT us Osmar Triplett MD LAB - BLOOD ORDERABLES Final Res ult Performing Organization Address City/[facility]/ZIP Co de Phone Number [facility] [address] Lab (1st floor, no room number) [place] [address] * Blood Culture Hand, Right (02/01/2024 4:44 PM CDT) Culture No Growth 02/06/2024 8:46 PM CDT [facility] Blood STRUCTURE OF RIGHT HAND / Unknown Venipuncture / Unknown 02/01/2024 4:44 PM CDT 02/01/2024 4:46 PM CDT us Lacey Chen MD LAB - MICRO GENERAL ORDERABLES F inal Result [facility]ORATORY [facility] Inf. Diseases Diag. Lab [address] [facility] [place] [address] * Potassium (02/01/2024 4:44 PM CDT) Potassium 3.9 3.4 - 5.3 mmol/L 02/01/2024 5:14 PM CDT RH LABORATORY Blood STRUCTURE OF RIGHT HAND / Unknown Venipuncture / Unknown 02/01/2024 4:44 PM CDT 02/01/2024 4:46 PM CDT us Osmar Triplett MD LAB - BLOOD ORDERABLES Final Res ult [facility] [address] [facility] Lab (1st floor, no room number) [place] [address], [facility] * ECHO DAVID (02/01/2024 1:42 PM CDT) LVEF 60-65% CARDIOLOGY RESULTS Anatomical Region Laterality Modality Echocardiography 02/01/2024 11:5 3 AM CDT Narrative 02/01/2024 4:16 PM CDT [id number] [facility] [id number]^ARAVIND^ALAN [facility] Echocardiography Laboratory [address] [place] [address] Name: MICAH RITCHIE : 1960 Study Date: 02/01/2024 11:53 AM Age: 63 yrs Gender: Male Patient Location: [facility] Reason For Study: Endocarditis Ordering Physician: ALAN ALVAREZ Performed By: MONET Coto BSA: 2.0 m2 Height: 69 in Weight: 175 lb HR: 83 BP: 133/81 mmHg Procedure Complete DAVID Adult. 3D image acquisition, reconstruction, and real-time interpretation was performed. DAVID Probe serial #[id number] ([id number]) was used during the procedure. The heart rate, respiratory rate and response to care were monitored throughout the procedure with the assistance of the nurse. Interpretation Summary Status post surgical bioprosthetic aortic valve replacement with a 25-mm tissue prosthesis for bicuspid aortic valve disease, 2009. No evidence of prosthetic or agdaagux valve endocarditis. 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 No periprosthetic regurgitation. Trace to mild prosthetic regurgitation. The prosthetic valve opens well. Mean systolic gradient 24 mmHg. Normal left ventricular systolic function. Estimated LVEF 60-65%. Normal right ventricular size and systolic function. Bubble study negative for inter-atrial shunt. DAVID I determined this patient to be an [...] Procedure Note Taina Ignacio MD - 02/01/2024 [id number] [facility] [id number]^ARAVIND^[facility] Echocardiography Laboratory [address] [place] [address] Name: MICAH RITCHIE : 1960 Study Date: 02/01/2024 11:53 AM Age: 63 yrs Gender: Male Patient Location: [facility] Reason For Study: Endocarditis Ordering Physician: ALAN ALVAREZ Performed By: MONET Coto BSA: 2.0 m2 Height: 69 in Weight: 175 lb HR: 83 BP: 133/81 mmHg Procedure Complete DAVID Adult. 3D image acquisition, reconstruction, and real-time interpretation was performed. DAVID Probe serial #[id number] (R) was used duringthe procedure. The heart rate, respiratory rate and response to care were monitored throughout the procedure with the assistance of the nurse. Interpretation Summary Status post surgical bioprosthetic aortic valve replacement with a 25-mm tissue prosthesis for bicuspid aortic valve disease, 2009. No evidence of prosthetic or agdaagux valve endocarditis. 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 No periprostheticregurgitation. Trace to mild prosthetic regurgitation. The prosthetic valve opens well. Mean systolic gradient 24 mmHg. Normal left ventricular systolic function. Estimated LVEF 60-65%. Normal right ventricular size and systolic function. Bubble study negative for inter-atrial shunt. DAVID I determined this patient to be an [...] by: Dr Taina Moreno 02/01/2024 04:16 PM us Alan Alvarez MD CV ECHO ORDERABLES Edited Result - Final * T4 free (02/01/2024 9:21 AM CDT) Pathologist [facility] Free T4 1.12 0.90 - 1.70 ng/dL 02/01/2024 11:10 AM CDT RH LABORATORY Blood STRUCTURE OF LEFT HAND / Unknown Venipuncture / Unknown 02/01/2024 9:21 AM CDT 02/01/2024 9:36 AM CDT Key Penn MD LAB - BLOOD ORDERABLES Final Result RH LABORATORY [facility] [address] [facility] Lab (1st floor, no room number) [place] [address] * (ABNORMAL) CBC with platelets and differential (02/01/2024 9:21 AM CDT) Pathologist [facility] WBC Count 7.9 4.0 - 11.0 10e3/uL 02/01/2024 3:38 PM CDT RH LABORATORY RBC Count 4.48 4.40 - 5.90 10e6/uL 02/01/2024 3:38 PM CDT RH LABORATORY Hemoglobin 13.1(L) 13.3 - 17.7 g/dL 02/01/2024 3:38 PM CDT RH LABORATORY Hematocrit 39.4(L) 40.0 - 53.0 % 02/01/2024 3:38 PM CDT RH LABORATORY MCV 88 78 - 100 fL 02/01/2024 3:38 PM CDT RH LABORATORY MCH 29.2 26.5 - 33.0 pg 02/01/2024 3:38 PM CDT RH LABORATORY MCHC 33.2 31.5 - 36.5 g/dL 02/01/2024 3:38 PM CDT RH LABORATORY RDW 12.3 10.0 - 15.0 % 02/01/2024 3:38 PM CDT RH LABORATORY Platelet Count 240 150 - 450 10e3/uL 02/01/2024 3:38 PM CDT RH LABORATORY Comment:Platelet Est 255 % Neutrophils 65 % 02/01/2024 3:38 PM CDT RH LABORATORY % Lymphocytes 20 % 02/01/2024 3:38 PM CDT RH LABORATORY % Monocytes 13 % 02/01/2024 3:38 PM CDT RH LABORATORY % Eosinophils 1 % 02/01/2024 3:38 PM CDT RH LABORATORY % Basophils 0 % 02/01/2024 3:38 PM CDT RH LABORATORY % Immature Granulocytes 1 % 02/01/2024 3:38 PM CDT RH LABORATORY NRBCs per 100 WBC 0 <1 /100 024 3:38 PM CDT RH LABORATORY Absolute Neutrophils 5.1 1.6 - 8.3 10e3/uL 02/01/2024 3:38 PM CDT RH LABORATORY Absolute Lymphocytes 1.6 0.8 - 5.3 10e3/uL 02/01/2024 3:38 PM CDT RH LABORATORY Absolute Monocytes 1.0 0.0 - 1.3 10e3/uL 02/01/2024 3:38 PM CDT RH LABORATORY Absolute Eosinophils 0.1 0.0 - 0.7 10e3/uL 02/01/2024 3:38 PM CDT RH LABORATORY Absolute Basophils 0.0 0.0 - 0.2 10e3/uL 02/01/2024 3:38 PM CDT RH LABORATORY Absolute Immature Granulocytes 0.1 <=0.4 10e3/uL 02/01/2024 3:38 PM CDT RH LABORATORY Absolute NRBCs 0.0 10e3/uL 02/01/2024 3:38 PM CDT RH LABORATORY Blood STRUCTURE OF LEFT HAND / Unknown Venipuncture / Unknown 02/01/2024 9:21 AM CDT 02/01/2024 9:36 AM CDT Key Penn MD LAB - BLOOD ORDERABLES Final Result LABORATORY [facility] [address] Lab (1st floor, no room number) [address] * (ABNORMAL) Magnesium (02/01/2024 9:21 AM CDT) Magnesium 2.5(H) 1.7 - 2.3 mg/dL 02/01/2024 10:01 AM CDT LABORATORY Blood STRUCTURE OF LEFT HAND / Unknown Venipuncture / Unknown 02/01/2024 9:21 AM CDT 02/01/2024 9:36 AM CDT Key Penn MD LAB - BLOOD ORDERABLES Final Result LABORATORY [facility] Lab [address] Lab (1st floor, no room number) [address] * (ABNORMAL) TSH with free T4 reflex (02/01/2024 9:21 AM CDT) TSH 4.50(H) 0.30 - 4.20 uIU/mL 02/01/2024 10:06 AM CDT LABORATORY Blood STRUCTURE OF LEFT HAND / Unknown Venipuncture / Unknown 02/01/2024 9:21 AM CDT 02/01/2024 9:36 AM CDT Key Penn MD LAB - BLOOD ORDERABLES Final Result LABORATORY [facility] [address] Lab (1st floor, no room number) [address] * Basic metabolic panel (02/01/2024 9:21 AM CDT) Sodium 137 135 - 145 mmol/L 02/01/2024 12:00 PM CDT LABORATORY Potassium 4.2 3.4 - 5.3 mmol/L 02/01/2024 12:00 PM CDT RH LABORATORY Chloride 101 98 - 107 mmol/L 02/01/2024 12:00 PM CDT RH LABORATORY Carbon Dioxide (CO2) 25 22 - 29 mmol/L 02/01/2024 12:00 PM CDT RH LABORATORY Anion Gap 11 7 - 15 mmol/L 02/01/2024 12:00 PM CDT RH LABORATORY Urea Nitrogen 14.3 8.0 - 23.0 mg/dL 02/01/2024 12:00 PM CDT RH LABORATORY Creatinine 1.08 0.67 - 1.17 mg/dL 02/01/2024 12:00 PM CDT RH LABORATORY GFR Estimate 77 >60 mL/min/1.7 3m2 02/01/2024 12:00 PM CDT RH LABORATORY Comment:eGFR calculated usin 2020 CKD-EPI equation. Calcium 9.4 8.8 - 10.4 mg/dL 02/01/2024 12:00 PM CDT RH LABORATORY Comment:Reference intervals for this test were updated on 12/26/2023 to reflect our healthy population more accurately. There may be differences in the flagging of prior results with similar values performed with this method. Those prior results can be interpreted in the context of the updated reference intervals. Glucose 98 70 - 99 mg/dL 02/01/2024 12:00 PM CDT RH LABORATORY Blood STRUCTURE OF LEFT HAND / Unknown Venipuncture / Unknown 02/01/2024 9:21 AM CDT 02/01/2024 9:36 AM CDT Key Penn MD LAB - BLOOD ORDERABLES Final Result LABORATORY [facility] [address] Lab (1st floor, no room number) [place] [address], [facility] * Magnesium (01/31/2024 6:53 AM CDT) Magnesium 2.2 1.7 - 2.3 mg/dL 01/31/2024 7:51 AM CDT RH LABORATORY Blood STRUCTURE OF LEFT UPPER LIMB / Unknown Venipuncture / Unknown 01/31/2024 6:53 AM CDT 01/31/2024 7:25 AM CDT Alan Alvarez MD LAB - BLOOD ORDERABLES Final Res ult RH LABORATORY [facility] [address] Lab (1st floor, no room number) [place] [address], [facility] * (ABNORMAL) CBC with platelets (01/31/2024 6:53 AM CDT) [facility] WBC Count 8.3 4.0 - 11.0 10e3/uL 01/31/2024 7:30 AM CDT RH LABORATORY RBC Count 3.85(L) 4.40 - 5.90 10e6/uL 01/31/2024 7:30 AM CDT RH LABORATORY Hemoglobin 11.2(L) 13.3 - 17.7 g/dL 01/31/2024 7:30 AM CDT RH LABORATORY Hematocrit 33.7(L) 40.0 - 53.0 % 01/31/2024 7:30 AM CDT RH LABORATORY MCV 88 78 - 100 fL 01/31/2024 7:30 AM CDT RH LABORATORY MCH 29.1 26.5 - 33.0 pg 01/31/2024 7:30 AM CDT RH LABORATORY MCHC 33.2 31.5 - 36.5 g/dL 01/31/2024 7:30 AM CDT RH LABORATORY RDW 12.2 10.0 - 15.0 % 01/31/2024 7:30 AM CDT RH LABORATORY Platelet Count 159 150 - 450 10e3/uL 01/31/2024 7:30 AM CDT RH LABORATORY Blood STRUCTURE OF LEFT UPPER LIMB / Unknown Venipuncture / Unknown 01/31/2024 6:53 AM CDT 01/31/2024 7:25 AM CDT us Alan Alvarez MD LAB - BLOOD ORDERABLES Final Res ult RH LABORATORY [facility] [address] Lab (1st floor, no room number) [place] [address], [facility] * (ABNORMAL) Basic metabolic panel (01/31/2024 6:53 AM CDT) Sodium 133(L) 135 - 145 mmol/L 01/31/2024 7:51 AM CDT LABORATORY Potassium 4.7 3.4 - 5.3 mmol/L 01/31/2024 7:51 AM CDT RH LABORATORY Chloride 98 98 - 107 mmol/L 01/31/2024 7:51 AM CDT RH LABORATORY Carbon Dioxide (CO2) 23 22 - 29 mmol/L 01/31/2024 7:51 AM CDT RH LABORATORY Anion Gap 12 7 - 15 mmol/L 01/31/2024 7:51 AM CDT RH LABORATORY Urea Nitrogen 11.4 8.0 - 23.0 mg/dL 01/31/2024 7:51 AM CDT RH LABORATORY Creatinine 1.05 0.67 - 1.17 mg/dL 01/31/2024 7:51 AM CDT RH LABORATORY GFR Estimate 80 >60 mL/min/1.7 3m2 01/31/2024 7:51 AM CDT RH LABORATORY Comment:eGFR calculated usin g 2020 CKD-EPI equation. Calcium 8.5(L) 8.8 - 10.4 mg/dL 01/31/2024 7:51 AM CDT [facility] LABORATORY Comment:Reference intervals for this test were updated on 12/26/2023 to reflect our healthy population more accurately. There may be differences in the flagging of prior results with similar values performed with this method. Those prior results can be interpreted in the context of the updated reference intervals. Glucose 99 70 - 99 mg/dL 01/31/2024 7:51 AM CDT LABORATORY Blood STRUCTURE OF LEFT UPPER LIMB / Unknown Venipuncture / Unknown 01/31/2024 6:53 AM CDT 01/31/2024 7:25 AM CDT us Alan Alvarez MD LAB - BLOOD ORDERABLES Final Res ult LABORATORY [facility] [address] Lab (1st floor, no room number) [place] [address], [place] * EKG 12-lead, tracing only (01/30/2024 9:33 PM CDT) Systolic Blood Pressure mmHg RADIOLOGY RESULTS Diastolic Blood Pressure mmHg RADIOLOGY RESULTS Ventricular Rate 75 BPM RAD IOLOGY RESULTS Atrial Rate 75 BPM RADIOLOG Y RESULTS MT Interval 180 ms RADIOLOG Y RESULTS QRS Duration 90 ms RADIOLO GY RESULTS QT 372 ms RADIOLOGY RESULTS QTc 415 ms RADIOLOGY RESULTS P [place] 34 degrees RADIOLOGY RESULTS R AXIS 43 degrees RADIOLOGY RESULTS T [place] 51 degrees RADIOLOGY RESULTS Interpretation ECG Sinus rhythm Minimal voltage criteria for LVH, may be normal variant ( Sokolow-Tse ) Borderline ECG When compared with ECG of 18-Oct-2022 10:50, No significant change was found Unconfirmed report - interpretation of this ECG is computer generated - see medical record for final interpretation Confirmed by - EMERGENCY ROOM, PHYSICIAN ([id number]), commercial production editor FARZANA GOLDBERG ([id number]) on 01/31/2024 6:48:46 AM RADIOLOGY RESULTS 01/30/2024 [...] CDT EXAM: XR CHEST 2 VIEWS LOCATION: [facility] DATE: 01/30/2024 INDICATION: Fever, chills. COMPARISON: 07/16/2009 Procedure Note Sunil Richardson MD - 01/30/2024 EXAM: XR CHEST 2 VIEWS LOCATION: [facility] DATE: 01/30/2024 INDICATION: Fever, chills. COMPARISON: 07/16/2009 IMPRESSION: Heart size is normal. Aortic valve replacement. Lungs areclear bilaterally. Mediastinum and visualized bony structures areunremarkable. Joselito Mar MD IMG DIAGNOSTIC IMAGING ORDERABLE S Final Result * (ABNORMAL) Blood Culture Peripheral Blood (01/30/2024 8:30 PM CDT) Culture Positive on the 1st day of incubation(A) 02/06/2024 7:07 AM CDT [facility] Culture Streptococcus sanguinis(AA) 02/06/2024 7:07 AM CDT [facility] Comment: 2 of 2 bottles Susceptibilities done on previous cultures Blood BLOOD SPECIMEN / Unknown Venipuncture / Unknown 01/30/2024 8:30 PM CDT 01/30/2024 8:35 PM CDT Joselito Mar MD LAB - MICRO GENERAL ORDERABLES E dited Result - Final [facility] Inf. Diseases Diag. Lab [address] [place] [address] * Symptomatic Influenza A/B, RSV, & SARS-CoV2 PCR (COVID-19) Nasopharyngeal (01/30/2024 6:01 PM CDT) Pathologist [facility] Influenza A PCR Negative Negative 01/30/2024 7:01 [...] the Xpert Xpress CoV2/Flu/RSV Assay on the Cepheid GeneXpert Instrument. This test should be ordered [...] management. This test was validated by the [facility]. These laboratories are certified under the Clinical Laboratory Improvement Amendments of 1988 (CLIA-88) as qualified to perform high complexity laboratory testing. Joselito Mar MD LAB - MICRO GENERAL ORDERABLES F inal Result [facility] [address] (1st floor, no room number) [place] [address], [facility] * (ABNORMAL) Verigene GP Panel (01/30/2024 [...] Streptococcus pyogenes and Streptococcus agalactiae. Performed using Verigene multiplex nucleic acid test. Final identification and [...] Tito Waller MD LAB - MICRO GENERAL MYAH BURKS Final Result [facility] Inf. Diseases Diag. Lab [address] [facility], [address] [place] [address] * (ABNORMAL) Hepatic function panel (01/30/2024 4:28 PM CDT) Protein Total 6.4 6.4 - 8.3 g/dL 01/30/2024 8:56 PM CDT [facility] Albumin 3.4(L) 3.5 - 5.2 g/dL 01/30/2024 8:56 PM CDT [facility] Bilirubin Total 0.5 <=1.2 mg/dL 01/30/2024 8:56 PM CDT [facility] Alkaline Phosphatase 66 40 - 150 U/L 01/30/2024 8:56 PM CDT [facility] AST 44 0 - 45 U/L 01/30/2024 8:56 PM CDT [facility] ALT 64 0 - 70 U/L 01/30/2024 8:56 PM CDT [facility] Bilirubin Direct <0.20 0.00 - 0.30 mg/dL 01/30/2024 8:56 PM CDT [facility] Blood STRUCTURE OF RIGHT UPPER LIMB / Unknown Venipuncture / Unknown 01/30/2024 4:28 PM CDT 01/30/2024 5:01 PM CDT us Joselito Mar MD LAB - BLOOD ORDERABLES Final Res ult [facility] [address] [facility] Lab (1st floor, no room number) [place] [address], [facility] * (ABNORMAL) Procalcitonin (01/30/2024 4:28 PM CDT) Procalcitonin 0.85(H) <0.50 ng/mL 01/30/2024 6:30 PM CDT [facility] Comment: Interpretation and Recommendations <0.5 ng/mL: Systemic bacterial infection unlikely. Local bacterial infection is possible. 0.5-1.99 ng/mL: Systemic bacterial infection possible, but various other conditions are known to induce PCT as well. >=2.00 ng/mL: Systemic bacterial infection likely, unless other causes are known. Decision to start antibiotics should not be based on procalcitonin level alone. See Procalcitonin Guidance document for more details. [email or web address] Factors that may affect PCT levels (not [...] ORDERABLES Final Res ult Performing Organization Address [facility] de Phone Number [facility] [address] Lab (1st floor, no room number) [address] [place] [address] * (ABNORMAL) CRP inflammation (01/30/2024 4:28 PM CDT) CRP Inflammation 73.42(H) <5.00 mg/L 01/30/2024 6:23 PM CDT LABORATORY Blood STRUCTURE OF RIGHT UPPER LIMB / Unknown Venipuncture / Unknown 01/30/2024 4:28 PM CDT 01/30/2024 5:01 PM CDT Joselito Mar MD LAB - BLOOD ORDERABLES Final Res ult Performing Organization Address [facility] Co de Phone Number [facility] [address] Lab (1st floor, no room number) [place] [phone], [facility] * (ABNORMAL) CBC with platelets and differential (01/30/2024 4:28 PM CDT) WBC Count 7.9 4.0 - 11.0 10e3/uL 01/30/2024 5:10 PM CDT [facility] RBC Count 4.27(L) 4.40 - 5.90 10e6/uL 01/30/2024 5:10 PM CDT [facility] Hemoglobin 12.5(L) 13.3 - 17.7 g/dL 01/30/2024 5:10 PM CDT [facility] Hematocrit 38.1(L) 40.0 - 53.0 % 01/30/2024 5:10 PM CDT [facility] MCV 89 78 - 100 fL 01/30/2024 5:10 PM CDT [facility] MCH 29.3 26.5 - 33.0 pg 01/30/2024 5:10 PM CDT [facility] MCHC 32.8 31.5 - 36.5 g/dL 01/30/2024 5:10 PM CDT [facility] RDW 12.3 10.0 - 15.0 % 01/30/2024 5:10 PM CDT [facility] Platelet Count 162 150 - 450 10e3/uL 01/30/2024 5:10 PM CDT [facility] % Neutrophils 71 % 01/30/2024 5:10 PM CDT [facility] % Lymphocytes 16 % 01/30/2024 5:10 PM CDT [facility] % Monocytes 12 % 01/30/2024 5:10 PM CDT [facility] % Eosinophils 1 % 01/30/2024 5:10 PM CDT [facility] % Basophils 0 % 01/30/2024 5:10 PM CDT [facility] % Immature Granulocytes 1 % 01/30/2024 5:10 PM CDT [facility] NRBCs per 100 WBC 0 <1 /100 024 5:10 PM CDT [facility] Absolute Neutrophils 5.6 1.6 - 8.3 10e3/uL 01/30/2024 5:10 PM CDT [facility] Absolute Lymphocytes 1.2 0.8 - 5.3 10e3/uL 01/30/2024 5:10 PM CDT [facility] Absolute Monocytes 0.9 0.0 - 1.3 10e3/uL 01/30/2024 5:10 PM CDT [facility] Absolute Eosinophils 0.1 0.0 - 0.7 10e3/uL 01/30/2024 5:10 PM CDT [facility] Absolute Basophils 0.0 0.0 - 0.2 10e3/uL 01/30/2024 5:10 PM CDT [facility] Absolute Immature Granulocytes 0.1 <=0.4 10e3/uL 01/30/2024 5:10 PM CDT [facility] Absolute NRBCs 0.0 10e3/uL 01/30/2024 5:10 PM CDT [facility] Blood STRUCTURE OF RIGHT UPPER LIMB / Unknown Venipuncture / Unknown 01/30/2024 4:28 PM CDT 01/30/2024 5:01 PM CDT us Tito Waller MD LAB - BLOOD ORDERABLES F inal Result LABORATORY [facility] [address] [facility] Lab (1st floor, no room number) [place] [address] * (ABNORMAL) Blood Culture Arm, Right (01/30/2024 4:28 PM CDT) Culture Positive on the 1st day of incubation(A) 02/06/2024 7:06 AM CDT [facility] Culture Streptococcus sanguinis(AA) 02/06/2024 7:06 AM CDT [facility] Comment:2 of 2 bottles Blood STRUCTURE OF RIGHT UPPER LIMB / Unknown Venipuncture / Unknown 01/30/2024 4:28 PM CDT 01/30/2024 5:06 PM CDT Narrative Organism Antibiotic Method Susceptibility Streptococcus sanguinis Penicillin GEE 0.25 ug/mL: Intermediate Streptococcus sanguinis Clindamycin GEE <=0.12 ug/mL: Susceptible Streptococcus sanguinis Cefotaxime GEE <=0.25 ug/mL: Susceptible Streptococcus sanguinis Ceftriaxone GEE <=0.25 ug/mL: Susceptible Streptococcus sanguinis Vancomycin GEE 0.5 ug/mL: Susceptible Streptococcus sanguinis Meropenem GEE <=0.25 ug/mL: Susceptible us Tito Waller MD LAB - MICRO GENERAL ORDE RABLES Final Result [facility] Inf. Diseases Diag. Lab [address] [facility], [address] [place] [address], [facility] * Lactic acid whole blood (01/30/2024 4:28 PM CDT) Lactic Acid 1.1 0.7 - 2.0 mmol/L 01/30/2024 5:11 PM CDT [facility] Blood STRUCTURE OF RIGHT UPPER LIMB / Unknown Venipuncture / Unknown 01/30/2024 4:28 PM CDT 01/30/2024 5:01 PM CDT Tito Waller MD LAB - BLOOD ORDERABLES F inal Result [facility] [address] Lab (1st floor, no room number) [place] [address], [facility] * Basic metabolic panel (BMP) (01/30/2024 4:28 PM CDT) Sodium 135 135 - 145 mmol/L 01/30/2024 5:42 PM CDT [facility] Potassium 4.4 3.4 - 5.3 mmol/L 01/30/2024 5:42 PM CDT [facility] Chloride 98 98 - 107 mmol/L 01/30/2024 5:42 PM CDT [facility] Carbon Dioxide (CO2) 24 22 - 29 mmol/L 01/30/2024 5:42 PM CDT [facility] Anion Gap 13 7 - 15 mmol/L 01/30/2024 5:42 PM CDT [facility] Urea Nitrogen 13.3 8.0 - 23.0 mg/dL 01/30/2024 5:42 PM CDT [facility] Creatinine 1.09 0.67 - 1.17 mg/dL 01/30/2024 5:42 PM CDT [facility] GFR Estimate 76 >60 mL/min/1.7 3m2 01/30/2024 5:42 PM CDT [facility] Comment:eGFR calculated usin 2020 CKD-EPI equation. Calcium 9.0 8.8 - 10.4 mg/dL 01/30/2024 5:42 PM CDT [facility] Comment:Reference intervals for this test were updated on 12/26/2023 to reflect our healthy population more accurately. There may be differences in the flagging of prior results with similar values performed with this method. Those prior results can be interpreted in the context of the updated reference intervals. Glucose 97 70 - 99 mg/dL 01/30/2024 5:42 PM CDT [facility] Blood STRUCTURE OF RIGHT UPPER LIMB / Unknown Venipuncture / Unknown 01/30/2024 4:28 PM CDT 01/30/2024 5:01 PM CDT us Tito Waller MD LAB - BLOOD ORDERABLES F inal Result LABORATORY [facility] [address] [facility] Lab (1st floor, no room number) [place] [phone] documented in this encounter Visit Diagnoses Diagnosis Bacteremia Bacteremia documented in this encounter Administered Medications Inactive Administered Medications - up to 3 most recent administrations Medication Order MAR Action Action Date Dose Rate Site acetaminophen (TYLENOL) Suppository 650 mg 650 mg, Rectal, EVERY 4 HOURS PRN, mild pain, other, and adjunct with moderate or severe pain or per patient request, Starting on Mon01/30/24 at 2209, Alternate with ibuprofen if ordered. Maximum acetaminophen dose from all sources = 75 mg/kg/day not to exceed 4 grams/day. acetaminophen (TYLENOL) tablet 1,000 mg 1,000 mg, Oral, EVERY 4 HOURS PRN, fever, Starting on Mon01/30/24 at 1926, Maximum acetaminophen dose from all sources = 75 mg/kg/day not to exceed 4 gram $Given 01/30/2024 7:32 PM CDT 1,000 mg acetaminophen (TYLENOL) tablet 650 mg 650 mg, Oral, EVERY 4 HOURS PRN, mild pain, other, and adjunct with moderate or severe pain or per patient request, Starting on Mon01/30/24 at 2209, Alternate with ibuprofen if ordered. Maximum acetaminophen dose from all sources = 75 mg/kg/day not to exceed 4 grams/day. $Given 02/03/2024 3:06 PM CDT 650 mg $Given 02/03/2024 12:37 AM CDT 650 mg $Given 02/02/2024 8:37 PM CDT 650 mg aspirin (ASA) chewable tablet 81 mg 81 mg, Oral, DAILY, First dose on Mon01/31/24 at 0900 $Given 02/04/2024 9:50 PM CDT 81 mg $Given 02/03/2024 9:32 PM CDT 81 mg $Given 02/02/2024 9:52 PM CDT 81 mg benzocaine 20% (HURRICAINE/TOPEX) 20 % spray 0.5-2 mL 0.5-2 mL (1-4 spray), Mouth/Throat, ONCE, On Mon02/01/24 at 1130, For 1 dose, When verbally ordered by the prescriber. [place] throat with 1-4 sprays 5 minutes prior to procedure in the [facility] procedure room as directed by provider. , Cardiac Intra-procedure $Given 02/01/2024 12:03 PM CDT 1 mL benzocaine 20% (HURRICAINE/TOPEX) 20 % spray Starting on Mon02/01/24 at 1113, For 1 dose, Yeyo Brown: kavya override cefTRIAXone (ROCEPHIN) 2 g vial to attach to NS 100 ml bag for ADULTS or NS 50 ml bag for PEDS STAT, 2 g, Intravenous, ONCE, On Mon01/30/24 at 2015, For 1 dose, Indications: BacteremiaIndications:Bacteremia $New Bag 01/30/2024 8:48 PM CDT 2 g cefTRIAXone (ROCEPHIN) 2 g vial to attach to NS 100 ml bag for ADULTS or NS 50 ml bag for PEDS Routine, 2 g, Intravenous, EVERY 24 HOURS, First dose on Mon01/31/24 at 2000, For 7 doses, Indications: EndocarditisIndications:Endocarditi s $New Bag 02/04/2024 6:10 PM CDT 2 g 200 mL/hr $New Bag 02/03/2024 7:24 PM CDT 2 g 200 mL/hr $New Bag 02/02/2024 8:27 PM CDT 2 g 200 mL/hr fentaNYL (PF) (SUBLIMAZE) 100 MCG/2ML injection Starting on Mon02/01/24 at 1113, For 1 dose, Yeyo Brown: kavya override fentaNYL (PF) (SUBLIMAZE) injection 25 mcg 25 mcg, Intravenous, EVERY 2 MIN PRN, other, For moderate sedation when verbally ordered by the prescriber during the procedure, Administer over 2 Minutes, Starting on Shantell 02/01/24 at 1140, Subsequent doses if needed for pain during procedure. If inadequate response to initial dose, may repeat up to maximum of 200 mcg total dose in 60 minutes. Doses can be exceeded under direct oversight of patient by physician. Caution: may have synergistic effect when used with midazolam., Cardiac Intra-procedure $Given 02/01/2024 12:23 PM CDT 50 mcg glycopyrrolate (ROBINUL) injection 0.1 mg 0.1 mg, Intravenous, ONCE, Administer over 1-2 Minutes, On Shantell 02/01/24 at 1130, For 1 dose, 20 minutes prior to procedure in the [facility] procedure room., Cardiac Intra-procedure $Given 02/01/2024 11:16 AM CDT 0.1 mg heparin ANTICOAGULANT injection 5,000 Units 5,000 Units, Subcutaneous, EVERY 8 HOURS, First dose on Mon01/30/24 at 2230, HOLD heparin IF platelet count falls below 50% baseline or less than 100,000 / ??L and notify provider. Use this product If CrCl less than 30 mL/min. High concentration heparin. Not for line flush or cath care., On hold since Mon01/31/2024 at 1430 until manually unheld $Given 01/31/2024 1:55 PM CDT 5,000 Units $Given 01/31/2024 5:48 AM CDT 5,000 Units $Given 01/30/2024 11:22 PM CDT 5,000 Units HYDROmorphone (DILAUDID) tablet 2 mg 2 mg, Oral, EVERY 4 HOURS PRN, severe pain, IF pain not managed with non-pharmacological and non-opioid interventions, Starting on Mon01/30/24 at 2209, May use concomitant with non-opioid analgesics. $Given 02/05/2024 3:32 PM CDT 2 mg $Given 02/04/2024 9:50 PM CDT 2 mg $Given 02/04/2024 4:41 PM CDT 2 mg lactated ringers infusion at 75 mL/hr, Intravenous, CONTINUOUS, Starting on Mon01/30/24 at 2230, Until Mon01/31/24 at 2229 Rate/Dose Verify 01/31/2024 4:40 PM CDT 75 mL/hr $New Bag 01/31/2024 1:55 PM CDT 75 mL/hr $New Bag 01/31/2024 1:03 AM CDT 75 mL/hr lidocaine (viscous) (XYLOCAINE) 2 % solution Starting on Shantell 02/01/24 at 1113, For 1 dose, Yeyo Brown: isabelinet override $Given 02/01/2024 11:20 AM CDT 30 mLs lidocaine 1 % 0.1-5 mL 0.1-5 mL, Other, EVERY 1 HOUR PRN, local anesthetic for pain management with PICC insertion, Starting on Mon02/05/24 at 1658, For 72 hours, Do NOT give if patient has a history of allergy to any local anesthetic or any [place] product. MAX dose 5 mL subcutaneous OR intradermal in divided doses as needed for PICC insertion. Do NOT use both lidocaine intradermal/subcutaneous injection and the lidocaine cream on the same site. $Given 02/05/2024 5:51 PM CDT 1 mL midazolam (VERSED) 1 MG/ML injection Starting on Mon02/01/24 at 1114, For 1 dose, Yeyo Brown: siomarat override This drug may cause significant respiratory depression. Monitor respiratory status and vital signs carefully for 1 hour after each dose. $Given 02/01/2024 12:22 PM CDT 3 mg naloxone (NARCAN) injection 0.2 mg 0.2 mg, Intravenous, EVERY 2 MIN PRN, opioid reversal, Starting on Mon01/30/24 at 2217, Administer intravenous route when available and notify provider when administered. For unintended sedation or respiratory depression if all of the below criteria are met: ~ respiratory rate LESS than or EQUAL to 8. ~SaO2 less than 92% and or/end-tidal CO2 is greater than 50. ~ the patient is receiving an opioid, has unintended sedations assessed as RASS (-3), and is currently not on mechanical ventilation. RASS scale moderate (-3) is movement or eye opening to voice but no eye contact. Patient Monitoring Once the patient has demonstrated a response to the naloxone, continue to monitor respiratory rate, depth, oxygen saturation and end-tidal CO2 (if available) every 15 minutes x 2, then every 30 minutes x 2, then every 1 hour x 1 after each naloxone dose. Consider transfer to ICU if patient respiratory parameters have not improved after 4 naloxone doses. naloxone (NARCAN) injection 0.2 mg 0.2 mg, Intramuscular, EVERY 2 MIN PRN, opioid reversal, Starting on Mon01/30/24 at 2217, Administer intramuscular if an intravenous route is not available and notify provider when administered. For unintended sedation or respiratory depression if all of the below criteria are met: ~ respiratory rate LESS than or EQUAL to 8. ~SaO2 less than 92% and or/end-tidal CO2 is greater than 50. ~ the patient is receiving an opioid, has unintended sedations assessed as RASS (-3), and is currently not on mechanical ventilation. RASS scale moderate (-3) is movement or eye opening to voice but no eye contact. Patient Monitoring Once the patient has demonstrated a response to the naloxone, continue to monitor respiratory rate, depth, oxygen saturation and end-tidal CO2 (if available) every 15 minutes x 2, then every 30 minutes x 2, then every 1 hour x 1 after each naloxone dose. Consider transfer to ICU if patient respiratory parameters have not improved after 4 naloxone doses. naloxone (NARCAN) injection 0.4 mg 0.4 mg, Intravenous, EVERY 2 MIN PRN, opioid reversal, Starting on Mon01/30/24 at 2217, Administer intravenous route when available and notify provider when administered. For unintended sedation or respiratory depression if all of the below criteria are met: ~ respiratory rate LESS than or EQUAL to 8. ~ SaO2 less than 92% and or/end-tidal CO2 is greater than 50. ~ the patient is receiving an opioid, has unintended sedation assessed as RASS (-4) or (-5) and patient is currently not on mechanical ventilation. RASS scale (-4) is deep sedation with no response to voice but movement or eye opening to physical stimulation. RASS scale (-5) is unarousable. Patient Monitoring Once the patient has demonstrated a response to the naloxone, continue to monitor respiratory rate, depth, oxygen saturation and end-tidal CO2 (if available) every 15 minutes x 2, then every 30 minutes x 2, then every 1 hour x 1 after each naloxone dose. Consider transfer to ICU if patient respiratory parameters have not improved after 4 naloxone doses. naloxone (NARCAN) injection 0.4 mg 0.4 mg, Intramuscular, EVERY 2 MIN PRN, opioid reversal, Starting on Mon01/30/24 at 2217, Administer intramuscular if an intravenous route is not available and notify provider when administered. For unintended sedation or respiratory depression if all of the below criteria are met: ~ respiratory rate LESS than or EQUAL to 8. ~ SaO2 less than 92% and or/end-tidal CO2 is greater than 50. ~ the patient is receiving an opioid, has unintended sedation assessed as RASS (-4) or (-5) and patient is currently not on mechanical ventilation. RASS scale (-4) is deep sedation with no response to voice but movement or eye opening to physical stimulation. RASS scale (-5) is unarousable. Patient Monitoring Once the patient has demonstrated a response to the naloxone, continue to monitor respiratory rate, depth, oxygen saturation and end-tidal CO2 (if available) every 15 minutes x 2, then every 30 minutes x 2, then every 1 hour x 1 after each naloxone dose. Consider transfer to ICU if patient respiratory parameters have not improved after 4 naloxone doses. ondansetron (ZOFRAN ODT) ODT tab 4 mg 4 mg, Oral, EVERY 6 HOURS PRN, nausea, vomiting, Starting on Mon01/30/24 at 2209, This is Step 1 of nausea and vomiting management. If nausea not resolved in 15 minutes, go to Step 2 prochlorperazine (COMPAZINE). With dry hands, peel back foil backing and gently remove tablet. Do not push oral disintegrating tablet through foil backing. Administer immediately on tongue and oral disintegrating tablet dissolves in seconds, then swallow with saliva. Liquid not required. ondansetron (ZOFRAN) injection 4 mg 4 mg, Intravenous, EVERY 6 HOURS PRN, nausea, vomiting, Administer over 2-5 Minutes, Starting on Mon01/30/24 at 2209, Give IF patient unable to tolerate oral medication. This is Step 1 of nausea and vomiting management. If nausea not resolved in 15 minutes, go to Step 2 prochlorperazine (COMPAZINE). prochlorperazine (COMPAZINE) injection 10 mg 10 mg, Intravenous, EVERY 6 HOURS PRN, nausea, vomiting, Administer over 1-2 Minutes, Starting on Mon01/30/24 at 2209, IF patient unable to tolerate oral medication. This is Step 2 of nausea and vomiting management. Give if nausea not resolved 15 minutes after giving ondansetron (ZOFRAN). prochlorperazine (COMPAZINE) suppository 25 mg 25 mg, Rectal, EVERY 12 HOURS PRN, nausea, vomiting, Starting on Mon01/30/24 at 2209, This is Step 2 of nausea and vomiting management. Give if nausea not resolved 15 minutes after giving ondansetron (ZOFRAN). prochlorperazine (COMPAZINE) tablet 10 mg 10 mg, Oral, EVERY 6 HOURS PRN, vomiting, Starting on Mon01/30/24 at 2209, This is Step 2 of nausea and vomiting management. Give if nausea not resolved 15 minutes after giving ondansetron (ZOFRAN). rosuvastatin (CRESTOR) tablet 20 mg 20 mg, Oral, AT BEDTIME, First dose on Mon01/30/24 at 2230 $Given 02/04/2024 9:50 PM CDT 20 mg $Given 02/03/2024 9:32 PM CDT 20 mg $Given 02/02/2024 9:52 PM CDT 20 mg senna-docusate (SENOKOT-S/PERICOLACE) 8.6-50 MG per tablet 1 tablet 1 tablet, Oral, 2 TIMES DAILY PRN, constipation, Starting on Mon01/30/24 at 220, If no bowel movement in 24 hours, increase to 2 tablets by mouth. IF more than 1 constipation PRN medication is ordered, administer step-hoang as indicated, moving to the next step ONLY if prior step ineffective. Step 1: senna-docusate (SENOKOT-S; PERICOLACE) OR bisacodyl (DULCOLAX) EC tablet Step 2: polyethylene glycol (MIRALAX/GLYCOLAX) Step 3: bisacodyl (DULCOLAX) suppository Step 4: enema Hold for loose stools. senna-docusate (SENOKOT-S/PERICOLACE) 8.6-50 MG per tablet 2 tablet 2 tablet, Oral, 2 TIMES DAILY PRN, constipation, Starting on Mon01/30/24 at 2209, IF more than 1 constipation PRN medication is ordered, administer step-hoang as indicated, moving to the next step ONLY if prior step ineffective. Step 1: senna-docusate (SENOKOT-S; PERICOLACE) OR bisacodyl (DULCOLAX) EC tablet Step 2: polyethylene glycol (MIRALAX/GLYCOLAX) Step 3: bisacodyl (DULCOLAX) suppository Step 4: enema Hold for loose stools. sodium chloride (PF) 0.9% PF flush 10-20 mL 10-20 mL, Intracatheter, EVERY 1 MIN PRN, line flush, Starting on Mon02/05/24 at 1658, Flush catheter with 10 mL sodium chloride 0.9% to ensure patency or after IV medications/TPN to clear the catheter. Flush catheter with 20 mL sodium chloride 0.9% after blood draws or blood administration from the catheter. sodium chloride (PF) 0.9% PF flush 10-40 mL 10-40 mL, Intracatheter, ONCE PRN, line flush, to flush each lumen with line placement, Starting on Mon02/05/24 at 1658, For 1 dose, MAX: 10 mL per lumen. May repeat x 1 sodium chloride (PF) 0.9% PF flush 10-40 mL 10-40 mL, Intracatheter, EVERY 7 DAYS, First dose on Mon02/05/24 at 1700, To lock each CVC - Valved (Tunneled and Non-Tunneled) dormant lumen(s). Max dose: 10 mL for each lumen Sodium chloride 0.9% 10 mL for each lumen to flush line and lock the lumen. $Given 02/05/2024 5:50 PM CDT 40 m Ls sodium chloride (PF) 0.9% PF flush 10-40 mL 10-40 mL, Intracatheter, EVERY 1 HOUR PRN, other, to lock EACH CVC - Valved (Tunneled and Non-Tunneled) dormant lumen(s), Starting on Mon02/05/24 at 1658, Max dose: 10 mL for each lumen Sodium chloride 0.9% 10 mL for each lumen to flush line and lock the lumen. sodium chloride (PF) 0.9% PF flush 3 mL 3 mL, Intracatheter, EVERY 8 HOURS, First dose on Mon01/30/24 at 2230, to lock peripheral IV dormant line $Given 02/04/2024 4:41 PM CDT 3 mLs $Given 02/04/2024 11:39 AM CDT 3 mLs $Given 02/04/2024 6:31 AM CDT 3 mLs vancomycin (VANCOCIN) 1,750 mg in 0.9% NaCl 500 mL intermittent infusion STAT, 1,750 mg, Intravenous, ONCE, On Mon01/30/24 at 2020, For 1 dose, Infuse doses less than 1,250 mg over 1 hour. Infuse doses between 1,250 mg and less than 1,750 mg over 90 minutes. Infuse doses 1,750 mg and above over 2 hours., Indications: BacteremiaIndications:Bacteremia $New Bag 01/30/2024 9:30 PM CDT 1,750 mg 250 mL/hr vancomycin (VANCOCIN) 1,750 mg in 0.9% NaCl 500 mL intermittent infusion Routine, 1,750 mg, Intravenous, EVERY 24 HOURS, First dose on Mon01/31/24 at 2000, Infuse doses less than 1,250 mg over 1 hour. Infuse doses between 1,250 mg and less than 1,750 mg over 90 minutes. Infuse doses 1,750 mg and above over 2 hours., Indications: EndocarditisIndications:Endocard itis $New Bag 02/02/2024 9:46 PM CDT 1,750 mg 250 mL/hr $New Bag 02/01/2024 9:13 PM CDT 1,750 mg 250 mL/hr $New Bag 01/31/2024 9:00 PM CDT 1,750 mg 250 mL/hr documented in this encounter Active and Recently Administered Medications Times are shown in CDT. Scheduled Medication Order 02/03/2024 02/04/2024 02/05/2024 aspirin (ASA) chewable tablet 81 mg 81 mg, Oral, DAILY, First dose on Mon01/31/24 at 0900 2132 ($Given - Provider: Cheri Davis RN) 2150 ($Given - Provider: Cheri Davis RN) 2100 (Canceled Entry - Provider: Orders Generic Provider - Comment: Automatically canceled at discontinue of medication order) cefTRIAXone (ROCEPHIN) 2 g vial to attach to NS 100 ml bag for ADULTS or NS 50 ml bag for PEDS Routine, 2 g, Intravenous, EVERY 24 HOURS, First dose on Mon01/31/24 at 2000, For 7 doses, Indications: Endocarditis 1924 ($New Bag - Provider: Cheri Davis RN) 1810 ($New Bag - Provider: Cheri Davis RN) 1800 (Canceled Entry - Provider: Orders Generic Provider - Comment: Automatically canceled at discontinue of medication order) rosuvastatin (CRESTOR) tablet 20 mg 20 mg, Oral, AT BEDTIME, First dose on Mon01/30/24 at 2230 2132 ($Given - Provider: Chrei Davis RN) 2150 ($Given - Provider: Cheri Davis RN) sodium chloride (PF) 0.9% PF flush 10-40 mL 10-40 mL, Intracatheter, EVERY 7 DAYS, First dose on Mon02/05/24 at 1700, To lock each CVC - Valved (Tunneled and Non-Tunneled) dormant lumen(s). Max dose: 10 mL for each lumen Sodium chloride 0.9% 10 mL for each lumen to flush line and lock the lumen. 1750 ($Given - Provider: Kenya Becker RN) sodium chloride (PF) 0.9% PF flush 3 mL 3 mL, Intracatheter, EVERY 8 HOURS, First dose on Mon01/30/24 at 2230, to lock peripheral IV dormant line 0115 ($Given - Provider: Amy Roman RN)1150 (Canceled Entry - Provider: Marilu Adorno RN)1636 ($Given - Provider: Cheri Davis RN) 0631 ($Given - Provider: Kay Key RN)1139 ($Given - Provider: Marilu Adorno RN)1641 ($Given - Provider: Cheri Davis, FIDE) 0303 (Not Given - Provider: Renetta Guaman RN - Reason: Other - Comment: pt requested not to be woken up)1126 (Canceled Entry - Provider: Marilu Adorno RN)1404 (Canceled Entry - Provider: Marilu Adorno RN)2000 (Canceled Entry - Provider: Orders Generic Provider - Comment: Automatically canceled at discontinue of medication order) PRN Medication Order 02/03/2024 02/04/2024 02/05/2024 acetaminophen (TYLENOL) Suppository 650 mg(Linked Group 1) 650 mg, Rectal, EVERY 4 HOURS PRN, mild pain, other, and adjunct with moderate or severe pain or per patient request, Starting on Mon01/30/24 at 2209, Alternate with ibuprofen if ordered. Maximum acetaminophen dose from all sources = 75 mg/kg/day not to exceed 4 grams/day. 0037 (See Alternative - Provider: Amy Roman RN)1506 (See Alternative - Provider: Marilu Adorno, RN) acetaminophen (TYLENOL) tablet 650 mg(Linked Group 1) 650 mg, Oral, EVERY 4 HOURS PRN, mild pain, other, and adjunct with moderate or severe pain or per patient request, Starting on Mon01/30/24 at 2209, Alternate with ibuprofen if ordered. Maximum acetaminophen dose from all sources = 75 mg/kg/day not to exceed 4 grams/day. 0037 ($Given - Provider: Amy Roman RN)1506 ($Given - Provider: Marilu Adorno, RN) calcium carbonate (TUMS) chewable tablet 1,000 mg 1,000 mg, Oral, 4 TIMES DAILY PRN, heartburn, Starting on Mon01/30/24 at 2209 HYDROmorphone (DILAUDID) half-tab 1 mg 1 mg, Oral, EVERY 4 HOURS PRN, moderate pain, IF pain not managed with non-pharmacological and non-opioid interventions, Starting on Mon01/30/24 at 2209, May use concomitant with non-opioid analgesics. HYDROmorphone (DILAUDID) tablet 2 mg 2 mg, Oral, EVERY 4 HOURS PRN, severe pain, IF pain not managed with non-pharmacological and non-opioid interventions, Starting on Mon01/30/24 at 2209, May use concomitant with non-opioid analgesics. 0036 ($Given - Provider: Amy Roman RN)1506 ($Given - Provider: Marilu Adorno, FIDE)1938 ($Given - Provider: Cheri Davis, FIDE) 1641 ($Given - Provider: Cheri Davis RN)2150 ($Given - Provider: Cheri Davis RN) 1532 ($Given - Provider: Brenda Santana RN) lidocaine (LMX4) cream Topical, EVERY 1 HOUR PRN, pain, with VAD insertion, Starting on Mon01/30/24 at 2209, Apply at least 30 minutes prior to VAD insertion in divided doses as needed for size of site for insertion. MAX Dose: 2.5 g (?? of 5 g tube) Do NOT give if patient has a history of allergy to any local anesthetic or any [place] product. Do NOT use both lidocaine intradermal/subcutaneous injection and the lidocaine cream on the same site. lidocaine 1 % 0.1-1 mL 0.1-1 mL, Other, EVERY 1 HOUR PRN, mild pain with VAD insertion, Starting on Mon01/30/24 at 2209, MAX dose 1 mL subcutaneous OR intradermal along the side of the vein in divided doses as needed for VAD insertion. Do NOT give if patient has a history of allergy to any local anesthetic or any [place] product. Do NOT use both lidocaine intradermal/subcutaneous injection and the lidocaine cream on the same site. lidocaine 1 % 0.1-5 mL 0.1-5 mL, Other, EVERY 1 HOUR PRN, local anesthetic for pain management with PICC insertion, Starting on Mon02/05/24 at 1658, For 72 hours, Do NOT give if patient has a history of allergy to any local anesthetic or any [place] product. MAX dose 5 mL subcutaneous OR intradermal in divided doses as needed for PICC insertion. Do NOT use both lidocaine intradermal/subcutaneous injection and the lidocaine cream on the same site. 1751 ($Given - Provider: Kenya Becker RN) melatonin tablet 5 mg 5 mg, Oral, AT BEDTIME PRN, sleep, Starting on Mon01/30/24 at 2209, Do not give unless at least 6 hours of uninterrupted sleep is expected. If patient has multiple medications ordered PRN sleep/insomnia, offer melatonin first. naloxone (NARCAN) injection 0.2 mg(Linked Group 2) 0.2 mg, Intravenous, EVERY 2 MIN PRN, opioid reversal, Starting on Mon01/30/24 at 2217, Administer intravenous route when available and notify provider when administered. For unintended sedation or respiratory depression if all of the below criteria are met: ~ respiratory rate LESS than or EQUAL to 8. ~SaO2 less than 92% and or/end-tidal CO2 is greater than 50. ~ the patient is receiving an opioid, has unintended sedations assessed as RASS (-3), and is currently not on mechanical ventilation. RASS scale moderate (-3) is movement or eye opening to voice but no eye contact. Patient Monitoring Once the patient has demonstrated a response to the naloxone, continue to monitor respiratory rate, depth, oxygen saturation and end-tidal CO2 (if available) every 15 minutes x 2, then every 30 minutes x 2, then every 1 hour x 1 after each naloxone dose. Consider transfer to ICU if patient respiratory parameters have not improved after 4 naloxone doses. naloxone (NARCAN) injection 0.2 mg(Linked Group 2) 0.2 mg, Intramuscular, EVERY 2 MIN PRN, opioid reversal, Starting on Mon01/30/24 at 2217, Administer intramuscular if an intravenous route is not available and notify provider when administered. For unintended sedation or respiratory depression if all of the below criteria are met: ~ respiratory rate LESS than or EQUAL to 8. ~SaO2 less than 92% and or/end-tidal CO2 is greater than 50. ~ the patient is receiving an opioid, has unintended sedations assessed as RASS (-3), and is currently not on mechanical ventilation. RASS scale moderate (-3) is movement or eye opening to voice but no eye contact. Patient Monitoring Once the patient has demonstrated a response to the naloxone, continue to monitor respiratory rate, depth, oxygen saturation and end-tidal CO2 (if available) every 15 minutes x 2, then every 30 minutes x 2, then every 1 hour x 1 after each naloxone dose. Consider transfer to ICU if patient respiratory parameters have not improved after 4 naloxone doses. naloxone (NARCAN) injection 0.4 mg(Linked Group 2) 0.4 mg, Intravenous, EVERY 2 MIN PRN, opioid reversal, Starting on Mon01/30/24 at 2217, Administer intravenous route when available and notify provider when administered. For unintended sedation or respiratory depression if all of the below criteria are met: ~ respiratory rate LESS than or EQUAL to 8. ~ SaO2 less than 92% and or/end-tidal CO2 is greater than 50. ~ the patient is receiving an opioid, has unintended sedation assessed as RASS (-4) or (-5) and patient is currently not on mechanical ventilation. RASS scale (-4) is deep sedation with no response to voice but movement or eye opening to physical stimulation. RASS scale (-5) is unarousable. Patient Monitoring Once the patient has demonstrated a response to the naloxone, continue to monitor respiratory rate, depth, oxygen saturation and end-tidal CO2 (if available) every 15 minutes x 2, then every 30 minutes x 2, then every 1 hour x 1 after each naloxone dose. Consider transfer to ICU if patient respiratory parameters have not improved after 4 naloxone doses. naloxone (NARCAN) injection 0.4 mg(Linked Group 2) 0.4 mg, Intramuscular, EVERY 2 MIN PRN, opioid reversal, Starting on Mon01/30/24 at 2217, Administer intramuscular if an intravenous route is not available and notify provider when administered. For unintended sedation or respiratory depression if all of the below criteria are met: ~ respiratory rate LESS than or EQUAL to 8. ~ SaO2 less than 92% and or/end-tidal CO2 is greater than 50. ~ the patient is receiving an opioid, has unintended sedation assessed as RASS (-4) or (-5) and patient is currently not on mechanical ventilation. RASS scale (-4) is deep sedation with no response to voice but movement or eye opening to physical stimulation. RASS scale (-5) is unarousable. Patient Monitoring Once the patient has demonstrated a response to the naloxone, continue to monitor respiratory rate, depth, oxygen saturation and end-tidal CO2 (if available) every 15 minutes x 2, then every 30 minutes x 2, then every 1 hour x 1 after each naloxone dose. Consider transfer to ICU if patient respiratory parameters have not improved after 4 naloxone doses. ondansetron (ZOFRAN ODT) ODT tab 4 mg(Linked Group 3) 4 mg, Oral, EVERY 6 HOURS PRN, nausea, vomiting, Starting on Mon01/30/24 at 2209, This is Step 1 of nausea and vomiting management. If nausea not resolved in 15 minutes, go to Step 2 prochlorperazine (COMPAZINE). With dry hands, peel back foil backing and gently remove tablet. Do not push oral disintegrating tablet through foil backing. Administer immediately on tongue and oral disintegrating tablet dissolves in seconds, then swallow with saliva. Liquid not required. ondansetron (ZOFRAN) injection 4 mg(Linked Group 3) 4 mg, Intravenous, EVERY 6 HOURS PRN, nausea, vomiting, Administer over 2-5 Minutes, Starting on Mon01/30/24 at 2209, Give IF patient unable to tolerate oral medication. This is Step 1 of nausea and vomiting management. If nausea not resolved in 15 minutes, go to Step 2 prochlorperazine (COMPAZINE). prochlorperazine (COMPAZINE) injection 10 mg(Linked Group 4) 10 mg, Intravenous, EVERY 6 HOURS PRN, nausea, vomiting, Administer over 1-2 Minutes, Starting on Mon01/30/24 at 2209, IF patient unable to tolerate oral medication. This is Step 2 of nausea and vomiting management. Give if nausea not resolved 15 minutes after giving ondansetron (ZOFRAN). prochlorperazine (COMPAZINE) suppository 25 mg(Linked Group 4) 25 mg, Rectal, EVERY 12 HOURS PRN, nausea, vomiting, Starting on Mon01/30/24 at 2209, This is Step 2 of nausea and vomiting management. Give if nausea not resolved 15 minutes after giving ondansetron (ZOFRAN). prochlorperazine (COMPAZINE) tablet 10 mg(Linked Group 4) 10 mg, Oral, EVERY 6 HOURS PRN, vomiting, Starting on Mon01/30/24 at 2209, This is Step 2 of nausea and vomiting management. Give if nausea not resolved 15 minutes after giving ondansetron (ZOFRAN). senna-docusate (SENOKOT-S/PERICOLACE) 8.6-50 MG per tablet 1 tablet(Linked Group 5) 1 tablet, Oral, 2 TIMES DAILY PRN, constipation, Starting on Mon01/30/24 at 220, If no bowel movement in 24 hours, increase to 2 tablets by mouth. IF more than 1 constipation PRN medication is ordered, administer step-hoang as indicated, moving to the next step ONLY if prior step ineffective. Step 1: senna-docusate (SENOKOT-S; PERICOLACE) OR bisacodyl (DULCOLAX) EC tablet Step 2: polyethylene glycol (MIRALAX/GLYCOLAX) Step 3: bisacodyl (DULCOLAX) suppository Step 4: enema Hold for loose stools. senna-docusate (SENOKOT-S/PERICOLACE) 8.6-50 MG per tablet 2 tablet(Linked Group 5) 2 tablet, Oral, 2 TIMES DAILY PRN, constipation, Starting on Mon01/30/24 at 2209, IF more than 1 constipation PRN medication is ordered, administer step-hoang as indicated, moving to the next step ONLY if prior step ineffective. Step 1: senna-docusate (SENOKOT-S; PERICOLACE) OR bisacodyl (DULCOLAX) EC tablet Step 2: polyethylene glycol (MIRALAX/GLYCOLAX) Step 3: bisacodyl (DULCOLAX) suppository Step 4: enema Hold for loose stools. sodium chloride (PF) 0.9% PF flush 10-20 mL 10-20 mL, Intracatheter, EVERY 1 MIN PRN, line flush, Starting on Mon02/05/24 at 1658, Flush catheter with 10 mL sodium chloride 0.9% to ensure patency or after IV medications/TPN to clear the catheter. Flush catheter with 20 mL sodium chloride 0.9% after blood draws or blood administration from the catheter. sodium chloride (PF) 0.9% PF flush 10-40 mL 10-40 mL, Intracatheter, ONCE PRN, line flush, to flush each lumen with line placement, Starting on Mon02/05/24 at 1658, For 1 dose, MAX: 10 mL per lumen. May repeat x 1 sodium chloride (PF) 0.9% PF flush 10-40 mL 10-40 mL, Intracatheter, EVERY 1 HOUR PRN, other, to lock EACH CVC - Valved (Tunneled and Non-Tunneled) dormant lumen(s), Starting on Mon02/05/24 at 1658, Max dose: 10 mL for each lumen Sodium chloride 0.9% 10 mL for each lumen to flush line and lock the lumen. sodium chloride (PF) 0.9% PF flush 3 mL 3 mL, Intracatheter, EVERY 1 MIN PRN, line flush, other, to ensure patency or to lock dormant line, Starting on Mon01/30/24 at 2209 Linked Groups Order Group 1: acetaminophen (TYLENOL) tablet 650 mgJump to med 650 mg, Oral, EVERY 4 HOURS PRN, mild pain, other, and adjunct with moderate or severe pain or per patient request, Starting on Mon01/30/24 at 2209, Alternate with ibuprofen if ordered. Maximum acetaminophen dose from all sources = 75 mg/kg/day not to exceed 4 grams/day. Or acetaminophen (TYLENOL) Suppository 650 mgJump to med 650 mg, Rectal, EVERY 4 HOURS PRN, mild pain, other, and adjunct with moderate or severe pain or per patient request, Starting on Mon01/30/24 at 2209, Alternate with ibuprofen if ordered. Maximum acetaminophen dose from all sources = 75 mg/kg/day not to exceed 4 grams/day. Group 2: naloxone (NARCAN) injection 0.2 mgJump to med 0.2 mg, Intravenous, EVERY 2 MIN PRN, opioid reversal, Starting on Mon01/30/24 at 2216, Administer intravenous route when available and notify provider when administered. For unintended sedation or respiratory depression if all of the below criteria are met: ~ respiratory rate LESS than or EQUAL to 8. ~SaO2 less than 92% and or/end-tidal CO2 is greater than 50. ~ the patient is receiving an opioid, has unintended sedations assessed as RASS (-3), and is currently not on mechanical ventilation. RASS scale moderate (-3) is movement or eye opening to voice but no eye contact. Patient Monitoring Once the patient has demonstrated a response to the naloxone, continue to monitor respiratory rate, depth, oxygen saturation and end-tidal CO2 (if available) every 15 minutes x 2, then every 30 minutes x 2, then every 1 hour x 1 after each naloxone dose. Consider transfer to ICU if patient respiratory parameters have not improved after 4 naloxone doses. Or naloxone (NARCAN) injection 0.4 mgJump to med 0.4 mg, Intravenous, EVERY 2 MIN PRN, opioid reversal, Starting on Mon01/30/24 at 2217, Administer intravenous route when available and notify provider when administered. For unintended sedation or respiratory depression if all of the below criteria are met: ~ respiratory rate LESS than or EQUAL to 8. ~ SaO2 less than 92% and or/end-tidal CO2 is greater than 50. ~ the patient is receiving an opioid, has unintended sedation assessed as RASS (-4) or (-5) and patient is currently not on mechanical ventilation. RASS scale (-4) is deep sedation with no response to voice but movement or eye opening to physical stimulation. RASS scale (-5) is unarousable. Patient Monitoring Once the patient has demonstrated a response to the naloxone, continue to monitor respiratory rate, depth, oxygen saturation and end-tidal CO2 (if available) every 15 minutes x 2, then every 30 minutes x 2, then every 1 hour x 1 after each naloxone dose. Consider transfer to ICU if patient respiratory parameters have not improved after 4 naloxone doses. Or naloxone (NARCAN) injection 0.2 mgJump to med 0.2 mg, Intramuscular, EVERY 2 MIN PRN, opioid reversal, Starting on Mon01/30/24 at 2217, Administer intramuscular if an intravenous route is not available and notify provider when administered. For unintended sedation or respiratory depression if all of the below criteria are met: ~ respiratory rate LESS than or EQUAL to 8. ~SaO2 less than 92% and or/end-tidal CO2 is greater than 50. ~ the patient is receiving an opioid, has unintended sedations assessed as RASS (-3), and is currently not on mechanical ventilation. RASS scale moderate (-3) is movement or eye opening to voice but no eye contact. Patient Monitoring Once the patient has demonstrated a response to the naloxone, continue to monitor respiratory rate, depth, oxygen saturation and end-tidal CO2 (if available) every 15 minutes x 2, then every 30 minutes x 2, then every 1 hour x 1 after each naloxone dose. Consider transfer to ICU if patient respiratory parameters have not improved after 4 naloxone doses. Or naloxone (NARCAN) injection 0.4 mgJump to med 0.4 mg, Intramuscular, EVERY 2 MIN PRN, opioid reversal, Starting on Mon01/30/24 at 2217, Administer intramuscular if an intravenous route is not available and notify provider when administered. For unintended sedation or respiratory depression if all of the below criteria are met: ~ respiratory rate LESS than or EQUAL to 8. ~ SaO2 less than 92% and or/end-tidal CO2 is greater than 50. ~ the patient is receiving an opioid, has unintended sedation assessed as RASS (-4) or (-5) and patient is currently not on mechanical ventilation. RASS scale (-4) is deep sedation with no response to voice but movement or eye opening to physical stimulation. RASS scale (-5) is unarousable. Patient Monitoring Once the patient has demonstrated a response to the naloxone, continue to monitor respiratory rate, depth, oxygen saturation and end-tidal CO2 (if available) every 15 minutes x 2, then every 30 minutes x 2, then every 1 hour x 1 after each naloxone dose. Consider transfer to ICU if patient respiratory parameters have not improved after 4 naloxone doses. Group 3: ondansetron (ZOFRAN ODT) ODT tab 4 mgJump to med 4 mg, Oral, EVERY 6 HOURS PRN, nausea, vomiting, Starting on Mon01/30/24 at 2209, This is Step 1 of nausea and vomiting management. If nausea not resolved in 15 minutes, go to Step 2 prochlorperazine (COMPAZINE). With dry hands, peel back foil backing and gently remove tablet. Do not push oral disintegrating tablet through foil backing. Administer immediately on tongue and oral disintegrating tablet dissolves in seconds, then swallow with saliva. Liquid not required. Or ondansetron (ZOFRAN) injection 4 mgJump to med 4 mg, Intravenous, EVERY 6 HOURS PRN, nausea, vomiting, Administer over 2-5 Minutes, Starting on Mon01/30/24 at 220, Give IF patient unable to tolerate oral medication. This is Step 1 of nausea and vomiting management. If nausea not resolved in 15 minutes, go to Step 2 prochlorperazine (COMPAZINE). Group 4: prochlorperazine (COMPAZINE) injection 10 mgJump to med 10 mg, Intravenous, EVERY 6 HOURS PRN, nausea, vomiting, Administer over 1-2 Minutes, Starting on Mon01/30/24 at 2209, IF patient unable to tolerate oral medication. This is Step 2 of nausea and vomiting management. Give if nausea not resolved 15 minutes after giving ondansetron (ZOFRAN). Or prochlorperazine (COMPAZINE) tablet 10 mgJump to med 10 mg, Oral, EVERY 6 HOURS PRN, vomiting, Starting on Mon01/30/24 at 2209, This is Step 2 of nausea and vomiting management. Give if nausea not resolved 15 minutes after giving ondansetron (ZOFRAN). Or prochlorperazine (COMPAZINE) suppository 25 mgJump to med 25 mg, Rectal, EVERY 12 HOURS PRN, nausea, vomiting, Starting on Mon01/30/24 at 2209, This is Step 2 of nausea and vomiting management. Give if nausea not resolved 15 minutes after giving ondansetron (ZOFRAN). Group 5: senna-docusate (SENOKOT-S/PERICOLACE) 8.6-50 MG per tablet 1 tabletJump to med 1 tablet, Oral, 2 TIMES DAILY PRN, constipation, Starting on Mon01/30/24 at 2209, If no bowel movement in 24 hours, increase to 2 tablets by mouth. IF more than 1 constipation PRN medication is ordered, administer step-hoang as indicated, moving to the next step ONLY if prior step ineffective. Step 1: senna-docusate (SENOKOT-S; PERICOLACE) OR bisacodyl (DULCOLAX) EC tablet Step 2: polyethylene glycol (MIRALAX/GLYCOLAX) Step 3: bisacodyl (DULCOLAX) suppository Step 4: enema Hold for loose stools. Or senna-docusate (SENOKOT-S/PERICOLACE) 8.6-50 MG per tablet 2 tabletJump to med 2 tablet, Oral, 2 TIMES DAILY PRN, constipation, Starting on Mon01/30/24 at 2209, IF more than 1 constipation PRN medication is ordered, administer step-hoang as indicated, moving to the next step ONLY if prior step ineffective. Step 1: senna-docusate (SENOKOT-S; PERICOLACE) OR bisacodyl (DULCOLAX) EC tablet Step 2: polyethylene glycol (MIRALAX/GLYCOLAX) Step 3: bisacodyl (DULCOLAX) suppository Step 4: enema Hold for loose stools. documented in this encounter Additional Health Concerns Infection Onset Date Last Indicated Resolved Time Rule Out COVID-19 01/30/2024 01/30/2024 01/30/2024 7:01 PM CDT documented as of this encounter Care Teams Warehouse Attendant Relationship Specialty Start Date End Date Tressa Hanley MD [address] [place] [address] PCP - General Family Medicine 05/13/22 Physicians, [address] [place] [phone] Assigned PCP 07/06/23 Martinez Rogers MD [address] [place] [id number] Cardiovascular Disease 12/22/23 documented as of this encounter
--- OUTSIDE RECORDS SUMMARY | 2024-04-18 08:25 | XMS_ITS | Encounter Summary ---
Author Organization [facility] [place] [address] Care Team Providers Care Human Machine Interface Engineer Name Role Phone Seferino Hanley MD Primary Care Provider [phone] [facility] Family Unavailable [phone] Martinez Rogers MD Unavailable Reason for Visit * Reason Comments Home Infusion Encounter Details Date Type Department Care Team ([facility] st Contact Info) Description 02/02/2024 Home Infusion ([facility]) [facility] [address] [place] [phone] Gila Miramontes, [facility] [address] [place], [place] [address] Home Infusion Social History Tobacco Use Types Packs/Day Years [...] on file Legal Sex Male 2:58 AM INFORMATION OPERATOR Gender Identity Not on file Sexual Orientation Not on file documented as of this encounter Progress Notes * Ceferino Krishnamurthy - 02/02/2024 4:09 PM CDTSummary: Home Infusion Referral Therapy: IV ABX (Ceftriaxone,Vancomycin) Insurance: [employer] This patient has coverage for IV ABX (Ceftriaxone, Vancomycin) through their [employer] plan, patient has a deductible of $7,800.00 met $184.47 once the deductible is met patient is covered at 100%. In reference to hospital admission to [facility] on 01/30/24 and referral from Layla. Please contact Intake with any questions, [phone] [facility], Home Infusion ([id number]). documented in this encounter Plan of Treatment Upcoming Encounters Date Type Department Care Team (Late st Contact Info) Description 04/22/2024 12:30 PM INFORMATION OPERATOR Office Visit [facility] [address] [address] [place] [phone] Seferino Hanley MD [address] [address] [place] [id number] documented as of this encounter Visit Diagnoses Not on filedocumented in this encounter Care Teams Human Machine Interface Engineer Relationship Specialty Start Date End Date Seferino Hanley MD [address] [address] PCP - General Family Medicine 05/13/22 Physicians, [address] [place] [phone] Assigned PCP 07/06/23 Martinez Rogers MD [address] [place] [id number] Cardiovascular Disease 12/22/23 documented as of this encounter
--- OUTSIDE RECORDS SUMMARY | 2024-04-18 08:25 | XMS_ITS | Encounter Summary ---
Author Organization [place] Address [address] [place] [address]. [place] [address] Care Team Providers Care Asphalt Tile Floor Layer Name Role Phone Seferino Hanley MD Primary Care Provider [phone] [facility] Unavailable +1 [phone] Martinez Rogers MD Unavailable Encounter Details Date Type Department Care Team (Latest Contact Info) Description 01/30/2024 Travel Social History Tobacco Use Types Packs/Day [...] in an abandoned building, in an overnight long term, or couch-surfing.) No 01/31/2024 Are you worried [...] getting things that you need? No 01/31/2024 Sex and Gender Information Value Date Recorded Sex Assigned at Not on file Legal Sex Male 2:58 AM FREEDOM OF INFORMATION OFFICER Gender Identity Not on file Sexual Orientation Not on file documented as of this encounter Plan of Treatment Upcoming Encounters Date Type Department Care Team (Late st Contact Info) Description 04/22/2024 12:30 PM FREEDOM OF INFORMATION OFFICER Office Visit [facility] [address] [address] [place] [phone] Seferino Hanley MD [address] [place] [address] documented as of this encounter Visit Diagnoses Not on filedocumented in this encounter Additional Health Concerns Infection Onset Date Last Indicated Resolved Time Rule Out COVID-19 01/30/2024 01/30/2024 01/30/2024 7:01 PM CDT documented as of this encounter Care Teams Asphalt Tile Floor Layer Relationship Specialty Start Date End Date Seferino Hanley MD [address] [place] [address] PCP - General Family Medicine 05/13/22 [facility] [address] [place] [phone] Assigned PCP 07/06/23 Martinez Rogers MD [address] [place] [address] Cardiovascular Disease 12/22/23 documented as of this encounter
--- OUTSIDE RECORDS SUMMARY | 2024-04-18 08:25 | XMS_ITS | Encounter Summary ---
Author Organization [place] Address [address] [facility] [place] [address] Care Team Providers Care Machine Heel Builder Name Role Phone Seferino Hanley MD Primary Care Provider [phone] [facility], [place] [facility] Unavailable + [phone] Martinez Rogers MD Unavailable Encounter Details Date Type Department Care Team (Late st Contact Info) Description 03/08/2024 Orders Only [facility] [address] [place] [address] [facility] [address] [id number] Bacteremia (Primary Dx) Social History Tobacco Use [...] in an abandoned building, in an overnight fdc, or couch-surfing.) No 01/31/2024 Are you worried [...] on file Legal Sex Male 2:58 AM FRAME OPERATOR Gender Identity Not on file Sexual Orientation Not on file documented as of this encounter Plan of Treatment Upcoming Encounters Date Type Department Care Team ([facility] st Contact Info) Description 04/22/2024 12:30 PM FRAME OPERATOR Office Visit [facility] [address] [place] [phone] Seferino Hanley MD [address] [place] [address] documented as of this encounter Results * CRP inflammation (03/20/2024 12:12 PM CDT) CRP Inflammation <3.00 <5.00 mg/L 03/20/20 12:31 PM CDT [facility] Blood STRUCTURE OF RIGHT UPPER LIMB / Unknown Venipuncture / Unknown 03/20/2024 12:12 PM CDT 03/20/2024 12:13 PM CDT us Lacey Chen MD LAB - BLOOD ORDERABLES Final Res ult LABORATORY [facility] [address] [facility] Lab (1st floor, no room number) [place] [address], [facility] documented in this encounter Visit Diagnoses Diagnosis Bacteremia- Primary documented in this encounter Care Teams Machine Heel Builder Relationship Specialty Start Date End Date Seferino Hanley MD [address] [place] [address] PCP - General Family Medicine 05/13/22 [facility], [place] [address] [facility] [address] [place] [phone] Assigned PCP 07/06/23 Martinez Rogers MD [address] [place], [place] [address] Cardiovascular Disease 12/22/23 documented as of this encounter
--- OUTSIDE RECORDS SUMMARY | 2024-04-18 08:25 | XMS_ITS | Encounter Summary ---
Author Organization [place] Address [address] [place] [address]. [place] [address] Care Team Providers Care Starch Dumper Name Role Phone Fritz Lagunas MD Primary Care Provider Cynthia vailable Fritz Lagunas MD Unavailable Unavailab Barron Gordon MD Unavailable Unavail able Martinez Rogers MD Unavailable Seferino Hanley MD Primary Care Provider [phone] [phone] Fritz Lagunas MD Unavailable Unavailab vero [facility] Unavailable [phone] Martinez Rogers MD Unavailable Encounter Details Date Type Department Care Team (Late st Contact Info) Description 11/28/2011 Office Visit-[facility] [address] [place] [address] Barron Cook MD Social History Tobacco Use Types Packs/Day Years Used Date Smoking Tobacco: Never Assessed Sex and Gender Information Value Date Recorded Sex Assigned at Not on file Legal Sex Male 2:58 AM 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 DATE: 11/28/2011 JESSICA CARLOS DATE OF : 1960 AGE: [age] years old Referring Physician: FRITZ LAGUNAS Referring Clinic: [facility] CURRENT DIAGNOSES 1. 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 - Aortic Valve Replacement, V43.3 ALLERGIES NKA MEDICATIONS (prior to changes made today) 1. Aspirin 81 mg Tablet, 1 p.o. daily 2. Claritin 10 mg Tablet, 1 p.o. PRN as Directed 3. Multi For Him 18-400-1,000 mg-mcg-unit Powder in Packet, 1 p.o. daily 4. pravastatin 40 mg Tablet, 1 p.o. daily 5. Vitamin D 1,000 unit Tablet, 1 p.o. daily CHIEF COMPLAINTS Review test results and Followup of - Valve Replacement AV HISTORY OF PRESENT ILLNESS I had the pleasure of seeing Mr. Carlos today. This 51-year-old gentleman is seen in follow-up ofhis history of aortic valve replacement for bicuspid aortic valve and mild dilatation/aneurysm of the ascending aorta. Clinically he has been stable this year. He is very busy with work and activities and also continues to play softball avidly. He has stable exertional and activity tolerance without significant limitations and can keep up with his peers. He has had no syncope, unusual dyspnea. Hedenies fever, chills or rash. He had normal coronary arteries angiographically prior to his valve replacement. At the time of his valve replacement he had dilatation of the ascending aorta that was mild at 38mm by CT. I had a follow-up echocardiogram this year to follow-up both some mild aortic insufficiency from his prosthetic valve as well as his ascending aorta size. By echo, the ascending aorta was 39mm or essentially unchanged from CT of 2009. The ejection fraction is normal at 65% with normal left ventricular chamber size (it was dilated preoperatively). There continued to be mild aortic insufficiency, wh ich was unchanged. The gradient across the valve was normal for this valve and it appeared to have normal function. PAST HISTORY Past Medical Illnesses: dyslipidemia Past [...] AV, severe aortic stenosis, mod- severe aortic insufficiency, 11/21 mild concentric LVH Left Ventricular Ejection Fraction: 60-65% by echo 04/20, 07/22 EF 55-60% by echo, EF<GT>55% by Echo -Mar 2010, EF<GT>55% byEcho -Nov 2011 60-65% by echo 04/20, 07/22 EF 55-60% by echo, EF<GT>55% by Echo -Mar 2010 and EF<GT>55%by Echo -Nov 2011 SOCIAL HISTORY Alcohol Use - denies drinking; Smoking - never smoked; Diet - low sodium, fruits and veggies and caffeine use-1-2 per day; Exercise - plays Softball 2 nights a week , treadmill; Seat Belt Use - always; 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 EYES wears eye glasses/contact lenses EARS, NOSE, THROAT, MOUTH denies any hearing loss, epistaxis, hoarseness or difficulty speaking. RESPIRATORY denies dyspnea, snoring, cough, wheezing or hemoptysis. CARDIOVASCULAR palpitations, some usually during stress, negative for chest discomfort, negative for dizziness, negative for edema ABDOMINAL denies ulcer disease, hematochezia or melena. MUSCULOSKELETAL denies any history of arthritic symptoms or back problems. NEUROLOGICAL denies any history of recurrent strokes, headaches, TIA, or seizure disorder. PSYCHIATRIC denies any history of depression, substance abuse or change in cognitive functions. ENDOCRINE denies any history of thyroid disease or diabetes mellitus. HEMATOLOGICAL/IMMUNOLOGIC seasonal allergies PHYSICAL EXAMINATION VITAL SIGNS: Blood Pressure: 136/90Sitting, Right arm, large cuff Pulse- 58.00/min. Weight- 191.00 lbs. Height- 70.00 BMI Measurement: 27 CONSTITUTIONAL well developed, well nourished, in no [...] time, person and place. MEDICATIONS UPDATED/STARTED TODAY: Multi For Him 18-400-1,000 mg-mcg-unit Powder in Packet, 1 p.o. daily, #0 (Zero) pravastatin 40 mg Tablet, 1 p.o. daily, #0 (Zero) MEDICATIONS REFILLED/STOPPED TODAY: Pravastatin 20 mg Tablet 1 p.o. daily #90 Dosage Increased IMPRESSION/PLAN: 1.Status post aortic valve replacement of the bioprosthetic valve which was functioning normally atthis time. I have reviewed these findings with him. I think he can continue all normal activities. 2.Mild aneurysm of the ascending aorta. It does not appear to have substantially changed in the lasttwo years and is likely related to some post stenotic dilatation. I think he should have a follow-up echo in approximately three years for his prosthetic valve and his aorta, unless symptoms or findings before then indicate a need for earlier echo. It was a pleasure seeing this gentleman. Thank you for having me involved in his care and please let me know if you have any questions. TODAYS ORDERS 1. Return Visit 2 year Barron Cook M.D. documented in this encounter Plan of Treatment Upcoming Encounters Date Type Department Care Team (Late st Contact Info) Description 04/22/2024 12:30 PM E COMMERCE DIRECTOR Office Visit [facility] [address] [phone] Seferino Hanley MD [address] [place] [address] documented as of this encounter Visit Diagnoses Not on filedocumented in this encounter Additional Health Concerns Infection Onset Date Last Indicated Resolved Time Rule Out COVID-19 01/30/2024 01/30/2024 01/30/2024 7:01 PM CDT documented as of this encounter Care Teams Starch Dumper Relationship Specialty Start Date End Date Fritz Lagunas MD PCP - General Family Practice 11/21/11 07/29/20 Seferino Hanely MD [address] [place] [address] PCP - General Family Medicine 05/13/22 Fritz Lagunas MD INACTIVE IN [place] 10/09/2020 Assigned PCP 11/22/19 05/27/22 Barron Cook MD Assigned Heart and Vascular Provider 04/03/20 03/27/21 Martinez Rogers MD [address] [place] [address] Assigned Heart and Vascular Provider 03/28/21 11/01/23 Fritz Lagunas MD I[place]CTIVE IN [place] 10/09/2020 Assigned PCP 08/06/22 03/03/23 Physicians, [address] [place] [phone] Assigned PCP 07/06/23 Martinez Rogers MD [address] [facility] [address] [place] [address] Cardiovascular Disease 12/22/23 documented as of this encounter
--- OUTSIDE RECORDS SUMMARY | 2024-04-18 08:25 | XMS_ITS | Encounter Summary ---
Author Organization [place] Address [address] [place] [address]. [place] [address] Care Team Providers Care Trademark Paralegal Name Role Phone Fritz Hitchcock MD Unavailable Unavailab Martinez Fragoso MD Unavailable Seferino Hanley MD Primary Care Provider [phone] Fritz Hitchcock MD Unavailable Unavailab [facility] Unavailable [phone] Martinez Rogers MD Unavailable Reason for Visit * Reason Onset Date Comments Appointment 12/30/2021 Call pt to sched ule Dr. Rogers appt Ascending aorta dilatation & CT Chest w/Contrast in [place] in March Encounter Details Date Type Department Care Team (Late st Contact Info) Description 12/30/2021 Telephone [facility] Heart [address] [place] [address] Martinez Rogers MD [address] [facility] [address] [place], [place] [address] Appointment (Call pt to schedule Dr. 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 Rogers appt Ascending aorta dilatation & CT Chest w/Contrast in RU in March Action Taken: Message routed to: [facility] cardio Travel Screening: Not Applicable documented in this encounter Plan of Treatment Upcoming Encounters Date Type Department Care Team ([facility] st Contact Info) Description 04/22/2024 12:30 PM BOBBIN HANDLER Office Visit [facility] [address] [address] [place] [phone] Seferino Hanley MD [address] [address] [place] [address] documented as of this encounter Visit Diagnoses Not on filedocumented in this encounter Additional Health Concerns Infection Onset Date Last Indicated Resolved Time Rule Out COVID-19 01/30/2024 01/30/2024 01/30/2024 7:01 PM CDT documented as of this encounter Care Teams Trademark Paralegal Relationship Specialty Start Date End Date Seferino Hanley MD [address] [place] [address] PCP - General Family Medicine 05/13/22 Fritz Hitchcock MD INACTIVE IN [place] 10/09/2020 Assigned PCP 11/22/19 05/27/22 Martinez Rogers MD [address] [place] [address] Assigned Heart and Vascular Provider 03/28/21 11/01/23 Fritz Hitchcock MD INACTIVE IN [place] 10/09/2020 Assigned PCP 08/06/22 03/03/23 Physicians, [address] [place] [phone] Assigned PCP 07/06/23 Martinez Rogers MD [address] [place] [address] Cardiovascular Disease 12/22/23 documented as of this encounter
--- OUTSIDE RECORDS SUMMARY | 2024-04-18 08:25 | XMS_ITS | Encounter Summary ---
Author Organization [place] Address [address] [place] [address] Care Team Providers Care Perfect Bind Machine Operator Name Role Phone Seferino Hanley MD Primary Care Provider [phone] [phone] [facility], [facility] Unavailable + -[phone] Martinez Rogers MD Unavailable Reason for Visit * Auth/Cert Specialty Diagnoses / Procedures Referred By Sherif garza Referred To Contact EMERGENCY MEDICINE Diagnoses Bacteremia [facility] Emergency Dept [address] [place] [address] Phone: tel:[phone] fax: Referral ID Status Reason Start Date Expiration Date Visits Re quested Visits Authorized [id number] 1 1 Encounter Details Date Type Department Care Team (Late st Contact Info) Description 02/01/2024 Hospital Encounter [facility] [address] [place] [address] Taina Ignacio MD [address] [place] [phone] Social History Tobacco Use Types Packs/Day Years [...] in an abandoned building, in an overnight skilled nursing, or couch-surfing.) No 01/31/2024 Are you worried [...] on file Legal Sex Male 2:58 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 Gender Identity Not on file Sexual Orientation Not on file documented as of this encounter Plan of Treatment Upcoming Encounters Date Type Department Care Team (Late st Contact Info) Description 04/22/2024 12:30 PM SALES CLERK FOOD Office Visit [facility] [address] [place] [phone] Seferino Hanley MD [address] [address] documented as of this encounter Visit Diagnoses Not on filedocumented in this encounter Care Teams Perfect Bind Machine Operator Relationship Specialty Start Date End Date Seferino Hanley MD [address] [place] [address] PCP - General Family Medicine 05/13/22 Physicians, [address] [facility] [address] [place] [phone] Assigned PCP 07/06/23 Martinez Rogers MD [address] [place] [address] Cardiovascular Disease 12/22/23 documented as of this encounter
--- OUTSIDE RECORDS SUMMARY | 2024-04-18 08:26 | XMS_ITS | Encounter Summary ---
Author Organization [place] Address [facility] [place] [address] Care Team Providers Care Veneer Lathe Operator Name Role Phone None, Bfp Primary Care Provider Unavailabl Fritz Ching MD Primary Care Provider Cynthia vailable Fritz Lagunas MD Unavailable Unavailab Barron Gordon MD Unavailable Unavail able Martinez Rogers MD Unavailable Seferino Hanley MD Primary Care Provider Fritz Lagunas MD Unavailable Unavailab vero [facility] Unavailable + -[phone] Martinez Rogers MD Unavailable Encounter Details Date Type Department Care Team (Late st Contact Info) Description 07/15/2009 Office Visit-[facility] [place] [address] [facility] [address] [place] [address] Rubi Núñez, COPYING MACHINE MECHANIC [facility] [address] [facility] [address] [place], [place] [id number] Social History Tobacco Use Types Packs/Day Years Used Date Smoking Tobacco: Never Assessed Sex and Gender Information Value Date Recorded Sex Assigned at Not on file Legal Sex Male 2:58 AM 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 [id number] DATE: 07/15/2009 JESSICA CARLOS DATE OF : 1960 AGE: [age] years old Referring Physician: FRITZ LAGUNAS Referring Clinic: [facility] CURRENT DIAGNOSES 1. 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 Aahcgebatres-Xat-kgqndqme, 420.91 3. Aortic Valve-Stenosis, 424.1 ALLERGIES NKA MEDICATIONS (prior to changes made today) 1. Aspirin 81 mg Tablet, 1 p.o. daily 2. Metoprolol Tartrate 25 mg Tablet, 1 p.o. twice daily 3. Lisinopril 2.5 mg Tablet, 1 p.o. daily 4. Warfarin 7.5 mg Tablet, 1 p.o. daily 5. Zymar 0.3 % Drops, Take as Directed 6. Prednisone 20 mg Tablet, take as directed decrease 40mg by 10mg daily to wean off. CHIEF COMPLAINTS Followup of echo HISTORY OF PRESENT ILLNESS This is a delightful 48-year-old male who presents to the [facility] today for a followup visit. He is a patient of Dr. Harmon'sukhjinder who is seen in our clinic for a past medical history of: 1. Aortic stenosis. 2. Pericarditis. Jessica has a known history of severe aortic stenosis. This is felt to be since as he has known of a murmur since a young age. An echocardiogram in April 2009 did reveal a bicuspid aortic valve with evidence of severe aortic stenosis with an aortic valve area calculated to be 0.9 cm2. In the past, he had admitted to some shortness of breath and a syncopal episode while playing sports. Ankush meet with Dr. Duarte. On 06-24-09, he underwent aortic valve replacement that was minimally invasive with a 25 mm tissue prosthesis. He tolerated the procedure well. There was no postprocedure complications. I do not have a full discharge summary of his hospitalization. He was placed on Coumadin to be taken for three months. Unfortunately on 07-11-09, Jessica was admitted to the Emergency Room with complaints of sharp discomfort. This worsened with deep inspiration and movement. Electrocardiogram was performed, and he wasfound to have diffuse ST elevated in the J point and all limb leads. His white blood count was 10. A CAT scan did reveal right pleural effusion. However, chest x-ray was not performed. He was thoughtto have pericarditis, and prednisone 40 mg was prescribed to be taken for five to seven days. He returns today for reassessment. Jessica tells me that he has been doing well. Over the past two days, his shortness of breath and chest pain have resolved. He is able to do his activities at home without any limitations. He denies any chest discomfort or neck, arm, or jaw pain with activity or at rest. He does watch his weight chrystal daily basis and occasionally will notice a 2 pound weight gain overnight. However, this does thenresolve. He denies any orthopnea, paroxysmal nocturnal dyspnea, or peripheral edema. He also deniesany palpitations, lightheadedness, dizziness, or near syncope. I did have Jessica undergo an echocardiogram prior to this appointment, which was read by Dr. Harrington. There was no evidence of pericardial effusion and there was evidence of mild aortic insufficiency. Full report is pending at this time. His blood pressure today was 110/77. Heart rate was 61. His lungs were clear. There was not evidence of any jugular venous distention or peripheral edema. He was in regular rate and rhythm today. I do not appreciate a rub or pronounced murmur. Further review of systems and physical exam are as noted below. PAST HISTORY Past Medical Illnesses: dyslipidemia Past Cardiac Illnesses: severe aortic stenosis, aortic valve stenosis, heart murmur since childhood Cardiology Procedures-Invasive: PTCA 05/20 Cardiology Procedures-Noninvasive: echo 04/20, CT thoracic abd 06/21: moderate calcified AV, mild-mod left ventricular hypertrophy Cardiac Cath Results: normal coronary arteries by PTCA 05/20 PMHx Echo Results: 04/20 moderately dilated LA and LV, calcified AV, severe aortic stenosis, mod- severe aortic insufficiency Left Ventricular Ejection Fraction: 60-65% by echo 04/20 FAMILY HISTORY: Father - CAD, hyperlipemia and hypertension; Mother - cancer-liver; SOCIAL HISTORY Alcohol Use - denies drinking; Smoking - never smoked; Diet - low sodium (less than 2 grams), fruits and veggies and caffeine use-1-2 per day; Exercise - treadmill and 20 min daily; Seat Belt Use - always; 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 INTEGUMENTARY denies any change in hair or nails, rashes, or skin lesions. EYES wears eye glasses/contact lenses EARS, NOSE, THROAT, MOUTH denies any hearing loss, epistaxis, hoarseness or difficulty speaking. RESPIRATORY SOB better CARDIOVASCULAR per HPI ABDOMINAL denies ulcer disease, hematochezia or melena. MUSCULOSKELETAL denies any history of arthritic symptoms or back problems. NEUROLOGICAL denies any history of recurrent strokes, headaches, TIA, or seizure disorder. PSYCHIATRIC denies any history of depression, substance abuse or change in cognitive functions. ENDOCRINE denies any history of thyroid disease or diabetes mellitus. HEMATOLOGICAL/IMMUNOLOGIC denies any food allergies, seasonal allergies, bleeding disorders. PHYSICAL EXAMINATION VITAL SIGNS: Blood Pressure: 110/77Sitting, Left arm, large cuff Pulse- 61.00/min. Weight- 192.70 lbs. Height- 70.00 Temperature- .00 CONSTITUTIONAL well developed, well nourished, in no acute distress SKIN warm and dry to touch, no apparent skin lesions, or masses noted. HEAD normocephalic, atraumatic EYES Pupils equal and round ENT no pallor or cyanosis, dentition good NECK JVP normal, no carotid bruit, thyroid not enlarged CHEST clear to auscultation, normal respiratory excursion, healed right chest incision CARDIAC RRR, S1, S2 No S3 or S4, no rub noted ABDOMEN abdomen soft, bowel sounds normoactive PERIPHERAL PULSES pulses full and equal in all extremities, no bruits auscultated. EXTREMITIES & BACK no clubbing, cyanosis or edema NEUROLOGICAL no gross motor deficits noted, affect appropriate, oriented to time, person and place. MEDICATIONS UPDATED/STARTED TODAY: Aspirin 81 mg Tablet, 1 p.o. daily, #0 Lisinopril 2.5 mg Tablet, 1 p.o. daily, #90 Metoprolol Tartrate 25 mg Tablet, 1 p.o. twice daily, #0 Prednisone 20 mg Tablet, take as directed decrease 40mg by 10mg daily to wean off. Warfarin 7.5 mg Tablet, 1 p.o. daily, #0 Zymar 0.3 % Drops, Take as Directed, #0 MEDICATIONS REFILLED/STOPPED TODAY: Prednisone 20 mg Tablet 1 p.o. twice daily #0 Physician Order and No Medications - DIRECTED Substitution IMPRESSIONS/PLAN 1. Status post aortic valve replacement with a 25 mm tissue prosthesis valve on 06-24-[address] Duarte, which was minimally invasive. This was due to a severe bicuspid aortic stenosis. He had no procedural complications. Recent echocardiogram today shows a well functioning aortic valve. However, these gradients are not available to me at this time as this was a preliminary report. Previous to his surgery, he was known to have preserved LV function. I have asked him to watch his weight on a daily basis and to notify our clinic with a weight gain of 2 pounds in one day or 5 pounds in one week. I do not see any signs or symptoms of fluid overload on today's examination. His incision is healing well. He has an appointment with Dr. Duarte tomorrow at which time the chest x-ray is to be performed prior to his office visit. 2. Pericarditis. Four days ago, Jessica presented with sharp pleuritic chest pain. He was found to have ST elevations at the J point and in all limb leads with a white blood count of 10. He was placed on prednisone to be taken 20 mg twice daily. Today, I have elected to wean him off of his prednisone in four days. I did go over with him to dosage in detail. I would like for him to lower his prednisone dose to 10 mg a day. He is to lower it to 5 mg a day on the last day before discontinuing. Echocardiogram today shows no evidence of pericardial effusion. If symptoms redevelop after the discontinuation of prednisone, one may consider NSAIDs and/or colchicine. He will notify the clinic with any chest discomfort. Again, his chest discomfort is resolved and there is no evidence of a rub. Thank you for allowing me to participate in this patient's care. He has a planned office visit withDr. Harmon in eight weeks. He is to notify our clinic with any chest discomfort, shortness of breath, lightheadedness, dizziness, or any other concerns that he may have during the interim. TODAYS ORDERS 1. 2D, color flow, doppler Today,may include the addition of contrast,bubble study,or the change toeither a limited or complete study-see policy Rubi Núñez, N.P. documented in this encounter Plan of Treatment Upcoming Encounters Date Type Department Care Team (Late st Contact Info) Description 04/22/2024 12:30 PM SPECIAL FORCES SENIOR SERGEANT Office Visit [facility] [address] [phone] Seferino Hanley MD [address] [place] [id number] documented as of this encounter Visit Diagnoses Not on filedocumented in this encounter Additional Health Concerns Infection Onset Date Last Indicated Resolved Time Rule Out COVID-19 01/30/2024 01/30/2024 01/30/2024 7:01 PM CDT documented as of this encounter Care Teams Veneer Lathe Operator Relationship Specialty Start Date End Date None, Bfp PCP - General 06/25/99 11/20/11 Fritz Lagunas MD PCP - General Family Practice 11/21/11 07/29/20 Seferino Hanley MD [address] [place] [address] PCP - General Family [facility] 05/13/22 Fritz Lagunas MD [facility]NACTIVE IN [place] 10/09/2020 Assigned PCP 11/22/19 05/27/22 Barron Cook MD Assigned Heart and Vascular Provider 04/03/20 03/27/21 Martinez Rogers MD [address] [place] [id number] Assigned Heart and Vascular Provider 03/28/21 11/01/23 Fritz Lagunas MD [place] [place] 10/09/2020 Assigned PCP 08/06/22 03/03/23 Physicians, [address] [place] [address] Assigned PCP 07/06/23 Martinez Rogers MD [address] [facility] [address] [place] [address] Cardiovascular Disease 12/22/23 documented as of this encounter
--- OUTSIDE RECORDS SUMMARY | 2024-04-18 08:26 | XMS_ITS | Encounter Summary ---
Author Organization [place] Address [address] [place] [address] Care Team Providers Care Field Tax Auditor Name Role Phone None, Bfp Primary Care Provider UnavailTia Waldrop MD Primary Care Provider Cynthia vailable Tia Lagunas MD Unavailable Unavailab Barron Gordon MD Unavailable Unavail able Martinez Rogers MD Unavailable Seferino Hanley MD Primary Care Provider [phone] Tia Lagunas MD Unavailable Unavailab vero [facility] Unavailable + [phone] Martinez Rogers MD Unavailable Encounter Details Date Type Department Care Team (Late st Contact Info) Description 09/30/2009 Office Visit-[facility] [place] [id number] [place] [phone] Justo Harmon MD Social History Tobacco Use Types Packs/Day Years Used Date Smoking Tobacco: Never Assessed Sex and Gender Information Value Date Recorded Sex Assigned at Not on file 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 [id number] DATE: 09/30/2009 JESSICA CARLOS DATE OF : 1960 AGE: [age] years old Referring Physician: TIA LAGUNAS Referring Clinic: [facility] CURRENT DIAGNOSES 1. 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 Aortic Valve-Stenosis, 424.1 3. Seawvkxstaqd-Zcz-xpmolokg, 420.91 ALLERGIES NKA MEDICATIONS (prior to changes made today) 1. Aspirin 81 mg Tablet, 1 p.o. daily 2. Zymar 0.3 % Drops, Take as Directed 3. Carvedilol 3.125 mg Tablet, 1 p.o. twice daily 4. Lisinopril 2.5 Mg Tablet, 1 twice daily 5. Pravastatin 40 mg Tablet, one each evening CHIEF COMPLAINTS Followup of 2 months HISTORY OF PRESENT ILLNESS Jessica Carlos and his are in the office today. He has had his aortic valve replaced with minimally invasive surgery by Dr. 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 I think that he should be fine for the next decade, but I think that visiting every couple of years makes sense with an echocardiogram to look for aortic valve regurgitation and/or stenosis. It is my impression that these valves will last longer in the presence of a less fatty bloodstream such that I would be inclined to treat him with lipidlowering drugs in the form of pravastatin 40 mg, although I do not currently know his lipid levels. Secondly, I would wish to give him statins because his blood pressure is in the prehypertensive range in the 120 to 140 range. In addition, he does have an ascending aorta that is 3.9. As I review the literature briefly from the most recent guidelines, that is right at the two standard deviation limit at least in one of the patterns and 3+/- 0.4 in another iteration. His body surface area is 2. The normative range is noted to be 1.5 +/- 0.2 per m2. At any rate, his aorta may never further dilated as aortas in this range may not progress. The larger the aorta the greater the progression rate because the greater the potential for pressure within the aorta to dilate it. Along those lines, I would like to change his beta-ronald to carvedilol (which effects central arterial pressure a little bit better than metoprolol as the beta- blockers are known to not decrease central arterial pressure as much, and I think that carvedilol at least has a better chance of doing that and a lesser effect on lipids). I think that lisinopril is a very reasonable drug, although the ARBs may be a better drug. Along those lines, we might think Cozaar particularly when it becomes generic as the ARBs are a little bit more pricey currently. Since he is already on lisinopril, we should go to 2.5 mg twice per day and carvedilol 3.125 mg twice per day and hope to see his blood pressures commonly in the 120 range. He actually wanted to stop these drugs and lose weight to do that. I do not disagree with that pattern. On the other hand, the data seems to support these drugs. If he can take them without having untoward side effects of any sort, my own bias would be that if I were him I would take them. As we learn a little bit more about the aorta over time and a little bit more about cholesterol lowering in the presence of aortic bioprostheses, I think that a statin, FRANCISCO inhibitor, and a beta-ronald make good sense. I actually would probably end up taking a statin, beta-ronald, and an ARB because the articular in [place] Journal of Medicine in patients with Marfan's seems to promote the idea thatthis particular drug inactivated TGF beta (which made a major change in the progression of aortas and Marfan's). He is ready to stop his warfarin. I think that that is appropriate after three months. I think thathe probably should be on aspirin just because of the valve lifelong. I think that the chances that he will need a new valve in 20 years exists, but hopefully with a little bit of luck it will last longer than that. I think that his chances of having the valve last longer might be predicated on decreasing the stress on the valve by keeping his blood pressure low and decreasing the cholesterol, although I cannot be certain that this course of action actually has outcome data associated with it. Sometimes theory is reasonable as long as a drug can be taken theoretically without adverse side effects. My own impression is that the statins if they are not causing trouble can be taken very, verysafely as can the ACEs and the ARBs. His physical examination does show a systolic ejection murmur as one might expect and a healed surgical scar in the right upper chest. PAST HISTORY Past Medical Illnesses: dyslipidemia Past Cardiac Illnesses: severe aortic stenosis, aortic valve stenosis, heart murmur since childhood Cardiac and Vascular Procedures: 06/21 AVR- 25-mm tissue prosthesis with a pericardial patch of his aorta Cardiology Procedures-Invasive: PTCA 05/20 Cardiology Procedures-Noninvasive: echo 04/20, CT thoracic abd 06/21: moderate calcified AV, mild-mod left ventricular hypertrophy, echo 07/22 Cardiac Cath Results: normal coronary arteries by PTCA 05/20 PMHx Echo Results: 04/20 moderately dilated LA and LV, calcified AV, severe aortic stenosis, mod- severe aortic insufficiency Left Ventricular Ejection Fraction: 60-65% by echo 04/20, 07/22 EF 55-60% by echo FAMILY HISTORY: Father - CAD, hyperlipemia and hypertension; Mother - cancer-liver; SOCIAL HISTORY Alcohol Use - denies drinking; Smoking - never smoked; Diet - low sodium (less than 2 grams), fruits and veggies and caffeine use-1-2 per day; Exercise - 2-3 days a week to gym; Seat Belt Use - always; 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 INTEGUMENTARY denies any change in hair or nails, rashes, or skin lesions. EYES wears eye glasses/contact lenses EARS, NOSE, THROAT, MOUTH denies any hearing loss, epistaxis, hoarseness or difficulty speaking. RESPIRATORY SOB better CARDIOVASCULAR negative for palpitations, chest pain, orthopnea, [...] allergies PHYSICAL EXAMINATION VITAL SIGNS: Blood Pressure: 138/78Sitting, Right arm, large cuff Pulse- 63.00/min. Weight- 196.00 lbs. Height- 70.00 Temperature- .00 [...] respiratory excursion, healed right chest incision CARDIAC short suzy aortic ABDOMEN abdomen soft, bowel sounds normoactive PERIPHERAL PULSES pulses full and equal in all extremities, no bruits auscultated. EXTREMITIES & BACK no clubbing, cyanosis or edema NEUROLOGICAL no gross motor deficits noted, affect appropriate, oriented to time, person and place. MEDICATIONS UPDATED/STARTED TODAY: Carvedilol 3.125 mg Tablet, 1 p.o. twice daily, 3 months Lisinopril 2.5 Mg Tablet, 1 twice daily, 3 months Pravastatin 40 mg Tablet, one each evening, 3 months MEDICATIONS REFILLED/STOPPED TODAY: Lisinopril 2.5 mg Tablet 1 p.o. daily #90 Refill, Warfarin 7.5 mg Tablet 1 p.o. daily #0 Refill, Prednisone 20 mg Tablet take as directed decrease 40mg by 10mg daily to wean off. Physician Order, Metoprolol Tartrate 25 Mg Tablet 1 p.o. twice daily #180 ([facility] [place] [address]) Physician Order and Warfarin 10 mg Tablet 1 p.o. daily #-1 Physician Order IMPRESSIONS/PLAN I think that he is a little bit skeptical about taking drugs. I may need to convince him such that he and I will probably want to visit in about four months to review his numbers and to think very seriously about whether he should be taking these drugs or some other drugs. I will give him some dataand some information that he can use in the thinking. It is a pleasure seeing this nice man. I will see him in three to four months and then probably every couple of years and/or if he wishes to simply follow with you for blood pressure and drugs, I would not be at all concerned about not seeing him. Please do not hesitate to give me a call if there are some questions. TODAYS ORDERS 1. Lipid profile/ALT 1 day 2. Uric Acid Serum 1 day 3. Return Visit 3 months Justo Harmon M.D. documented in this encounter Plan of Treatment Upcoming Encounters Date Type Department Care Team (Late st Contact Info) Description 04/22/2024 12:30 PM BED MANAGER Office Visit [facility] [address] [place] [phone] Seferino Hanley MD [address] [place] [id number] documented as of this encounter Visit Diagnoses Not on filedocumented in this encounter Additional Health Concerns Infection Onset Date Last Indicated Resolved Time Rule Out COVID-19 01/30/2024 01/30/2024 01/30/2024 7:01 PM CDT documented as of this encounter Care Teams Field Tax Auditor Relationship Specialty Start Date End Date None, Bfp PCP - General 06/25/99 11/20/11 Tia Lagunas MD PCP - General Family Practice 11/21/11 07/29/20 Seferino Hanley MD [address] [place] [address] PCP - General Family Medicine 05/13/22 Tia Lagunas MD INACTIVE IN [place] 10/09/2020 Assigned PCP 11/22/19 05/27/22 Barron Cook MD Assigned Heart and Vascular Provider 04/03/20 03/27/21 Martinez Rogers MD [address] [place] [address] Assigned Heart and Vascular Provider 03/28/21 11/01/23 Tia Lagunas MD [place]NACTIVE [place] 10/09/2020 Assigned PCP 08/06/22 03/03/23 Physicians, [address] [facility] [address] [place] [phone] Assigned PCP 07/06/23 Martinez Rogers MD [address] [place] [address] Cardiovascular Disease 12/22/23 documented as of this encounter
--- OUTSIDE RECORDS SUMMARY | 2024-04-18 08:26 | XMS_ITS | Encounter Summary ---
Author Organization [facility] Address [address] [place] [address] Care Team Providers Care Billing Collections Specialist Name Role Phone None, Bfp Primary Care Provider UnavailFritz Waldrop MD Primary Care Provider Cynthia vailable Fritz Hitchcock MD Unavailable Unavailab Barron Gordon MD Unavailable Unavail able Martinez Rogers MD Unavailable Seferino Hanley MD Primary Care Provider [phone] [phone] Fritz Hitchcock MD Unavailable Unavailab vero [facility] Unavailable + -[phone] Martinez oRgers MD Unavailable Encounter Details Date Type Department Care Team (Late st Contact Info) Description 05/06/2009 Office Visit-[facility] [address] [place] [phone] Crystal Key MD HEART [place] [id number] Social History Tobacco Use Types Packs/Day Years Used Date Smoking Tobacco: Never Assessed Sex and Gender Information Value Date Recorded Sex Assigned at Not on file 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 [id number] DATE: 05/06/2009 JESSICA CARLOS DATE OF : 1960 AGE: [age] years old Referring Physician: SCARLETT JACOBSEN Referring Clinic: [facility] CURRENT DIAGNOSES 1. Aortic Valve-Stenosis, 424.1 ALLERGIES NKA MEDICATIONS (prior to changes made today) 1. No Medications -, CHIEF COMPLAINTS Review test results HISTORY OF PRESENT ILLNESS Mr. Carlos is a very pleasant 48-year-old gentleman who was referred after an echocardiogram showing severe aortic stenosis. He said that he stopped playing softball due to short of breath on several occasions this summer and having to sit out the game. Three or four weeks ago, he was playing volleyball when he felt lightheaded and took himself out of the game and then passed out. He had not had any chest discomfort with exertion, but has a history of a heart murmur since childhood. He went to his primary physician who recommended a stress test and echocardiogram. As the first time, he underwent echocardiography (which showed a calcified aortic valve). The morphology is not described, butthis is presumed to be bicuspid. He also had severe aortic stenosis. A mean transvalvular gradient was 42 mmHg, but in the setting of moderate to severe aortic insufficiency. He has a calculated aortic valve area of 0.9 cm2. No prior echoes are available. His left ventricle was moderately dilated with a preserved LVEF at 60% to 65%. Aortic root was within normal limits for size. Mr. Carlos is not diabetic nor hypertensive. He is dyslipidemic, but was told by his primary carephysician that diet and exercise should be able to modify his lipids within goal range. He denies tobacco abuse, but does have a family history of coronary disease in his father who had a stent at the age of 61. Normally, he says that his blood pressure is much lower than that obtained on exam today. He thinks that he is anxious for the appointment. Blood pressure, unfortunately, was not recordedat the time of his echocardiogram. 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 Weight- 191.00 lbs. Height- 70.00 Temperature- .00 CONSTITUTIONAL cooperative, alert and oriented,well developed, well nourished, in no acute distress. SKIN warm and dry to touch, no apparent skin lesions, or masses noted. HEAD normocephalic, atraumatic EYES Pupils equal and round, conjunctivae and lids unremarkable, sclera white, no xanthalasma ENT no pallor or cyanosis, dentition good NECK carotid pulses are small in volume bilaterally (parvus), there is a brisk upstroke but very short contour. JVP normal, no carotid bruit, but the aortic murmur is transmitted. CHEST normal symmetry, no tenderness to palpation, normal respiratory excursion, no intercostal retraction, no use of accessory muscles, clear to auscultation and percussion. CARDIAC regular rhythm, S1 normal, S2 normal, No S3 or S4, Apical impulse not displaced, no gallops or rubsdetected. There is a 3/6 ESM which is late-peaking at the right upper sternal border with radiationto the carotids and a 1-2/6 diastolic murmur @LSB ABDOMEN abdomen soft, bowel sounds normoactive, no masses, no hepatosplenomegaly, non- tender, no bruits PERIPHERAL PULSES pulses full and equal in all extremities, no bruits auscultated. EXTREMITIES & BACK no deformities, clubbing, cyanosis, erythema or edema observed. There are no spinal abnormalities noted. Normal muscle strength and tone. NEUROLOGICAL no gross motor deficits noted, affect appropriate, oriented to time, person and place. MEDICATIONS UPDATED/STARTED TODAY: No Medications -, , DIRECTED IMPRESSION/PLAN: Patient is a pleasant 48-year-old gentleman with a history of heart murmur since childhood, which is presumably a bicuspid aortic valve now with aortic stenosis with a valve area of 0.9 cm2. Mean gradient was 42 mmHg. There was moderate to severe aortic insufficiency. I would recommend a surgical evaluation. We discussed possible options including minimally invasivesurgery and potentially enrollment in trials of percutaneous valve replacement. I have made arrangements for him to visit with Dr. Duarte. We have also discussed options of prosthetic and tissue valves for his consideration. We will arrange a left heart catheterization next week prior to surgicalevaluation in light of his dyslipidemia and family history. I have emphasized that I would like to have the evaluation underway as soon as possible for eminent valve surgery in light of his development of symptoms and increased mortality, and he has verbalized understanding and agrees. I will make further recommendations pending the results of his cath. I appreciate the opportunity to be involved in this pleasant gentleman's care. Total time was 40 minutes. About 30 minutes was spent in coordination of care and counseling. TODAYS ORDERS 1. Pre Cath Labs pre surgery 2. Left Heart Cath bicuspid ao valve preop 3. CV Surgery Consult-Dr. Silvestre Duarte Schedule STEPHEN- bicuspid aoritc valve - minimally invasive 4. BMP Today Crystal Key M.D. documented in this encounter Plan of Treatment Upcoming Encounters Date Type Department Care Team (Late st Contact Info) Description 04/22/2024 12:30 PM FILM EDITOR SUPERVISOR Office Visit [facility] [address] [place] [address] [place] [address] Seferino Hanley MD [address] [place] [address] documented as of this encounter Visit Diagnoses Not on filedocumented in this encounter Additional Health Concerns Infection Onset Date Last Indicated Resolved Time Rule Out COVID-19 01/30/2024 01/30/2024 01/30/2024 7:01 PM CDT documented as of this encounter Care Teams Billing Collections Specialist Relationship Specialty Start Date End Date None, Bfp PCP - General 06/25/99 11/20/11 Fritz Hitchcock MD PCP - General Family Practice 11/21/11 07/29/20 Seferino Hanley MD [address] [place] [address] PCP - General Family Medicine 05/13/22 Fritz Hitchcock MD INACTIVE IN [place] 10/09/2020 Assigned PCP 11/22/19 05/27/22 Barron Cook MD Assigned Heart and Vascular Provider 04/03/20 03/27/21 Martienz Rogers MD [address] [place] [address] Assigned Heart and Vascular Provider 03/28/21 11/01/23 Fritz Hitchcock MD [place]CTIVE [place] 10/09/2020 Assigned PCP 08/06/22 03/03/23 Physicians, [address] [facility] [address] [place] [phone] Assigned PCP 07/06/23 Martinez Rogers MD [address] [place] [address] Cardiovascular Disease 12/22/23 documented as of this encounter
--- OUTSIDE RECORDS SUMMARY | 2024-04-18 08:26 | XMS_ITS | Encounter Summary ---
Author Organization [facility] Address [address] [place] [address] Care Team Providers Care Economic Forecaster Name Role Phone None, Bfp Primary Care Provider UnavailFritz Waldrop MD Primary Care Provider Cynthia vailable Fritz Lagunas MD Unavailable Unavailab Barron Gordon MD Unavailable Unavail able Martinez Rogers MD Unavailable Seferino Hanley MD Primary Care Provider [phone] Fritz Lagunas MD Unavailable Unavailab vero [facility] Unavailable + [phone] Martinez Rogers MD Unavailable Encounter Details Date Type Department Care Team (Late st Contact Info) Description 01/25/2010 Office Visit-[facility] [place] [id number] [place] [phone] Barron Cook MD Social History Tobacco Use Types Packs/Day Years Used Date Smoking Tobacco: Never Assessed Sex and Gender Information Value Date Recorded Sex Assigned at Not on file 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 DATE: 01/25/2010 JESSICA CARLOS DATE OF : 1960 AGE: [age] years old Referring Physician: FRITZ LAGUNAS Referring Clinic: [facility] CURRENT DIAGNOSES 1. - Valve Replacement AV, V43.3 ALLERGIES NKA MEDICATIONS (prior to changes made today) 1. Aspirin 81 mg Tablet, 1 p.o. daily 2. Carvedilol 3.125 Mg Tablet, 1 p.o. in AM 2 in PM 3. Pravastatin 20 mg Tablet, 1 p.o. daily CHIEF COMPLAINTS Followup of - Valve Replacement AV and Medication management HISTORY OF PRESENT ILLNESS I had the opportunity of meeting Mr. Carlos today. This is a 49-year-old gentleman previously seen by my associates, Dr. Key and Dr. Harmon. He presented with syncope in 2008 and was found to have severe aortic stenosis due to a bicuspid aortic valve. He underwent bioprosthetic aortic valve replacement using a minimally invasive parasternal approach. He did well and has recovered andis back to full sports activities at this time. He has built his endurance back up and presently isnot feeling like he has any limitations, including no dyspnea, fatigue, dizziness, or other symptoms. He is also noted to have a mildly dilated ascending aorta at 3.[address], and 3.[address] Harmon I think had an extensive conversation with him regarding whether this was due to the jet affecting the aorta or whether he may be one of the bicuspid aortic valve people who seem to have an associated connective tissue abnormality that leads to ascending aortic aneurysm (possibly related to afibrillin gene abnormality). He had discussed being on an ARB or FRANCISCO, with or without carvedilol. The patient eventually elected to be on carvedilol and has tolerated this but is only on a very low dose of 3.125 mg q.d. He is otherwise asymptomatic. Exam is notable only for a grade 2-3/6 systolic ejection murmur consistent with his bioprosthetic valve, with well-healed incision. I had a long discussion with the patient and his about the data around the association of bicuspid aortic valves and ascending aortic aneurysms, as well as potential prophylaxis of this. He is very reluctant to take medications, as became clear in their conversation. I felt that it was reasonable to consider ARB or FRANCISCO, if he is asymptomatic and tolerating these, but the data is limited. After a long discussion he proposed and elected to defer any medication for this until we get a followup echo in October of next year to see if there has been any change in his aortic dimensions. If they arenot changed, we will continue to follow him but if they have changed he has agreed to go on an ARB at that time. I do not think, in light of that, he needs to continue his carvedilol at this time. I have strongly recommended he continue his pravastatin as his baseline LDL was in the 180s. PAST HISTORY Past Medical Illnesses: dyslipidemia Past Cardiac Illnesses: severe aortic stenosis, aortic valve stenosis, heart murmur since childhood, bicuspid aortic valve Cardiac and Vascular Procedures: 06/21 AVR- 25-mm [...] echo 04/20, 07/22 EF 55-60% by echo SOCIAL HISTORY Alcohol Use - denies drinking; [...] with in own home; Place of - [place]; Hours Worked - 60-80 hours per week; [...] allergies PHYSICAL EXAMINATION VITAL SIGNS: Blood Pressure: 128/79Sitting, Left arm, large cuff Pulse- 61.00/min. Weight- 192.30 lbs. Height- 70.00 Temperature- .00 CONSTITUTIONAL well [...] no S3 or S4 present, regular rhythm, grade 2/6 systolic ejection murmur heard best at the base 2nd ICS radiating to the LLSB, apical impulse not displaced ABDOMEN abdomen soft, bowel sounds normoactive PERIPHERAL PULSES pulses full and equal in all extremities, no bruits auscultated. EXTREMITIES & BACK no clubbing, cyanosis or edema NEUROLOGICAL no gross motor deficits noted, affect appropriate, oriented to time, person and place. MEDICATIONS UPDATED/STARTED TODAY: Carvedilol 3.125 Mg Tablet, 1 p.o. in AM 2 in PM, #-1 Pravastatin 20 mg Tablet, 1 p.o. daily, #90 MEDICATIONS REFILLED/STOPPED TODAY: Zymar 0.3 % Drops Take as Directed #0 Physician Order, Carvedilol 3.125 mg Tablet 1 p.o. twice daily 3 months Refill, Lisinopril 2.5 Mg Tablet 1 twice daily 3 months Physician Order and Pravastatin 40 mg Tablet one each evening 3 months Refill IMPRESSIONS/PLAN 1. Aortic valve replacement for bicuspid aortic valve causing aortic stenosis. He is clinically stable, asymptomatic, and doing well. 2. Mild ascending aortic dilatation. As above we will repeat an echo next May and determine then how hard to push prophylactic pharmacologic intervention. They will watch his blood pressure carefully off of carvedilol and notify you if his blood pressures go above the 140s. Thank you for having me involved in this gentleman's care. Please let me know if you have any questions. TODAYS ORDERS 1. 2D, color flow, doppler 9 months may include the addition of contrast,bubble study,or the changeto either a limited or complete study-see policy 2. F/U with Barron Cook MD 9 months Barron Cook M.D. 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 [facility] [address] [place] [address] [place] [phone] Seferino Hanley MD [address] [id number] documented as of this encounter Visit Diagnoses Not on filedocumented in this encounter Additional Health Concerns Infection Onset Date Last Indicated Resolved Time Rule Out COVID-19 01/30/2024 01/30/2024 01/30/2024 7:01 PM CDT documented as of this encounter Care Teams Economic Forecaster Relationship Specialty Start Date End Date None, Bfp PCP - General 06/25/99 11/20/11 Fritz Lagunas MD PCP - General Family Practice 11/21/11 07/29/20 Seferino Hanley MD [address] [place] [address] PCP - General Family [facility] 05/13/22 Fritz Lagunas MD INACTIVE [place] 10/09/2020 Assigned PCP 11/22/19 05/27/22 Barron Cook MD Assigned Heart and Vascular Provider 04/03/20 03/27/21 Martinez Rogers MD [address] [place] [address] Assigned Heart and Vascular Provider 03/28/21 11/01/23 Fritz Lagunas MD INACTIVE [place] 10/09/2020 Assigned PCP 08/06/22 03/03/23 Physicians, [address] [facility] [address] [place] [address] Assigned PCP 07/06/23 Martinez Rogers MD [address] [place] [address] Cardiovascular Disease 12/22/23 documented as of this encounter
--- OUTSIDE RECORDS SUMMARY | 2024-04-18 08:26 | XMS_ITS ---
Author Organization [facility] Address [address] [place] [address] Care Team Providers Care Computer Graphic Artist Name Role Phone Seferino Hanley MD Primary Care Provider [phone] [facility] +1 -[phone] Martinez Rogers MD Unavailable Home Infusion Status:Closed (Active) Start date:02/15/2024 Enrollment date:02/16/2024 End date:03/18/2024 Close reason:Therapy Completed Related service episodes:Anti-infective (Active) Continued Care and Services Coordination
--- OUTSIDE RECORDS SUMMARY | 2024-04-18 08:26 | XMS_ITS ---
Author Organization [facility] Address [address] [place] [address] Care Team Providers Care Canopy Stringer Name Role Phone Seferino Hanley MD Primary Care Provider [phone] [phone] [facility] Unavailable +1 -[phone] Martinez Rogers MD Unavailable Anti-infective Status:Closed (Active) Start date:02/15/2024 Enrollment date:02/16/2024 End date:03/18/2024 Close reason:Therapy Completed Related program episode:Home Infusion (Active) Continued Care and Services Coordination
== END 2024-04-17 08:41 | disposition home or self-care (01) ==
LOC: NFLDREF 04-18 08:20
PROVIDERS: PCP Family Medicine; Referring Provider Family Medicine; Visit Provider Family Medicine
DX: E03.9 Hypothyroidism, unspecified (principal); Z13.1 Encounter for screening for diabetes mellitus; Z12.5 Encounter for screening for malignant neoplasm of prostate; Z13.6 Encounter for screening for cardiovascular disorders
CPT/HCPCS: 80053; 80061; 84443; G0103

== ENCOUNTER 2024-04-30 12:24 | Outpatient (CLI) | payer OTHER, SELFPAY ==
--- OUTSIDE RECORDS SUMMARY | 2024-04-30 12:29 | XMS_ITS | Clinical Summary ---
Author Organization [facility] Address [address], [place] [address] Phone Care Team Providers Care Metal Tester Name Role Phone Unavailable Primary Care Provider [...] by mouth in the morning. 11/09/2011 Active [place]-3 Fatty Acids (Fish Oil Triple Strength) [address] [...] Type Department Care Team Description 03/14/2024 Telephone [facility] [address] [place] [address] Isaura Johns RN 02/27/2024 9:00 AM CDT Office Visit [facility] [address] [place] [address] Diamond Gerardo PA Bacteremia (Primary Dx); History [...]
--- OUTSIDE RECORDS SUMMARY | 2024-04-30 12:29 | XMS_ITS | Referral Summary ---
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 Office Visit [address] [phone] Seferino Hanley MD Tinea pedis of both feet (Primary Dx); Epidermoid cyst of skin of back 04/10/2024 Travel 04/10/2024 11:00 AM CDT Office Visit [address] [phone] Seferino Hanley MD Epidermoid cyst of skin of back (Primary Dx) 04/03/2024 9:00 AM CDT Office Visit [address] [phone] Seferino Hanley MD Plantar warts (Primary Dx); Epidermoid cyst of skin of back 04/02/2024 Travel 04/02/2024 7:45 AM CDT Office Visit [address] [place] [address] Jeet Milligan MD Ascending aorta dilatation (H); Essential hypertension; Hyperlipidemia LDL goal <100; S/P AVR (aortic valve replacement) 03/27/2024 Travel 03/27/2024 7:19 AM CDT - 03/27/2024 11:59 PM CDT Hospital Encounter [place] [facility] [address] [facility] [address] [place] [phone] Jeet Milligan MD Ascending aorta dilatation (H) Discharge Disposition: Home or Self Care 03/20/2024 Travel 03/20/2024 12:05 PM CDT Lab [facility] [address] [place] [phone] Bacteremia 03/14/2024 Orders Only [facility] [address] [place] [phone] Diamond Gerardo PA-C Bacteremia (Primary Dx) 03/08/2024 Orders Only [facility] [address] [place] [phone] Lacey Chen MD Bacteremia (Primary Dx) 03/08/2024 Home Infusion [facility] [address] [place] [phone] Jake Beyer RPH Bacteremia (Primary Dx) 02/07/2024 Care Coordination [facility] [address] [place] [address] [address] [place] [address] Seferino Hanley MD Clinic Care Coordination - Post Hospital (Bacteremia ) 02/06/[address] [place] [phone] Jeet Milligan MD Appointment (Hospital follow up ) 01/30/2024 5:37 PM CDT - 02/05/2024 7:25 PM CDT Hospital Encounter [place] [facility] 3 Medical Surgical [address] [place] [phone] Joselito Mar MD Biala, Vivek, MD Bacteremia Discharge Disposition: Home or Self Care 02/02/2024 Home Infusion (pre-[facility]) [facility] [address] [place] [phone] Gila Miramontes [facility] Home Infusion 02/01/2024 Hospital Encounter [facility] [address] [place] [phone] Taina Ignacio MD 01/30/2024 Travel from Last 3 Months Allergies No known active allergies Medications calcium carbonate (OS-HAWK) 600 MG tablet Take 1 tablet by mouth at bedtime Active MAGNESIUM GLYCINATE PLUS PO Take 1 tablet by mouth at bedtime Active Amboy-3 Fatty Acids (FISH OIL) 1200 MG CAPS [...] to proceedure 4 capsule 1 4 Active fluconazole (DIFLUCAN) 200 MG tabletIndication s:Tinea pedis of both feet Take 1 tablet (200 mg) by mouth every 7 days for 4 doses. 4 tablet 4 024 Active rosuvastatin (CRESTOR) 20 MG tabletIndication s:Hyperlipidemia [...] you bought just not last and you didn t have money to get more? No 01/31/2024 Housing Stability Answer Date Recorded Do you have housing? 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 Gender Identity Not on file Sexual Orientation Not on file Last Filed Vital Signs Vital Sign Reading Time Taken Comments Blood Pressure 100/70 04/22/2024 12:29 PM VIDEO GAME REPAIR TECHNICIAN Pulse 70 04/22/2024 12:29 PM VIDEO GAME REPAIR TECHNICIAN Temperature 36.4 C (97.6 F) 04/10/2024 11:01 AM CDT Respiratory Rate 16 04/22/2024 12:29 PM VIDEO GAME REPAIR TECHNICIAN Oxygen Saturation 94% 04/22/2024 12:29 PM VIDEO GAME REPAIR TECHNICIAN Inhaled Oxygen Concentration - - Weight 78 kg (172 lb) 04/22/2024 12:29 PM VIDEO GAME REPAIR TECHNICIAN Height 175.3 cm (5' 9) 04/02/2024 7:50 AM CDT Body Mass Index 25.4 04/02/2024 7:50 AM CDT Plan of Treatment Upcoming Encounters Date Type Department Care Team (Late st Contact Info) Description 05/16/2024 3:00 PM VIDEO GAME REPAIR TECHNICIAN Office Visit [facility] [address] [place] [phone] Yash Mullins MD [address] [place], [place] [address] 10/01/2024 7:30 AM CDT Appointment [place] [facility] [address] [facility] [address] [place] [phone] Jeet Milligan MD [address] [place], [place] [address] Medical Devices Implanted Type Area Slot Floor Person Device Identifier Shelf Expiration Date Model / Serial / Lot Aortic Valve-25 Mm Bioprosthetic Valve Procedures Procedure Name Priority Date/Time Associated Diagnosis Comments ID EXC BENIGN SKIN LESION TRUNK/ARM/LEG 2.1-3.0 CM Routine 04/10/2024 12:21 PM CDT Epidermoid cyst of skin of back ID DESTRUCT BENIGN LESION, UP TO 14 [...] STAT 01/30/2024 8:30 PM CDT INFLUENZA A/B, RSV AND SARS-COV2 PCR STAT 01/30/2024 6:01 PM CDT [...] - HIM SCAN 01/29/2024 12:00 AM CDT LIPID PANEL (BFP) Routine 06/24/2020 Essential hypertension from Last 3 Months or Most Recently Relevant to Health Maintenance Results * ECHO COMPLETE (03/27/2024 8:14 AM CDT) LVEF 65-70% CARDIOLOGY RESULTS Anatomical Region Laterality Modality Echocardiography 03/27/2024 7:27 AM CDT Narrative 03/27/2024 11:02 AM CDT [id number]^SRINI^JEET^[facility] Echocardiography Laboratory [address] [place] [address] Name: JESSICA RITCHIE : 1960 Study Date: 03/27/2024 07:27 AM Age: 63 yrs Gender: Male Patient Location: [facility] Reason For Study: Ascending aorta dilatation (H) [...] Procedure Note Deepak Harrington MD - 03/27/2024 [id number]^SRINI^JEET^[facility] Laboratory [address] [place] [address] Name: JESSICA RITCHIE : 1960 Study Date: 03/27/2024 07:27 AM Age: 63 yrs Gender: Male Patient Location: [facility] Reason For Study: Ascending aorta dilatation (H) [...] of7 resultswithin the time period is included. CRP Inflammation <3.00 <5.00 mg/L 03/20/20 12:31 PM CDT [facility] Blood STRUCTURE OF RIGHT UPPER LIMB / Unknown Venipuncture / Unknown 03/20/2024 12:12 PM CDT 03/20/2024 12:13 PM CDT us Lacey Chen MD LAB - BLOOD ORDERABLES Final Res ult [facility] LABORATORY [facility] [address] Lab (1st floor, no room number) [place] [address], [facility] * Blood Culture Arm, Right (03/20/2024 12:12 PM CDT) Only the most recent of4 resultswithin the time period is included. Pathologist [facility] Culture No Growth 03/25/2024 4:06 PM CDT [facility] Blood STRUCTURE OF RIGHT UPPER LIMB / Unknown Venipuncture / Unknown 03/20/2024 12:12 PM CDT 03/20/2024 12:13 PM CDT us Diamond Gerardo PA-C LAB - MICRO GENERAL ORDER PRICILLA Final Result [facility] Inf. Diseases Diag. Lab [address] [facility] [place] [address] * CBC with platelets and differential [...] LAB - BLOOD ORDERABLES Final Res ult [facility] [address] Lab (1st floor, no room number) [place] [address] * Creatinine (03/07/2024 8:05 AM CDT) Only the most recent of8 resultswithin the time period is included. Creatinine 1.03 0.67 - 1.17 mg/dL 03/07/2024 10:45 AM CDT LABORATORY GFR Estimate 82 >60 mL/min/1.7 3m2 03/07/2024 10:45 AM CDT LABORATORY Comment:eGFR calculated usin 2020 CKD-EPI equation. Blood CENTRAL VENOUS CATHETER / Unknown Client Draw / Unknown 03/07/2024 8:05 AM CDT 03/07/2024 10:16 AM CDT us Lacey Chen MD LAB - BLOOD ORDERABLES Final Res ult Performing Organization Address [facility] Co de Phone Number [facility] [address] Lab (1st floor, no room number) [place] [address] * AST (03/07/2024 8:05 AM CDT) Only the most recent of5 resultswithin the time period is included. AST 29 0 - 45 U/L 03/07/2024 10:45 AM CDT LABORATORY Blood CENTRAL VENOUS CATHETER / Unknown Client Draw / Unknown 03/07/2024 8:05 AM CDT 03/07/2024 10:16 AM CDT us Lacey Chen MD LAB - BLOOD ORDERABLES Final Res ult [facility] [address] Lab (1st floor, no room number) [place] [address] * ALT (03/07/2024 8:05 AM CDT) Only the most recent of5 resultswithin the time period is included. ALT 25 0 - 70 U/L 03/07/2024 10:45 AM CDT LABORATORY Blood CENTRAL VENOUS CATHETER / Unknown Client Draw / Unknown 03/07/2024 8:05 AM CDT 03/07/2024 10:16 AM CDT us Lacey Chen MD LAB - BLOOD ORDERABLES Final Res ult LABORATORY [facility] [address] [facility] Lab (1st floor, no room number) [place] [address] * XR Chest Port 1 View (02/05/2024 6:26 PM CDT) Anatomical Region Laterality Modality Chest Digital Radiogra phy 02/05/2024 6:26 PM CDT Impressions 02/05/2024 7:09 PM CDT IMPRESSION: Right PICC line tip at the cavoatrial level. No acute airspace disease. Normal cardiac silhouette. Narrative 02/05/2024 7:09 PM CDT EXAM: XR CHEST PORT 1 VIEW LOCATION: [facility] DATE: 02/05/2024 INDICATION: RN placed PICC, verify tip placement. COMPARISON: 01/30/2024. Procedure Note Patrick Garcia MD - 02/05/2024 EXAM: XR CHEST PORT 1 VIEW LOCATION: [facility] DATE: 02/05/2024 INDICATION: RN placed PICC, verify tip placement. COMPARISON: 01/30/2024. IMPRESSION: Right PICC line tip at the cavoatrial level. No acute airspacedisease. Normal cardiac silhouette. us Danyell Barrett MD IMG DIAGNOSTIC IMAGING ORDERABLE S Final Result * Single Lumen PICC Placement (02/05/2024 6:22 PM CDT) Narrative Kenya Becker RN - 02/05/2024 6:22 PM CDT Kenya Becker RN 02/05/2024 6:43 PM [facility] Single Lumen PICC Placement Date/Time: 02/05/2024 6:22 PM Performed by: Kenya Becker RN Authorized by: Danyell Barrett MD Indications: vascular access UNIVERSAL PROTOCOL Site Marked: Yes Prior Images Obtained and Reviewed: Yes Required items: Required blood products, implants, devices and special equipment available Patient identity confirmed: Verbally with patient, arm band and hospital-assigned identification number NA - No sedation, light sedation, or local anesthesia Confirmation Checklist: Patient's identity using two indicators, relevant allergies, procedure was appropriate and matched the consent or emergent situation and correct equipment/implants were available Time out: Immediately prior to the procedure a time out was called [place] Protocol: the Joint [facility] [place] Protocol was followed Preparation: Patient was prepped [...] size: 4 Fr Brand: Bard Lot number: [id number] Placement method: MST and venipuncture Number of [...] placement verified by x-ray PROCEDURE Patient Tolerance: Patient [...] - BLOOD ORDERABLES Final Res ult LABORATORY [facility] [address] [facility] Lab (1st floor, no room number) [place] [address] * Platelet count (02/05/2024 6:56 AM CDT) Platelet Count 296 150 - 450 10e3/uL 02/05/2024 7:05 AM CDT LABORATORY Blood STRUCTURE OF RIGHT HAND / Unknown Venipuncture / Unknown 02/05/2024 6:56 AM CDT 02/05/2024 7:02 AM CDT Alan Alvarez MD LAB - BLOOD ORDERABLES Final Res ult Performing Organization Address City/[facility]/ZIP Co de Phone Number LABORATORY [facility] [address] Lab (1st floor, no room number) [address] * Magnesium (02/05/2024 6:56 AM CDT) Only the most recent of6 resultswithin the time period is included. Magnesium 2.3 1.7 - 2.3 mg/dL 02/05/2024 7:24 AM CDT [facility] LAB[facility]AT[facility] Blood STRUCTURE OF RIGHT HAND / Unknown Venipuncture / Unknown 02/05/2024 6:56 AM CDT 02/05/2024 7:02 AM CDT Osmar Triplett MD LAB - BLOOD ORDERABLES Final Res ult Performing Organization Address [facility]/ZIP Co de Phone Number LABORATORY [facility] [address] Lab (1st floor, no room number) [address] * Extra Purple Top Tube (02/04/2024 7:11 AM CDT) Hold Specimen JIC 02/04/2024 8:31 AM CDT LABORATORY Blood BLOOD SPECIMEN / Unknown Venipuncture / Unknown 02/04/2024 7:11 AM CDT 02/04/2024 7:18 AM CDT Alan Alvarez MD LAB - BLOOD ORDERABLES Final Res ult [facility] [address] Lab (1st floor, no room number) [address] * (ABNORMAL) Basic metabolic panel (02/02/2024 6:39 AM CDT) Only the most recent of4 resultswithin the time period is included. Sodium 137 135 - 145 mmol/L 02/02/2024 7:49 AM CDT LABORATORY Potassium 4.1 3.4 - 5.3 mmol/L 02/02/2024 7:49 AM CDT [facility] LAB[facility]ORY Chloride 102 98 - 107 mmol/L 02/02/2024 7:49 AM CDT [facility] LABORATORY Carbon Dioxide (CO2) 24 [...] - 99 mg/dL 02/02/2024 7:49 AM CDT LABORATORY Blood STRUCTURE OF RIGHT HAND / Unknown Venipuncture / Unknown 02/02/2024 6:39 AM CDT 02/02/2024 7:23 AM CDT us Osmar Triplett MD LAB - BLOOD ORDERABLES Final Res ult LABORATORY [facility] [address] Lab (1st floor, no room number) [place] [address], [facility] * (ABNORMAL) CBC with platelets (02/02/2024 6:39 [...] - BLOOD ORDERABLES Final Res ult LABORATORY [facility] [address] [facility] [facility] Lab (1st floor, no room number) [place] [address], [facility] * ECHO RUSH (02/01/2024 1:42 PM CDT) LVEF 60-65% CARDIOLOGY RESULTS Anatomical Region Laterality Modality Echocardiography 02/01/2024 11:5 3 AM CDT Narrative 02/01/2024 4:16 PM CDT [id number]^ARAVIND^ALAN [facility] Echocardi[facility] Laboratory [address] [place] [address] Name: JESSICA RITCHIE : 1960 Study Date: 02/01/2024 11:53 AM Age: 63 yrs Gender: Male Patient Location: [facility] Reason For Study: Endocarditis Ordering Physician: ALAN [...] disease, 2009. No evidence of prosthetic or [place] valve endocarditis. 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 [...] Procedure Note Taina Ignacio MD - 02/01/2024 [id number] [facility] [id number]^ARAVIND^ALAN [facility] Ech[facility] Laboratory [address] [place] [address] Name: JESSICA RITCHIE : 1960 Study Date: 02/01/2024 11:53 AM Age: 63 yrs Gender: Male Patient Location: [facility] Reason For Study: Endocarditis Ordering Physician: ALAN [...] disease, 2009. No evidence of prosthetic or [place] valve endocarditis. 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 [...] MD LAB - BLOOD ORDERABLES Final Result [facility] [address] Lab (1st floor, no room number) [place] [phone] * T4 free (02/01/2024 9:21 AM CDT) Free T4 1.12 0.90 - 1.70 ng/dL 02/01/2024 11:10 AM CDT LABORATORY Blood STRUCTURE OF LEFT HAND / Unknown Venipuncture / Unknown 02/01/2024 9:21 AM CDT 02/01/2024 9:36 AM CDT us Key Penn MD LAB - BLOOD ORDERABLES Final Result Performing Organization Address [facility] de Phone Number [facility] [address] Lab (1st floor, no room number) [place] [phone] [place] [address] * EKG 12-lead, tracing only (01/30/2024 9:33 PM CDT) Systolic Blood Pressure mmHg RADIOLOGY RESULTS Diastolic Blood Pressure mmHg RADIOLOGY RESULTS Ventricular Rate 75 BPM RAD IOLOGY RESULTS Atrial Rate 75 BPM RADIOLOG Y RESULTS ID Interval 180 ms RADIOLOG Y RESULTS QRS Duration 90 ms RADIOLO GY RESULTS QT 372 ms RADIOLOGY RESULTS QTc 415 ms RADIOLOGY RESULTS P [place] 34 degrees RADIOLOGY RESULTS R AXIS 43 degrees RADIOLOGY RESULTS T [place] 51 degrees RADIOLOGY RESULTS Interpretation ECG Sinus rhythm Minimal voltage criteria for LVH, may be normal variant ( Sokolow-Tse ) Borderline ECG When compared with ECG of 18-Oct-2022 10:50, No significant change was found Unconfirmed report - interpretation of this ECG is computer generated - see medical record for final interpretation Confirmed by - EMERGENCY ROOM, PHYSICIAN ([id number]), newspaper photo editor FARZANA GOLDBERG ([id number]) on 01/31/2024 6:48:46 AM RADIOLOGY RESULTS 01/30/2024 [...] CDT EXAM: XR CHEST 2 VIEWS LOCATION: [facility] DATE: 01/30/2024 INDICATION: Fever, chills. COMPARISON: 07/16/2009 Procedure Note Sunil Richardson MD - 01/30/2024 EXAM: XR CHEST 2 VIEWS LOCATION: [facility] DATE: 01/30/2024 INDICATION: Fever, chills. COMPARISON: 07/16/2009 IMPRESSION: Heart size is normal. Aortic valve replacement. Lungs areclear bilaterally. Mediastinum and visualized bony structures areunremarkable. Joselito Mar MD IMG DIAGNOSTIC IMAGING ORDERABLE S Final Result * Symptomatic Influenza A/B, RSV, & SARS-CoV2 PCR (COVID-19) Nasopharyngeal (01/30/2024 6:01 PM CDT) Influenza A PCR Negative Negative 01/30/2024 7:01 PM CDT LABORATORY Influenza B PCR Negative Negative 01/30/2024 [...] the Xpert Xpress CoV2/Flu/RSV Assay on the Exavio GeneXpert Instrument. This test should be ordered [...] management. This test was validated by the [facility]. These laboratories are certified under the Clinical Laboratory Improvement Amendments of 1988 (CLIA-88) as qualified to perform high complexity laboratory testing. Joselito Mar MD LAB - MICRO GENERAL ORDERABLES F inal Result [facility] [address] [facility] Lab (1st floor, no room number) [place] [address], [facility] * (ABNORMAL) Verigene GP Panel (01/30/2024 4:28 [...] Streptococcus pyogenes and Streptococcus agalactiae. Performed using Medudemigene multiplex nucleic acid test. Final identification and [...] (methicillin resistance), and Juan David/vanB (vancomycin resistance). Tito Waller MD LAB - MICRO GENERAL ORDFavio BURKS Final Result [facility] Inf. Diseases Diag. Lab [address] [facility] [place] [address], [facility] * (ABNORMAL) Procalcitonin (01/30/2024 4:28 PM [...] See Procalcitonin Guidance document for more details. [email or web address] Factors that may affect PCT levels (not all-inclusive): - Increased PCT level Severe trauma/carrillo Invasive surgery Cooling therapy after cardiac arrest/surgery Treatment with agents which stimulate cytokines Acute kidney injury Chronic kidney disease and end stage renal disease Acute graft vs host disease Non-specific shock causing decreased organ perfusion and/or infarction - Normal or unchanged PCT level Early in infections (if low and infection is suspected, repeating in 6-12 hours is recommended) Chronic infections (endocarditis, osteomyelitis, prosthetic device/graft infections) Localized infections (cellulitis, wound infections, intra-abdominal abscess) Note: PCT has not been extensively studied in /, pediatrics, severe immunosuppression, and cystic fibrosis. Blood STRUCTURE OF RIGHT UPPER LIMB / Unknown Venipuncture / Unknown 01/30/2024 4:28 PM CDT 01/30/2024 5:01 PM CDT us Joselito Mar MD LAB - BLOOD ORDERABLES Final Res ult [facility] [address] Lab (1st floor, no room number) [place] [address], [facility] * Lactic acid whole blood (01/30/2024 4:28 PM CDT) Lactic Acid 1.1 0.7 - 2.0 mmol/L 01/30/2024 5:11 PM CDT LABORATORY Blood STRUCTURE OF RIGHT UPPER LIMB / Unknown Venipuncture / Unknown 01/30/2024 4:28 PM CDT 01/30/2024 5:01 PM CDT us Tito Waller MD LAB - BLOOD ORDERABLES F inal Result [facility] Lab [address] Lab (1st floor, no room number) [place] [address] * (ABNORMAL) Hepatic function panel (01/30/2024 4:28 [...] LAB - BLOOD ORDERABLES Final Res ult [facility] [address] Lab (1st floor, no room number) [place] [address] * Potassium (External Result) (01/29/2024 6:40 PM CDT) Pathologist [facility] Potassium (External) 4.3 3.6 - 5.1 mmol/L [facility] Blood 01/29/2024 6:40 PM CDT Narrative [facility] - 01/29/2024 6:[address] [facility]-External Lab Results us Provider Outside LAB - HIM EXTERNAL RESULT Edite d Result - Final Performing Organization Address [facility] Co de Phone Number [facility] [address] [place] [address], [facility] [phone] * (ABNORMAL) Glucose (External Result) (01/29/2024 6:40 PM CDT) Glucose (External) 129(A) 60 - 115 mg/dL [facility] Blood 01/29/2024 6:40 PM CDT [facility] - 01/29/2024 6:[address] [facility]-External Lab Results us Provider Outside LAB - HIM EXTERNAL RESULT Final Result Performing Organization Address [facility] Co de Phone Number [facility] [address] [place], [place] [address] [phone] * Creatinine (External Result) (01/29/2024 6:40 PM CDT) Creatinine (External) 1.0 0.5 - 1.5 mg/dL [facility] Blood 01/29/2024 6:40 PM CDT [facility] - 01/29/2024 6:[address] [facility]-External Lab Results us Provider Outside LAB - HIM EXTERNAL RESULT Final Result Performing Organization Address [facility] de Phone Number [facility] [address] [place] [address], [facility] [phone] * (ABNORMAL) AST (External Result) (01/29/2024 6:40 PM CDT) AST (External) 75(A) 12 - 35 U/L [facility] Blood 01/29/2024 6:40 PM CDT [facility] - 01/29/2024 6:[address] [facility]-External Lab Results us Provider Outside LAB - HIM EXTERNAL RESULT Final Result Performing Organization Address [facility] Co de Phone Number [facility] [address] [place], [place] [address] [phone] * (ABNORMAL) ALT (External Result) (01/29/2024 6:40 PM CDT) ALT (External) 73(A) 4 - 50 U/L [facility] Blood 01/29/2024 6:40 PM CDT Narrative [facility] - 01/29/2024 6:[address] [facility]-External Lab Results us Provider Outside LAB - HIM EXTERNAL RESULT Final Result [facility] [address] [place], [place] [phone] [place] [address] * Lab Result - HIM Scan (01/29/2024 12:00 AM CDT) 01/29/2024 us Provider Outside NON-BEAKER LAB TESTING Final Result * (ABNORMAL) Lipid Panel ([facility]) [...] S Final Result [facility] [address] [place], [place] [id number], [facility] from Last 3 Months or Most Recently Relevant to Health Maintenance Insurance [employer] Advance Directives For more information, please contact: [phone] * Full Code (Latest Code Status on [...] patie nt/ legal decision maker Care Teams Salesperson Jewelry Relationship Specialty Start Date End Date Seferino Hanley MD [address] [place] [address] PCP - General Family Medicine 05/13/22 Physicians, [address] [place] [id number] Assigned PCP 07/06/23 Jeet Milligan MD [address], [facility] [address] [place] [address] Cardiovascular Disease 12/22/23
--- OUTSIDE RECORDS SUMMARY | 2024-04-30 12:29 | XMS_ITS | Clinical Summary ---
Author Organization [facility] Address [place], [place] [address] Care Team Providers Care Decision Unit Rn Name Role Phone Fritz Hitchcock MD Primary Care Provider [phone] Allergies No known active allergies Medications Medication [...] Take by mouth. 0 12/22/2015 Active omega 9-owf-yoq-fish oil (FISH OIL) 900-1,400 mg cpDR Take [...] Department Care Team Description 02/01/2024 Lab Requisition [facility] [phone] Unknown, Doctor from Last 3 Months Immunizations [...] 64 12/22/2015 8:58 AM CDT Temperature 36.7 C (98 F) 07/23/2014 8:31 AM [facility]ONER Respiratory Rate - - Oxygen Saturation - [...] 02/28/2012, Additional history exists COVID-19 vaccine series (2023- season) 2024 Influenza for age 50-64 02/11/2024 [...] CDT) CULTURE RESULT(A) 02/04/2024 11:36 AM CDT [facility] CULTURE Streptococcus mitis group 02/04/2024 11:36 AM CDT [facility] Comment:Further identified a s [...] mitis group CLARITHROMYCIN S Doctor Unknown MICROBIOLOGY [facility] [address] [place] [address], [place] * SCAN-COLONOSCOPY (08/30/2022 10:00 AM CDT) Narrative Procedure Note Armand Lyles DO - 08/30/2022 9:05 AM CDT [facility] [address], [address], [place] [address] Patient Name: Adonis Ritchie Gender: Male Exam Date: 08/30/2022 Visit Number: [id number] Age: 61 Years 10 Months Date of : 1960 Attending MD: Armand Lyles DO Medical Record#: [id number] ----- Procedure: Colonoscopy Indications: Colorectal cancer screening [...] Race: White Ethnicity: Not or Preferred Language: Gibraltarian cc: Seferino Hanley MD cc: Seferino Hanley MD cc: John Escobedo MD [facility] [phone] Armanddoreen Mart Rafal GABRIEL OTHER * (ABNORMAL) LIPID PANEL (12/22/2015 9:49 AM CDT) CHOLESTEROL,TOTAL 259(H) 100 - 199 mg/dL 12/22/2015 3:40 PM CDT [facility] TRIGLYCERIDES 388(H) <150 mg/dL 12/22/2015 3:40 PM CDT [facility] Mobile [facility] HDL CHOLESTEROL 38(L) >40 mg/dL 12/22/2015 3:40 PM CDT [facility] NON-HDL CHOLESTEROL 221(H) <145 mg/dl 12/22/2015 3:40 PM CDT [facility] [employer] [facility] CHOL/HDL RATIO 6.82(H) <4.50 12/22/2015 3:40 PM CDT [facility] LDL CHOLESTEROL 143(H) <=130 mg/dL 12/22/2015 3:40 PM CDT [facility] Mobile [facility] PATIENT STATUS NOT GIVEN 12/22/2015 3:40 PM CDT [facility] Mobile [facility] Blood BLOOD SPECIMEN / Unknown Venipuncture / Unknown 12/22/2015 9:49 AM CDT 12/22/2015 9:49 AM CDT Fritz Hitchcock MD [email or web address] [address] [place] [address], [place] from Last 3 Months or Most Recently Relevant to Health Maintenance Care Teams Decision Unit Rn Relationship Specialty Start Date End Date Fritz Hitchcock MD PCP - General 09/02/09
--- OUTSIDE RECORDS SUMMARY | 2024-04-30 12:29 | XMS_ITS | Encounter Summary ---
Author Organization [facility] Address [address] [place] [address] Phone Care Team Providers Care Associate Product Integrity Engineer Name Role Phone Unavailable Primary Care Provider Unavailabl e Encounter Details Date Type Department Care Team (Late st Contact Info) Description 03/14/2024 Telephone [email or web address] [address] [place] [address] Isaura Johns RN Social History Tobacco Use [...] blood culture orders can go. Faxed to [facility] out patient lab. Adonis will go next week to have the blood draw. documented in this encounter Plan of Treatment Not on file documented as of this encounter Visit Diagnoses Not on filedocumented in this encounter
--- OUTSIDE RECORDS SUMMARY | 2024-04-30 12:29 | XMS_ITS | Encounter Summary ---
Author Organization [facility] Address [address] [place] [address] Phone Care Team Providers Care Crisis Nurse Name Role Phone Unavailable Primary Care Provider Unavailabl e Encounter Details Date Type Department Care Team (Late st Contact Info) Description 02/27/2024 9:00 AM CDT Office Visit [facility] [employer] [address] [place] [address] Diamond Gerardo PA [address] [place], [place] [phone] Bacteremia (Primary Dx); History of aortic valve replacement; Aneurysm of ascending aorta ([facility]) Social History Tobacco Use Types Packs/Day Years [...] replacement in 2009. [facility] 2-week history of fevers, weakness, sweating episodes and chills. He was sent home but called 2 days later and told that his blood cultures were positive for gram-positive cocci, ultimately growing Streptococcus sanguinous. He was subsequently transferred to [facility] for further care. RUSH was negative for [place] or bioprosthetic valve vegetations, no evidence of [...] 1 tablet by mouth in the morning. [place]-3 Fatty Acids (Fish Oil Triple Strength) 1400 [...] 1644 02/06/2024 2046 Blood Culture Hand, Right [[id number]] Blood from Hand, Right Final result Component Value Culture No Growth 01/30/2024202902/06/2024 0707 Blood Culture Peripheral Blood [[id number]] (Abnormal) Peripheral Blood Edited Result - FINAL Component Value Culture Positive on the 1st day of incubation Abnormal Streptococcus sanguinis Panic C 2 of 2 bottles Susceptibilities done on previous cultures 01/30/2024 1628 02/06/2024 0706 Blood Culture Arm, Right [[id number]] (Abnormal) Blood from Arm, Right Final result [...] disease, 2009. No evidence of prosthetic or [place] valve endocarditis. 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 [...]
--- OUTSIDE RECORDS SUMMARY | 2024-04-30 12:29 | XMS_ITS | Clinical Summary ---
Author Organization [facility] Address [address] [place] [address] Care Team Providers Care [employer] Name Role Phone Seferino Hanley MD Primary Care Provider [phone] [facility], [facility] Unavailable [phone] Jeet Milligan MD Unavailable Allergies No known active allergies Medications calcium carbonate (OS-HAWK) 600 MG tablet Take 1 tablet by mouth at bedtime Active MAGNESIUM GLYCINATE PLUS PO Take 1 tablet by mouth at bedtime Active Bedford-3 Fatty Acids (FISH OIL) 1200 MG CAPS [...] Type Department Care Team Description 04/24/2024 Telephone [place] [id number] [facility] [address] [place] [phone] Jeet Milligan MD Orders (Echo RUSH ) 04/22/2024 12:30 PM SLABBING MACHINE OPERATOR Office Visit [facility] [address] [place] [phone] Seferino Hanley MD Tinea pedis of both feet (Primary Dx); Epidermoid cyst of skin of back 04/22/2024 Travel 04/10/2024 11:00 AM CDT Office Visit [facility] [address] [place] [phone] Seferino Hanley MD Epidermoid cyst of skin of back (Primary Dx) 04/10/2024 Travel 04/03/2024 9:00 AM CDT Office Visit [facility] [address] [place] [phone] Sfeerino Hanley MD Plantar warts (Primary Dx); Epidermoid cyst of skin of back 04/02/2024 7:45 AM CDT Office Visit [facility] [address] [place] [phone] Jeet Milligan MD Ascending aorta dilatation (H); Essential hypertension; Hyperlipidemia LDL goal <100; S/P AVR (aortic valve replacement) 04/02/2024 Travel 03/27/2024 7:19 AM CDT - 03/27/2024 11:59 PM CDT Hospital Encounter [facility] [address] [place] [address] Jeet Milligan MD Ascending aorta dilatation (H) Discharge Disposition: Home or Self Care 03/27/2024 Travel 03/20/2024 12:05 PM CDT Lab [facility] [address] [place] [address] Bacteremia 03/20/2024 Travel 03/14/2024 Orders Only [facility] [address] [place] [address] Diamond Gerardo PA-C Bacteremia (Primary Dx) 03/08/2024 Orders Only [facility] [address] [place] [phone] Lacey Chen MD Bacteremia (Primary Dx) 03/08/2024 Home Infusion [facility] [address] [place] [phone] Jake Beyer [facility] Bacteremia (Primary Dx) 02/07/2024 Care Coordination [facility] [address] [place] [address] [address] [place] [phone] Seferino Hanley MD Clinic Care Coordination - Post Hospital (Bacteremia ) 02/06/2024 Telephone [facility] Heart [address] [place] [phone] Jeet Milligan MD Appointment (Hospital follow up ) 02/02/2024 Home Infusion ([facility]) [facility] [address] [place] [phone] Gila Miramontes [facility] Home Infusion 02/01/2024 Hospital Encounter [facility] Heart Care [address] [place] [address] Taina Ignacio MD 01/30/2024 5:37 PM CDT - 02/05/2024 7:25 PM CDT Hospital Encounter [facility] 3 Medical Surgical [address] [place] [address] Joselito Mar MD Biala, Vivek, MD Bacteremia [...] in an abandoned building, in an overnight penitentiary, or couch-surfing.) No 01/31/2024 Are you worried [...] on file Legal Sex Male 2:58 AM SLABBING MACHINE OPERATOR Gender Identity Not on file Sexual Orientation Not on file Last Filed Vital Signs Vital Sign Reading Time Taken Comments Blood Pressure 100/70 04/22/2024 12:29 PM SLABBING MACHINE OPERATOR Pulse 70 04/22/2024 12:29 PM SLABBING MACHINE OPERATOR Temperature 36.4 C (97.6 F) 04/10/2024 11:01 AM CDT Respiratory Rate 16 04/22/2024 12:29 PM SLABBING MACHINE OPERATOR Oxygen Saturation 94% 04/22/2024 12:29 PM SLABBING MACHINE OPERATOR Inhaled Oxygen Concentration - - Weight 78 kg (172 lb) 04/22/2024 12:29 PM SLABBING MACHINE OPERATOR Height 175.3 cm (5' 9) 04/02/2024 7:50 AM CDT Body Mass Index 25.4 04/02/2024 7:50 AM CDT Plan of Treatment Upcoming Encounters Date Type Department Care Team (Late st Contact Info) Description 05/16/2024 3:00 PM SLABBING MACHINE OPERATOR Office Visit [facility] [place] [address] [facility] [place] [address] Yash Mullins MD [address] [place] [address] 10/01/2024 7:30 AM CDT Appointment [facility] [address] [place] [phone] Jeet Milligan MD [address] [place] [address] Health Maintenance Due Date Last Done Comments ADVANCE CARE PLANNING 1960 ANNUAL REVIEW OF HM ORDERS 1960 CT COLONOGRAPHY 1960 FIT 1960 FLEX SIG 1960 YEARLY PREVENTIVE VISIT 1960 sDNA (Cologuard) 1960 HIV SCREENING 10/27/1975 HEPATITIS C SCREENING 1978 LIPID 06/24/2021 06/24/2020, 07/23/2014 INFLUENZA VACCINE (#1) 2024 BMP 02/01/2025 02/02/2024, 01/11, 01/31/2024, Additional history exists COVID-19 Vaccine (1 - season) 2025 Postponed from 02/11/2024 (Other) [...] this topic Medical Devices Implanted Type Area Ball Sorter Device Identifier Shelf Expiration Date Model / Serial / Lot Aortic Valve-25 Mm Bioprosthetic Valve Procedures Procedure Name Priority Date/Time Associated Diagnosis Comments VT EXC BENIGN SKIN LESION TRUNK/ARM/LEG 2.1-3.0 CM Routine 04/10/2024 12:21 PM CDT Epidermoid cyst of skin of back VT DESTRUCT BENIGN LESION, UP TO 14 Routine [...] AM CDT Narrative 03/27/2024 11:02 AM CDT [id number]^SRINI^JEET^[facility] Echocardiography Laboratory [address] [place] [address] Name: JESSICA RITCHIE : 1960 Study Date: 03/27/2024 07:27 AM Age: 63 yrs Gender: Male Patient Location: [facility] Reason For Study: Ascending aorta dilatation (H) [...] Procedure Note Deepak Harrington MD - 03/27/2024 [id number]^SRINI^JEET^[facility] Echocardiography Laboratory [address] [place] [address] Name: JESSICA RITCHIE : 1960 Study Date: 03/27/2024 07:27 AM Age: 63 yrs Gender: Male Patient Location: [facility] Reason For Study: Ascending aorta dilatation (H) [...] is included. CRP Inflammation <3.00 <5.00 mg/L 10/09/20 24 12:31 PM CDT [facility] Blood STRUCTURE OF RIGHT UPPER LIMB / Unknown Venipuncture / Unknown 03/20/2024 12:12 PM CDT 03/20/2024 12:13 PM CDT us Lacey Chen MD LAB - BLOOD ORDERABLES Final Res ult [facility] Acute Care Lab [address] Lab (1st floor, no room number) [place] [address] * Blood Culture Arm, Right (03/20/2024 12:12 PM CDT) Only the most recent of4 resultswithin the time period is included. Culture No Growth 03/25/2024 4:06 PM CDT [facility] Blood STRUCTURE OF RIGHT UPPER LIMB / Unknown Venipuncture / Unknown 03/20/2024 12:12 PM CDT 03/20/2024 12:13 PM CDT us Diamond Gerardo PA-C LAB - MICRO GENERAL ORDER PRICILLA Final Result [facility] Inf. Diseases Diag. Lab [address] [facility] [place] [address] * CBC with platelets and differential (03/07/2024 [...] LAB - BLOOD ORDERABLES Final Res ult [facility] Acute Care Lab [address] Lab (1st floor, no room number) [place] [phone] [place] [address] * Creatinine (03/07/2024 8:05 AM CDT) Only [...] ORDERABLES Final Res ult Performing Organization Address [facility]/ZIP Co de Phone Number [facility] Care Lab [address] Lab (1st floor, no room number) [place] [address], [place] * AST (03/07/2024 8:05 AM CDT) Only the most recent of5 resultswithin the time period is included. AST 29 0 - 45 U/L 03/07/2024 10:45 AM CDT LABORATORY Blood CENTRAL VENOUS CATHETER / Unknown Client Draw / Unknown 03/07/2024 8:05 AM CDT 03/07/2024 10:16 AM CDT Lacey Chen MD LAB - BLOOD ORDERABLES Final Res ult [facility] Care Lab [address] Lab (1st floor, no room number) [place] [phone] * ALT (03/07/2024 8:05 AM CDT) Only the most recent of5 resultswithin the time period is included. ALT 25 0 - 70 U/L 03/07/2024 10:45 AM CDT LABORATORY Blood CENTRAL VENOUS CATHETER / Unknown Client Draw / Unknown 03/07/2024 8:05 AM CDT 03/07/2024 10:16 AM CDT us Lacey Chen MD LAB - BLOOD ORDERABLES Final Res ult LABORATORY [facility] Acute Care Lab [address] [facility] Lab (1st floor, no room number) [place] [address] * XR Chest Port 1 View (02/05/2024 6:26 PM CDT) Anatomical Region Laterality Modality Chest Digital Radiogra phy 02/05/2024 6:26 PM CDT Impressions 02/05/2024 7:09 PM CDT IMPRESSION: Right PICC line tip at the cavoatrial level. No acute airspace disease. Normal cardiac silhouette. Narrative 02/05/2024 7:09 PM CDT EXAM: XR CHEST PORT 1 VIEW LOCATION: [facility] DATE: 02/05/2024 INDICATION: RN placed PICC, verify tip placement. COMPARISON: 01/30/2024. Procedure Note Patrick Garcia MD - 02/05/2024 EXAM: XR CHEST PORT 1 VIEW LOCATION: [facility] DATE: 02/05/2024 INDICATION: RN placed PICC, verify tip placement. COMPARISON: 01/30/2024. IMPRESSION: Right PICC line tip at the cavoatrial level. No acute airspacedisease. Normal cardiac silhouette. us Danyell Barrett MD IMG DIAGNOSTIC IMAGING ORDERABLE S Final Result * Single Lumen PICC Placement (02/05/2024 6:22 PM CDT) Narrative Kenya Becker RN - 02/05/2024 6:22 PM CDT Kenya Becker RN 02/05/2024 6:43 PM [facility] Single Lumen PICC Placement Date/Time: [...] the procedure a time out was called [place] Protocol: the Joint Commission [place] Protocol was followed Preparation: Patient was prepped [...] and valved Catheter size: 4 Fr Brand: Beabloo Lot number: [id number] Placement method: MST and venipuncture Number of [...] - 5.3 mmol/L 02/05/2024 7:24 AM CDT LABORATORY Blood STRUCTURE OF RIGHT HAND / Unknown Venipuncture / Unknown 02/05/2024 6:56 AM CDT 02/05/2024 7:02 AM CDT Osmar Triplett MD LAB - BLOOD ORDERABLES Final Res ult [facility] Acute Care Lab [address] Lab (1st floor, no room number) [place] [address] * Platelet count (02/05/2024 6:56 AM CDT) Platelet Count 296 150 - 450 10e3/uL 02/05/2024 7:05 AM CDT LABORATORY Blood STRUCTURE OF RIGHT HAND / Unknown Venipuncture / Unknown 02/05/2024 6:56 AM CDT 02/05/2024 7:02 AM CDT Alan Alvarez MD LAB - BLOOD ORDERABLES Final Res ult [facility] Acute Care Lab [address] Lab (1st floor, no room number) [address] [place] [address] * Magnesium (02/05/2024 6:56 AM CDT) Only the most recent of6 resultswithin the time period is included. Magnesium 2.3 1.7 - 2.3 mg/dL 02/05/2024 7:24 AM CDT [facility] Blood STRUCTURE OF RIGHT HAND / Unknown Venipuncture / Unknown 02/05/2024 6:56 AM CDT 02/05/2024 7:02 AM CDT us Osmar Triplett MD LAB - BLOOD ORDERABLES Final Res ult [facility] Acute Care Lab [address] Lab (1st floor, no room number) [address] * Extra Purple Top Tube (02/04/2024 7:11 AM CDT) Hold Specimen JIC 02/04/2024 8:31 AM CDT [facility] Blood BLOOD SPECIMEN / Unknown Venipuncture / Unknown 02/04/2024 7:11 AM CDT 02/04/2024 7:18 AM CDT us Alna Alvarez MD LAB - BLOOD ORDERABLES Final Res ult [facility] Acute Care Lab [address] Lab (1st floor, no room number) [address] * (ABNORMAL) Basic metabolic panel (02/02/2024 [...] 7:49 AM CDT [facility] Comment:eGFR calculated us2020 CKD-EPI equation. Calcium [...] BLOOD ORDERABLES Final Res ult [facility] Acute Care Lab [address] Lab (1st floor, no room number) [place] [address], [facility] * (ABNORMAL) CBC with platelets (02/02/2024 6:39 AM CDT) Only the most recent of2 resultswithin the time period is included. WBC Count 6.0 4.0 - 11.0 10e3/uL 02/02/2024 7:27 AM CDT LABORATORY RBC Count 3.91(L) 4.40 - 5.90 [...] LAB - BLOOD ORDERABLES Final Res ult [facility] Acute Care Lab [address] [facility] Lab (1st floor, no room number) [place] [address], [facility] * ECHO RUSH (02/01/2024 1:42 PM CDT) LVEF 60-65% CARDIOLOGY RESULTS Anatomical Region Laterality Modality Echocardiography 02/01/2024 11:5 3 AM CDT Narrative 02/01/2024 4:16 PM CDT [id number] [facility] [id number]^ARAVIND^[facility] Echocardiography Laboratory [address] [place] [address] Name: JESSICA RITCHIE : 1960 Study Date: 02/01/2024 11:53 AM Age: 63 yrs Gender: Male Patient Location: [facility] Reason For Study: Endocarditis Ordering Physician: [...] disease, 2009. No evidence of prosthetic or confederated coos valve endocarditis. 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 [...] Procedure Note Taina Ignacio MD - 02/01/2024 [id number] [facility] [id number]^ARAVIND^[facility] Echocardiography Laboratory [address] [place] [address] Name: JESSICA RITCHIE : 1960 Study Date: 02/01/2024 11:53 AM Age: 63 yrs Gender: Male Patient Location: [facility] Reason For Study: Endocarditis Ordering Physician: [...] disease, 2009. No evidence of prosthetic or confederated coos valve endocarditis. 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 [...] - BLOOD ORDERABLES Final Result [facility] Acute Care Lab [address] Lab (1st floor, no room number) [place] [phone] * T4 free (02/01/2024 9:21 AM CDT) Free T4 1.12 0.90 - 1.70 ng/dL 02/01/2024 11:10 AM CDT LABORATORY Blood STRUCTURE OF LEFT HAND / Unknown Venipuncture / Unknown 02/01/2024 9:21 AM CDT 02/01/2024 9:36 AM CDT us Key Penn MD LAB - BLOOD ORDERABLES Final Result [facility] Care Lab [address] [facility] Lab (1st floor, no room number) [place] [phone] * EKG 12-lead, tracing only (01/30/2024 9:33 PM CDT) Pathologist [facility] Systolic Blood Pressure mmHg RADIOLOGY RESULTS Diastolic Blood Pressure mmHg RADIOLOGY RESULTS Ventricular Rate 75 BPM RAD IOLOGY RESULTS Atrial Rate 75 BPM RADIOLOG Y RESULTS VT Interval 180 ms RADIOLOG Y RESULTS QRS Duration 90 ms RADIOLO GY RESULTS QT 372 ms RADIOLOGY RESULTS QTc 415 ms RADIOLOGY RESULTS P Callao 34 degrees RADIOLOGY RESULTS R AXIS 43 degrees RADIOLOGY RESULTS T Callao 51 degrees RADIOLOGY RESULTS Interpretation ECG Sinus rhythm Minimal voltage criteria for LVH, may be normal variant ( Sokolow-Tse ) Borderline ECG When compared with ECG of 18-Oct-2022 10:50, No significant change was found Unconfirmed report - interpretation of this ECG is computer generated - see medical record for final interpretation Confirmed by - EMERGENCY ROOM, PHYSICIAN ([id number]), television news video editor FARZANA GOLDBERG ([id number]) on 01/31/2024 6:48:46 AM RADIOLOGY RESULTS 01/30/2024 [...] CDT EXAM: XR CHEST 2 VIEWS LOCATION: [facility] DATE: 01/30/2024 INDICATION: Fever, chills. COMPARISON: 07/16/2009 Procedure Note Sunil Richardson MD - 01/30/2024 EXAM: XR CHEST 2 VIEWS LOCATION: [facility] DATE: 01/30/2024 INDICATION: Fever, chills. COMPARISON: 07/16/2009 [...] Negative Negative 01/30/2024 7:01 PM CDT LABORATORY RSV PCR Negative Negative 01/30/2024 7:01 PM CDT LABORATORY SARS CoV2 PCR Negative Negative 01/30/2024 7:01 PM CDT LABORATORY Comment:NEGATIVE: SARS-CoV-2 (COVID-19) RNA not detected, presumed negative. Swab NASOPHARYNGEAL STRUCTURE / Unknown Non-blood Collection / Unknown 01/30/2024 6:01 PM CDT 01/30/2024 6:23 PM CDT Narrative LABORATORY - 01/30/2024 7:01 PM CDT Testing was performed using the Xpert Xpress CoV2/Flu/RSV Assay on the ThermoAuraXpert Instrument. This test should be ordered for [...] management. This test was validated by the [facility] [employer]. These laboratories are certified under the Clinical Laboratory Improvement Amendments of 1988 (CLIA-88) as qualified to perform high complexity laboratory testing. Joselito Mar MD LAB - MICRO GENERAL ORDERABLES F inal Result [facility] Acute Care Lab [address] [facility] Lab (1st floor, no room number) [place] [address], [facility] * (ABNORMAL) Verigene GP Panel [...] Streptococcus pyogenes and Streptococcus agalactiae. Performed using Codeanywhereigene multiplex nucleic acid test. Final identification and [...] 01/31/2024 2:17 PM CDT Specimen tested with Codeanywhereigene multiplex, gram-positive blood culture nucleic acid test for the following targets: Staphylococcus aureus, Staphylococcus epidermidis, Staphylococcus lugdunensis, other Staphylococcus species, Enterococcus faecalis, Enterococcus faecium, Streptococcus species, Streptococcus agalactiae, Streptococcus anginosus group, Streptococcus pneumoniae, Streptococcus pyogenes, Listeria species, mecA (methicillin resistance), and Juan David/vanB (vancomycin resistance). us Tito Waller MD LAB - MICRO GENERAL ORDE VITALIY Final Result [facility] Inf. Diseases Diag. Lab [address] [facility] [place] [address] * (ABNORMAL) Procalcitonin (01/30/2024 4:28 PM [...] See Procalcitonin Guidance document for more details. [email or web address] Factors that may affect PCT levels (not [...] LAB - BLOOD ORDERABLES Final Res ult [facility] Care Lab [address] Lab (1st floor, no room number) [place] [address] * Lactic acid whole blood (01/30/2024 4:28 PM CDT) Pathologist [facility] Lactic Acid 1.1 0.7 - 2.0 mmol/L 01/30/2024 5:11 PM CDT LABORATORY Blood STRUCTURE OF RIGHT UPPER LIMB / Unknown Venipuncture / Unknown 01/30/2024 4:28 PM CDT 01/30/2024 5:01 PM CDT us Tito Waller MD LAB - BLOOD ORDERABLES F inal Result [facility] Acute Care Lab [address] Lab (1st floor, no room number) [place] [address] * (ABNORMAL) Hepatic function panel (01/30/2024 4:28 [...] - BLOOD ORDERABLES Final Res ult LABORATORY [facility] Acute Care Lab [address] Lab (1st floor, no room number) [place] [address] * Potassium (External Result) (01/29/2024 6:40 PM CDT) Pathologist [facility] Potassium (External) 4.3 3.6 - 5.1 mmol/L [facility] Blood 01/29/2024 6:40 PM CDT Narrative [facility] - 01/29/2024 6:40 PM CDT [facility]-External Lab Results us Provider Outside LAB - HIM EXTERNAL RESULT Edite d Result - Final [facility] [address] [place] [address], [facility] [phone] * (ABNORMAL) Glucose (External Result) (01/29/2024 6:40 PM CDT) Glucose (External) 129(A) 60 - 115 mg/dL [facility] Blood 01/29/2024 6:40 PM CDT [facility] - 01/29/2024 6:40 PM CDT [facility]-External Lab Results us Provider Outside LAB - HIM EXTERNAL RESULT Final Result Performing Organization Address City/[facility]/ZIP Co de Phone Number [facility] [address] [place] [address], [facility] [phone] * Creatinine (External Result) (01/29/2024 6:40 PM CDT) Creatinine (External) 1.0 0.5 - 1.5 mg/dL [facility] Blood 01/29/2024 6:40 PM CDT [facility] - 01/29/2024 6:40 PM CDT [facility]-External Lab Results us Provider Outside LAB - HIM EXTERNAL RESULT Final Result Performing Organization Address [facility] Co de Phone Number [facility] [address] [place] [address], [facility] [phone] * (ABNORMAL) AST (External Result) (01/29/2024 6:40 PM CDT) AST (External) 75(A) 12 - 35 U/L [facility] Blood 01/29/2024 6:40 PM CDT [facility] - 01/29/2024 6:40 PM CDT [facility]-External Lab Results us Provider Outside LAB - HIM EXTERNAL RESULT Final Result Performing Organization Address [facility]/ZIP Co de Phone Number [facility] [address] [place] [address], [facility] [phone] * (ABNORMAL) ALT (External Result) (01/29/2024 6:40 PM CDT) ALT (External) 73(A) 4 - 50 U/L [facility] Blood 01/29/2024 6:40 PM CDT Narrative [facility] - 01/29/2024 6:40 PM CDT [facility]-External Lab Results us Provider Outside LAB - HIM EXTERNAL RESULT Final Result [facility] [address] [place] [address], [facility] [phone] * Lab Result - HIM Scan (01/29/2024 [...] S Final Result [facility] [address] [place] [address], [facility] from Last 3 Months or Most Recently Relevant to Health Maintenance [facility] Advance Directives For more information, please contact: [phone] * Full Code (Latest Code Status on [...] patie nt/ legal decision maker Care Teams [employer] Relationship Specialty Start Date End Date Seferino Hanley MD [address] [place] [address] PCP - General Family Medicine 05/13/22 Physicians, [address] [place] [phone] Assigned PCP 07/06/23 Jeet Milligan MD [address], [facility] [address] [place], [place] [address] Cardiovascular Disease 12/22/23
--- OUTSIDE RECORDS SUMMARY | 2024-04-30 12:29 | XMS_ITS | Patient Health Record ---
Author Organization [facility] Address [address] [facility] [place] [address] Care Team Providers Care Hotel Maintenance Technician Name Role Phone JOVI WILLIAMSON Primary Care [...] Problem Status W/U Status Risk Notes Problem [id number] Non-recurrent bilateral inguinal hernia without obstruction or gangrene (K40.20) Active confirmed Plan Of Treatment No Information Insurance Providers Payer Name Payer Address Payer Phone Subscriber Number Group Number Insured Name Patient Relationship to Insured Coverage Start Date Coverage End Date [employer] [address] [address] [place] [address] [id number] JESSICA CARLOS Self - patient is the insured Medical (General) History Medical History History ICD Code external hemorrhoids Inguinal hernia Back pain Aortic valve replacement Allergic reaction (Acute) HTN Surgical History Surgery Date(Month/Year) Aortic valve replaced colonoscopy 08/30/22
--- OUTSIDE RECORDS SUMMARY | 2024-04-30 12:30 | XMS_ITS | Encounter Summary ---
Author Organization [place] Address [address] [place] [address]. 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 Gender Identity Not on file Sexual Orientation Not on file documented as of this encounter Plan of Treatment Upcoming Encounters Date Type Department Care Team (Late st Contact Info) Description 05/16/2024 3:00 PM SHIPPING ROOM HELPER Office Visit [facility] [place] [address] [facility] [address] [place] [address] Yash Mullins MD [address] [place], [place] [address] 10/01/2024 7:30 AM CDT Appointment [facility] Specialty Care [address] [facility] [address] [place] [address] Martinez Rogers MD [address] [facility] [address] [place] [address] documented as of this encounter Visit Diagnoses Not on filedocumented in this encounter Care Teams Cryptologic Technician Relationship Specialty Start Date End Date Seferino Hanley MD [address] [place] [address] PCP - General Family Medicine 05/13/22 Physicians, [address] [place] [address] Assigned PCP 07/06/23 Martinez Rogers MD [address] [place] [address] Cardiovascular Disease 12/22/23 documented as of this encounter
--- OUTSIDE RECORDS SUMMARY | 2024-04-30 12:30 | XMS_ITS | Encounter Summary ---
Author Organization [place] Address [address] [place] [address]. [place] [address] Care Team Providers Care Fuel Cell Battery Technician Name Role Phone Seferino Hanley MD Primary Care Provider +1 -[phone] [facility] Family Unavailable + -[phone] Jeet Milligan MD Unavailable Reason for Referral [...] [facility] STATISTIC IV PUSH SINGLE INITIAL SUBSTANCE AZ ECHO MYOCARD BX AZ INJECTION, PERFLUTREN LIPID MICROSPHERES, PER ML AZ TTE W/DOPPLER, COMPLETE AZ IV PUSH SINGLE, INITIAL SUBSTANCE AZ TTE W/DOPPLER, COMPLETE AZ TTE W/DOPPLER, COMPLETE HC US GUIDE FOR PERICARDIOCENTESIS HC ECHO MYOCARD BX HC IV PUSH SINGLE, INITIAL SUBSTANCE HC STATISTIC IV PUSH SINGLE INITIAL SUBSTANCE HC ECHO COMPLETE W DOPPLER W CONTRAST HC ECHO COMPLETE W DOPPLER W/O CONTRAST Jeet Milligan MD [address] [place] [address] Phone: tel: fax: Referral ID Status Reason Start Date Expiration Date V isits Requested Visits Authorized [id number] Pending Review 04/02/2024 04/02/2025 1 1 * [...] [facility] STATISTIC IV PUSH SINGLE INITIAL SUBSTANCE AZ ECHO MYOCARD BX AZ INJECTION, PERFLUTREN LIPID MICROSPHERES, PER ML AZ TTE W/DOPPLER, COMPLETE AZ IV PUSH SINGLE, INITIAL SUBSTANCE AZ TTE W/DOPPLER, COMPLETE AZ TTE W/DOPPLER, COMPLETE HC US GUIDE FOR PERICARDIOCENTESIS HC ECHO MYOCARD BX HC IV PUSH SINGLE, INITIAL SUBSTANCE HC STATISTIC IV PUSH SINGLE INITIAL SUBSTANCE HC ECHO COMPLETE W DOPPLER W CONTRAST HC ECHO COMPLETE W DOPPLER W/O CONTRAST Jeet Milligan MD [address] [place] [address] Phone: tel: fax: Referral ID Status Reason Start Date Expiration Date V isits Requested Visits Authorized [id number] Pending Review 04/02/2024 04/02/2025 1 1 * Consultation (Routine: Next available opening) - Pending Review Specialty Diagnoses / Procedures Referred By Contac t Referred To Contact Cardiovascular Disease Diagnoses Ascending aorta dilatation (H) S/P AVR (aortic valve replacement) Jeet Milligan MD [address] [place] [address] Phone: tel: fax: Referral ID Status Reason Start Date Expiration Date V isits Requested Visits Authorized [id number] Pending Review 04/02/2024 04/02/2025 1 1 Question Answer Follow-up with: Self Scheduling Instructions: [facility] will call you to coordinate your care as prescribed by your provider. If you have concerns about scheduling, please call [phone]. Comments [facility] will call you to coordinate your care as prescribed by your provider. If you have concerns about scheduling, please call [phone]. Reason for Visit * Reason Comments Follow Up 2 year follow up * Consultation (Routine: Next available opening) - Closed Specialty Diagnoses / Procedures Referred By Contac t Referred To Contact Cardiovascular Disease Diagnoses Ascending aorta dilatation (H) Jeet Milligan MD [address] [place] [address] Phone: tel: fax: Referral ID Status Reason Start Date Expiration Date Visits Re quested Visits Authorized [id number] Closed 04/06/2023 04/05/2024 1 1 Encounter Details Date Type Department Care Team (Late st Contact Info) Description 04/02/2024 7:45 AM CDT Office Visit [facility] [address] [place] [phone] Jeet Milligan MD [address] [place] [id number] Ascending aorta dilatation (H); Essential hypertension; Hyperlipidemia [...] on file 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 Please contact our team through [employer] or our Nurse Team Voicemail service [phone], or the General Clinic [phone] for any questions or concerns. If you are having a medical emergency, please call [phone]. Sincerely, Jeet Milligan MD, [facility] Cardiology [facility] - [facility] - [place] documented in this [...] Streptococcus sanguinous bacteremia. RUSH was negative for bay mills or bioprosthetic valve vegetations, no evidence of [...] wish to have this done at the [facility], assured patient that we would be [...] questions or concerns. Sincerely, Jeet Milligan MD, [facility] Cardiology Text Page April 02, 2024 Voice [...] FOR HIM PO) Take by mouth daily [place]-3 Fatty Acids (FISH OIL) 1200 MG CAPS [...] Echocardiogram Complete Result Value LVEF 65-70% Narrative [id number]^SRINI^JEET^Yumiko [facility] Echocardiography Laboratory [address] [place] [address] Name: JESSICA CARLOS : 1960 Study Date: 03/27/2024 07:27 AM Age: 63 yrs Gender: Male Patient Location: [facility] Reason For Study: Ascending aorta dilatation (H) [...] AM Echocardiogram RUSH Result Value LVEF 60-65% [facility] [id number]^ARAVIND^BLU [facility] Echocardiography Laboratory [address] [place], [place] [address] Name: JESSICA CARLOS : 1960 Study Date: 02/01/2024 11:53 AM Age: 63 yrs Gender: Male Patient Location: [facility] Reason For Study: Endocarditis Ordering Physician: BLU [...] disease, 2009. No evidence of prosthetic or bay mills valve endocarditis. 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 [...] st Contact Info) Description 05/16/2024 3:00 PM SOLID SURFACE FABRICATOR Office Visit [facility] [address] [facility] [address] [place] [address] Yash uMllins MD [address] [place] [address] 10/01/2024 7:30 AM CDT Appointment [facility] Specialty Care [address] [facility] [address] [place] [address] Jeet Milligan MD [address] [place] [id number] Scheduled Orders Name Type Priority Associated Diagnoses [...] means documented in this encounter Care Teams Fuel Cell Battery Technician Relationship Specialty Start Date End Date Seferino Hanley MD [address] [place] [address] PCP - General Family Medicine 05/13/22 Physicians, [place] [facility] [address] [facility] [address] [place] [address] Assigned PCP 07/06/23 Jeet Milligan MD [address] [place] [id number] Cardiovascular Disease 12/22/23 documented as of this encounter
--- OUTSIDE RECORDS SUMMARY | 2024-04-30 12:30 | XMS_ITS | Encounter Summary ---
Author Organization [facility] Address [address] [place] [address] Care Team Providers Care Payroll Coordinator Name Role Phone Seferino Hanley MD Primary Care Provider [phone] [phone] Physicians, [place] Family Unavailable +1 [phone] Martinez Rogers MD Unavailable Reason for Visit * Reason Comments Cyst Cyst removal on back Encounter Details Date Type Department Care Team (Late st Contact Info) Description 04/10/2024 11:00 AM CDT Office Visit [facility] Physicians [address] [address] Seferino Hanley MD [address] [place] [phone] Epidermoid cyst of skin of back (Primary [...] on file 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 cyst measuring [id number] Anesthesia: local 1% lidocaine with epi 4 [...] removal in 10-14 days. Seferino Hanley MD, [facility] documented in this encounter Nursing Notes [...] for today's visit only yes, phone # [phone] documented in this encounter Plan of Treatment Upcoming Encounters Date Type Department Care Team (Late st Contact Info) Description 05/16/2024 3:00 PM ENVELOPE FOLD OPERATOR Office Visit [facility] [address] [place] [address] Yash Mullins MD [address] [place] [address] 10/01/2024 7:30 AM CDT Appointment [facility] Specialty Care [address] [facility] [address] [place] [phone] Martinez Rogers MD [address] [facility] [address] [place] [id number] documented as of this encounter Procedures Procedure Name Priority Date/Time Associated Diagnosis Comments NE EXC BENIGN SKIN LESION TRUNK/ARM/LEG 2.1-3.0 CM Routine 04/10/2024 12:21 PM CDT Epidermoid cyst of skin of back documented in this encounter Visit Diagnoses Diagnosis Epidermoid cyst of skin of back- Primary documented in this encounter Care Teams Payroll Coordinator Relationship Specialty Start Date End Date Seferino Hanley MD [address] [place], [place] [address] PCP - General Family Medicine 05/13/22 Physicians, [facility] [address] [facility] [address] [place] [phone] Assigned PCP 07/06/23 Martinez Rogers MD [address] [place] [id number] Cardiovascular Disease 12/22/23 documented as of this encounter
--- OUTSIDE RECORDS SUMMARY | 2024-04-30 12:30 | XMS_ITS | Encounter Summary ---
Author Organization [place] Address [address] [place] [address]. [place] [address] Care Team Providers Care Long Term Acute Care Registered Nurse Name Role Phone Seferino Hanley MD Primary Care Provider [phone] Physicians, [place] Family Unavailable +1 [phone] Martinez Rogers MD Unavailable Encounter Details Date [...] in an abandoned building, in an overnight usp, or couch-surfing.) No 01/31/2024 Are you worried [...] file Legal Sex Male 2:58 AM INSPECTOR TOYS Gender Identity Not on file Sexual Orientation Not on file documented as of this encounter Plan of Treatment Upcoming Encounters Date Type Department Care Team (Late st Contact Info) Description 05/16/2024 3:00 PM INSPECTOR TOYS Office Visit [facility] [place] [address] [facility] [address] [place] [phone] Yash Mullins MD [address] [place], [place] [address] 10/01/2024 7:30 AM CDT Appointment [facility] Specialty Care [address] [facility] [address] [facility] [address] [place] [address] Martinez Rogers MD [address] [facility] [address] [place] [address] documented as of this encounter Visit Diagnoses Not on filedocumented in this encounter Care Teams Long Term Acute Care Registered Nurse Relationship Specialty Start Date End Date Seferino Hanley MD [address] [place] [address] PCP - General Family Medicine 05/13/22 Physicians, [address] [place] [address] Assigned PCP 07/06/23 Martinez Rogesr MD [address] [place] [address] Cardiovascular Disease 12/22/23 documented as of this encounter
--- OUTSIDE RECORDS SUMMARY | 2024-04-30 12:30 | XMS_ITS | Encounter Summary ---
Author Organization [facility] Address [address] [place] [address]. 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 Gender Identity Not on file Sexual Orientation Not on file documented as of this encounter Plan of Treatment Upcoming Encounters Date Type Department Care Team (Late st Contact Info) Description 05/16/2024 3:00 PM LANDSCAPE GARDENER Office Visit [facility] [place] [address] [place] [phone] Yash Mullins MD [address] [place] [address] 10/01/2024 7:30 AM CDT Appointment [facility] Specialty Care [address] [facility] [address] [place] [address] Martinez Rogers MD [address] [place] [address] documented as of this encounter Procedures Procedure [...] ORDER PRICILLA Final Result [facility] Inf. Diseases Diag. Lab [address] [facility], Room [address] [place] [address] [[email or web address]] * CRP inflammation (03/20/2024 12:12 PM CDT) CRP Inflammation <3.00 <5.00 mg/L 03/20/20 24 12:31 PM CDT [facility] LABORATORY Blood STRUCTURE OF RIGHT UPPER LIMB / Unknown Venipuncture / Unknown 03/20/2024 12:12 PM CDT 03/20/2024 12:13 PM CDT us Lacey Chen MD LAB - BLOOD ORDERABLES Final Res ult LABORATORY [facility] Acute Care Lab [address] Lab (1st floor, no room number) [place] [address], [facility] documented in this encounter Visit Diagnoses Diagnosis Bacteremia documented in this encounter Care Teams Ignition Expert Relationship Specialty Start Date End Date Seferino Hanley MD [address] [place], [place] [address] PCP - General Family Medicine 05/13/22 Physicians, [place] [facility] [address] [place] [address] Assigned PCP 07/06/23 Martinez Rogers MD [address] [facility] [address] [place] [address] Cardiovascular Disease 12/22/23 documented as of this encounter
--- OUTSIDE RECORDS SUMMARY | 2024-04-30 12:30 | XMS_ITS | Encounter Summary ---
Author Organization [place] Address [address] [facility] [address] Care Team Providers Care Store Administrator Name Role Phone Seferino Hanley MD Primary Care Provider +1 [phone] Physicians, [place] Family Unavailable + -[phone] Martinez Rogers MD Unavailable Encounter Details Date Type Department Care Team (Late st Contact Info) Description 03/08/2024 Orders Only [facility] [address] [place] [address] Lacey Chen MD [facility] [address] [id number] Bacteremia (Primary Dx) Social History Tobacco Use [...] in an abandoned building, in an overnight long-term, or couch-surfing.) No 01/31/2024 Are you worried [...] on file 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 Gender Identity Not on file Sexual Orientation Not on file documented as of this encounter Plan of Treatment Upcoming Encounters Date Type Department Care Team (Late st Contact Info) Description 05/16/2024 3:00 PM SYRUPER Office Visit [facility] [place] [address] [facility] [address] [place] [phone] Yash Mullins MD [address] [place] [address] 10/01/2024 7:30 AM CDT Appointment [facility] Specialty Care [address] [facility] [address] [place] [address] Martinez Rogers MD [address] [place] [address] documented as of this encounter Results * CRP inflammation (03/20/2024 12:12 PM CDT) CRP Inflammation <3.00 <5.00 mg/L 03/20/20 12:31 PM CDT LABORATORY Blood STRUCTURE OF RIGHT UPPER LIMB / Unknown Venipuncture / Unknown 03/20/2024 12:12 PM CDT 03/20/2024 12:13 PM CDT us Lacey Chen MD LAB - BLOOD ORDERABLES Final Res ult [facility] LABORATORY [facility] Acute Care Lab [address] [facility] Lab (1st floor, no room number) [place] [address], [facility] documented in this encounter Visit Diagnoses Diagnosis Bacteremia- Primary documented in this encounter Care Teams Store Administrator Relationship Specialty Start Date End Date Seferino Hanley MD [address] [place] [address] PCP - General Family Medicine 05/13/22 Physicians, [place] [facility] [address] [place] [phone] Assigned PCP 07/06/23 Martinez Rogers MD [address] [place] [address] Cardiovascular Disease 12/22/23 documented as of this encounter
--- OUTSIDE RECORDS SUMMARY | 2024-04-30 12:30 | XMS_ITS | Encounter Summary ---
Author Organization [place] Address [address] [place] [address]. [place] [address] Care Team Providers Care Merchant Seaman Name Role Phone Seferino Hanley MD Primary Care Provider + -[phone] Physicians, [facility] Unavailable + -[phone] Martinez Rogers MD Unavailable Reason for Visit [...] Description 04/03/2024 9:00 AM CDT Office Visit 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 Seferino Hanley MD, [facility] Subjective Adonis Ritchie is a [...] st Contact Info) Description 05/16/2024 3:00 PM STORE PRODUCT DEMONSTRATOR Office Visit [facility] [place] [address] [place] [address] Yash Mullins MD [address] [place], [place] [address] 10/01/2024 7:30 AM CDT Appointment [facility] Specialty Care [address] [facility] [address] [place] [address] Martinez Rogers MD [address] [facility] [address] [place] [address] documented as of this encounter Procedures Procedure Name Priority Date/Time Associated Diagnosis Comments NC DESTRUCT BENIGN LESION, UP TO 14 Routine 04/04/2024 5:33 PM CDT Plantar warts documented in this encounter Visit Diagnoses Diagnosis Plantar warts- Primary Plantar wart Epidermoid cyst of skin of back documented in this encounter Care Teams Merchant Seaman Relationship Specialty Start Date End Date Seferino Hanley MD [address] [place] [address] PCP - General Family Medicine 05/13/22 Physicians, [place] [address] [place] [phone] Assigned PCP 07/06/23 Martinez Rogers MD [address] [place] [id number] Cardiovascular Disease 12/22/23 documented as of this encounter
--- OUTSIDE RECORDS SUMMARY | 2024-04-30 12:30 | XMS_ITS | Encounter Summary ---
Author Organization [place] Address [address] [place] [address]. 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 Gender Identity Not on file Sexual Orientation Not on file documented as of this encounter Plan of Treatment Upcoming Encounters Date Type Department Care Team (Late st Contact Info) Description 05/16/2024 3:00 PM DENTAL TECHNOLOGY ADVISOR Office Visit [facility] [place] [address] [facility] [address] [place] [phone] Yash Mullins MD [address] [place], [place] [address] 10/01/2024 7:30 AM CDT Appointment [facility] Specialty Care [address] [facility] [address] [place] [address] Martinez Rogers MD [address] [facility] [address] [place] [address] documented as of this encounter Visit Diagnoses Not on filedocumented in this encounter Care Teams Maintenance Assistant Relationship Specialty Start Date End Date Seferino Hanley MD [address] [place] [address] PCP - General Family Medicine 05/13/22 Physicians, [address] [place] [address] Assigned PCP 07/06/23 Martinez Rogers MD [address] [place] [address] Cardiovascular Disease 12/22/23 documented as of this encounter
--- OUTSIDE RECORDS SUMMARY | 2024-04-30 12:30 | XMS_ITS | Encounter Summary ---
Author Organization [place] Address [facility] [place] [address] Care Team Providers Care House Piping Inspector Name Role Phone Seferino Hanley MD Primary Care Provider +1 -[phone] Physicians, [place] Family Unavailable + -[phone] Martinez Rogers MD Unavailable Encounter Details Date Type Department Care Team (Late st Contact Info) Description 03/14/2024 [facility] [address] [place] [phone] Diamond Gerardo PA-C [address] [place], [place] [address] Bacteremia (Primary Dx) Social History Tobacco Use [...] file Legal Sex Male 2:58 AM MANAGER OF PRODUCT Gender Identity Not on file Sexual Orientation Not on file documented as of this encounter Plan of Treatment Upcoming Encounters Date Type Department Care Team (Late st Contact Info) Description 05/16/2024 3:00 PM MANAGER OF PRODUCT Office Visit [facility] [place] [address] [facility] [place] [phone] Yash Mullins MD [address] [place] [address] 10/01/2024 7:30 AM CDT Appointment [facility] Special[facility] Care [address] [facility] [address] [place] [phone] Martinez Rogers MD [address] [place] [address] documented as of this encounter Results * [...] [facility] Inf. Diseases Diag. Lab [address] [facility], [address] [place] [address], [facility] documented in this encounter Visit Diagnoses Diagnosis Bacteremia- Primary documented in this encounter Care Teams House Piping Inspector Relationship Specialty Start Date End Date Seferino Hanley MD [address] [place] [address] PCP - General Family Medicine 05/13/22 Physicians, [place] [address] [address] [facility] [address] [place] [address] Assigned PCP 07/06/23 Martinez Rogers MD [address] [place] [address] Cardiovascular Disease 12/22/23 documented as of this encounter
--- OUTSIDE RECORDS SUMMARY | 2024-04-30 12:30 | XMS_ITS | Encounter Summary ---
Author Organization [place] Address [address] [place] [address]. 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 Gender Identity Not on file Sexual Orientation Not on file documented as of this encounter Plan of Treatment Upcoming Encounters Date Type Department Care Team (Late st Contact Info) Description 05/16/2024 3:00 PM METER REPAIRER Office Visit [facility] [place] [address] [facility] [place] [address] Yash Mullins MD [address] [place], [place] [address] 10/01/2024 7:30 AM CDT Appointment [facility] [address] [facility] [address] [place] [address] Martinez Rogers MD [address] [facility] [address] [place] [address] documented as of this encounter Visit Diagnoses Not on filedocumented in this encounter Care Teams Field Examiner Relationship Specialty Start Date End Date Seferino Hanley MD [address] [place] [address] PCP - General Family Medicine 05/13/22 Physicians, [address] [place] [address] Assigned PCP 07/06/23 Martinez Rogers MD [address] [place] [address] Cardiovascular Disease 12/22/23 documented as of this encounter
--- OUTSIDE RECORDS SUMMARY | 2024-04-30 12:30 | XMS_ITS | Encounter Summary ---
Author Organization [place] Address [address] [facility] 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 Gender Identity Not on file Sexual Orientation Not on file documented as of this encounter Plan of Treatment Upcoming Encounters Date Type Department Care Team (Late st Contact Info) Description 05/16/2024 3:00 PM BELL CAPTAIN Office Visit [facility] [place] [address] [facility] [address] [place] [phone] Yash Mullins MD [address] [place] [address] 10/01/2024 7:30 AM CDT Appointment [facility] Specialty Care [address] [facility] [address] [place] [address] Martinez Rogers MD [address] [place] [id number] documented as of this encounter Procedures Procedure Name Priority Date/Time Associated Diagnosis Comments CRP INFLAMMATION STAT 03/08/2024 8:05 AM CDT Bacteremia documented in this encounter Results * CRP inflammation (03/08/2024 8:05 AM CDT) CRP Inflammation <3.00 <5.00 mg/L 03/08/20 3:34 PM CDT LABORATORY Blood BLOOD SPECIMEN / Unknown Venipuncture / Unknown 03/08/2024 8:05 AM CDT 03/08/2024 3:21 PM CDT us Lacey Chen MD LAB - BLOOD ORDERABLES Final Res ult LABORATORY [facility] Lab [address] Lab (1st floor, no room number) [place] [address], [facility] documented in this encounter Visit Diagnoses Diagnosis Bacteremia- Primary documented in this encounter Care Teams Ladies' Locker Room Attendant Relationship Specialty Start Date End Date Seferino Hanley MD [address] [place] [address] PCP - General Family Medicine 05/13/22 Physicians, [place] Family [facility] [address] [place] [phone] Assigned PCP 07/06/23 Martinez Rogers MD [address] [place] [address] Cardiovascular Disease 12/22/23 documented as of this encounter
--- OUTSIDE RECORDS SUMMARY | 2024-04-30 12:30 | XMS_ITS | Encounter Summary ---
Author Organization [place] Address [address] [place] [address]. [place] [address] Care Team Providers Care Boring Mill Set Up Operator Name Role Phone Seferino Hanley MD Primary Care Provider +1 [phone] Physicians, [place] Family Unavailable [phone] Jeet Milligan MD Unavailable Reason for Referral [...] W DOPPLER W/O CONTRAST Jeet Milligan MD [address] [place] [address] Phone: tel: fax: [facility] Care [address] [facility] [address] [place] [address] Phone: tel: fax: Referral ID Status Reason Start Date Expiration Date Visits Re quested Visits Authorized [id number] Closed 04/06/2023 04/05/2024 1 1 Reason for [...] [address] [place] [address] Phone: tel: fax: [facility] [address] [facility] [address] [place] [address] Phone: tel: fax: Referral ID Status Reason Start Date Expiration Date Visits Re quested Visits Authorized [id number] Closed 04/06/2023 04/05/2024 1 1 Encounter Details Date Type Department Care Team (Latest Contact Info) Description 03/27/2024 7:19 AM CDT - 03/27/2024 11:59 PM CDT Hospital Encounter [facility] [address] [facility] [address] [place] [address] Jeet Milligan MD [address] [place] [address] Ascending aorta dilatation (H) Discharge Disposition: Home [...] on file 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 Gender Identity Not on file Sexual Orientation [...] FOR HIM PO) Take by mouth daily [place]-3 Fatty Acids (FISH OIL) 1200 MG CAPS [...] st Contact Info) Description 05/16/2024 3:00 PM COTTON BALL MACHINE TENDER Office Visit [facility] [place] [address] [facility] [address] [place] [phone] Yash Mullins MD [address] [place], [place] [phone] 10/01/2024 7:30 AM CDT Appointment [facility] Special[facility] Care [address] [facility] [address] [place] [address] Jeet Milligan MD [address] [place] [address] [phone] (Work) documented as of this encounter Procedures Procedure Name Priority Date/Time Associated Diagnosis Comments ECHO COMPLETE Routine 03/27/2024 8:14 AM CDT Ascending aorta dilatation (H) documented in this encounter Results * ECHO COMPLETE (03/27/2024 8:14 AM CDT) [facility] Signature LVEF 65-70% CARDIOLOGY RESULTS Anatomical Region Laterality Modality Echocardiography 03/27/2024 7:27 AM CDT Narrative 03/27/2024 11:02 AM CDT [id number]^SRINI^JEET^Yumiko [facility] Echocardiography Laboratory [address] [place] [address] Name: JESSICA CARLOS : 1960 Study Date: 03/27/2024 07:27 AM Age: 63 yrs Gender: Male Patient Location: [facility] Reason For Study: Ascending aorta dilatation [...] Procedure Note Deepak Harrington MD - 03/27/2024 [id number]^SRINI^JEET^Yumiko [facility] Echocardiography Laboratory [address] [place], [place] [address] Name: JESSICA CARLOS : 1960 Study Date: 03/27/2024 07:27 AM Age: 63 yrs Gender: Male Patient Location: [facility] Reason For Study: Ascending aorta dilatation [...] ectasia documented in this encounter Care Teams Boring Mill Set Up Operator Relationship Specialty Start Date End Date Seferino Hanley MD [address] [place] [address] PCP - General Family Medicine 05/13/22 Physicians, [place] [address] [facility] [address] [place] [phone] Assigned PCP 07/06/23 Jeet Milligan MD [address] [place] [address] Cardiovascular Disease 12/22/23 documented as of this encounter
--- OUTSIDE RECORDS SUMMARY | 2024-04-30 12:30 | XMS_ITS | Encounter Summary ---
Author Organization [place] Address [address] [place] [address]. [place] [address] Care Team Providers Care Photoengraving Printer Name Role Phone Seferino Hanley MD Primary Care Provider +1 -[phone] [facility] Family Unavailable + -[phone] Martinez Rogers MD Unavailable Reason for Visit * Reason Onset Date Comments Orders 04/24/2024 Echo RUSH Encounter Details Date Type Department Care Team (Late st Contact Info) Description 04/24/2024 Telephone [facility] [place] [address] [facility] [address] [place] [address] Martinez Rogers MD [address] [facility] [address] [place], [place] [address] Orders (Echo RUSH ) Social History Tobacco Use Types Packs/Day [...] on file 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 Called patient's back,reviewed this. She will call scheduling back to set up the echo for September. NG CONTRACTOR * Telephone Encounter - Cecy Yoon - 04/24/2024 10:57 AM CST Health Call Center Phone Message May a detailed message be left on voicemail: yes Reason for Call: Other: pt's was calling to schedule pt for an Echo R[facility]. [facility] does not have that order but does have regular echo order. Per last office visit notes pt is due for an echo RUSH in 6months. Does provider want regular echo now vs RUSH or does order need to be changed to RUSH? Please notify pt's when she is able to schedule echo RUSH or if regular echo is the plan now. Action Taken: Other: cardiology Travel Screening: Not Applicable Thank you! Specialty Access Center Date of Service: NG CONTRACTOR documented in this encounter Plan of Treatment Upcoming Encounters Date Type Department Care Team (Late st Contact Info) Description 05/16/2024 3:00 PM PAVING CONTRACTOR Office Visit [facility] [place] [address] [facility] [address] [place] [address] Yash Mullins MD [address] [place] [address] 10/01/2024 7:30 AM CDT Appointment [facility] Specialty Care [address] [facility] [address] [place] [address] Martinez Rogers MD [address] [place], [place] [address] documented as of this encounter Visit Diagnoses Not on filedocumented in this encounter Care Teams Photoengraving Printer Relationship Specialty Start Date End Date Seferino Hanley MD [address] [place] [address] PCP - General Family Medicine 05/13/22 Physicians, [place] [facility] [address] [place] [address] Assigned PCP 07/06/23 Martinez Rogers MD [address] [place] [address] Cardiovascular Disease 12/22/23 documented as of this encounter
--- OUTSIDE RECORDS SUMMARY | 2024-04-30 12:30 | XMS_ITS | Encounter Summary ---
Author Organization [place] Address [address] [place] [address]. 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 Gender Identity Not on file Sexual Orientation Not on file documented as of this encounter Plan of Treatment Upcoming Encounters Date Type Department Care Team (Late st Contact Info) Description 05/16/2024 3:00 PM FIRE ADJUSTER Office Visit [facility] [place] [address] [facility] [address] [place] [phone] Yash Mullins MD [address] [place], [place] [address] 10/01/2024 7:30 AM CDT Appointment [facility] Specialty Care [address] [facility] [address] [place] [address] Martinez Rogers MD [address] [facility] [address] [place] [address] documented as of this encounter Visit Diagnoses Not on filedocumented in this encounter Care Teams Metal Moulder'S Assistant Relationship Specialty Start Date End Date Seferino Hanley MD [address] [place] [address] PCP - General Family Medicine 05/13/22 Physicians, [address] [place] [address] Assigned PCP 07/06/23 Martinez Rogers MD [address] [place] [address] Cardiovascular Disease 12/22/23 documented as of this encounter
--- OUTSIDE RECORDS SUMMARY | 2024-04-30 12:30 | XMS_ITS | Encounter Summary ---
Author Organization [place] Address [address] [place] [address]. [place] [address] Care Team Providers Care Construction Electrician Name Role Phone Seferino Hanley MD Primary Care Provider +1 -[phone] Physicians, [facility] Unavailable +1 -[phone] Martinez Rogers MD Unavailable Reason for Visit * Reason Comments Suture Removal Removal of sutures o n back, had cyst removal done on 04/10/24 and was told to having sutures removed today. No concerns, f/c, or drainage. Derm Problem Recurrent foot fungu s, has tried multiple topical OTC antifungals without improvement. Hx of improvement with oral diflucan tx and tolerated well. Encounter Details Date Type Department Care Team (Late st Contact Info) Description 04/22/2024 12:30 PM WAREHOUSE TRAINER Office Visit [facility] Physicians [address] [place] [phone] Seferino Hanley MD [address] [place] [address] Tinea pedis of both feet (Primary Dx); [...] on file Legal Sex Male 2:58 AM WAREHOUSE TRAINER Gender Identity Not on file Sexual Orientation Not on file documented as of this encounter Last Filed Vital Signs Vital Sign Reading Time Taken Comments Blood Pressure 100/70 04/22/2024 12:29 PM WAREHOUSE TRAINER Pulse 70 04/22/2024 12:29 PM WAREHOUSE TRAINER Temperature - - Respiratory Rate 16 04/22/2024 12:29 PM WAREHOUSE TRAINER Oxygen Saturation 94% 04/22/2024 12:29 PM WAREHOUSE TRAINER Inhaled Oxygen Concentration - - Weight 78 kg (172 lb) 04/22/2024 12:29 PM WAREHOUSE TRAINER Height - - Body Mass Index 25.4 04/02/2024 7:50 AM CDT documented in this encounter Progress Notes * Seferino Hanley MD - 04/22/2024 12:30 PM CST Assessment & Plan 1. Tinea pedis of both feet (Primary) R/b/a fluconazole reviewed, has failed multiple topical tx. Follow-up if not resolved after 4 doses. - fluconazole (DIFLUCAN) 200 MG tablet; Take 1 tablet (200 mg) by mouth every 7 days for 4 doses. Dispense: 4 tablet; Refill: 0 2. Epidermoid cyst of skin of back Well healing, sutures easily removed today. Follow-up prn. Seferino Hanley MD, [facility] Subjective Adonis Ritchie is a 63 year old male who presents to clinic today for the following health issues: HPI Chief Complaint Patient presents with Suture Removal Removal of sutures on back, had cyst removal done on 04/10/24 and was told to having sutures removed today. No concerns, f/c, or drainage. Derm Problem Recurrent foot fungus, has tried multiple topical OTC antifungals without improvement. Hx of improvement with oral diflucan tx and tolerated well. Objective BP 100/70 (BP Location: Left arm, Patient Position: Sitting, Cuff Size: Adult Large) Pulse 70 Resp 16 Wt 78 kg (172 lb) SpO2 94% BMI 25.40 kg/m?? Body mass index is 25.4 kg/m??. Alert, NAD NC/AT Sclerae anicteric Regular rate Resp nonlabored Skin warm and dry, well healing incision with 2 mattress sutures intact. Tinea pedis bilateral feet, no appreciated nail involvement. Speech intact. Normal gait. Appropriate affect Labs reviewed. HOUSE TRAINER documented in this encounter Nursing Notes * Magaly Conde CMA - 04/22/2024 12:30 PM CST Chief Complaint Patient presents with Suture Removal Removal of sutures on back, had cyst removal done on 04/10/24 and was told to having sutures removed today Pre-visit Screening: Immunizations: up to date Colonoscopy: is up to date Mammogram: na Asthma Action Test/Plan: na PHQ9: na GAD7: na Questioned patient about current smoking habits Pt. has never smoked. Ok to leave detailed message on voice mail for today's visit only yes, phone # [phone] (home) HOUSE TRAINER documented in this encounter Plan of Treatment Upcoming Encounters Date Type Department Care Team (Late st Contact Info) Description 05/16/2024 3:00 PM WAREHOUSE TRAINER Office Visit [facility] [place] [address] [facility] [address] [place] [address] Yash Mullins MD [address] [place] [address] 10/01/2024 7:30 AM CDT Appointment [facility] Specialty Care [address] [facility] [address] [place] [address] Martinez Rogers MD [address] [place], [place] [address] documented as of this encounter Visit Diagnoses Diagnosis Tinea pedis of both feet- Primary Epidermoid cyst of skin of back documented in this encounter Care Teams Construction Electrician Relationship Specialty Start Date End Date Seferino Hanley MD [address] [place] [address] PCP - General Family Medicine 05/13/22 Physicians, [place] [facility] [address] [place] [address] Assigned PCP 07/06/23 Martinez Rogers MD [address] [place] [address] Cardiovascular Disease 12/22/23 documented as of this encounter
--- OUTSIDE RECORDS SUMMARY | 2024-04-30 12:30 | XMS_ITS | Encounter Summary ---
Author Organization [place] Address [address] [place] [address] Care Team Providers Care Public Relations Specialist Name Role Phone Seferino Hanley MD Primary Care Provider +1 -[phone] Physicians, [place] Family Unavailable +1 -[phone] Martinez Rogers MD Unavailable Reason for Visit * Reason Comments Clinic Care Coordination - Post Hospital Bacteremia Encounter Details Date Type Department Care Team (Latest Contact Info) Description 02/07/2024 Care Coordination [facility] Physicians [address] [phone] Seferino Hanley MD [address] [id number] Clinic Care Coordination - Post Hospital (Bacteremia [...] file Legal Sex Male 2:58 AM MANAGER COUNCIL Gender Identity Not on file Sexual Orientation Not on file documented as of this encounter Progress Notes * Magaly Conde CMA - 02/07/2024 3:33 PM CDT Care Coordination Initial Assessment The patient was admitted into [facility] on 01/30/24 for bacteremia. He [...] Contact Info) Description 05/16/2024 3:00 PM MANAGER COUNCIL Office Visit [facility] [place] [address] [facility] [address] [place] [address] Yash Mullins MD [address] [place] [address] 10/01/2024 7:30 AM CDT Appointment [facility] Specialty Care [address] [facility] [address] [place] [address] Martinez Rogers MD [address] [place] [address] documented as of this encounter Visit Diagnoses Not on filedocumented in this encounter Care Teams Public Relations Specialist Relationship Specialty Start Date End Date Seferino Hanley MD [address] [place] [address] PCP - General Family Medicine 05/13/22 Physicians, [address] [facility] [address] [place] [address] Assigned PCP 07/06/23 Martinez Rogers MD [address] [place] [address] Cardiovascular Disease 12/22/23 documented as of this encounter
--- OUTSIDE RECORDS SUMMARY | 2024-04-30 12:31 | XMS_ITS | Encounter Summary ---
Author Organization [place] Address [address] [place] [address]. [place] [address] Care Team Providers Care Hand Stemmer Name Role Phone Fritz Lagunas MD Primary Care Provider Cynthia vailable Fritz Lagunas MD Unavailable Unavailab Barron Gordon MD Unavailable Unavail able Martinez Rogers MD Unavailable Seferino Hanley MD Primary Care Provider +1 [phone] Fritz Lagunas MD Unavailable Unavailab vero [facility] Unavailable +[phone] Martinez Rogers MD Unavailable Encounter Details Date Type Department Care Team (Late st Contact Info) Description 11/28/2011 Office Visit-[facility] [address] [place] [address] Barron Cook MD Social History Tobacco Use Types Packs/Day Years Used Date Smoking Tobacco: Never Assessed Sex and Gender Information Value Date Recorded Sex Assigned at Not on file 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 DATE: 11/28/2011 JESSICA CARLOS DATE OF : 1960 AGE: [age] years old Referring Physician: FRITZ LAGUNAS Referring Clinic: [facility] CURRENT DIAGNOSES 1. 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 [...] st Contact Info) Description 05/16/2024 3:00 PM PLATE FITTER Office Visit [facility] [place] [address] [facility] [address] [place] [phone] Yash Mullins MD [address] [place] [address] 10/01/2024 7:30 AM CDT Appointment [facility] [address] [facility] [address] [place] [address] Martinez Rogers MD [address] [place] [address] documented as of this encounter Visit Diagnoses Not on filedocumented in this encounter Additional Health Concerns Infection Onset Date Last Indicated Resolved Time Rule Out COVID-19 01/30/2024 01/30/2024 01/30/2024 7:01 PM CDT documented as of this encounter Care Teams Hand Stemmer Relationship Specialty Start Date End Date Fritz Lagunas MD PCP - General Family Practice 11/21/11 07/29/20 Seferino Hanley MD [address] [place] [address] PCP - General Family Medicine 05/13/22 Fritz Lagunas MD INACTIVE IN [place] 10/09/2020 Assigned PCP 11/22/19 05/27/22 Barron Cook MD Assigned Heart and Vascular Provider 04/03/20 03/27/21 Martinez Rogers MD [address] [place] [address] Assigned Heart and Vascular Provider 03/28/21 11/01/23 Fritz Lagunas MD INACTIVE IN [place] 10/09/2020 Assigned PCP 08/06/22 03/03/23 Physicians, [address] [facility] [address] [place] [phone] Assigned PCP 07/06/23 Martinez Rogers MD [address] [place] [address] Cardiovascular Disease 12/22/23 documented as of this encounter
--- OUTSIDE RECORDS SUMMARY | 2024-04-30 12:31 | XMS_ITS ---
Author Organization [place] Address [address] [place] [address] Care Team Providers Care Pathology Teacher Name Role Phone Seferino Hanley MD Primary Care Provider +1 [phone] [facility] Unavailable +1 -[phone] Martinez Rogers MD Unavailable Anti-infective Status:Closed (Active) Start date:02/15/2024 Enrollment date:02/16/2024 End date:03/18/2024 Close reason:Therapy Completed Related program episode:Home Infusion (Active) Continued Care and Services Coordination
--- OUTSIDE RECORDS SUMMARY | 2024-04-30 12:31 | XMS_ITS | Encounter Summary ---
Author Organization [place] Address [address] [place] [address] Care Team Providers Care Electrical Systems Engineer Name Role Phone None, Bfp Primary Care Provider UnavailTia Waldrop MD Primary Care Provider Cynthia vailable Tia Lagunas MD Unavailable Unavailab Barron Gordon MD Unavailable Unavail able Martinez Rogers MD Unavailable Seferino Hanley MD Primary Care Provider [phone] [phone] Tia Lagunas MD Unavailable Unavailab vero [facility] Unavailable + -[phone] Martinez Rogers MD Unavailable Encounter Details Date Type Department Care Team (Late st Contact Info) Description 09/30/2009 Office Visit-[facility] [place] [id number] [place] [phone] Justo Harmon MD Social History Tobacco Use Types Packs/Day Years Used Date Smoking Tobacco: Never Assessed Sex and Gender Information Value Date Recorded Sex Assigned at Not on file Legal Sex Male 2:58 AM MANAGER ELIGIBILITY Gender Identity Not on file Sexual Orientation Not on file documented as of this encounter Progress Notes * Justo Harmon MD - 10/02/2009 2:13 PM CDT Progress Note Created by: Justo Harmon M.D. [id number] DATE: 09/30/2009 JESSICA CARLOS DATE OF : 1960 AGE: [age] years old Referring Physician: TIA LAGUNAS Referring Clinic: [facility] CURRENT DIAGNOSES 1. 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 Aortic Valve-Stenosis, 424.1 3. Qlrdwndwccal-Uji-hvppbnqi, 420.91 ALLERGIES NKA MEDICATIONS (prior to changes [...] would be inclined to treat him with lipid lowering drugs in the form of pravastatin 40 mg, although I do not currently know his lipid levels. Secondly, I would wish to give him statins because his blood pressure is in the prehypertensive range in the 120 to 140 range. In addition, he does have an ascending aorta that is 3.9. As I review theliterature briefly from the most recent guidelines, that [...] and an ARB because the articular in [place] [employer] of [employer] in patients with Marfan's [...] with in own home; Place of - [place]; Hours Worked - 60-80 hours per week; [...] Tablet 1 p.o. twice daily #180 (One [place] [employer]) Physician Order and Warfarin 10 mg [...] Contact Info) Description 05/16/2024 3:00 PM MANAGER ELIGIBILITY Office Visit [facility] [place] [address] [place] [phone] Yash Mullins MD [address] [place] [address] 10/01/2024 7:30 AM CDT Appointment [facility] [address] [facility] [address] [place] [phone] Martinez Rogers MD [address] [place] [address] documented as of this encounter Visit Diagnoses Not on filedocumented in this encounter Additional Health Concerns Infection Onset Date Last Indicated Resolved Time Rule Out COVID-19 01/30/2024 01/30/2024 01/30/2024 7:01 PM CDT documented as of this encounter Care Teams Electrical Systems Engineer Relationship Specialty Start Date End Date None, Bfp PCP - General 06/25/99 11/20/11 Tia Lagunas MD PCP - General Family Practice 11/21/11 07/29/20 Seferino Hanley MD [address] [place] [address] PCP - General [facility] 05/13/22 Tia Lagunas MD INACTIVE IN [place] 10/09/2020 Assigned PCP 11/22/19 05/27/22 Barron Cook MD Assigned Heart and Vascular Provider 04/03/20 03/27/21 Martinez Rogers MD [address] [facility] [address] [place] [address] Assigned Heart and Vascular Provider 03/28/21 11/01/23 Tia Lagunas MD INACTIVE IN [place] 10/09/2020 Assigned PCP 08/06/22 03/03/23 Physicians, [place] [address] [place] [address] Assigned PCP 07/06/23 Martinez Rogers MD [address] [facility] [address] [place] [address] Cardiovascular Disease 12/22/23 documented as of this encounter
--- OUTSIDE RECORDS SUMMARY | 2024-04-30 12:31 | XMS_ITS | Encounter Summary ---
Author Organization [place] Address [address] [place] [address]. [place] [address] Care Team Providers Care Continuous Miner Operator Name Role Phone Fritz Hitchcock MD Unavailable Unavailab Martinez Fragoso MD Unavailable Seferino Hanley MD Primary Care Provider [phone] [phone] Fritz Hitchcock MD Unavailable Unavailab [facility] Unavailable +1 -[phone] Martinez Rogers MD Unavailable Reason for Visit * Reason Onset Date Comments Appointment 12/30/2021 Call pt to sched ule Dr. Rogers appt Ascending aorta dilatation & CT Chest w/Contrast in [place] in March Encounter Details Date Type Department Care Team (Late st Contact Info) Description 12/30/2021 Telephone [facility] Heart [address] [place] [address] Martinez Rogers MD [address] [facility] [address] [place], [place] [address] Appointment (Call pt to schedule Dr. 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 Gender Identity Not on file Sexual Orientation Not on file documented as of this encounter Miscellaneous Notes * Telephone Encounter - Drea Romano - 12/30/2021 3:56 PM CDT [facility] Call Center Phone Message May a detailed [...] st Contact Info) Description 05/16/2024 3:00 PM FOOD SERVICE COORDINATOR Office Visit [facility] [address] [place] [phone] Yash Mullins MD [address] [place] [address] 10/01/2024 7:30 AM CDT Appointment [facility] Specialty Care [address] [facility] [address] [place] [phone] Martinez Rogers MD [address] [place] [address] documented as of this encounter Visit Diagnoses Not on filedocumented in this encounter Additional Health Concerns Infection Onset Date Last Indicated Resolved Time Rule Out COVID-19 01/30/2024 01/30/2024 01/30/2024 7:01 PM CDT documented as of this encounter Care Teams Continuous Miner Operator Relationship Specialty Start Date End Date Seferino Hanley MD [address] [place] [address] PCP - General Family Medicine 05/13/22 Fritz Hitchcock MD INACTIVE IN [place] 10/09/2020 Assigned PCP 11/22/19 05/27/22 Martinez Rogers MD [address] [facility] [address] [place] [address] Assigned Heart and Vascular Provider 03/28/21 11/01/23 Fritz Hitchcock MD INACTIVE IN [place] 10/09/2020 Assigned PCP 08/06/22 03/03/23 Physicians, [address] [place] [address] Assigned PCP 07/06/23 Martinez Rogers MD [address] [place] [address] Cardiovascular Disease 12/22/23 documented as of this encounter
--- OUTSIDE RECORDS SUMMARY | 2024-04-30 12:31 | XMS_ITS | Encounter Summary ---
Author Organization [place] Address [address] [place] [address] Care Team Providers Care Government Minister Name Role Phone Seferino Hanley MD Primary Care Provider [phone] [phone] [facility], [facility] Unavailable + -[phone] Martinez Rogers MD Unavailable Reason for Visit * Auth/Cert Specialty Diagnoses / Procedures Referred By Sherif garza Referred To Contact EMERGENCY MEDICINE Diagnoses Bacteremia [facility] Emergency Dept [address] [place] [address] Phone: tel:[phone] fax: Referral ID Status Reason Start Date Expiration Date Visits Re quested Visits Authorized [id number] 1 1 Encounter Details Date Type Department Care Team (Late st Contact Info) Description 02/01/2024 Hospital Encounter [facility] Heart Care [address] [place] [address] Taina Ignacio MD [address] [place] [id number] Social History Tobacco Use Types Packs/Day Years [...] on file 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 Gender Identity Not on file Sexual Orientation Not on file documented as of this encounter Plan of Treatment Upcoming Encounters Date Type Department Care Team (Late st Contact Info) Description 05/16/2024 3:00 PM TERMITE INSPECTOR Office Visit [facility] [place] [address] [place] [address] Yash Mullins MD [address] [place] [address] 10/01/2024 7:30 AM CDT Appointment [facility] Specialty Care [address] [facility] [address] [place] [address] Martinez Rogers MD [address] [place] [address] documented as of this encounter Visit Diagnoses Not on filedocumented in this encounter Care Teams Government Minister Relationship Specialty Start Date End Date Seferino Hanley MD [address] [place] [address] PCP - General Family Medicine 05/13/22 Physicians, [address] [place] [address] Assigned PCP 07/06/23 Martinez Rogers MD [address] [place] [address] Cardiovascular Disease 12/22/23 documented as of this encounter
--- OUTSIDE RECORDS SUMMARY | 2024-04-30 12:31 | XMS_ITS | Encounter Summary ---
Author Organization [place] Address [address] [place] [address] Care Team Providers Care Deputy County Attorney Name Role Phone None, Bfp Primary Care Provider UnavailFritz Waldrop MD Primary Care Provider Cynthia vailable Fritz Hitchcock MD Unavailable Unavailab Barron Gordon MD Unavailable Unavail able Martinez Rogers MD Unavailable Seferino Hanley MD Primary Care Provider [phone] [phone] Fritz Hitchcock MD Unavailable Unavailab vero [facility] Unavailable + -[phone] Martinez Rogers MD Unavailable Encounter Details Date Type Department Care Team (Late st Contact Info) Description 05/06/2009 Office Visit-[facility] Heart Clinic [address] [place] [address] Crystal Key MD HEART [place] [id number] Social History Tobacco Use Types Packs/Day Years Used Date Smoking Tobacco: Never Assessed Sex and Gender Information Value Date Recorded Sex Assigned at Not on file Legal Sex Male 2:58 AM PHOTO MASK INSPECTOR Gender Identity Not on file Sexual Orientation Not on file documented as of this encounter Progress Notes * Crystal Key MD - 05/20/2009 2:48 PM CST Progress Note Created by: Crystal Key M.D. [id number] DATE: 05/06/2009 JESSICA CARLOS DATE OF : 1960 AGE: [age] years old Referring Physician: SCARLETT JACOBSEN Referring Clinic: [facility] CURRENT DIAGNOSES 1. Aortic Valve-Stenosis, 424.1 ALLERGIES [...] dyslipidemic, but was told by his primary care physician that diet and exercise should be able [...] the appointment. Blood pressure, unfortunately, was not recorded at the time of his echocardiogram. 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[email or web address]; Sexual Activity - did not discuss sexual history; Residence - lives with in own home; Place of - [place]; Hours Worked - 60-80 hours per week; [...] st Contact Info) Description 05/16/2024 3:00 PM PHOTO MASK INSPECTOR Office Visit [facility] [place] [address] [place] [address] Yash Mullins MD [address] [place] [address] 10/01/2024 7:30 AM CDT Appointment [facility] [address] [facility] [address] [place] [address] Martinez Rogers MD [address] [place] [id number] documented as of this encounter Visit Diagnoses Not on filedocumented in this encounter Additional Health Concerns Infection Onset Date Last Indicated Resolved Time Rule Out COVID-19 01/30/2024 01/30/2024 01/30/2024 7:01 PM CDT documented as of this encounter Care Teams Deputy County Attorney Relationship Specialty Start Date End Date None, Bfp PCP - General 06/25/99 11/20/11 Fritz Hitchcock MD PCP - General Family Practice 11/21/11 07/29/20 Seferino Hanley MD [address] [place] [address] PCP - General Family Medicine 05/13/22 Fritz Hitchcock MD INACTIVE IN [place] 10/09/2020 Assigned PCP 11/22/19 05/27/22 Barron Cook MD Assigned Heart and Vascular Provider 04/03/20 03/27/21 Martinez Rogers MD [address] [place] [address] Assigned Heart and Vascular Provider 03/28/21 11/01/23 Fritz Hitchcock MD INACTIVE IN [place] 10/09/2020 Assigned PCP 08/06/22 03/03/23 Physicians, [address] [place] [address] Assigned PCP 07/06/23 Martinez Rogers MD [address], [facility] [address] [place] [id number] Cardiovascular Disease 12/22/23 documented as of this encounter
--- OUTSIDE RECORDS SUMMARY | 2024-04-30 12:31 | XMS_ITS | Encounter Summary ---
Author Organization [facility] Address [facility] [place] [address] Care Team Providers Care Cage Supervisor Name Role Phone Seferino Hanley MD Primary Care Provider [phone] [facility] +1 -[phone] Martinez Rogers MD Unavailable Reason for Visit * Reason Comments Home Infusion Encounter Details Date Type Department Care Team ([facility] st Contact Info) Description 02/02/2024 Home Infusion ([facility]) [facility] [address] [place] [phone] Gila Miramontes, [facility] [address] [place], [place] [address] Home Infusion Social History Tobacco Use Types [...] in an abandoned building, in an overnight longterm, or couch-surfing.) No 01/31/2024 Are you worried [...] on file Legal Sex Male 2:58 AM HOME 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 In reference to hospital admission to [facility] on 01/30/24 and referral from [place]. Please contact Intake with any questions, or In [place], Home Infusion ([id number]). documented in this encounter Plan of Treatment Upcoming Encounters Date Type Department Care Team (Late st Contact Info) Description 05/16/2024 3:00 PM HOME HEALTH CAREGIVER Office Visit [facility] [place] [address] [place] [address] Yash Mullins MD [address] [place] [address] 10/01/2024 7:30 AM CDT Appointment [facility] Specialty Care [address] [facility] [address] [place] [address] Martinez Rogers MD [address] [place] [address] documented as of this encounter Visit Diagnoses Not on filedocumented in this encounter Care Teams Cage Supervisor Relationship Specialty Start Date End Date Seferino Hanley MD [address] [place] [address] PCP - General Family Medicine 05/13/22 Phys[facility], [place] [facility] [address] [facility] [address] [place] [address] Assigned PCP 07/06/23 Martinez Rogers MD [address] [place] [id number] Cardiovascular Disease 12/22/23 documented as of this encounter
--- OUTSIDE RECORDS SUMMARY | 2024-04-30 12:31 | XMS_ITS | Encounter Summary ---
Author Organization [place] Address [facility] [place] [address] Care Team Providers Care Insulation Board Back Tender Name Role Phone None, Bfp Primary Care Provider Unavailabl Tia Ching MD Primary Care Provider Cynthia vailable Tia Lagunas MD Unavailable Unavailab Barron Gordon MD Unavailable Unavail able Martinez Rogers MD Unavailable Seferino Hanley MD Primary Care Provider Tia Lagunas MD Unavailable Unavailab vero [facility] Unavailable + -[phone] Martinez Rogers MD Unavailable Encounter Details Date Type Department Care Team (Late st Contact Info) Description 07/15/2009 Office Visit-[facility] [place] [address] [facility] [address] [place] [address] Rubi Núñez, APPLE CHECKER [facility] [address] [facility] [address] [place], [place] [phone] Social History Tobacco Use Types Packs/Day Years Used Date Smoking Tobacco: Never Assessed Sex and Gender Information Value Date Recorded Sex Assigned at Not on file 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 [id number] DATE: 07/15/2009 JESSICA RITCHIE DATE OF : 1960 AGE: [age] years old Referring Physician: TIA LAGUNAS Referring Clinic: [facility] CURRENT DIAGNOSES 1. 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 Zcdyosxsoebo-Fby-ycsugcew, 420.91 3. Aortic Valve-Stenosis, 424.1 ALLERGIES NKA [...] delightful 48-year-old male who presents to the [facility] today for a followup visit. 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 [place] [address] [facility] [place] [address] Yash Mullins MD [address] [place] [address] 10/01/2024 7:30 AM CDT Appointment [facility] [address] [facility] [address] [place] [address] Martinez Rogers MD [address] [place] [address] documented as of this encounter Visit Diagnoses Not on filedocumented in this encounter Additional Health Concerns Infection Onset Date Last Indicated Resolved Time Rule Out COVID-19 01/30/2024 01/30/2024 01/30/2024 7:01 PM CDT documented as of this encounter Care Teams Insulation Board Back Tender Relationship Specialty Start Date End Date None, Bfp PCP - General 06/25/99 11/20/11 Tia Lagunas MD PCP - General Family Practice 11/21/11 07/29/20 Seferino Hanley MD [address] [place] [address] PCP - General Family Medicine 05/13/22 Tia Lagunas MD INACTIVE IN [place] 10/09/2020 Assigned PCP 11/22/19 05/27/22 Barron Cook MD Assigned Heart and Vascular Provider 04/03/20 03/27/21 Martinez Roegrs MD [address], [facility] [address] [place] [address] Assigned Heart and Vascular Provider 03/28/21 11/01/23 Tia Lagunas MD INACTIVE IN [place] 10/09/2020 Assigned PCP 08/06/22 03/03/23 Physicians, [address] [place] [address] Assigned PCP 07/06/23 Martinez Rogers MD [address], [facility] [address] [place] [address] Cardiovascular Disease 12/22/23 documented as of this encounter
--- OUTSIDE RECORDS SUMMARY | 2024-04-30 12:31 | XMS_ITS | Encounter Summary ---
Author Organization [facility] Address [address] [address] Care Team Providers Care Staff Physical Therapy Assistant Name Role Phone Tressa Hanley MD Primary Care Provider [phone] [facility] Unavailable + [phone] Martinez Rogers MD Unavailable Reason for Referral * Care Coordination (Routine: Next available opening) - Pending Review Specialty Diagnoses / Procedures Referred By Contac t Referred To Contact Diagnoses Bacteremia Justin Elizalde MD [address] [place] [address] Phone: tel:[phone] fax: Referral ID Status Reason Start Date Expiration Date V isits Requested Visits Authorized [id number] Pending Review 02/05/2024 02/04/2025 1 1 Question Answer Reason for Referral: Care Transition Transition: Inpatient to outpatient Clinical Staff have discussed the Care Coordination Referral with the patient and/or caregiver: No Comments * Consultation (Routine: Next available opening) Specialty Diagnoses / Procedures Referred By Contac t Referred To Contact Diagnoses [facility] [address] [place] [address] Phone: tel: fax: Referral ID Status Reason Start Date Expiration Date Visits Re quested Visits Authorized Question Answer Preferred Location: [facility] Infusion - [phone] May draw labs from Venous Catheter: Yes Comments See ID notes for plan, duration Reason for Visit * Reason Comments Abnormal Labs * Auth/Cert Specialty Diagnoses / Procedures Referred By Sherif t Referred To Contact EMERGENCY MEDICINE Diagnoses Bacteremia [facility] Emergency Dept [address] [place] [address] Phone: tel: fax: Referral ID Status Reason Start Date Expiration Date Visits Re quested Visits Authorized [id number] 1 1 Encounter Details Date Type Department Care Team (Late st Contact Info) Description 01/30/2024 5:37 PM CDT - 02/05/2024 7:25 PM CDT Hospital Encounter [facility] 3 Medical Surgical [address] [place] [phone] Joselito Mar MD [facility] [address] [place], [place] [phone] Alan Alvarez MD [address] [facility] [place] [id number] Bacteremia Discharge Disposition: Home or Self Care [...] on file 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 He was seen in [facility] with a 2-week history of fevers, weakness, sweating episodes and chills. He was called today that his blood cultures are positive for gram-positive cocci and came to the ER. Blood cultures growing Streptococcussanguinous. DAVID negative for three affiliated or bioprosthetic valve vegetations, no evidence of [...] discharging this patient. Justin Elizalde MD, MD [place] [address] MEDICAL SURGICAL [address] [facility] [address] Physical Exam Vital Signs: Temp: 97.7 ??F [...] Recent 3 CBC's: Recent Labs Lab Test 02/05/24 0656 02/02/24 [...] Narrative EXAM: XR CHEST 2 VIEWS LOCATION: [facility] DATE: 01/30/2024 INDICATION: Fever, chills. COMPARISON: 07/16/2009 Impression IMPRESSION: Heart size is normal. Aortic valve replacement. Lungs are clear bilaterally. Mediastinum and visualized bony structures are unremarkable. Echocardiogram DAVID Value LVEF 60-65% Narrative [id number] [facility] [id number]^ARAVIND^[facility] Echocardiography Laboratory [address] [place] [address] Name: MICAH RITCHIE : 1960 Study Date: 02/01/2024 11:53 AM Age: 63 yrs Gender: Male Patient Location: [facility] Reason For Study: Endocarditis Ordering Physician: [...] disease, 2009. No evidence of prosthetic or three affiliated valve endocarditis. 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 [...] FOR HIM PO) Take by mouth daily [place]-3 Fatty Acids (FISH OIL) 1200 MG CAPS [...] stay. This service will be provided by [facility]. They will contact you regarding your first visit. If you have any questions about this service, please call them at . * Attachments The following attachments cannot be sent through Care Everywhere. * PICC (Peripherally Inserted Central Catheter) (Guatemalan) * Caring for Your PICC or Central IV Line: Video (Guatemalan) * Getting Treatment Through a PICC or Central Line: Video (Guatemalan) * Blood Culture (Guatemalan) documented in this encounter Medications at Time [...] FOR HIM PO) Take by mouth daily [place]-3 Fatty Acids (FISH OIL) 1200 MG CAPS [...] patient will have line placement this afternoon. [facility] is planning to follow for home IV abx at discharge. If patient discharges today with home IV abx, home infusion referral will need to be on the discharge order. [facility] requesting discharge orders signed by 1630 if patient is discharging today, hospitalist notified. Bedside RN was updated that we anticipate patient will need to get his antibiotic dose today prior to discharge as home infusion would plan to see him at home tomorrow for teaching and first home dose. Layla Hanley RN, BSN Inpatient Care Coordination [facility] [phone] * Leni Pereira CRNI - 02/05/2024 11:53 AM CDT [facility] Received request for benefit check should pt require home IV abx. This patient has coverage for IV abx through their [employer] plan, patient has a deductible of $7,800.00 (met $184.47 to date).Once the deductible is met patient is covered at 100%. [facility] has no line preference. I spoke with Redd to introduce home infusion services and review benefits. He would like to proceedwith [facility] for home IV abx needs. Addendum @ 1545h: Pt will discharge home today with new IV ceftriaxone q24hrs. Pt requesting a homeRN visit tomorrow for IV teaching around 1600h, which [facility] will coordinate. Pt will need to dose his IV ceftriaxone at [facility] today prior to discharge home. Pt will need PICC line prior to discharge home. [facility] will deliver medication and supplies to pt's home this evening. Pt instructed on proper abx storage and he verbalized understanding. Thank you for the referral. Leni Pereira RN [facility] Liaison [phone] (Mon thru Fri 8am - 5pm) [phone] Office * Danyell Barrett MD - 02/05/2024 11:37 AM CDT Images from the original note were not included. [facility] Infectious Disease Progress Note Date of Service [...] Ceftriaxone PICC OPIV antibiotic orders placed in Epic for 6 weeks from negative blood cxs (01/31) until 03/14 Can discharge from the [place] stand point once antibiotics are arranged Follow [...] 1644 02/04/2024 2046 Blood Culture Hand, Right [[id number]] Blood from Hand, Right Preliminary result Component Value Culture No growth after 3 days P 01/30/2024 2030 02/05/2024 0953 Blood Culture Peripheral Blood [[id number]] (Abnormal) Peripheral Blood Preliminary result Component Value Culture Positive on the 1st day of incubation Abnormal P Streptococcus sanguinis Panic C 2 of 2 bottles Susceptibilities done on previous cultures 01/30/2024 1801 01/30/2024 1901 Symptomatic Influenza A/B, RSV, & SARS-CoV2 PCR (COVID-19) Nasopharyngeal [[id number]] Swab from Nasopharyngeal Final result Component Value Influenza A PCR Negative Influenza B PCR Negative RSV PCR Negative SARS CoV2 PCR Negative NEGATIVE: SARS-CoV-2 (COVID-19) RNA not detected, presumed negative. 01/30/2024 1628 02/05/2024 0954 Blood Culture Arm, Right [[id number]] (Abnormal) Blood from Arm, Right Preliminary result [...] disease, 2009. No evidence of prosthetic or three affiliated valve endocarditis. 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 No periprosthetic regurgitation. Trace to mild prosthetic regurgitation. The prosthetic valve opens well. Mean systolic gradient 24 mmHg. Normal left ventricular systolic function. Estimated LVEF 60-65%. Normal right ventricular size and systolic function. Bubble study negative for inter-atrial shunt. * Osmar Triplett MD - 02/04/2024 12:32 PM CDT [facility] Hospitalist Progress Note Provider : Osmar Triplett MD Date of Service (when I saw the patient): 02/04/2024 Assessment & Plan Micah Ritchie is a 63 year old male admitted on 01/30/2024. He has history of bicuspid aortic valve with history of aortic valve replacement in 2009. He was seen in [facility] with a 2-week history of fevers, weakness, sweating episodes and chills. He was called today that his blood cultures are positive for gram-positive cocci and came to the ER. Blood cultures growing Streptococcussanguinous. DAVID negative for three affiliated or bioprosthetic valve vegetations, no evidence of [...] Q24H Alan Alvarez MD 200 mL/hr at 02/03/244 2 g at 02/03/241923 rosuvastatin (CRESTOR) tablet [...] Triplett MD - 02/03/2024 12:57 PM CDT [facility] Hospitalist Progress Note Provider : Osmar Triplett MD Date of Service (when I saw the patient): 02/03/2024 Assessment & Plan Micah Ritchie is a 63 year old male admitted on 01/30/2024. He has history of bicuspid aortic valve with history of aortic valve replacement in 2009. He was seen in [facility] with a 2-week history of fevers, weakness, sweating episodes and chills. He was called today that his blood cultures are positive for gram-positive cocci and came to the ER. Blood cultures growing Streptococcussanguinous. DAVID negative for three affiliated or bioprosthetic valve vegetations, no evidence of [...] Bedtime Alan Alvarez MD 20 mg at 02/02/24 215 sodium chloride (PF) 0.9% PF flush 3 [...] Triplett MD - 02/02/2024 2:07 PM CDT [facility] Hospitalist Progress Note Provider : Osmar Triplett MD Date of Service (when I saw the patient): 02/02/2024 Assessment & Plan Micah Ritchie is a 63 year old male admitted on 01/30/2024. He has history of bicuspid aortic valve with history of aortic valve replacement in 2009. He was seen in [facility] with a 2-week history of fevers, weakness, sweating episodes and chills. He was called today that his blood cultures are positive for gram-positive cocci and came to the ER. Blood cultures growing Streptococcussanguinous. DAVID negative for three affiliated or bioprosthetic valve vegetations, no evidence of [...] disease following, appreciate assistance -Blood cultures from 8/20 growing Streptococcus sanguinous in 2/2 bottles -DAVID [...] Chen MD - 02/02/2024 11:56 AM CDT [facility] Infectious Disease Progress Note Date [...] intermittent infusion 1,750 mg Intravenous Q24H Alan lAvarez MD 250 mL/hr at 02/01/242112 1,750 mg [...] Triplett MD - 02/01/2024 3:30 PM CDT [facility] Hospitalist Progress Note Provider : Osmar Triplett MD Date of Service (when I saw the patient): 02/01/2024 Assessment & Plan Micah Ritchie is a 63 year old male admitted on 01/30/2024. He has history of bicuspid aortic valve with history of aortic valve replacement in 2009 He was seen in [facility] with a 2-week history of fevers, weakness, [...] Chen MD - 02/01/2024 11:47 AM CDT [facility] Infectious Disease Progress Note Date of Service [...] injection 5,000 Units 5,000 Units Subcutaneous Q8H Aaln Alvarez MD 5,000 Units at 01/31/24 1355 [...] input(s): All cultures: Recent Labs Lab 01/30/24202901/30/24 1628 CULTURE Positive on the 1st day of [...] Penn MD - 01/31/2024 10:36 AM CDT [facility] Hospitalist Progress Note Provider : Key Penn MD, MD Date of Service (when I saw the patient): 01/31/2024 Assessment & Plan Micah Ritchie is a 63 year old male admitted on 01/30/2024. He has history of bicuspid aortic valve with history of aortic valve replacement in 2009 He was seen in [facility] with a 2-week history of fevers, weakness, [...] repeat blood cultures. -I called lab at [facility] today. Final culture and sensitivity not available [...] 3 mL Intracatheter Q8H Alan Alvarez MD vancomycin (VANCOCIN) 1,750 mg in 0.9% [...] Narrative EXAM: XR CHEST 2 VIEWS LOCATION: [facility] DATE: 01/30/2024 INDICATION: Fever, chills. COMPARISON: 07/16/2009 Impression IMPRESSION: Heart size is normal. Aortic valve replacement. Lungs are clear bilaterally. Mediastinum and visualized bony structures are unremarkable. documented in this encounter H&P Notes * Alan Alvarez MD - 01/30/2024 8:36 PM CDT [facility] History and Physical - Hospitalist Service Date of Admission: 01/30/2024 Assessment & Plan Micah Ritchie is a 63 year old male admitted on 01/30/2024. He has history of bicuspid aortic valve with history of aortic valve replacement in 2009 He was seen in [facility] with a 2-week history of fevers, weakness, [...] Follow-up on repeat blood cultures. Please call [facility] in the morning to get culture and [...] 2-4 Days Alan Alvarez MD Hospitalist Service [facility] Securely message with [employer] ([employer] info) Text page via [facility] [employer] Paging/Directory Chief Complaint Fevers History is obtained from the patient. at bedside. History of Present Illness Micah Ritchie is a 63 year old male admitted on 01/30/2024. He has history of bicuspid aortic valve with history of aortic valve replacement in 2009 He was seen in [facility] with a 2-week history of fevers, weakness, [...] Yes No Sig: Take by mouth daily [place]-3 Fatty Acids (FISH OIL) 1200 MG CAPS [...] Narrative EXAM: XR CHEST 2 VIEWS LOCATION: [facility] DATE: 01/30/2024 INDICATION: Fever, chills. COMPARISON: 07/16/2009 Impression IMPRESSION: Heart size is normal. Aortic valve replacement. Lungs are clear bilaterally. Mediastinum and visualized bony structures are unremarkable. documented in this encounter Procedure Notes * Kenya Becker RN - 02/05/2024 6:36 PM CDTAssociated Order(s): Single Lumen PICC Placement [facility] Single Lumen PICC Placement Date/Time: 02/05/2024 6:22 [...] the procedure a time out was called [place] Protocol: the Joint Commission [place] Protocol was followed Preparation: Patient was prepped [...] size: 4 Fr Brand: Bard Lot number: [id number] Placement method: MST and venipuncture Number of [...] Communication Assessment Patient's communication style: spoken language (Guatemalan or Bilingual) Hearing Difficulty or Deaf: no [...] agreement with CM sending benefit check to [facility] for IV abx for discharge. The patient stated he feels he can manage this at home. Benefit check was sent. He confirmed his correct address is in the chart and that he has reliable transport for discharge home from the hospital. Layla Hanley RN, BSN Inpatient Care Coordination [facility] [phone] * Lacey Chen MD - 01/31/2024 9:36 AM CDTAssociated Order(s): INFECTIOUS DISEASES IP CONSULT [facility] Infectious Disease Consultation Date of Admission: 01/30/2024 [...] Yes Yes Sig: Take by mouth daily [place]-3 Fatty Acids (FISH OIL) 1200 MG CAPS [...] Davis RN - 01/30/2024 9:24 PM CDT [facility] ED Nurse Handoff Report ED Chief complaint: Abnormal Labs . ED Diagnosis: Final diagnoses: Bacteremia Allergies: No Known Allergies Code Status: Full Code Activity level - Baseline/Home: independent. Activity Level - Current: independent. Lift room needed: No. Bariatric: No Recovery Advocate Needed: No Isolation: No. Infection: Not Applicable. [...] replacement in 2009 He was seen in [facility] with a 2-week history of fevers, weakness, [...] on January 30, 2024 at 9:37 PM Jayesh Mccall called the ED to inform them the [...] positive cocci. Of note, he works on [employer] and frequently has cuts on his hands. [...] Notes I reviewed care everywhere and updated [facility]. I reviewed last week's records from [facility] as noted above Past Medical History Medical [...] PO Multiple Vitamins-Minerals (MULTI FOR HIM PO) [place]-3 Fatty Acids (FISH OIL) 1200 MG CAPS [...] provider's statements to me. Joselito Mar MD 01/30/24 2147 * Allison Rice RN - 01/30/2024 4:03 PM CDT Pt here from [facility] for positive blood cultures growing gram positive [...] Taken 02/04/2024 1628 by Cheri Davis RN Safety Promotion/Fall Prevention: [...] shift note. Outcome: Progressing Flowsheets (Taken 02/03/2024 221) Outcome Evaluation: IV vancomycin discontinued. 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 Review/Management: medications reviewed Problem: Infection Goal: Absence [...] Arizmendi RN - 02/02/2024 4:30 AM CDT [id number] Inpatient Progress Note: BP 118/75 (BP Location: [...] IV Vanco and Rocephin Pertinent Labs: new BC pending- pending D/C Diet: Regular Consults: ID/Cardiology [...] Taken 02/02/2024 003 by Alejandra Arizmendi RN Body Position: position changed independently Goal: [...] Family member via in-person 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: Added: Lutein Deleted: [place] prn (from 2022) Changed: Loratadine to prn, times on some entries Allergies reviewed with patient and updates made in EHR: no Medication History Completed By: Reggie Forman RPH 01/30/2024 11:29 PM AERODYNAMICS PROFESSOR Med List Medication Sig Last Dose amoxicillin [...] Take by mouth daily 01/30/2024 at am [place]-3 Fatty Acids (FISH OIL) 1200 MG CAPS Take 2,400 mg by mouth daily 01/30/2024 at am rosuvastatin (CRESTOR) 20 MG tablet Take 1 tablet (20 mg) by mouth at bedtime 01/29/2024 at hs vitamin D3 (CHOLECALCIFEROL) 50 mcg (2000 units) tablet Take 50 mcg by mouth at bedtime 01/29/2024 at hs * Pharmacy-Vancomycin Dosing Service - [facility] - 01/30/2024 10:24 PM CDT Pharmacy Vancomycin [...] st Contact Info) Description 05/16/2024 3:00 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 COMPARISON: 01/30/2024. Procedure Note Patrick Garcia MD - 02/05/2024 EXAM: XR CHEST PORT 1 VIEW LOCATION: [facility] DATE: 02/05/2024 INDICATION: RN placed PICC, verify tip placement. COMPARISON: 01/30/2024. IMPRESSION: Right PICC line tip at the cavoatrial level. No acute airspacedisease. Normal cardiac silhouette. us Danyell Barrett MD IMG DIAGNOSTIC IMAGING ORDERABLE S Final Result * Single Lumen PICC Placement (02/05/2024 6:22 PM CDT) Narrative Kenya Becker RN - 02/05/2024 6:22 PM CDT Kenya Becker RN 02/05/2024 6:43 PM [facility] Single Lumen PICC Placement Date/Time: 02/05/2024 6:22 [...] the procedure a time out was called [place] Protocol: the Joint Commission [place] Protocol was followed Preparation: Patient was prepped [...] and valved Catheter size: 4 Fr Brand: SeeMe Lot number: [id number] Placement method: MST and venipuncture Number of [...] - 1.17 mg/dL 02/05/2024 7:24 AM CDT [facility] GFR Estimate 88 >60 mL/min/1.7 3m2 02/05/2024 7:24 AM CDT [facility] Comment:eGFR calculated usin 2020 CKD-EPI equation. Blood STRUCTURE OF RIGHT HAND / Unknown Venipuncture / Unknown 02/05/2024 6:56 AM CDT 02/05/2024 7:02 AM CDT us Alan Alvarez MD LAB - BLOOD ORDERABLES Final Res ult LABORATORY [facility] Lab [address] Lab (1st floor, no room number) [place] [address] * Platelet count (02/05/2024 6:56 AM CDT) Platelet Count 296 150 - 450 10e3/uL 02/05/2024 7:05 AM CDT [facility] Blood STRUCTURE OF RIGHT HAND / Unknown Venipuncture / Unknown 02/05/2024 6:56 AM CDT 02/05/2024 7:02 AM CDT us Alan Alvarez MD LAB - BLOOD ORDERABLES Final Res ult Performing Organization Address City/[facility]/ZIP Co de Phone Number LABORATORY [facility] Lab [address] Lab (1st floor, no room number) [place] [phone] [place] [address] * Magnesium (02/05/2024 6:56 AM CDT) Magnesium 2.3 1.7 - 2.3 mg/dL 02/05/2024 7:24 AM CDT [facility] Blood STRUCTURE OF RIGHT HAND / Unknown Venipuncture / Unknown 02/05/2024 6:56 AM CDT 02/05/2024 7:02 AM CDT Osmar Triplett MD LAB - BLOOD ORDERABLES Final Res ult Performing Organization Address [facility]/ZIP Co de Phone Number LABORATORY [facility] Lab [address] Lab (1st floor, no room number) [place] [phone] [place] [address] * Potassium (02/05/2024 6:56 AM CDT) Potassium 3.9 3.4 - 5.3 mmol/L 02/05/2024 7:24 AM CDT [facility] Blood STRUCTURE OF RIGHT HAND / Unknown Venipuncture / Unknown 02/05/2024 6:56 AM CDT 02/05/2024 7:02 AM CDT Osmar Triplett MD LAB - BLOOD ORDERABLES Final Res ult LABORATORY [facility] Lab [address] Lab (1st floor, no room number) [place] [phone] * Extra Purple Top Tube (02/04/2024 7:11 AM CDT) Hold Specimen JIC 02/04/2024 8:31 AM CDT [facility] Blood BLOOD SPECIMEN / Unknown Venipuncture / Unknown 02/04/2024 7:11 AM CDT 02/04/2024 7:18 AM CDT us Alan Alvarez MD LAB - BLOOD ORDERABLES Final Res ult [facility] Acute Care Lab [address] Lab (1st floor, no room number) [place] [address] * Creatinine (02/04/2024 7:11 AM CDT) Creatinine 1.02 0.67 - 1.17 mg/dL 02/04/2024 7:36 AM CDT LABORATORY GFR Estimate 83 >60 mL/min/1.7 3m2 02/04/2024 7:36 AM CDT LABORATORY Comment:eGFR calculated usin 2020 CKD-EPI equation. Blood BLOOD SPECIMEN / Unknown Venipuncture / Unknown 02/04/2024 7:11 AM CDT 02/04/2024 7:17 AM CDT us Alan Alvarez MD LAB - BLOOD ORDERABLES Final Res ult Performing Organization Address City/[facility]/ZIP Co de Phone Number [facility] [address] Lab (1st floor, no room number) [place] [phone] * (ABNORMAL) Magnesium (02/04/2024 7:11 AM CDT) Magnesium 2.5(H) 1.7 - 2.3 mg/dL 02/04/2024 7:36 AM CDT LABORATORY Blood BLOOD SPECIMEN / Unknown Venipuncture / Unknown 02/04/2024 7:11 AM CDT 02/04/2024 7:17 AM CDT us Osmar Triplett MD LAB - BLOOD ORDERABLES Final Res ult [facility] [address] Lab (1st floor, no room number) [place] [address] * Potassium (02/04/2024 7:11 AM CDT) Potassium 4.3 3.4 - 5.3 mmol/L 02/04/2024 7:36 AM CDT [facility] Blood BLOOD SPECIMEN / Unknown Venipuncture / Unknown 02/04/2024 7:11 AM CDT 02/04/2024 7:17 AM CDT Osmar Triplett MD LAB - BLOOD ORDERABLES Final Res ult [facility] Lab [address] Lab (1st floor, no room number) [address] [place] [address] * Creatinine (02/03/2024 5:45 AM CDT) Creatinine 1.02 0.67 - 1.17 mg/dL 02/03/2024 6:21 AM CDT [facility] GFR Estimate 83 >60 mL/min/1.7 3m2 02/03/2024 6:21 AM CDT [facility] Comment:eGFR calculated usin g 2020 CKD-EPI equation. Blood STRUCTURE OF LEFT HAND / Unknown Venipuncture / Unknown 02/03/2024 5:45 AM CDT 02/03/2024 6:01 AM CDT us Alan Alvarez MD LAB - BLOOD ORDERABLES Final Res ult [facility] [address] Lab (1st floor, no room number) [place] [id number] * (ABNORMAL) Magnesium (02/03/2024 5:45 AM CDT) Magnesium 2.4(H) 1.7 - 2.3 mg/dL 02/03/2024 6:21 AM CDT [facility] Blood STRUCTURE OF LEFT HAND / Unknown Venipuncture / Unknown 02/03/2024 5:45 AM CDT 02/03/2024 6:01 AM CDT Osmar Triplett MD LAB - BLOOD ORDERABLES Final Res ult LABORATORY [facility] Lab [address] Lab (1st floor, no room number) [place] [address] * Potassium (02/03/2024 5:45 AM CDT) Potassium 4.2 3.4 - 5.3 mmol/L 02/03/2024 6:21 AM CDT [facility] Blood STRUCTURE OF LEFT HAND / Unknown Venipuncture / Unknown 02/03/2024 5:45 AM CDT 02/03/2024 6:01 AM CDT Osmar Triplett MD LAB - BLOOD ORDERABLES Final Res ult Performing Organization Address City/[facility]/ZIP Co de Phone Number LABORATORY [facility] Lab [address] Lab (1st floor, no room number) [place] [address] * (ABNORMAL) Basic metabolic panel (02/02/2024 [...] BLOOD ORDERABLES Final Res ult RH LABORATORY [facility] Lab [address] [facility] Lab (1st floor, no room number) [place] [address] * (ABNORMAL) CBC with platelets (02/02/2024 [...] [facility] Acute [facility] Lab [address] Lab (1st floor, no room number) [place] [address] * Magnesium (02/02/2024 6:39 AM CDT) Magnesium 2.3 1.7 - 2.3 mg/dL 02/02/2024 7:49 AM CDT [facility] Blood STRUCTURE OF RIGHT HAND / Unknown Venipuncture / Unknown 02/02/2024 6:39 AM CDT 02/02/2024 7:23 AM CDT us Osmar Triplett MD LAB - BLOOD ORDERABLES Final Res ult [facility] Lab [address] Lab (1st floor, no room number) [place] [address], [facility] * Blood Culture Hand, Right (02/01/2024 4:44 PM CDT) Culture No Growth 02/06/2024 8:46 PM CDT [facility]AT[facility] Blood STRUCTURE OF RIGHT HAND / Unknown Venipuncture / Unknown 02/01/2024 4:44 PM CDT 02/01/2024 4:46 PM CDT us Lacey Chen MD LAB - MICRO GENERAL ORDERABLES F inal Result [facility] LABORATORY [facility] Inf. Diseases Diag. Lab [address] [facility], [address] [place] [address] * Potassium (02/01/2024 4:44 PM CDT) Potassium 3.9 3.4 - 5.3 mmol/L 02/01/2024 5:14 PM CDT LABORATORY Blood STRUCTURE OF RIGHT HAND / Unknown Venipuncture / Unknown 02/01/2024 4:44 PM CDT 02/01/2024 4:46 PM CDT Osmar Triplett MD LAB - BLOOD ORDERABLES Final Res ult LABORATORY [facility] Acute [facility] Lab [address] [facility] Lab (1st floor, no room number) [place] [address] * ECHO DAVID (02/01/2024 1:42 PM CDT) LVEF 60-65% CARDIOLOGY RESULTS Anatomical Region Laterality Modality Echocardiography 02/01/2024 11:5 3 AM CDT Narrative 02/01/2024 4:16 PM CDT [id number] [facility] [id number]^ARAVIND^ALAN [facility] Echocardiography Laboratory [address] [place] [address] Name: MICAH RITCHIE : 1960 Study Date: 02/01/2024 11:53 AM Age: 63 yrs Gender: Male Patient Location: [facility] Reason For Study: Endocarditis Ordering Physician: ALAN ALVAREZ Performed By: [facility] Manju Coto BSA: 2.0 m2 Height: 69 in [...] disease, 2009. No evidence of prosthetic or three affiliated valve endocarditis. 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 [...] Procedure Note Taina Ignacio MD - 02/01/2024 [id number] [facility] [id number]^ARAVIND^[facility] Echocardiography Laboratory [address] [facility] [place] [address] Name: MICAH RITCHIE : 1960 Study Date: 02/01/2024 11:53 AM Age: 63 yrs Gender: Male Patient Location: [facility] Reason For Study: Endocarditis Ordering Physician: ALAN ALVAREZ Performed By: SHERICE Coto BSA: 2.0 m2 Height: 69 in [...] disease, 2009. No evidence of prosthetic or three affiliated valve endocarditis. 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 [...] VTI: 60.4 cm Report approved by: Dr Taian Moreno 02/01/2024 04:16 PM us Alan Alvarez [...] - BLOOD ORDERABLES Final Result RH LABORATORY [facility] Lab [address] [facility] Lab (1st floor, no room number) [place] [address] * (ABNORMAL) CBC with platelets and differential (02/01/2024 9:21 AM CDT) WBC Count 7.9 4.0 - 11.0 [...] MD LAB - BLOOD ORDERABLES Final Result [facility] [address] Lab (1st floor, no room number) [address] * (ABNORMAL) Magnesium (02/01/2024 9:21 AM CDT) Magnesium 2.5(H) 1.7 - 2.3 mg/dL 02/01/2024 10:01 AM CDT LABORATORY Blood STRUCTURE OF LEFT HAND / Unknown Venipuncture / Unknown 02/01/2024 9:21 AM CDT 02/01/2024 9:36 AM CDT Key Penn MD LAB - BLOOD ORDERABLES Final Result Performing Organization Address [facility] Co de Phone Number [facility] Lab [address] Lab (1st floor, no room number) [address] * (ABNORMAL) TSH with free T4 reflex (02/01/2024 9:21 AM CDT) TSH 4.50(H) 0.30 - 4.20 uIU/mL 02/01/2024 10:06 AM CDT LABORATORY Blood STRUCTURE OF LEFT HAND / Unknown Venipuncture / Unknown 02/01/2024 9:21 AM CDT 02/01/2024 9:36 AM CDT Key Penn MD LAB - BLOOD ORDERABLES Final Result [facility] [address] Lab (1st floor, no room number) [address] * Basic metabolic panel (02/01/2024 9:21 AM CDT) Sodium 137 135 - 145 mmol/L 02/01/2024 12:00 PM CDT LABORATORY Potassium 4.2 3.4 - 5.3 mmol/L 02/01/2024 12:00 PM CDT LABORATORY Chloride 101 98 - 107 mmol/L 02/01/2024 12:00 PM CDT LABORATORY Carbon Dioxide (CO2) 25 22 - 29 mmol/L 02/01/2024 12:00 PM CDT LABORATORY Anion Gap 11 7 - 15 mmol/L 02/01/2024 12:00 PM CDT LABORATORY Urea Nitrogen 14.3 8.0 - 23.0 mg/dL 02/01/2024 12:00 PM CDT LABORATORY Creatinine 1.08 0.67 - 1.17 mg/dL 02/01/2024 12:00 PM CDT LABORATORY GFR Estimate 77 >60 mL/min/1.7 3m2 02/01/2024 12:00 PM CDT LABORATORY Comment:eGFR calculated usin 2020 CKD-EPI [...] - 99 mg/dL 02/01/2024 12:00 PM CDT LABORATORY Blood STRUCTURE OF LEFT HAND / Unknown Venipuncture / Unknown 02/01/2024 9:21 AM CDT 02/01/2024 9:36 AM CDT Key Penn MD LAB - BLOOD ORDERABLES Final Result LABORATORY [facility] Lab [address] Lab (1st floor, no room number) [place] [address], [facility] * Magnesium (01/31/2024 6:53 AM CDT) Pathologist [facility] Magnesium 2.2 1.7 - 2.3 mg/dL 01/31/2024 7:51 AM CDT RH LABORATORY Blood STRUCTURE OF LEFT UPPER LIMB / Unknown Venipuncture / Unknown 01/31/2024 6:53 AM CDT 01/31/2024 7:25 AM CDT Alan Alvarez MD LAB - BLOOD ORDERABLES Final Res ult RH LABORATORY [facility] Lab [address] Lab (1st floor, no room number) [place] [address], [facility] * (ABNORMAL) CBC with platelets (01/31/2024 6:53 AM CDT) Pathologist [facility] WBC Count 8.3 4.0 - 11.0 10e3/uL [...] BLOOD ORDERABLES Final Res ult RH LABORATORY [facility] Lab [address] Lab (1st floor, no room number) [place] [address] * (ABNORMAL) Basic metabolic panel (01/31/2024 6:53 AM CDT) Sodium 133(L) 135 - 145 mmol/L 01/31/2024 7:51 AM CDT LABORATORY Potassium 4.7 3.4 - 5.3 mmol/L 01/31/2024 7:51 AM CDT LABORATORY Chloride 98 98 - 107 mmol/L 01/31/2024 7:51 AM CDT LABORATORY Carbon Dioxide (CO2) 23 22 - 29 mmol/L 01/31/2024 7:51 AM CDT LABORATORY Anion Gap 12 7 - 15 mmol/L 01/31/2024 7:51 AM CDT LABORATORY Urea Nitrogen 11.4 8.0 - 23.0 mg/dL 01/31/2024 7:51 AM CDT LABORATORY Creatinine 1.05 0.67 - 1.17 mg/dL 01/31/2024 7:51 AM CDT LABORATORY GFR Estimate 80 >60 mL/min/1.7 3m2 01/31/2024 7:51 AM CDT RH LABORATORY Comment:eGFR calculated usin g 2020 CKD-EPI equation. Calcium 8.5(L) 8.8 - 10.4 mg/dL 01/31/2024 7:51 AM CDT LABORATORY Comment:Reference intervals for this test were [...] LAB - BLOOD ORDERABLES Final Res ult [facility] [address] Lab (1st floor, no room number) [place] [address] * EKG 12-lead, tracing only (01/30/2024 9:33 PM CDT) Systolic Blood Pressure mmHg RADIOLOGY RESULTS Diastolic Blood Pressure mmHg RADIOLOGY RESULTS Ventricular Rate 75 BPM RAD IOLOGY RESULTS Atrial Rate 75 BPM RADIOLOG Y RESULTS [place] Interval 180 ms RADIOLOG Y RESULTS QRS Duration 90 ms RADIOLO GY RESULTS QT 372 ms RADIOLOGY RESULTS QTc 415 ms RADIOLOGY RESULTS P [place] 34 degrees RADIOLOGY RESULTS R AXIS 43 degrees RADIOLOGY RESULTS T [place] 51 degrees RADIOLOGY RESULTS Interpretation ECG Sinus rhythm Minimal voltage criteria for LVH, may be normal variant ( Sokolow-Tse ) Borderline ECG When compared with ECG of 18-Oct-2022 10:50, No significant change was found Unconfirmed report - interpretation of this ECG is computer generated - see medical record for final interpretation Confirmed by - EMERGENCY ROOM, PHYSICIAN ([id number]), online content editor FARZANA GOLDBERG ([id number]) on 01/31/2024 6:48:46 AM RADIOLOGY RESULTS 01/30/2024 9:33 PM CDT 01/31/2024 6:48 AM CDT us Alan Alvarez MD ECG ORDERABLES Edited Result - Final Performing Organization Address [facility]/ZIP Co de Phone Number RADIOLOGY RESULTS * Chest XR, PA & LAT (01/30/2024 8:34 PM CDT) Anatomical Region Laterality Modality Chest Computed Radiogr aphy 01/30/2024 8:34 PM CDT Impressions 01/30/2024 9:15 PM CDT IMPRESSION: Heart size is normal. Aortic valve replacement. Lungs are clear bilaterally. Mediastinum and visualized bony structures are unremarkable. Narrative 01/30/2024 9:15 PM CDT EXAM: XR CHEST 2 VIEWS LOCATION: [facility] DATE: 01/30/2024 INDICATION: Fever, chills. COMPARISON: 07/16/2009 Procedure Note Sunil Richardson MD - 01/30/2024 EXAM: XR CHEST 2 VIEWS LOCATION: [facility] DATE: 01/30/2024 INDICATION: Fever, chills. COMPARISON: [...] dited Result - Final [facility] LABORAT[facility] Inf. Diseases Diag. Lab [address] [facility], [address] [place] [address] * Symptomatic Influenza A/B, RSV, & SARS-CoV2 [...] the Xpert Xpress CoV2/Flu/RSV Assay on the [employer] GeneXpert Instrument. This test should be ordered [...] management. This test was validated by the [facility]. These laboratories are certified under the Clinical Laboratory Improvement Amendments of 1988 (CLIA-88) as qualified to perform high complexity laboratory testing. Joselito Mar MD LAB - MICRO GENERAL ORDERABLES F inal Result [facility] [address] [facility] ([facility]st floor, no room number) [place] [address], [facility] * (ABNORMAL) Verigene GP Panel (01/30/2024 [...] Streptococcus pyogenes and Streptococcus agalactiae. Performed using [employer]igene multiplex nucleic acid test. Final identification and [...] MYAH BURKS Final Result [facility] Inf. Diseases Diag. Lab [address] [facility], [address] [place] [address], [facility] * (ABNORMAL) Hepatic function panel [...] Medical Center Acute Care Lab [address] Lab (1st floor, no room number) [place] [address], [facility] * (ABNORMAL) Procalcitonin (01/30/2024 4:28 [...] See Procalcitonin Guidance document for more details. [email or web address] Factors that may affect PCT levels (not [...] ORDERABLES Final Res ult Performing Organization Address City/[facility]/ZIP Co de Phone Number [facility] Lab [address] [employer] Lab (1st floor, no room number) [address] * (ABNORMAL) CRP inflammation (01/30/2024 4:28 PM CDT) CRP Inflammation 73.42(H) <5.00 mg/L 01/30/2024 6:23 PM CDT LABORATORY Blood STRUCTURE OF RIGHT UPPER LIMB / Unknown Venipuncture / Unknown 01/30/2024 4:28 PM CDT 01/30/2024 5:01 PM CDT Joselito Mar MD LAB - BLOOD ORDERABLES Final Res ult [facility] Lab [address] Lab (1st floor, no room number) [address] * (ABNORMAL) CBC with platelets and differential [...] BLOOD ORDERABLES F inal Result RH LABORATORY [facility] Lab [address] Lab (1st floor, no room number) [place] [address] * (ABNORMAL) Blood Culture Arm, Right (01/30/2024 4:28 PM CDT) [facility] Culture Positive on the 1st day of [...] ORDE RABLES Final Result [facility] LAB[facility]AT[facility] Inf. Diseases Diag. Lab [address] [facility], [address] [place] [address] * Lactic acid whole blood (01/30/2024 4:28 PM CDT) Lactic Acid 1.1 0.7 - 2.0 mmol/L 01/30/2024 5:11 PM CDT RH LABORATORY Blood STRUCTURE OF RIGHT UPPER LIMB / Unknown Venipuncture / Unknown 01/30/2024 4:28 PM CDT 01/30/2024 5:01 PM CDT us Tito Waller MD LAB - BLOOD ORDERABLES F inal Result LABORATORY [facility] Lab [address] [facility] Lab (1st floor, no room number) [place] [address] * Basic metabolic panel (BMP) (01/30/2024 4:28 PM CDT) Sodium 135 135 - 145 mmol/L 01/30/2024 5:42 PM CDT LABORATORY Potassium 4.4 3.4 - 5.3 mmol/L [...] - 99 mg/dL 01/30/2024 5:42 PM CDT LABORATORY Blood STRUCTURE OF RIGHT UPPER LIMB / Unknown Venipuncture / Unknown 01/30/2024 4:28 PM CDT 01/30/2024 5:01 PM CDT us Tito Waller MD LAB - BLOOD ORDERABLES F inal Result LABORATORY [facility] Lab [address] [facility] Lab (1st floor, no room number) [place] [address], [facility] documented in this encounter Visit Diagnoses [...] When verbally ordered by the prescriber. [place] throat with 1-4 sprays 5 minutes prior to procedure in the [facility] procedure room as directed by provider. , Cardiac Intra-procedure $Given 02/01/2024 12:03 PM CDT 1 mL benzocaine 20% (HURRICAINE/TOPEX) 20 % spray Starting on Mon02/01/24 at 1113, For 1 dose, Yeyo Brown: cabinet override cefTRIAXone (ROCEPHIN) 2 g vial to [...] at 1113, For 1 dose, Yeyo Brown: cabinet override fentaNYL (PF) (SUBLIMAZE) injection 25 mcg [...] Subcutaneous, EVERY 8 HOURS, First dose on e 01/30/24 at 2230, HOLD heparin IF platelet count falls below 50% baseline or less than 100,000 / L and notify provider. Use this product If [...] (viscous) (XYLOCAINE) 2 % solution Starting on Mon02/01/24 at 1113, For 1 dose, Yeyo Brown: kavya override $Given 02/01/2024 11:20 AM CDT 30 [...] PRN, nausea, vomiting, Starting on Mon01/30/24 at 2208, This is Step 1 of nausea and [...] over 1-2 Minutes, Starting on Mon01/30/24 at 220, IF patient unable to tolerate oral medication. [...] Mon01/30/24 at 2230 2132 ($Given - Provider: Cheri Davis RN) [...] Marilu Adorno RN)1641 ($Given - Provider: Cheri Davis RN) 0303 (Not Given - Provider: Renetta Guaman [...] Marilu Adorno, FIDE)1938 ($Given - Provider: Cheri Davis RN) 1641 ($Given - Provider: Cheri Davis RN)2150 ($Given - Provider: Cheri Davis RN) 1532 ($Given - Provider: Brenda Santana RN) lidocaine (LMX4) cream Topical, EVERY 1 HOUR PRN, pain, with VAD insertion, Starting on Mon01/30/24 at 2209, Apply at least 30 minutes prior to VAD insertion in divided doses as needed for size of site for insertion. MAX Dose: 2.5 g ( of 5 g tube) Do NOT give [...] PRN, nausea, vomiting, Starting on Mon01/30/24 at 2208, This is Step 1 of nausea and [...] over 2-5 Minutes, Starting on Mon01/30/24 at 2208, Give IF patient unable to tolerate oral medication. This is Step 1 of nausea and vomiting management. If nausea not resolved in 15 minutes, go to Step 2 prochlorperazine (COMPAZINE). Group 4: prochlorperazine (COMPAZINE) injection 10 mgJump to med 10 mg, Intravenous, EVERY 6 HOURS PRN, nausea, vomiting, Administer over 1-2 Minutes, Starting on Mon01/30/24 at 2208, IF patient unable to tolerate oral medication. This is Step 2 of nausea and vomiting management. Give if nausea not resolved 15 minutes after giving ondansetron (ZOFRAN). Or prochlorperazine (COMPAZINE) tablet 10 mgJump to med 10 mg, Oral, EVERY 6 HOURS PRN, vomiting, Starting on Mon01/30/24 at 2208, This is Step 2 of nausea and vomiting management. Give if nausea not resolved 15 minutes after giving ondansetron (ZOFRAN). Or prochlorperazine (COMPAZINE) suppository 25 mgJump to med 25 mg, Rectal, EVERY 12 HOURS PRN, nausea, vomiting, Starting on Mon01/30/24 at 2208, This is Step 2 of nausea and [...] documented as of this encounter Care Teams Staff Physical Therapy Assistant Relationship Specialty Start Date End Date Tressa Hanley MD [address] [place] [address] PCP - General Family Medicine 05/13/22 Phys[facility], [place] [address] [address] [facility] [address] [place] [phone] Assigned PCP 07/06/23 Martinez Rogers MD [address] [place] [address] Cardiovascular Disease 12/22/23 documented as of this encounter
--- OUTSIDE RECORDS SUMMARY | 2024-04-30 12:31 | XMS_ITS ---
Author Organization [place] Address [address] [place] [address] Care Team Providers Care Farmer [employer] Name Role Phone Seferino Hanley MD Primary Care Provider [phone] [facility] Un[facility] [phone] Martinez Rogers MD Unavailable Home Infusion Status:Closed (Active) Start date:02/15/2024 Enrollment date:02/16/2024 End date:03/18/2024 Close reason:Therapy Completed Related service episodes:Anti-infective (Active) Continued Care and Services Coordination
--- OUTSIDE RECORDS SUMMARY | 2024-04-30 12:31 | XMS_ITS | Encounter Summary ---
Author Organization [place] Address [address] [place] [address]. 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 Gender Identity Not on file Sexual Orientation Not on file documented as of this encounter Plan of Treatment Upcoming Encounters Date Type Department Care Team (Late st Contact Info) Description 05/16/2024 3:00 PM SECURITY PROFESSIONAL Office Visit [facility] [place] [address] [facility] [place] [phone] Yash Mullins MD [address] [place], [place] [address] 10/01/2024 7:30 AM CDT Appointment [facility] Specialty Care [address] [facility] [address] [place] [phone] Martinez Rogers MD [address] [place] [id number] documented as of this encounter Visit Diagnoses Not on filedocumented in this encounter Additional Health Concerns Infection Onset Date Last Indicated Resolved Time Rule Out COVID-19 01/30/2024 01/30/2024 01/30/2024 7:01 PM CDT documented as of this encounter Care Teams Household Personal Assistant Relationship Specialty Start Date End Date Seferino Hanley MD [address] [place] [address] PCP - General Family Medicine 05/13/22 [facility] [address] [place] [address] [address] [place] [address] Assigned PCP 07/06/23 Martinez Rogers MD [address] [place] [address] Cardiovascular Disease 12/22/23 documented as of this encounter
--- OUTSIDE RECORDS SUMMARY | 2024-04-30 12:31 | XMS_ITS | Encounter Summary ---
Author Organization [place] Address [address] [place] [address] Care Team Providers Care Brand Planner Name Role Phone None, Bfp Primary Care Provider UnavailFritz Waldrop MD Primary Care Provider Cynthia vailable Fritz Lagunas MD Unavailable Unavailab Barron Gordon MD Unavailable Unavail able Martinez Rogers MD Unavailable Seferino Hanley MD Primary Care Provider [phone] Fritz Lagunas MD Unavailable Unavailab vero [facility] Unavailable + [phone] Martinez Rogers MD Unavailable Encounter Details Date Type Department Care Team (Late st Contact Info) Description 01/25/2010 Office Visit-[facility] [place] [id number] [place] [phone] Barron Cook MD Social History Tobacco Use Types Packs/Day Years Used Date Smoking Tobacco: Never Assessed Sex and Gender Information Value Date Recorded Sex Assigned at Not on file 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 DATE: 01/25/2010 JESSICA CARLOS DATE OF : 1960 AGE: [age] years old Referring Physician: FRITZ LAGUNAS Referring [facility] CURRENT DIAGNOSES 1. - Valve Replacement [...] with in own home; Place of - [place]; Hours Worked - 60-80 hours per week; [...] st Contact Info) Description 05/16/2024 3:00 PM SNUFF MAKER Office Visit [facility] Surgery [facility] [address] [place] [phone] Yash Mullins MD [address] [place] [address] 10/01/2024 7:[address] [facility] Specialty Care [address] [facility] [address] [place] [phone] Martinez Rogers MD [address] [facility] [address] [place] [id number] documented as of this encounter Visit Diagnoses Not on filedocumented in this encounter Additional Health Concerns Infection Onset Date Last Indicated Resolved Time Rule Out COVID-19 01/30/2024 01/30/2024 01/30/2024 7:01 PM CDT documented as of this encounter Care Teams Brand Planner Relationship Specialty Start Date End Date None, Bfp PCP - General 06/25/99 11/20/11 Fritz Lagunas MD PCP - General Family Practice 11/21/11 07/29/20 Seferino Hanley MD [address] [place] [address] PCP - General Family Medicine 05/13/22 Fritz Lagunas MD [place]IVE IN [place] 10/09/2020 Assigned PCP 11/22/19 05/27/22 Barron Cook MD Assigned Heart and Vascular Provider 04/03/20 03/27/21 Martinez Rogers MD [address] [place] [address] Assigned Heart and Vascular Provider 03/28/21 11/01/23 Fritz Lagunas MD I[place]CTIVE IN [place] 10/09/2020 Assigned PCP 08/06/22 03/03/23 Physicians, [address] [place] [address] Assigned PCP 07/06/23 Martinez Rogers MD [address] [facility] [address] [place] [address] Cardiovascular Disease 12/22/23 documented as of this encounter
--- OUTSIDE RECORDS SUMMARY | 2024-04-30 12:31 | XMS_ITS | Encounter Summary ---
Author Organization [facility] Address [address] [place] [address] Care Team Providers Care Sales Service Executive Name Role Phone None, Bfp Primary Care Provider UnavailFritz Waldrop MD Primary Care Provider Cynthia vailable Fritz Lagunas MD Unavailable Unavailab Barron Gordon MD Unavailable Unavail able Martinez Rogers MD Unavailable Seferino Hanley MD Primary Care Provider +1 -[phone] Fritz Lagunas MD Unavailable Unavailab vero 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 DATE: 11/30/2010 JESSICA CARLOS DATE OF : 1960 AGE: [age] years old Referring Physician: FRITZ LAGUNAS Referring Clinic: [facility] CURRENT DIAGNOSES 1. - Valve [...] with in own home; Place of - [place]; Hours Worked - 60-80 hours per week; [...] st Contact Info) Description 05/16/2024 3:00 PM FORK TRUCK OPERATOR Office Visit [facility] [place] [address] [place] [phone] Yash Mullins MD [address] [place], [place] [address] 10/01/2024 7:30 AM CDT Appointment [facility] Care [address] [facility] [address] [place] [phone] Martinez Rogers MD [address] [facility] [address] [place], [place] [address] documented as of this encounter Visit Diagnoses Not on filedocumented in this encounter Additional Health Concerns Infection Onset Date Last Indicated Resolved Time Rule Out COVID-19 01/30/2024 01/30/2024 01/30/2024 7:01 PM CDT documented as of this encounter Care Teams Sales Service Executive Relationship Specialty Start Date End Date None, Bfp PCP - General 06/25/99 11/20/11 Fritz Lgaunas MD PCP - General Family Practice 11/21/11 07/29/20 Seferino Hanley MD [address] [place] [address] PCP - General Family Medicine 05/13/22 Fritz Lagunas MD INACTIVE IN [place] 10/09/2020 Assigned PCP 11/22/19 05/27/22 Barron Cook MD Assigned Heart and Vascular Provider 04/03/20 03/27/21 Martinez Rogers MD [address] [place] [address] Assigned Heart and Vascular Provider 03/28/21 11/01/23 Fritz Lagunas MD INACTIVE IN [place] 10/09/2020 Assigned PCP 08/06/22 03/03/23 Physicians, [place] [address] [facility] [address] [place] [address] Assigned PCP 07/06/23 Martinez Rogers MD [address] [facility] [address] [place] [address] Cardiovascular Disease 12/22/23 documented as of this encounter
--- NOTE | 2024-04-30 13:00 | CRLHL7_ITS ---
For Patients: As a result of the Century Cures Act, medical imaging exams and procedure reports are released immediately into your electronic medical record. You may view this report before your referring provider. If you have questions, please contact your health care provider. Indication: other soft tissue disorders Technique: Grayscale and color Doppler ultrasound of the right side of the neck. Comparison: None Findings: Circumscribed heterogeneous solid nodule is present within the subcutaneous fat measuring 1.5 x 0.5 x 1.4 cm. No abnormal vascularity. No abscess. No distal acoustic shadowing. Impression: Indeterminate circumscribed heterogeneous soft tissue nodule measuring 1.5 cm. Dictated by Barron Patiño MD @ 04/30/2024 3:55:17 PM (Electronically Signed)
== END 2024-04-30 12:25 | disposition home or self-care (01) ==
LOC: US 12:26
PROVIDERS: PCP Family Medicine; Visit Provider Family Medicine
DX: M79.89 Other specified soft tissue disorders (principal)
CPT/HCPCS: 76536

== ENCOUNTER 2024-05-14 10:09 | Day surgery (SDC) | payer OTHER, SELFPAY ==
[2024-05-14] VITALS (15 sets, daily range): BP systolic 124–153; BP diastolic 59–89; PULSE 54–70; RESP 16; TEMP 36.1–37.1; O2SAT 95–100; BMI 25.4
--- OUTSIDE RECORDS SUMMARY | 2024-05-14 10:12 | XMS_ITS ---
Author Organization [facility] Address [address] [facility] [place] [address] Care Team Providers Care Senior Site Manager Name Role Phone JOVI WILLIAMSON Primary Care Provider UnavailShwetha Engel Unavailable [phone] REASON FOR VISIT inguinal hernia Encounters Encounter Location Date Provider Diagnosis [facility] [address] [facility] [address] [place] [address] [place] [address] 05/08/2024 Shwetha Ayala Plan Of Treatment No Information Progress Notes * JESSICA CARLOS WDOB:[birth year] (63 yo M)Acc No.[id number]:05/08/2024 Surgical Consultation Patient: JESSICA SUTHERLAND Provider: Yumiko Ayala MD :1960 A ge:63 Y S ex:Male Date:05/08/2024 Phone: Address:[address] [place], [place] [phone] Pcp:JOVI WILLIAMSON Subjective: * Chief Complaints: * 1 . Inguinal hernia. * Medical History: Objective: * Vitals: Assessment: Plan: * Treatment: * * The named appointment provid er may or may not be the originator of this progress note, and it is not deemed complete until electronically signed by the appointment provider. Sign off status: Pending * Provider: Yumiko Ayala MD Date: 07/08/2023 Generated for Allan swain/Tita/Maureensmitting on: 07/15/2023 10:12 AM MANAGER MEDICAL AFFAIRS
--- OUTSIDE RECORDS SUMMARY | 2024-05-14 10:13 | XMS_ITS | Encounter Summary ---
Author Organization [facility] Address [address] [place] [address]. 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 Gender Identity Not on file Sexual Orientation Not on file documented as of this encounter Plan of Treatment Upcoming Encounters Date Type Department Care Team (Late st Contact Info) Description 05/16/2024 3:00 PM LANDSCAPE ARCHITECTURE TEACHER Office Visit [facility] [place] [address] [facility] [address] [place] [phone] Yash Mullins MD [address] [place], [place] [address] 10/01/2024 7:30 AM CDT Appointment [facility] Care [address] [facility] [address] [place] [phone] Martinez Rogers MD [address] [facility] [address] [place] [address] documented as of this encounter Visit Diagnoses Not on filedocumented in this encounter Care Teams Bird Trapper Relationship Specialty Start Date End Date Seferino Hanley MD [address] [place] [address] PCP - General Family Medicine 05/13/22 Physicians, [address] [place] [phone] Assigned PCP 07/06/23 Martinez Rogers MD [address] [place] [address] Cardiovascular Disease 12/22/23 documented as of this encounter
--- OUTSIDE RECORDS SUMMARY | 2024-05-14 10:13 | XMS_ITS | Encounter Summary ---
Author Organization [facility] Address [address] [place] [address]. 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 Gender Identity Not on file Sexual Orientation Not on file documented as of this encounter Plan of Treatment Upcoming Encounters Date Type Department Care Team (Late st Contact Info) Description 05/16/2024 3:00 PM GLASSWARE MAKER DEMONSTRATOR Office Visit [facility] [place] [address] [facility] [address] [place] [phone] Yash Mullins MD [address] [place], [place] [address] 10/01/2024 7:30 AM CDT Appointment [facility] Special[facility] Care [address] [facility] [address] [place] [phone] Martinez Rogers MD [address] [facility] [address] [place] [address] documented as of this encounter Visit Diagnoses Not on filedocumented in this encounter Care Teams Hvac/R Instructor Relationship Specialty Start Date End Date Seferino Hanley MD [address] [place] [address] PCP - General Family Medicine 05/13/22 Physicians, [address] [place] [phone] Assigned PCP 07/06/23 Martinez Rogers MD [address] [place] [address] Cardiovascular Disease 12/22/23 documented as of this encounter
--- OUTSIDE RECORDS SUMMARY | 2024-05-14 10:13 | XMS_ITS | Encounter Summary ---
Author Organization [facility] Address [address] [place] [address] Care Team Providers Care Strategies Analyst Name Role Phone Seferino Hanley MD Primary Care Provider +1 [phone] [facility], [place] [facility] Unavailable +1 -[phone] Martinez Rogers MD Unavailable Martinez Rogers MD Unavailable Reason for Visit * Reason Onset Date Comments Referral 05/06/2024 ENT Encounter Details Date Type Department Care Team (Late st Contact Info) Description 05/06/2024 Telephone [facility] Physicians [address] [place] [address] Seferino Hanley MD [address] [place] [address] [address] [place] [address] Referral (ENT) Social History Tobacco Use Types Packs/Day Years [...] file 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 Patient was in the ED in [place] had imaging done. It was advised from the provider he saw that he follow up with ENT for the small tissue growth on his neck Below ENT recommendations given to [facility] [place] [address] [facility] [address] [facility] [address] - appt line [phone] - [address] Joselito Rizo [address] [place] [address] - phone [phone] - fax I also went over with Ludivina that they will need to call insurance to review benefits and in network providers. I also went over with Ludivina that this is not a Referral. If a referral is needed patient will need to make an appointment to be seen. Ludivina understands and agrees. GER ATHLETICS * Telephone Encounter - Eugenie Adams - 05/06/2024 9:42 AM CST Patients , Ludivina left a message 05.03.2024 that patient is needing to see an ENT for a small tissue growth on his neck. Is asking who he should see. I left a message ) for Ludivina or patient to call me back GER ATHLETICS documented in this encounter Plan of Treatment Upcoming Encounters Date Type Department Care Team (Late st Contact Info) Description 05/16/2024 3:00 PM MANAGER ATHLETICS Office Visit [facility] [place] [address] [place] [phone] Yash Mullins MD [address] [place] [place], [place] [address] 10/01/2024 7:30 AM CDT Appointment [facility] [address] [facility] [address] [place] [phone] Martinez Rogers MD [address] [facility] [address] [place] [address] documented as of this encounter Visit Diagnoses Not on filedocumented in this encounter Care Teams Strategies Analyst Relationship Specialty Start Date End Date Seferino Hanley MD [address] [place] [address] PCP - General Family Medicine 05/13/22 Physicians, [place] [address] [facility] [address] [place] [phone] Assigned PCP 07/06/23 Martinez Rogers MD [address] [place] [address] Cardiovascular Disease 12/22/23 Martinez Rogers MD [address] [place] [address] Assigned Heart and Vascular Provider 05/04/24 documented as of this encounter
--- OUTSIDE RECORDS SUMMARY | 2024-05-14 10:13 | XMS_ITS | Clinical Summary ---
Author Organization [facility] Address [address], [place] [address] Phone Care Team Providers Care Hands Parter Name Role Phone Unavailable Primary Care Provider [...] by mouth in the morning. 11/09/2011 Active Mcbrides-3 Fatty Acids (Fish Oil Triple Strength) 1400 [...] Type Department Care Team Description 03/14/2024 Telephone [facility] [address] [place] [address] Isaura Johns RN 02/27/2024 9:00 AM CDT Office Visit [facility] [address] [place] [address] Diamond Gerardo PA Bacteremia (Primary Dx); History [...]
--- OUTSIDE RECORDS SUMMARY | 2024-05-14 10:13 | XMS_ITS | Clinical Summary ---
Author Organization [facility] Address [place], [place] [address] Care Team Providers Care Clean Energy Policy Analyst Name Role Phone Fritz Hitchcock MD Primary Care Provider +1- [phone] Allergies No known active allergies Medications Medication [...] Take by mouth. 0 12/22/2015 Active omega 4-ymi-lfu-fish oil (FISH OIL) 900-1,400 mg cpDR Take [...] (11/12/2009): Last CPX: 06/2009 Last Lipids: 04/2009 Immunizations Name Administration Dates Next Due Td [...] 36.7 C (98 F) 07/23/2014 8:31 AM PHYSICAL GEOGRAPHER Respiratory Rate - - Oxygen Saturation - [...] Procedure Name Priority Date/Time Associated Diagnosis Comments SCAN-COLONOSCOPY 08/30/2022 10:0 0 AM CDT LIPID PANEL Routine 12/22/2015 9:49 AM CDT Other hyperlipidemia from Last 3 Months or Most Recently Relevant to Health Maintenance Results * SCAN-COLONOSCOPY (08/30/2022 10:00 AM CDT) Narrative Procedure Note Armand Lyles DO - 08/30/2022 9:05 AM CDT [facility] [address] [place] [address], [address], [place] [id number] Patient Name: Adonis Ritchie Gender: Male Exam Date: 08/30/2022 Visit Number: [id number] Age: 61 Years 10 Months Date of : 1960 Attending MD: Armand Lyles DO Medical Record#: [id number] ----- Procedure: Colonoscopy Indications: Colorectal cancer screening [...] updateyour records. Electronically signed by: Armand Lyles 08/30/2022 Medications: Medication Dose Sig Description PRN [...] Race: White Ethnicity: Not or Preferred Language: Mauritanian cc: Seferino Hanley MD cc: Seferino Hanley MD cc: John Escobedo MD [facility] [phone] Armanddoreen Mart Rafal OTHER * (ABNORMAL) LIPID PANEL (12/22/2015 9:49 AM CDT) [facility] CHOLESTEROL,TOTAL 259(H) 100 - 199 mg/dL 12/22/2015 3:40 PM CDT [facility] TRIGLYCERIDES 388(H) <150 mg/dL 12/22/2015 3:40 PM CDT [facility] HDL CHOLESTEROL 38(L) >40 mg/dL 12/22/2015 3:40 PM T [facility] NON-HDL CHOLESTEROL 221(H) <145 mg/dl 12/22/2015 3:40 PM T [facility] CHOL/HDL RATIO 6.82(H) <4.50 12/22/2015 3:40 PM CDT [facility] LDL CHOLESTEROL 143(H) <=130 mg/dL 12/22/2015 3:40 PM T [facility] PATIENT STATUS NOT GIVEN 12/22/2015 3:40 PM T [facility] Blood BLOOD SPECIMEN / Unknown Venipuncture / Unknown 12/22/2015 9:49 AM CDT 12/22/2015 9:49 AM CDT Fritz Hitchcock MD [facility] [address] [place] [address], from Last 3 Months or Most Recently Relevant to Health Maintenance Care Teams Clean Energy Policy Analyst Relationship Specialty Start Date End Date Fritz Hitchcock MD PCP - General 09/02/09
--- OUTSIDE RECORDS SUMMARY | 2024-05-14 10:13 | XMS_ITS | Encounter Summary ---
Author Organization [facility] Address [address] [place] [address]. 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 Gender Identity Not on file Sexual Orientation Not on file documented as of this encounter Plan of Treatment Upcoming Encounters Date Type Department Care Team (Late st Contact Info) Description 05/16/2024 3:00 PM SENIOR PROJECT COORDINATOR Office Visit [facility] [place] [address] [facility] [address] [place] [phone] Yash Mullins MD [address] [place], [place] [address] 10/01/2024 7:30 AM CDT Appointment [facility] Care [address] [facility] [address] [place] [phone] Martinez Rogers MD [address] [facility] [address] [place] [address] documented as of this encounter Visit Diagnoses Not on filedocumented in this encounter Care Teams Room Service Waiter/Waitress Relationship Specialty Start Date End Date Seferino Hanley MD [address] [place] [address] PCP - General Family Medicine 05/13/22 Physicians, [address] [place] [phone] Assigned PCP 07/06/23 Martinez Rogers MD [address] [place] [address] Cardiovascular Disease 12/22/23 documented as of this encounter
--- OUTSIDE RECORDS SUMMARY | 2024-05-14 10:13 | XMS_ITS | Patient Health Record ---
Author Organization [facility] Address [address] [facility] [place] [address] Care Team Providers Care Optical Laboratory Mechanic Name Role Phone JOVI WILLIAMSON Primary Care Provider Unavailabl e Shwetha Ayala Unavailable [phone] Allergies No Known Allergies Reason For Referral [...] Problem Status W/U Status Risk Notes Problem [id number] Non-recurrent bilateral inguinal hernia without obstruction or gangrene (K40.20) Active confirmed Plan Of Treatment No Information Insurance Providers Payer Name Payer Address Payer Phone Subscriber Number Group Number Insured Name Patient Relationship to Insured Coverage Start Date Coverage End Date [employer] [address] [address] [place] [id number] JESSICA CARLOS Self - patient is the insured Medical (General) History Medical History History ICD Code external hemorrhoids Inguinal hernia Back pain Aortic valve replacement Allergic reaction (Acute) HTN Surgical History Surgery Date(Month/Year) Aortic valve replaced colonoscopy 08/30/22
--- OUTSIDE RECORDS SUMMARY | 2024-05-14 10:13 | XMS_ITS | Encounter Summary ---
Author Organization [facility] Address [address] [place] [address]. [place] [address] Care Team Providers Care Button Inspector Name Role Phone Seferino Hanley MD Primary Care Provider + -[phone] Physicians, [facility] Unavailable + -[phone] Martinez Rogers MD Unavailable Reason for Visit [...] Description 04/03/2024 9:00 AM CDT Office Visit [facility] Physicians [address] [place] [phone] Seferino Hanley MD [facility] [address] [place] [address] Plantar warts (Primary Dx); Epidermoid cyst of [...] on file 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 Seferino Hanley MD, [facility] Subjective Adonis Ritchie is a [...] st Contact Info) Description 05/16/2024 3:00 PM PICKLING SOLUTION MAKER Office Visit [facility] [place] [address] [place] [phone] Yash Mullins MD [address] [place], [place] [address] 10/01/2024 7:30 AM CDT Appointment [facility] Special[facility] Care [address] [facility] [address] [place] [phone] Martinez Rogers MD [address] [facility] [address] [place] [address] documented as of this encounter Procedures Procedure Name Priority Date/Time Associated Diagnosis Comments SC DESTRUCT BENIGN LESION, UP TO 14 Routine 04/04/2024 5:33 PM CDT Plantar warts documented in this encounter Visit Diagnoses Diagnosis Plantar warts- Primary Plantar wart Epidermoid cyst of skin of back documented in this encounter Care Teams Button Inspector Relationship Specialty Start Date End Date Seferino Hanley MD [address] [place] [address] PCP - General Family Medicine 05/13/22 Physicians, [place] [address] [place] [phone] Assigned PCP 07/06/23 Martinez Rogers MD [address] [place] [address] Cardiovascular Disease 12/22/23 documented as of this encounter
--- OUTSIDE RECORDS SUMMARY | 2024-05-14 10:13 | XMS_ITS | Encounter Summary ---
Author Organization [place] Address [address] [place] [address]. [place] [address] Care Team Providers Care Wool Merchant Name Role Phone Seferino Hanley MD Primary Care Provider [phone] [phone] [facility] Unavailable + -[phone] Jeet Milligan MD Unavailable Reason for Referral [...] ZZHC STATISTIC IV PUSH SINGLE INITIAL SUBSTANCE WV ECHO MYOCARD BX WV INJECTION, PERFLUTREN LIPID MICROSPHERES, PER ML WV TTE W/DOPPLER, COMPLETE WV IV PUSH SINGLE, INITIAL SUBSTANCE WV TTE W/DOPPLER, COMPLETE WV TTE W/DOPPLER, COMPLETE HC US GUIDE FOR PERICARDIOCENTESIS HC ECHO MYOCARD BX HC IV PUSH SINGLE, INITIAL SUBSTANCE HC STATISTIC IV PUSH SINGLE INITIAL SUBSTANCE HC ECHO COMPLETE W DOPPLER W CONTRAST HC ECHO COMPLETE W DOPPLER W/O CONTRAST Jeet Milligan MD [address] [place] [address] Phone: tel: fax: Referral ID Status Reason Start Date Expiration Date V isits Requested Visits Authorized [id number] Pending Review 04/02/2024 04/02/2025 1 1 * [...] ZZHC STATISTIC IV PUSH SINGLE INITIAL SUBSTANCE WV ECHO MYOCARD BX WV INJECTION, PERFLUTREN LIPID MICROSPHERES, PER ML WV TTE W/DOPPLER, COMPLETE WV IV PUSH SINGLE, INITIAL SUBSTANCE WV TTE W/DOPPLER, COMPLETE WV TTE W/DOPPLER, COMPLETE HC US GUIDE FOR PERICARDIOCENTESIS HC ECHO MYOCARD BX HC IV PUSH SINGLE, INITIAL SUBSTANCE HC STATISTIC IV PUSH SINGLE INITIAL SUBSTANCE HC ECHO COMPLETE W DOPPLER W CONTRAST HC ECHO COMPLETE W DOPPLER W/O CONTRAST Jeet Milligan MD [address] [place] [address] Phone: tel: fax: Referral ID Status Reason Start Date Expiration Date V isits Requested Visits Authorized [id number] Pending Review 04/02/2024 04/02/2025 1 1 * Consultation (Routine: Next available opening) - Pending Review Specialty Diagnoses / Procedures Referred By Contac t Referred To Contact Cardiovascular Disease Diagnoses Ascending aorta dilatation (H) S/P AVR (aortic valve replacement) Jeet Milligan MD [address] [place] [address] Phone: tel: fax: Referral ID Status Reason Start Date Expiration Date V isits Requested Visits Authorized [id number] Pending Review 04/02/2024 04/02/2025 1 1 Question Answer Follow-up with: Self Scheduling Instructions: [facility] will call you to coordinate your care as prescribed by your provider. If you have concerns about scheduling, please call [phone]. Comments [facility] will call you to coordinate your care as prescribed by your provider. If you have concerns about scheduling, please call [phone]. Reason for Visit * Reason Comments Follow Up 2 year follow up * Consultation (Routine: Next available opening) - Closed Specialty Diagnoses / Procedures Referred By Contac t Referred To Contact Cardiovascular Disease Diagnoses Ascending aorta dilatation (H) Jeet Milligan MD [address] [place] [address] Phone: tel: fax: Referral ID Status Reason Start Date Expiration Date Visits Re quested Visits Authorized [id number] Closed 04/06/2023 04/05/2024 1 1 Encounter Details Date Type Department Care Team (Late st Contact Info) Description 04/02/2024 7:45 AM CDT Office Visit [facility] [address] [place] [phone] Jeet Milligan MD [address] [place] [id number] Ascending aorta dilatation (H); Essential hypertension; Hyperlipidemia [...] on file 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 Please contact our team through [employer] or our Nurse Team Voicemail service [phone], or the General Clinic [phone] for any questions or concerns. If you are having a medical emergency, please call [phone]. Sincerely, Jeet Milligan MD, [facility] Cardiology [facility] [place] documented in this encounter Progress Notes * [...] Streptococcus sanguinous bacteremia. RUSH was negative for akiak or bioprosthetic valve vegetations, no evidence of [...] wish to have this done at the [facility], assured patient that we would be able [...] questions or concerns. Sincerely, Jeet Milligan MD, [facility] Cardiology Text Page April 02, 2024 [...] FOR HIM PO) Take by mouth daily [place]-3 Fatty Acids (FISH OIL) 1200 MG CAPS [...] Echocardiogram Complete Result Value LVEF 65-70% Narrative [id number]^SRINI^JEET^[facility] [employer] [address] [place] [address] Name: JESSICA CARLOS : 1960 Study Date: 03/27/2024 07:27 AM Age: 63 yrs Gender: Male Patient Location: [facility] Reason For Study: Ascending aorta [...] AM Echocardiogram RUSH Result Value LVEF 60-65% [facility] [id number]^ARAVIND^[facility] [employer] [facility] [address] [place], [place] [address] Name: JESSICA CARLOS : 1960 Study Date: 02/01/2024 11:53 AM Age: 63 yrs Gender: Male Patient Location: [facility] Reason For Study: Endocarditis Ordering Physician: BLU [...] disease, 2009. No evidence of prosthetic or akiak valve endocarditis. 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 [...] st Contact Info) Description 05/16/2024 3:00 PM COMPUTER FORENSIC EXAMINER Office Visit [facility] [address] [facility] [address] [place] [address] Yash Mullins MD [address] [place] [address] 10/01/2024 7:30 AM CDT Appointment [facility] Specialty Care [address] [facility] [address] [place] [phone] Jeet Milligan MD [address] [place] [id number] Scheduled Orders Name Type Priority Associated Diagnoses [...] means documented in this encounter Care Teams Wool Merchant Relationship Specialty Start Date End Date Seferino Hanley MD [address] [place] [address] PCP - General Family Medicine 05/13/22 Physicians, [place] [facility] [address] [facility] [address] [place] [phone] Assigned PCP 07/06/23 Jeet Milligan MD [address] [place] [id number] Cardiovascular Disease 12/22/23 documented as of this encounter
--- OUTSIDE RECORDS SUMMARY | 2024-05-14 10:13 | XMS_ITS | Encounter Summary ---
Author Organization [place] Address [address] [place] [address] Care Team Providers Care Frame Wirer Name Role Phone Seferino Hanley MD Primary Care Provider [phone] Physicians, [place] [facility] Unavailable [phone] [phone] Martinez Rogers MD Unavailable Reason for Visit * Reason Comments Cyst Cyst removal on back Encounter Details Date Type Department Care Team (Late st Contact Info) Description 04/10/2024 11:00 AM CDT Office Visit [facility] Physicians [address] [address] Seferino Hanley MD [address] [place] [phone] Epidermoid cyst of skin of back (Primary [...] on file 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 cyst measuring [id number] Anesthesia: local 1% lidocaine with epi 4 [...] removal in 10-14 days. Seferino Hanley MD, [facility] documented in this encounter Nursing [...] for today's visit only yes, phone # [phone] documented in this encounter Plan of Treatment Upcoming Encounters Date Type Department Care Team (Late st Contact Info) Description 05/16/2024 3:00 PM LAP WINDER Office Visit [facility] [address] [place] [address] Yash Mullins MD [address] [place] [address] 10/01/2024 7:30 AM CDT Appointment [facility] Specialty Care [address] [facility] [address] [place] [phone] Martinez Rogers MD [address] [facility] [address] [place] [id number] documented as of this encounter Procedures Procedure Name Priority Date/Time Associated Diagnosis Comments MI EXC BENIGN SKIN LESION TRUNK/ARM/LEG 2.1-3.0 CM Routine 04/10/2024 12:21 PM CDT Epidermoid cyst of skin of back documented in this encounter Visit Diagnoses Diagnosis Epidermoid cyst of skin of back- Primary documented in this encounter Care Teams Frame Wirer Relationship Specialty Start Date End Date Seferino Hanley MD [address] [place], [place] [address] PCP - General Family Medicine 05/13/22 Physicians, [facility] [address] [facility] [address] [place] [phone] Assigned PCP 07/06/23 Martinez Rogers MD [address] [place] [id number] Cardiovascular Disease 12/22/23 documented as of this encounter
--- OUTSIDE RECORDS SUMMARY | 2024-05-14 10:13 | XMS_ITS | Encounter Summary ---
Author Organization [place] Address [address] [place] [address]. 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 Specialty Care [address] [facility] [place] [address] [place] [phone] Martinez Rogers MD [address] [facility] [address] [place] [address] documented as of this encounter Visit Diagnoses Not on filedocumented in this encounter Care Teams Supply Room Clerk Relationship Specialty Start Date End Date Seferino Hanley MD [address] [place] [address] PCP - General Family Medicine 05/13/22 Physicians, [address] [place] [phone] Assigned PCP 07/06/23 Martinez Rogers MD [address] [place] [address] Cardiovascular Disease 12/22/23 documented as of this encounter
--- OUTSIDE RECORDS SUMMARY | 2024-05-14 10:13 | XMS_ITS | Encounter Summary ---
Author Organization [facility] Address [address] [place] [address] Phone Care Team Providers Care Collar Packer Name Role Phone Unavailable Primary Care Provider Unavailabl e Encounter Details Date Type Department Care Team (Late st Contact Info) Description 03/14/2024 Telephone [facility] [email or web address] [place] [address] Isaura Johns RN Social History Tobacco Use [...] blood culture orders can go. Faxed to [facility] out patient lab. Adonis will go next week to have the blood draw. documented in this encounter Plan of Treatment Not on file documented as of this encounter Visit Diagnoses Not on filedocumented in this encounter
--- OUTSIDE RECORDS SUMMARY | 2024-05-14 10:13 | XMS_ITS | Encounter Summary ---
Author Organization [place] Address [address] [place] [address]. [place] [address] Care Team Providers Care Hadoop Developer Name Role Phone Seferino Hanley MD Primary Care Provider [phone] Physicians, [facility] Unavailable [phone] Martinez Rogers MD Unavailable Reason for Visit [...] st Contact Info) Description 04/22/2024 12:30 PM PARK ATTENDANT Office Visit [facility] Physicians [address] [place] [phone] Seferino Hanley MD [address] [place] [address] Tinea pedis of both feet (Primary Dx); [...] in an abandoned building, in an overnight halfway, or couch-surfing.) No 01/31/2024 Are you worried [...] on file Legal Sex Male 2:58 AM PARK ATTENDANT Gender Identity Not on file Sexual Orientation Not on file documented as of this encounter Last Filed Vital Signs Vital Sign Reading Time Taken Comments Blood Pressure 100/70 04/22/2024 12:29 PM PARK ATTENDANT Pulse 70 04/22/2024 12:29 PM PARK ATTENDANT Temperature - - Respiratory Rate 16 04/22/2024 12:29 PM PARK ATTENDANT Oxygen Saturation 94% 04/22/2024 12:29 PM PARK ATTENDANT Inhaled Oxygen Concentration - - Weight 78 kg (172 lb) 04/22/2024 12:29 PM PARK ATTENDANT Height - - Body Mass Index 25.4 [...] removed today. Follow-up prn. Seferino Hanley MD, [facility] Subjective Adonis Ritchie is a 63 [...] intact. Normal gait. Appropriate affect Labs reviewed. ATTENDANT documented in this encounter Nursing Notes * [...] for today's visit only yes, phone # [phone] (home) ATTENDANT documented in this encounter Plan of Treatment Upcoming Encounters Date Type Department Care Team (Late st Contact Info) Description 05/16/2024 3:00 PM PARK ATTENDANT Office Visit [facility] [place] [address] [facility] [address] [place] [address] Yash Mullins MD [address] [place] [address] 10/01/2024 7:30 AM CDT Appointment [facility] Specialty Care [address] [facility] [address] [place] [phone] Martinez Rogers MD [address] [place], [place] [address] documented as of this encounter Visit Diagnoses Diagnosis Tinea pedis of both feet- Primary Epidermoid cyst of skin of back documented in this encounter Care Teams Hadoop Developer Relationship Specialty Start Date End Date Seferino Hanley MD [address] [place] [address] PCP - General Family Medicine 05/13/22 Physicians, [place] [facility] [address] [place] [address] Assigned PCP 07/06/23 Martinez Rogers MD [address] [place] [id number] Cardiovascular Disease 12/22/23 documented as of this encounter
--- OUTSIDE RECORDS SUMMARY | 2024-05-14 10:13 | XMS_ITS | Patient Health Record ---
Author Organization [facility] Address [address] [place] [address] Care Team Providers Care Watch Mechanic Name Role Phone John Escobedo Primary Care Provider Unavailabl e Reason For Referral No Information Medications Medication SIG (Take, Route, Frequency, Duration) Notes Start Date End Date Status Vit D, 1-ADay, Calcium, Co-Q-10, Fish Oil Active Problems Problem Type SNOMED Code ICD Code Onset Dates Problem Status W/U Status Risk Notes Problem Deviated nasal septum (956789788) Nasal septal deviation (470) 04/14/2014 0 confirmed [id number] Problem Sleep apnea (50299109) Sleep Apnea (327.23) 04/14/2014 0 confirmed [id number] Plan Of Treatment Next Appt Details Provider Name:MARTÍNEZ Alegria, 05/15/2024 03:00:00 PM, [address] [facility], [address], [place], [address], Insurance Providers Payer Name Payer Address Payer Phone Subscriber Number Group Number Insured Name Patient Relationship to Insured Coverage Start Date Coverage End Date [employer] [address] [place], [place] [id number] Adonis Ritchie Self - patient is the insured
--- OUTSIDE RECORDS SUMMARY | 2024-05-14 10:13 | XMS_ITS | Clinical Summary ---
Author Organization [facility] Address [address] [place] [address] Care Team Providers Care Jewelry Maker Name Role Phone Seferino Hanley MD Primary Care Provider [phone] [facility] Unavailable + -[phone] Jeet Milligan MD Unavailable Jeet Milligan MD Unavailable Allergies No known active allergies Medications calcium carbonate (OS-HAWK) 600 MG tablet Take 1 tablet by mouth at bedtime Active MAGNESIUM GLYCINATE PLUS PO Take 1 tablet by mouth at bedtime Active Boyd-3 Fatty Acids (FISH OIL) 1200 MG CAPS Take 2,400 mg by mouth daily Active Coenzyme Q10 (COQ-10) 200 MG CAPS Take 1 tablet by mouth daily Active loratadine (CLARITIN) 10 MG tablet Take 10 mg by mouth daily as needed for allergies or other (when goes outside) Active Multiple Vitamins-Minerals (MULTI FOR HIM PO) Take by mouth daily Active aspirin 81 MG EC tablet Take 81 mg by mouth at bedtime Active vitamin D3 (CHOLECALCIFEROL) 50 mcg (2000 units) tablet Take 50 mcg by mouth at bedtime Active Lutein 20 MG CAPS Take 20 mg by mouth daily Active lisinopril (ZESTRIL) 20 MG tabletIndications :Essential hypertension Take 1 tablet (20 mg) by mouth daily. 90 tablet 3 4 Active rosuvastatin (CRESTOR) 20 MG tabletIndications :Hyperlipidemia LDL goal <100 Take 1 tablet (20 mg) by mouth at bedtime. 90 tablet 3 4 Active amoxicillin (AMOXIL) 500 MG capsuleIndication s:S/P AVR (aortic valve replacement) 4 capsules 1 hour prior to proceedure 4 capsule 1 4 Active fluconazole (DIFLUCAN) 200 MG tabletIndications :Tinea pedis of both feet Take 1 tablet (200 mg) by mouth every 7 days for 4 doses. 4 tablet 4 05/14/20 24 Active Active Problems Problem Noted Date Diagnosed [...] Encounters Date Type Department Care Team Description 05/06/2024 Telephone [facility] [address] [place] [address] [address] [place] [address] Seferino Hanley MD Referral (ENT) 04/24/2024 Telephone [facility] [address] [place] [address] Jeet Milligan MD Orders (Echo RUSH ) 04/22/2024 12:30 PM CAFE OPERATOR Office Visit [facility] [address] [place] [address] [address] [place] [address] Seferino Hanley MD Tinea pedis of both feet (Primary Dx); Epidermoid cyst of skin of back 04/22/2024 Travel 04/10/2024 11:00 AM CDT Office Visit [facility] [address] [place] [address] Seferino Hanley MD Epidermoid cyst of skin of back (Primary Dx) 04/10/2024 Travel 04/03/2024 9:00 AM CDT Office Visit [facility] [address] [place] [phone] Seferino Hanley MD Plantar warts (Primary Dx); Epidermoid cyst of skin of back 04/02/2024 7:45 AM CDT Office Visit [facility] [place] [address] [facility] [address] [place] [address] Jeet Milligan MD Ascending aorta dilatation (H); Essential hypertension; Hyperlipidemia LDL goal <100; S/P AVR (aortic valve replacement) 04/02/2024 Travel 03/27/2024 7:19 AM CDT - 03/27/2024 11:59 PM CDT Hospital Encounter [facility] [address] [facility] [address] [place] [address] Jeet Milligan MD Ascending aorta dilatation (H) Discharge Disposition: Home or Self Care 03/27/2024 Travel 03/20/2024 12:[address] [facility] [address] [place] [address] Bacteremia 03/20/2024 Travel 03/14/[address] [facility] [address] [place] [address] Diamond Gerardo PA-C Bacteremia (Primary Dx) 03/08/2024 Orders Only [facility] [address] [place] [phone] Lacey Chen MD Bacteremia (Primary Dx) 03/08/2024 Home Infusion [facility] [address] [place] [phone] Pepito, Jake, RPH Bacteremia (Primary Dx) from Last 3 Months Immunizations Name Administration [...] on file Legal Sex Male 2:58 AM CAFE OPERATOR Gender Identity Not on file Sexual Orientation Not on file Last Filed Vital Signs Vital Sign Reading Time Taken Comments Blood Pressure 100/70 04/22/2024 12:29 PM CAFE OPERATOR Pulse 70 04/22/2024 12:29 PM CAFE OPERATOR Temperature 36.4 C (97.6 F) 04/10/2024 11:01 AM CDT Respiratory Rate 16 04/22/2024 12:29 PM CAFE OPERATOR Oxygen Saturation 94% 04/22/2024 12:29 PM CAFE OPERATOR Inhaled Oxygen Concentration - - Weight 78 kg (172 lb) 04/22/2024 12:29 PM CAFE OPERATOR Height 175.3 cm (5' 9) 04/02/2024 7:50 AM CDT Body Mass Index 25.4 04/02/2024 7:50 AM CDT Plan of Treatment Upcoming Encounters Date Type Department Care Team (Late st Contact Info) Description 05/16/2024 3:00 PM CAFE OPERATOR Office Visit [facility] [place] [address] [place] [phone] Yash Mullins MD [address] [place] [id number] 10/01/2024 7:30 AM CDT Appointment [facility] [address] [facility] [address] [place] [phone] Jeet Milligan MD [address] [facility] [address] [place] [address] Health Maintenance Due Date Last Done Comments [...] this topic Medical Devices Implanted Type Area Warp Splitter Device Identifier Shelf Expiration Date Model / Serial / Lot Aortic Valve-25 Mm Bioprosthetic Valve Procedures Procedure Name Priority Date/Time Associated Diagnosis Comments VA EXC BENIGN SKIN LESION TRUNK/ARM/LEG 2.1-3.0 CM Routine 04/10/2024 12:21 PM CDT Epidermoid cyst of skin of back VA DESTRUCT BENIGN LESION, UP TO 14 Routine [...] ALT Routine 02/15/2024 9:00 AM CDT Bacteremia BASIC METABOLIC PANEL Routine 02/02/2024 6:39 AM CDT LIPID PANEL (BFP) Routine 06/24/2020 Essential hypertension from Last 3 Months or Most Recently Relevant to Health Maintenance Results * ECHO COMPLETE (03/27/2024 8:14 AM CDT) [facility] Signature LVEF 65-70% CARDIOLOGY RESULTS Anatomical Region Laterality Modality Echocardiography 03/27/2024 7:27 AM CDT Narrative 03/27/2024 11:02 AM CDT [id number]^SRINI^JEET^[employer] Echocardi[facility] Laboratory [address] [place] [address] Name: JESSICA CARLOS : 1960 Study Date: 03/27/2024 07:27 AM Age: 63 yrs Gender: Male Patient Location: [facility] Reason For Study: Ascending aorta dilatation (H) [...] Procedure Note Deepak Harrington MD - 03/27/2024 [id number]^SRINI^JEET^[employer] Echocardi[facility] [address] [place] [address] Name: JESSICA CARLOS : 1960 Study Date: 03/27/2024 07:27 AM Age: 63 yrs Gender: Male Patient Location: [facility] Reason For Study: Ascending aorta dilatation (H) [...] 12:12 PM CDT) Only the most recent of5 resultswithin the time period is included. CRP Inflammation <3.00 <5.00 mg/L 03/20/20 12:31 PM CDT [facility] Blood STRUCTURE OF RIGHT UPPER LIMB / Unknown Venipuncture / Unknown 03/20/2024 12:12 PM CDT 03/20/2024 12:13 PM CDT us Lacey Chen MD LAB - BLOOD ORDERABLES Final Res ult [facility] [address] Lab (1st floor, no room number) [place] [address] * Blood Culture Arm, Right (03/20/2024 12:12 PM CDT) Pathologist [facility] Culture No Growth 03/25/2024 4:06 PM CDT [facility] Blood STRUCTURE OF RIGHT UPPER LIMB / Unknown Venipuncture / Unknown 03/20/2024 12:12 PM CDT 03/20/2024 12:13 PM CDT us Diamond Gerardo PA-C LAB - MICRO GENERAL ORDER PRICILLA Final Result [facility] Inf. Diseases Diag. Lab [address] [facility] [place] [address], [facility] * CBC with platelets and differential (03/07/2024 8:05 AM CDT) Only the most recent of4 resultswithin the time period is included. WBC Count 6.7 4.0 - 11.0 10e3/uL 03/07/2024 10:21 AM CDT LABORATORY RBC Count 4.70 4.40 - 5.90 [...] 0.0 <=0.4 10e3/uL 03/07/2024 10:21 AM CDT LABORATORY Absolute NRBCs 0.0 10e3/uL 03/07/2024 10:21 AM CDT LABORATORY Blood CENTRAL VENOUS CATHETER / Unknown Client Draw / Unknown 03/07/2024 8:05 AM CDT 03/07/2024 10:16 AM CDT Lacey Chen MD LAB - BLOOD ORDERABLES Final Res ult Performing Organization Address City/[facility]/ZIP Co de Phone Number LABORATORY [facility] [address] Lab (1st floor, no room number) [place] [phone] * Creatinine (03/07/2024 8:05 AM CDT) Only the most recent of4 resultswithin the time period is included. Creatinine 1.03 0.67 - 1.17 mg/dL 03/07/2024 10:45 AM CDT [facility] GFR Estimate 82 >60 mL/min/1.7 3m2 03/07/2024 10:45 AM CDT [facility] Comment:eGFR calculated 2020 CKD-EPI equation. Blood CENTRAL VENOUS CATHETER / Unknown Client Draw / Unknown 03/07/2024 8:05 AM CDT 03/07/2024 10:16 AM CDT Lacey Chen MD LAB - BLOOD ORDERABLES Final Res ult Performing Organization Address City/[facility]/ZIP Co de Phone Number LABORATORY [facility] [address] Lab (1st floor, no room number) [place] [address] * AST (03/07/2024 8:05 AM CDT) Only the most recent of4 resultswithin the time period is included. AST 29 0 - 45 U/L 03/07/2024 10:45 AM CDT LABORATORY Blood CENTRAL VENOUS CATHETER / Unknown Client Draw / Unknown 03/07/2024 8:05 AM CDT 03/07/2024 10:16 AM CDT us Lacey Chen MD LAB - BLOOD ORDERABLES Final Res ult LABORATORY [facility] Care Lab [address] Lab (1st floor, no room number) [place] [phone] * ALT (03/07/2024 8:05 AM CDT) Only the most recent of4 resultswithin the time period is included. ALT 25 0 - 70 U/L 03/07/2024 10:45 AM CDT LABORATORY Blood CENTRAL VENOUS CATHETER / Unknown Client Draw / Unknown 03/07/2024 8:05 AM CDT 03/07/2024 10:16 AM CDT Lacey Chen MD LAB - BLOOD ORDERABLES Final Res ult Performing Organization Address City/[facility]/ZIP Co de Phone Number LABORATORY [facility] [address] Lab (1st floor, no room number) [place] [phone] [place] [address] * (ABNORMAL) Basic metabolic panel (02/02/2024 6:39 AM CDT) Pathologist [facility] Sodium 137 135 - 145 mmol/L 02/02/2024 [...] - BLOOD ORDERABLES Final Res ult LABORATORY [facility] [address] Lab (1st floor, no room number) [place] [address] * (ABNORMAL) Lipid Panel (BFP) (06/24/2020) Cholesterol [...] INTERNAL [address] [place] [address], [facility] from Last 3 Months or Most Recently Relevant to Health Maintenance Insurance [employer] Advance Directives For more information, please contact: [phone] * Full Code (Latest Code Status on [...] patie nt/ legal decision maker Care Teams Jewelry Maker Relationship Specialty Start Date End Date Seferino Hanley MD [address] [place] [address] PCP - General Family Medicine 05/13/22 [facility] [place] [address] [facility] [address] [place] [address] Assigned PCP 07/06/23 Jeet Milligan MD [address] [facility] [address] [place] [id number] Cardiovascular Disease 12/22/23 Jeet Milligan MD [address] [place] [address] Assigned Heart and Vascular Provider 05/04/24
--- OUTSIDE RECORDS SUMMARY | 2024-05-14 10:13 | XMS_ITS | Encounter Summary ---
Author Organization [facility] Address [address], [place] [address] Phone Care Team Providers Care Laundry Route Driver Name Role Phone Unavailable Primary Care Provider Unavailabl e Encounter Details Date Type Department Care Team (Late st Contact Info) Description 02/27/2024 9:00 AM CDT Office Visit [facility] [address] [place] [address] Diamond Gerardo PA [address] [place], [place] [phone] Bacteremia (Primary Dx); History of aortic valve replacement; Aneurysm of ascending aorta ([facility]) Social History Tobacco Use Types Packs/Day Years [...] replacement in 2009. [facility] January[facility] a 2-week history of fevers, weakness, sweating episodes and chills. He was sent home but called 2 days later and told that his blood cultures were positive for gram-positive cocci, ultimately growing Streptococcus sanguinous. He was subsequently transferred to [facility] for further care. RUSH was negative for [place] or bioprosthetic valve vegetations, no evidence of [...] 1 tablet by mouth in the morning. Lugoff-3 Fatty Acids (Fish Oil Triple Strength) 1400 [...] 1644 02/06/2024 2046 Blood Culture Hand, Right [[id number]] Blood from Hand, Right Final result Component Value Culture No Growth 01/30/2024202902/06/2024 0707 Blood Culture Peripheral Blood [[id number]] (Abnormal) Peripheral Blood Edited Result - FINAL Component Value Culture Positive on the 1st day of incubation Abnormal Streptococcus sanguinis Panic C 2 of 2 bottles Susceptibilities done on previous cultures 01/30/2024 1628 02/06/2024 0706 Blood Culture Arm, Right [[id number]] (Abnormal) Blood from Arm, Right Final result [...] disease, 2009. No evidence of prosthetic or [place] valve endocarditis. 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 [...]
--- OUTSIDE RECORDS SUMMARY | 2024-05-14 10:13 | XMS_ITS | Encounter Summary ---
Author Organization [facility] Address [address] [place] [address]. [place] [address] Care Team Providers Care Director Search Name Role Phone Seferino Hanley MD Primary Care Provider [phone] [facility] Unavailable + -[phone] Martinez Rogers MD Unavailable Reason for Visit * Reason Onset Date Comments Orders 04/24/2024 Echo RUSH Encounter Details Date Type Department Care Team (Late st Contact Info) Description 04/24/2024 Telephone [facility] [place] [address] [facility] [address] [place] [address] Martinez Rogers MD [address] [facility] [address] [place], [place] [phone] Orders (Echo RUSH ) Social History Tobacco [...] in an abandoned building, in an overnight senior care, or couch-surfing.) No 01/31/2024 Are you worried [...] on file Legal Sex Male 2:58 AM ASSEMBLER CAMPER Gender Identity Not on file Sexual Orientation Not on file documented as of this encounter Miscellaneous Notes * Telephone Encounter - Norma Savage RN - 04/24/2024 11:14 AM CST Chart reviewed, order is for TTE (echo) and notes reflect this as well. Called patient's back,reviewed this. She will call scheduling back to set up the echo for September. MBLER CAMPER * Telephone Encounter - Cecy Yoon - 04/24/2024 10:57 AM CST Health Call Center Phone Message May a detailed message be left on voicemail: yes Reason for Call: Other: pt's was calling to schedule pt for an Echo RUSH. [facility] does not have that order but does [...] you! Specialty Access Center Date of Service: MBLER CAMPER documented in this encounter Plan of Treatment Upcoming Encounters Date Type Department Care Team (Late st Contact Info) Description 05/16/2024 3:00 PM ASSEMBLER CAMPER Office Visit [facility] [place] [address] [facility] [place] [address] Yash Mullins MD [address] [place] [address] 10/01/2024 7:30 AM CDT Appointment [facility] [address] [facility] [address] [place] [address] Martinez Rogers MD [address] [place], [place] [address] documented as of this encounter Visit Diagnoses Not on filedocumented in this encounter Care Teams Director Search Relationship Specialty Start Date End Date Seferino Hanley MD [address] [place] [address] PCP - General Family Medicine 05/13/22 [facility] [address] [place] [address] Assigned PCP 07/06/23 Martinez Rogers MD [address] [place] [address] Cardiovascular Disease 12/22/23 documented as of this encounter
--- OUTSIDE RECORDS SUMMARY | 2024-05-14 10:13 | XMS_ITS | Referral Summary ---
Author Organization [facility] Address [address] [place] [address] Care Team Providers Care Market Gardener Name Role Phone Seferino Hanley MD Primary Care Provider Physicians [facility] Unavailable [phone] Jeet Milligan MD Unavailable Jeet Milligan MD Unavailable Encounters Date Type Department Care Team Description 05/06/[address] [phone] Seferino Hanley MD Referral (ENT) 04/24/2024 Telephone [facility] Heart [address] [phone] Jeet Milligan MD Orders (Echo RUSH ) 04/22/2024 Travel 04/22/2024 12:30 PM RESEARCH ASSOCIATE Office Visit [address] [phone] Seferino Hanley MD Tinea pedis of both feet (Primary Dx); Epidermoid cyst of skin of back 04/10/2024 Travel 04/10/2024 11:00 AM CDT Office Visit [address] [phone] Seferino Hanley MD Epidermoid cyst of skin of back (Primary Dx) 04/03/2024 9:00 AM CDT Office Visit [address] [phone] Seferino Hanley MD Plantar warts (Primary Dx); Epidermoid cyst of skin of back 04/02/2024 Travel 04/02/2024 7:45 AM CDT Office Visit [facility] [place] [address] [facility] [address] [place] [phone] Jeet Milligan MD Ascending aorta dilatation (H); Essential hypertension; Hyperlipidemia LDL goal <100; S/P AVR (aortic valve replacement) 03/27/2024 Travel 03/27/2024 7:19 AM CDT - 03/27/2024 11:59 PM CDT Hospital Encounter [facility] [address] [facility] [address] [place] [phone] Jeet Milligan MD Ascending aorta dilatation (H) Discharge Disposition: Home or Self Care 03/20/2024 Travel 03/20/2024 12:05 PM CDT Lab [facility] [address] [place] [address] Bacteremia 03/14/2024 Orders Only [facility] [address] [place] [address] Diamond Gerardo PA-C Bacteremia (Primary Dx) 03/08/2024 Orders Only [facility] [address] [place] [phone] Lacey Chen MD Bacteremia (Primary Dx) 03/08/2024 Home Infusion [facility] [address] [place] [phone] Jake Beyer Airam Bacteremia (Primary Dx) from Last 3 Months Allergies No known active allergies Medications calcium carbonate (OS-HAWK) 600 MG tablet Take 1 tablet by mouth at bedtime Active MAGNESIUM GLYCINATE PLUS PO Take 1 tablet by mouth at bedtime Active Lowell-3 Fatty Acids (FISH OIL) 1200 MG CAPS [...] an abandoned building, in an overnight senior living, or couch-surfing.) No 01/31/2024 Are you worried [...] on file Legal Sex Male 2:58 AM RESEARCH ASSOCIATE Gender Identity Not on file Sexual Orientation Not on file Last Filed Vital Signs Vital Sign Reading Time Taken Comments Blood Pressure 100/70 04/22/2024 12:29 PM RESEARCH ASSOCIATE Pulse 70 04/22/2024 12:29 PM RESEARCH ASSOCIATE Temperature 36.4 C (97.6 F) 04/10/2024 11:01 AM CDT Respiratory Rate 16 04/22/2024 12:29 PM RESEARCH ASSOCIATE Oxygen Saturation 94% 04/22/2024 12:29 PM RESEARCH ASSOCIATE Inhaled Oxygen Concentration - - Weight 78 kg (172 lb) 04/22/2024 12:29 PM RESEARCH ASSOCIATE Height 175.3 cm (5' 9) 04/02/2024 7:50 AM CDT Body Mass Index 25.4 04/02/2024 7:50 AM CDT Plan of Treatment Upcoming Encounters Date Type Department Care Team (Late st Contact Info) Description 05/16/2024 3:00 PM RESEARCH ASSOCIATE Office Visit [facility] [place] [address] [facility] [place] [phone] Yash Mullins MD [address] [place] [address] 10/01/2024 7:30 AM CDT Appointment [facility] [address] [facility] [address] [place] [phone] Jeet Milligan MD [address] [facility] [address] [place] [address] Medical Devices Implanted Type Area Masonry Installer Device Identifier Shelf Expiration Date Model / [...] * ECHO COMPLETE (03/27/2024 8:14 AM CDT) [facility] LVEF 65-70% CARDIOLOGY RESULTS Anatomical Region Laterality Modality Echocardiography 03/27/2024 7:27 AM CDT Narrative 03/27/2024 11:02 AM CDT [id number]^SRINI^JEET^[facility] Echocardiography Laboratory [address] [place] [address] Name: JESSICA CARLOS : 1960 Study Date: 03/27/2024 07:27 AM Age: 63 yrs Gender: Male Patient Location: [facility] Reason For Study: Ascending aorta dilatation (H) Ordering Physician: JEET MILLIGAN Referring Physician: Seferino Hanley Performed By: Yuly Boswell SHERICE BSA: 2.0 m2 Height: 69 in Weight: [...] Procedure Note Deepak Harrington MD - 03/27/2024 [id number]^SRINI^JEET^[facility] Echocardiography Laboratory [address] [place] [place] [address] Name: JESSICA CARLOS : 1960 Study Date: 03/27/2024 07:27 AM Age: 63 yrs Gender: Male Patient Location: [facility] Reason For Study: Ascending aorta dilatation [...] CDT 03/20/2024 12:13 PM CDT us Lacey Cehn MD LAB - BLOOD ORDERABLES Final Res ult LABORATORY [facility] Acute Care Lab [address] Lab (1st floor, no room number) [place] [address] * Blood Culture Arm, Right (03/20/2024 12:12 PM CDT) Pathologist [facility] Culture No Growth 03/25/2024 4:06 PM CDT [facility] Blood STRUCTURE OF RIGHT UPPER LIMB / Unknown Venipuncture / Unknown 03/20/2024 12:12 PM CDT 03/20/2024 12:13 PM CDT us Diamond Gerardo PA-C LAB - MICRO GENERAL ORDER PRICILLA Final Result [facility] LABORATORY [facility] Inf. Diseases Diag. Lab [address] [facility], [address] [place] [address] * CBC with platelets and differential [...] Res ult Performing Organization Address City/[facility]/ZIP Co de Phone Number LABORATORY [facility] Lab [address] Lab (1st floor, no room number) [address] * Creatinine (03/07/2024 8:05 AM CDT) Only the most recent of4 resultswithin the time period is included. Creatinine 1.03 0.67 - 1.17 mg/dL 03/07/2024 10:45 AM CDT LABORATORY GFR Estimate 82 >60 mL/min/1.7 3m2 03/07/2024 10:45 AM CDT LABORATORY Comment:eGFR calculated 2020 CKD-EPI equation. Blood CENTRAL VENOUS CATHETER / Unknown Client Draw / Unknown 03/07/2024 8:05 AM CDT 03/07/2024 10:16 AM CDT Lacey Chen MD LAB - BLOOD ORDERABLES Final Res ult LABORATORY [facility] Acute Care Lab [address] Lab (1st floor, no room number) [place] [phone] * AST (03/07/2024 8:05 AM CDT) Only the most recent of4 resultswithin the time period is included. AST 29 0 - 45 U/L 03/07/2024 10:45 AM CDT LABORATORY Blood CENTRAL VENOUS CATHETER / Unknown Client Draw / Unknown 03/07/2024 8:05 AM CDT 03/07/2024 10:16 AM CDT us Lacey Chen MD LAB - BLOOD ORDERABLES Final Res ult Performing Organization Address City/[facility]/ZIP Co de Phone Number [facility] Care Lab [address] Lab (1st floor, no room number) [place] [address] * ALT (03/07/2024 8:05 AM CDT) Only the most recent of4 resultswithin the time period is included. ALT 25 0 - 70 U/L 03/07/2024 10:45 AM CDT LABORATORY Blood CENTRAL VENOUS CATHETER / Unknown Client Draw / Unknown 03/07/2024 8:05 AM CDT 03/07/2024 10:16 AM CDT us Lacey Chen MD LAB - BLOOD ORDERABLES Final Res ult Performing Organization Address City/[facility]/ZIP Co de Phone Number [facility] Care Lab [address] Lab (1st floor, no room number) [place] [address], [facility] * (ABNORMAL) Basic metabolic panel [...] - BLOOD ORDERABLES Final Res ult LABORATORY [facility] Acute Care Lab [address] Lab (1st floor, no room number) [place] [address] * (ABNORMAL) Lipid Panel ([facility]) (06/24/2020) Cholesterol [...] S Final Result [facility] [address] [facility] [facility] [address] [place] [address], [facility] from Last 3 Months or Most Recently Relevant to Health Maintenance Insurance [employer] Advance Directives For more information, please contact: [phone] * Full Code (Latest Code Status on File) Date Activated Date Inactivated Comments 02/05/2024 9:36 AM Question Answer Comments Code status determined by: Discussion with patie nt/ legal decision maker * Full Code Date Activated Date Inactivated Comments 01/30/2024 10:09 PM 02/05/2024 9:36 AM All basic a nd advanced life-sustaining interventions are performed as appropriate Question Answer Comments Code status determined by: Discussion with markiee nt/ legal decision maker Care Teams Market Gardener Relationship Specialty Start Date End Date Seferino Hanley MD [address] [place] [address] PCP - General Family Medicine 05/13/22 Physicians, [address] [place] [phone] Assigned PCP 07/06/23 Jeet Milligan MD [address] [place] [id number] Cardiovascular Disease 12/22/23 Jeet Milligan MD [address] [place] [id number] Assigned Heart and Vascular Provider 05/04/24
--- OUTSIDE RECORDS SUMMARY | 2024-05-14 10:14 | XMS_ITS | Encounter Summary ---
Author Organization [facility] Address [address] [place] [address] Care Team Providers Care Java Engineer Name Role Phone Fritz Lagunas MD Primary Care Provider Cynthia vailable Fritz Lagunas MD Unavailable Unavailab Barron Gordon MD Unavailable Unavail able Martinez Rogers MD Unavailable Seferino Hanley MD Primary Care Provider [phone] Fritz Lagunas MD Unavailable Unavailab vero [facility] Unavailable + -[phone] Martinez Rogers MD Unavailable Martinez Rogers MD Unavailable Encounter Details Date Type Department Care Team (Late st Contact Info) Description 11/28/2011 Office Visit-[facility] Heart Clinic [address] [phone] Barron Cook MD Social History Tobacco Use Types Packs/Day Years Used Date Smoking Tobacco: Never Assessed Sex and Gender Information Value Date Recorded Sex Assigned at Not on file Legal Sex Male 2:58 AM HAIR DRESSER Gender Identity Not on file Sexual Orientation Not on file documented as of this encounter Progress Notes * Barron Cook MD - 12/02/2011 11:52 AM CDT Progress Note Created by: Barron Cook M.D. DATE: 11/28/2011 JESSICA CARLOS DATE OF : 1960 AGE: [age] years old Referring Physician: FRITZ LAGUNAS Referring Clinic: [facility] CURRENT DIAGNOSES 1. Aneurysm-Ascending Thoracic [...] with in own home; Place of - [place]; Hours Worked - 60-80 hours per week; [...] st Contact Info) Description 05/16/2024 3:00 PM HAIR DRESSER Office Visit [facility] [place] [address] [facility] [facility] [address] [place] [phone] Yash Mullins MD [address] [place] [address] 10/01/2024 7:30 AM CDT Appointment [facility] Specialty Care [address] [facility] [address] [place] [phone] Martinez Rogers MD [address] [place] [id number] documented as of this encounter Visit Diagnoses Not on filedocumented in this encounter Additional Health Concerns Infection Onset Date Last Indicated Resolved Time Rule Out COVID-19 01/30/2024 01/30/2024 01/30/2024 7:01 PM CDT documented as of this encounter Care Teams Java Engineer Relationship Specialty Start Date End Date Fritz Lagunas MD PCP - General Family Practice 11/21/11 07/29/20 Seferino Hanley MD [address] [place] [address] PCP - General Family Medicine 05/13/22 Fritz Lagunas MD INACTIVE IN [place] 10/09/2020 Assigned PCP 11/22/19 05/27/22 Barron Cook MD Assigned Heart and Vascular Provider 04/03/20 03/27/21 Martinez Rogers MD [address] [place] [address] Assigned Heart and Vascular Provider 03/28/21 11/01/23 Fritz Lagunas MD [place]NACTIVE IN [place] 10/09/2020 Assigned PCP 08/06/22 03/03/23 Physicians, [address] [facility] [address] [place] [address] Assigned PCP 07/06/23 Martinez Rogers MD [address] [place] [address] Cardiovascular Disease 12/22/23 Martinez Rogers MD [address] [place] [id number] Assigned Heart and Vascular Provider 05/04/24 documented as of this encounter
--- OUTSIDE RECORDS SUMMARY | 2024-05-14 10:14 | XMS_ITS | Encounter Summary ---
Author Organization [facility] Address [address] [place] [address] Care Team Providers Care Animal Anatomist Name Role Phone Seferino Hanley MD Primary Care Provider [phone] Physicians, [place] [facility] Unavailable [phone] [phone] Martinez Rogers MD Unavailable Encounter Details Date Type Department Care Team (Late st Contact Info) Description 03/08/2024 Home Infusion [facility] [address] [place] [address] Pepito, Jake, RPH Bacteremia (Primary [...] on file Legal Sex Male 2:58 AM BOILER ERECTOR Gender Identity Not on file Sexual Orientation Not on file documented as of this encounter Plan of Treatment Upcoming Encounters Date Type Department Care Team (Late st Contact Info) Description 05/16/2024 3:00 PM BOILER ERECTOR Office Visit [facility] [place] [address] [facility] [address] [place] [phone] Yash Mullins MD [address] [place] [address] 10/01/2024 7:30 AM CDT Appointment [facility] Specialty Care [address] [facility] [address] [place] [phone] Martinez Rogers MD [address] [place] [id number] documented as of this encounter Procedures Procedure [...] - BLOOD ORDERABLES Final Res ult LABORATORY [facility] Acute Care Lab [address] Lab (1st floor, no room number) [place] [address], [facility] documented in this encounter Visit Diagnoses Diagnosis Bacteremia- Primary documented in this encounter Care Teams Animal Anatomist Relationship Specialty Start Date End Date Seferino Hanley MD [address] [place] [address] PCP - General Family Medicine 05/13/22 Physicians, [place] [facility] [address] [place] [phone] Assigned PCP 07/06/23 Martinez Rogers MD [address] [place] [address] Cardiovascular Disease 12/22/23 documented as of this encounter
--- OUTSIDE RECORDS SUMMARY | 2024-05-14 10:14 | XMS_ITS | Encounter Summary ---
Author Organization [facility] Address [address] [place] [address]. [place] [address] Care Team Providers Care Crisis Counselor Name Role Phone Seferino Hanley MD Primary Care Provider [phone] Physicians, [place] [facility] Unavailable [phone] [phone] Martinez Rogers MD Unavailable Encounter Details Date Type Department Care Team (Late st Contact Info) Description 03/20/2024 12:05 PM CDT Lab [facility] [address] [place] [address] Bacteremia Social History Tobacco Use [...] on file Legal Sex Male 2:58 AM SHIRT FINISHER Gender Identity Not on file Sexual Orientation Not on file documented as of this encounter Plan of Treatment Upcoming Encounters Date Type Department Care Team (Late st Contact Info) Description 05/16/2024 3:00 PM SHIRT FINISHER Office Visit [facility] [place] [address] [place] [phone] Yash Mullins MD [address] [place] [address] 10/01/2024 7:30 AM CDT Appointment [facility] Specialty Care [address] [facility] [address] [place] [phone] Martinez Rogers MD [address] [place] [address] documented as of this encounter Procedures Procedure [...] ORDER PRICILLA Final Result [facility] LABORATORY [facility] Inf. Diseases Diag. Lab [address] [facility], [address] [place] [address] * CRP inflammation (03/20/2024 12:12 PM CDT) CRP Inflammation <3.00 <5.00 mg/L 03/20/20 24 12:31 PM CDT RH LABORATORY Blood STRUCTURE OF RIGHT UPPER LIMB / Unknown Venipuncture / Unknown 03/20/2024 12:12 PM CDT 03/20/2024 12:13 PM CDT us Lacey Chen MD LAB - BLOOD ORDERABLES Final Res ult LABORATORY [facility] Acute Care Lab [address] Lab (1st floor, no room number) [place] [address], [facility] documented in this encounter Visit Diagnoses Diagnosis Bacteremia documented in this encounter Care Teams Crisis Counselor Relationship Specialty Start Date End Date Seferino Hanley MD [address] [place], [place] [address] PCP - General Family Medicine 05/13/22 Physicians, [place] [facility] [address] [place] [phone] Assigned PCP 07/06/23 Martinez Rogers MD [address] [facility] [address] [place] [address] Cardiovascular Disease 12/22/23 documented as of this encounter
--- OUTSIDE RECORDS SUMMARY | 2024-05-14 10:14 | XMS_ITS | Encounter Summary ---
Author Organization [facility] Address [facility] [place] [address] Care Team Providers Care Hog Trader Name Role Phone Seferino Hanley MD Primary Care Provider [phone] Physicians, [place] [facility] Unavailable + [phone] Martinez Rogers MD Unavailable Martinez Rogers MD Unavailable Encounter Details Date Type Department Care Team (Late st Contact Info) Description 03/14/2024 Orders Only [facility] [address] [place] [address] Diamond Gerardo PA-C [address] [facility] [address] [place] [address] Bacteremia (Primary Dx) Social History Tobacco Use [...] on file Legal Sex Male 2:58 AM BURN OUT TENDER LACE Gender Identity Not on file Sexual Orientation Not on file documented as of this encounter Plan of Treatment Upcoming Encounters Date Type Department Care Team (Late st Contact Info) Description 05/16/2024 3:00 PM BURN OUT TENDER LACE Office Visit [facility] [place] [address] [place] [phone] Yash Mullins MD [address] [place] [address] 10/01/2024 7:30 AM CDT Appointment [facility] Specialty Care [address] [facility] [address] [place] [phone] Martinez Rogers MD [address] [place] [address] documented as of this encounter Results * Blood Culture Arm, Right (03/20/2024 12:12 PM CDT) Culture No Growth 03/25/2024 4:06 PM CDT [facility] LAB[facility]AT[facility] Blood STRUCTURE OF RIGHT UPPER LIMB / Unknown Venipuncture / Unknown 03/20/2024 12:12 PM CDT 03/20/2024 12:13 PM CDT us Diamond Gerardo PA-C LAB - MICRO GENERAL ORDER PRICILLA Final Result [facility] LABORATORY [facility] Inf. Diseases Diag. Lab [address] [facility], [address] [place] [address], [facility] documented in this encounter Visit Diagnoses Diagnosis Bacteremia- Primary documented in this encounter Care Teams Hog Trader Relationship Specialty Start Date End Date Seferino Hanley MD [address] [place] [address] PCP - General Family Medicine 05/13/22 Physicians, [address] [place] [phone] Assigned PCP 07/06/23 Martinez Rogers MD [address] [place] [id number] Cardiovascular Disease 12/22/23 Martinez Rogers MD [address] [place] [address] Assigned Heart and Vascular Provider 05/04/24 documented as of this encounter
--- OUTSIDE RECORDS SUMMARY | 2024-05-14 10:14 | XMS_ITS | Encounter Summary ---
Author Organization [facility] Address [address] [place] [address] Care Team Providers Care Case Operator Name Role Phone None, Bfp Primary Care Provider UnavailFritz Waldrop MD Primary Care Provider Cynthia vailable Fritz Lagunas MD Unavailable Unavailab Barron Gordno MD Unavailable Unavail able Martinez Rogers MD Unavailable Seferino Hanley MD Primary Care Provider [phone] Fritz Lagunas MD Unavailable Unavailab vero 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 DATE: 11/30/2010 JESSICA CARLOS DATE OF : 1960 AGE: [age] years old Referring Physician: FRITZ LAGUNAS Referring Clinic: [facility] CURRENT DIAGNOSES 1. - Valve [...] with in own home; Place of - [place]; Hours Worked - 60-80 hours per week; [...] st Contact Info) Description 05/16/2024 3:00 PM SUPERVISOR SPECIAL EFFECTS Office Visit [facility] [place] [address] [facility] [address] [place] [phone] Yash Mullins MD [address] [place], [place] [address] 10/01/2024 7:30 AM CDT Appointment [facility] Specialty Care [address] [facility] [address] [place] [phone] Martinez Rogers MD [address] [facility] [address] [place], [place] [address] documented as of this encounter Visit Diagnoses Not on filedocumented in this encounter Additional Health Concerns Infection Onset Date Last Indicated Resolved Time Rule Out COVID-19 01/30/2024 01/30/2024 01/30/2024 7:01 PM CDT documented as of this encounter Care Teams Case Operator Relationship Specialty Start Date End Date None, Bfp PCP - General 06/25/99 11/20/11 Fritz Lagunas MD PCP - General Family Practice 11/21/11 07/29/20 Seferino Hanley MD [address] [place] [address] PCP - General [facility] Medicine 05/13/22 Fritz Lagunas MD INACTIVE IN [place] 10/09/2020 Assigned PCP 11/22/19 05/27/22 Barron Cook MD Assigned Heart and Vascular Provider 04/03/20 03/27/21 Martinez Rogers MD [address] [place] [address] Assigned Heart and Vascular Provider 03/28/21 11/01/23 Fritz Lagunas MD INACTIVE IN [place] 10/09/2020 Assigned PCP 08/06/22 03/03/23 Physicians, [address] [place] [phone] Assigned PCP 07/06/23 Martinez Rogers MD [address] [place] [id number] Cardiovascular Disease 12/22/23 Martinez Rogers MD [address] [place] [id number] Assigned Heart and Vascular Provider 05/04/24 documented as of this encounter
--- OUTSIDE RECORDS SUMMARY | 2024-05-14 10:14 | XMS_ITS | Encounter Summary ---
Author Organization [place] Address [address] [place] [address] Care Team Providers Care Public Speaking Coach Name Role Phone Seferino Hanley MD Primary Care Provider [phone] Physicians, [place] Family Unavailable [phone] Martinez Rogers MD Unavailable Reason for Visit * Reason Comments Clinic Care Coordination - Post Hospital Bacteremia Encounter Details Date Type Department Care Team (Latest Contact Info) Description 02/07/2024 Care Coordination [facility] Physicians [address] [phone] Seferino Hanley MD [address] [id number] Clinic Care Coordination - Post Hospital (Bacteremia [...] on file Legal Sex Male 2:58 AM NEUROLOGICAL PHYSIOTHERAPIST Gender Identity Not on file Sexual Orientation Not on file documented as of this encounter Progress Notes * Magaly Conde CMA - 02/07/2024 3:33 PM CDT Care Coordination Initial Assessment The patient was admitted into [facility] on 01/30/24 for bacteremia. He [...] st Contact Info) Description 05/16/2024 3:00 PM NEUROLOGICAL PHYSIOTHERAPIST Office Visit [facility] [place] [address] [facility] [address] [place] [address] Yash Mullins MD [address] [place] [address] 10/01/2024 7:30 AM CDT Appointment [facility] [address] [facility] [address] [place] [address] Martinez Rogers MD [address] [place] [address] documented as of this encounter Visit Diagnoses Not on filedocumented in this encounter Care Teams Public Speaking Coach Relationship Specialty Start Date End Date Seferino Hanley MD [address] [place] [address] PCP - General Family Medicine 05/13/22 Physicians, [address] [facility] [address] [place] [address] Assigned PCP 07/06/23 Martinez Rogers MD [address] [place] [id number] Cardiovascular Disease 12/22/23 documented as of this encounter
--- OUTSIDE RECORDS SUMMARY | 2024-05-14 10:14 | XMS_ITS | Encounter Summary ---
Author Organization [place] Address [address] [place] [address]. [place] [address] Care Team Providers Care Green Material Value Added Assessor Name Role Phone Seferino Hanley MD Primary Care Provider [phone] Physicians, [employer] Family Unavailable [phone] Jeet Milligan MD Unavailable Reason for Referral [...] [facility] STATISTIC IV PUSH SINGLE INITIAL SUBSTANCE NE ECHO MYOCARD BX NE INJECTION, PERFLUTREN LIPID MICROSPHERES, PER ML NE TTE W/DOPPLER, COMPLETE NE IV PUSH SINGLE, INITIAL SUBSTANCE NE TTE W/DOPPLER, COMPLETE NE TTE W/DOPPLER, COMPLETE HC US GUIDE FOR PERICARDIOCENTESIS HC ECHO MYOCARD BX HC IV PUSH SINGLE, INITIAL SUBSTANCE HC STATISTIC IV PUSH SINGLE INITIAL SUBSTANCE HC ECHO COMPLETE W DOPPLER W CONTRAST HC ECHO COMPLETE W DOPPLER W/O CONTRAST Jeet Milligan MD [address] [place] [address] Phone: tel: fax: [facility] [address] [facility] [address] [place] [address] Phone: tel: fax: Referral ID Status Reason Start Date Expiration Date Visits Re quested Visits Authorized [id number] Closed 04/06/2023 04/05/2024 1 1 Reason for [...] [facility] STATISTIC IV PUSH SINGLE INITIAL SUBSTANCE NE ECHO MYOCARD BX NE INJECTION, PERFLUTREN LIPID MICROSPHERES, PER ML NE TTE W/DOPPLER, COMPLETE NE IV PUSH SINGLE, INITIAL SUBSTANCE NE TTE W/DOPPLER, COMPLETE NE TTE W/DOPPLER, COMPLETE HC US GUIDE FOR PERICARDIOCENTESIS HC ECHO MYOCARD BX HC IV PUSH SINGLE, INITIAL SUBSTANCE HC STATISTIC IV PUSH SINGLE INITIAL SUBSTANCE HC ECHO COMPLETE W DOPPLER W CONTRAST HC ECHO COMPLETE W DOPPLER W/O CONTRAST Jeet Milligan MD [address] [place] [address] Phone: tel: fax: [facility] [address] [facility] [address] [place] [address] Phone: tel: fax: Referral ID Status Reason Start Date Expiration Date Visits Re quested Visits Authorized [id number] Closed 04/06/2023 04/05/2024 1 1 Encounter Details Date Type Department Care Team (Latest Contact Info) Description 03/27/2024 7:19 AM CDT - 03/27/2024 11:59 PM CDT Hospital Encounter [facility] [address] [facility] [address] [place] [address] Jeet Milligan MD [address] [place] [address] Ascending aorta dilatation (H) Discharge Disposition: Home [...] on file 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 Gender Identity Not on file Sexual Orientation [...] FOR HIM PO) Take by mouth daily Marion-3 Fatty Acids (FISH OIL) 1200 MG CAPS [...] st Contact Info) Description 05/16/2024 3:00 PM 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 Office Visit [facility] [employer] [address] [facility] [address] [place] [phone] Yash Mullins MD [address] [place], [place] [id number] 10/01/2024 7:30 AM CDT Appointment [facility] [address] [facility] [address] [place] [phone] Jeet Milligan MD [address] [place] [address] [phone] (Work) documented as of this encounter Procedures Procedure Name Priority Date/Time Associated Diagnosis Comments ECHO COMPLETE Routine 03/27/2024 8:14 AM CDT Ascending aorta dilatation (H) documented in this encounter Results * ECHO COMPLETE (03/27/2024 8:14 AM CDT) [facility] Signature LVEF 65-70% CARDIOLOGY RESULTS Anatomical Region Laterality Modality Echocardiography 03/27/2024 7:27 AM CDT Narrative 03/27/2024 11:02 AM CDT [id number]^SRINI^JEET^[facility] Echocardiography Laboratory [address] [place] [address] Name: JESSICA CARLOS : 1960 Study Date: 03/27/2024 07:27 AM Age: 63 yrs Gender: Male Patient Location: [facility] Reason For Study: Ascending aorta dilatation (H) [...] Procedure Note Deepak Harrington MD - 03/27/2024 [id number]^SRINI^JEET^[facility] Echocardiography Laboratory [address] [place], [place] [id number] Name: JESSICA CARLOS : 1960 Study Date: 03/27/2024 07:27 AM Age: 63 yrs Gender: Male Patient Location: [facility] Reason For Study: Ascending aorta dilatation (H) [...] ectasia documented in this encounter Care Teams Green Material Value Added Assessor Relationship Specialty Start Date End Date Seferino Hanley MD [address] [place] [address] PCP - General Family Medicine 05/13/22 Physicians, [place] [address] [facility] [address] [place] [phone] Assigned PCP 07/06/23 Jeet Milligan MD [address] [place] [address] Cardiovascular Disease 12/22/23 documented as of this encounter
--- OUTSIDE RECORDS SUMMARY | 2024-05-14 10:14 | XMS_ITS | Encounter Summary ---
Author Organization [facility] Address [address] [place] [address] Care Team Providers Care Director Sales Training Name Role Phone Tressa Hanley MD Primary Care Provider [phone] [facility] Unavailable + [phone] Martinez Rogers MD Unavailable Reason for Referral * Care Coordination (Routine: Next available opening) - Pending Review Specialty Diagnoses / Procedures Referred By Contac t Referred To Contact Diagnoses Bacteremia Justin Elizalde MD [address] [place] [address] Phone: tel:[phone] fax: Referral ID Status Reason Start Date Expiration Date V isits Requested Visits Authorized [id number] Pending Review 02/05/2024 02/04/2025 1 1 Question Answer Reason for Referral: Care Transition Transition: Inpatient to outpatient Clinical Staff have discussed the Care Coordination Referral with the patient and/or caregiver: No Comments * Consultation (Routine: Next available opening) Specialty Diagnoses / Procedures Referred By Contac t Referred To Contact Diagnoses [facility] [address] [place] [address] Phone: tel: fax: Referral ID Status Reason Start Date Expiration Date Visits Re quested Visits Authorized Question Answer Preferred Location: [facility] Infusion - [phone] May draw labs from Venous Catheter: Yes Comments See ID notes for plan, duration Reason for Visit * Reason Comments Abnormal Labs * Auth/Cert Specialty Diagnoses / Procedures Referred By Sherif t Referred To Contact EMERGENCY MEDICINE Diagnoses Bacteremia [facility] Emergency Dept [address] [place] [address] Phone: tel: fax: Referral ID Status Reason Start Date Expiration Date Visits Re quested Visits Authorized [id number] 1 1 Encounter Details Date Type Department Care Team (Late st Contact Info) Description 01/30/2024 5:37 PM CDT - 02/05/2024 7:25 PM CDT Hospital Encounter 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 He was seen in [facility] with a 2-week history of fevers, weakness, sweating episodes and chills. He was called today that his blood cultures are positive for gram-positive cocci and came to the ER. Blood cultures growing Streptococcussanguinous. DAVID negative for rosebud or bioprosthetic valve vegetations, no evidence of [...] discharging this patient. Justin Elizalde MD, MD [place] [address] MEDICAL SURGICAL [address] [facility] [address] Physical Exam Vital Signs: Temp: 97.7 ??F [...] Narrative EXAM: XR CHEST 2 VIEWS LOCATION: [facility] DATE: 01/30/2024 INDICATION: Fever, chills. COMPARISON: 07/16/2009 Impression IMPRESSION: Heart size is normal. Aortic valve replacement. Lungs are clear bilaterally. Mediastinum and visualized bony structures are unremarkable. Echocardiogram DAVID Value LVEF 60-65% Narrative [id number] [facility] [id number]^ARAVIND^[facility] Echocardiography Laboratory [address] [place] [address] Name: MICAH RITCHIE : 1960 Study Date: 02/01/2024 11:53 AM Age: 63 yrs Gender: Male Patient Location: [facility] Reason For Study: Endocarditis Ordering Physician: [...] disease, 2009. No evidence of prosthetic or rosebud valve endocarditis. 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 [...] FOR HIM PO) Take by mouth daily [place]-3 Fatty Acids (FISH OIL) 1200 MG [...] stay. This service will be provided by [facility]. They will contact you regarding your first visit. If you have any questions about this service, please call them at . * Attachments The following attachments cannot be sent through Care Everywhere. * PICC (Peripherally Inserted Central Catheter) (Albanian) * Caring for Your PICC or Central IV Line: Video (Albanian) * Getting Treatment Through a PICC or Central Line: Video (Albanian) * Blood Culture (Albanian) documented in this encounter Medications at Time [...] FOR HIM PO) Take by mouth daily [place]-3 Fatty Acids (FISH OIL) 1200 MG [...] patient will have line placement this afternoon. [facility] is planning to follow for home IV abx at discharge. If patient discharges today with home IV abx, home infusion referral will need to be on the discharge order. [facility] requesting discharge orders signed by 1630 if patient is discharging today, hospitalist notified. Bedside RN was updated that we anticipate patient will need to get his antibiotic dose today prior to discharge as home infusion would plan to see him at home tomorrow for teaching and first home dose. Layla Hanley RN, BSN Inpatient Care Coordination [facility] [phone] * Leni Pereira CRNI - 02/05/2024 11:53 AM CDT [facility] Received request for benefit check should pt require home IV abx. This patient has coverage for IV abx through their [employer] plan, patient has a deductible of $7,800.00 (met $184.47 to date).Once the deductible is met patient is covered at 100%. [facility] has no line preference. I spoke with Redd to introduce home infusion services and review benefits. He would like to proceedwith [facility] for home IV abx needs. Addendum @ 1545h: Pt will discharge home today with new IV ceftriaxone q24hrs. Pt requesting a homeRN visit tomorrow for IV teaching around 1600h, which [facility] will coordinate. Pt will need to dose his IV ceftriaxone at [facility] today prior to discharge home. Pt will need PICC line prior to discharge home. [facility] will deliver medication and supplies to pt's home this evening. Pt instructed on proper abx storage and he verbalized understanding. Thank you for the referral. Leni Pereira RN [facility] Liaison [phone] (Mon thru Fri 8am - 5pm) [phone] Office * Danyell Barrett MD - 02/05/2024 11:37 AM CDT Images from the original note were not included. [facility] Infectious Disease Progress Note Date of Service [...] (01/31) until 03/14 Can discharge from the [facility] stand point once antibiotics are arranged Follow [...] 1644 02/04/2024 2046 Blood Culture Hand, Right [[id number]] Blood from Hand, Right Preliminary result Component Value Culture No growth after 3 days P 01/30/2024 2030 02/05/2024 0953 Blood Culture Peripheral Blood [[id number]] (Abnormal) Peripheral Blood Preliminary result Component Value Culture Positive on the 1st day of incubation Abnormal P Streptococcus sanguinis Panic C 2 of 2 bottles Susceptibilities done on previous cultures 01/30/2024 1801 01/30/2024 1901 Symptomatic Influenza A/B, RSV, & SARS-CoV2 PCR (COVID-19) Nasopharyngeal [[id number]] Swab from Nasopharyngeal Final result Component Value Influenza A PCR Negative Influenza B PCR Negative RSV PCR Negative SARS CoV2 PCR Negative NEGATIVE: SARS-CoV-2 (COVID-19) RNA not detected, presumed negative. 01/30/2024 1628 02/05/2024 0954 Blood Culture Arm, Right [[id number]] (Abnormal) Blood from Arm, Right Preliminary result [...] disease, 2009. No evidence of prosthetic or rosebud valve endocarditis. 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 No periprosthetic regurgitation. Trace to mild prosthetic regurgitation. The prosthetic valve opens well. Mean systolic gradient 24 mmHg. Normal left ventricular systolic function. Estimated LVEF 60-65%. Normal right ventricular size and systolic function. Bubble study negative for inter-atrial shunt. * Osmar Triplett MD - 02/04/2024 12:32 PM CDT [facility] Hospitalist Progress Note Provider : Osmar Triplett MD Date of Service (when I saw the patient): 02/04/2024 Assessment & Plan Micah Ritchie is a 63 year old male admitted on 01/30/2024. He has history of bicuspid aortic valve with history of aortic valve replacement in 2009. He was seen in [facility] with a 2-week history of fevers, weakness, sweating episodes and chills. He was called today that his blood cultures are positive for gram-positive cocci and came to the ER. Blood cultures growing Streptococcussanguinous. DAVID negative for rosebud or bioprosthetic valve vegetations, no evidence of [...] Triplett MD - 02/03/2024 12:57 PM CDT [facility] Hospitalist Progress Note Provider : Osmar Triplett MD Date of Service (when I saw the patient): 02/03/2024 Assessment & Plan Micah Ritchie is a 63 year old male admitted on 01/30/2024. He has history of bicuspid aortic valve with history of aortic valve replacement in 2009. He was seen in [facility] with a 2-week history of fevers, weakness, sweating episodes and chills. He was called today that his blood cultures are positive for gram-positive cocci and came to the ER. Blood cultures growing Streptococcussanguinous. DAVID negative for rosebud or bioprosthetic valve vegetations, no evidence of [...] Triplett MD - 02/02/2024 2:07 PM CDT [facility] Hospitalist Progress Note Provider : Osmar Triplett MD Date of Service (when I saw the patient): 02/02/2024 Assessment & Plan Micah Ritchie is a 63 year old male admitted on 01/30/2024. He has history of bicuspid aortic valve with history of aortic valve replacement in 2009. He was seen in [facility] with a 2-week history of fevers, weakness, sweating episodes and chills. He was called today that his blood cultures are positive for gram-positive cocci and came to the ER. Blood cultures growing Streptococcussanguinous. DAVID negative for rosebud or bioprosthetic valve vegetations, no evidence of [...] Chen MD - 02/02/2024 11:56 AM CDT [facility] Infectious Disease Progress Note Date of Service [...] Triplett MD - 02/01/2024 3:30 PM CDT [facility] Hospitalist Progress Note Provider : Osmar Triplett MD Date of Service (when I saw the patient): 02/01/2024 Assessment & Plan Micah Ritchie is a 63 year old male admitted on 01/30/2024. He has history of bicuspid aortic valve with history of aortic valve replacement in 2009 He was seen in [facility] with a 2-week history of fevers, weakness, [...] Chen MD - 02/01/2024 11:47 AM CDT [facility] Infectious Disease Progress Note Date of Service [...] Penn MD - 01/31/2024 10:36 AM CDT [facility] Hospitalist Progress Note Provider : Key Penn MD, MD Date of Service (when I saw the patient): 01/31/2024 Assessment & Plan Micah Ritchie is a 63 year old male admitted on 01/30/2024. He has history of bicuspid aortic valve with history of aortic valve replacement in 2009 He was seen in [facility] with a 2-week history of fevers, weakness, [...] repeat blood cultures. -I called lab at [facility] today. Final culture and sensitivity not available [...] Narrative EXAM: XR CHEST 2 VIEWS LOCATION: [facility] DATE: 01/30/2024 INDICATION: Fever, chills. COMPARISON: 07/16/2009 Impression IMPRESSION: Heart size is normal. Aortic valve replacement. Lungs are clear bilaterally. Mediastinum and visualized bony structures are unremarkable. documented in this encounter H&P Notes * Alan Alvarez MD - 01/30/2024 8:36 PM CDT [facility] History and Physical - Hospitalist Service Date of Admission: 01/30/2024 Assessment & Plan Micah Ritchie is a 63 year old male admitted on 01/30/2024. He has history of bicuspid aortic valve with history of aortic valve replacement in 2009 He was seen in [facility] with a 2-week history of fevers, weakness, [...] Follow-up on repeat blood cultures. Please call [facility] in the morning to get culture and [...] 2-4 Days Alan Alvarez MD Hospitalist Service [facility] Securely message with [employer] (Expert info) Text page via [facility] Paging/Directory Chief Complaint Fevers History is obtained from the patient. at bedside. History of Present Illness Micah Ritchie is a 63 year old male admitted on 01/30/2024. He has history of bicuspid aortic valve with history of aortic valve replacement in 2009 He was seen in [facility] with a 2-week history of fevers, weakness, [...] Yes No Sig: Take by mouth daily [place]-3 Fatty Acids (FISH OIL) 1200 MG [...] Narrative EXAM: XR CHEST 2 VIEWS LOCATION: [facility] DATE: 01/30/2024 INDICATION: Fever, chills. COMPARISON: 07/16/2009 Impression IMPRESSION: Heart size is normal. Aortic valve replacement. Lungs are clear bilaterally. Mediastinum and visualized bony structures are unremarkable. documented in this encounter Procedure Notes * Kenya Becker RN - 02/05/2024 6:36 PM CDTAssociated Order(s): Single Lumen PICC Placement [facility] Single Lumen PICC Placement Date/Time: 02/05/2024 6:22 [...] the procedure a time out was called Oconto Protocol: the Joint Commission Oconto Protocol was followed Preparation: Patient was prepped [...] size: 4 Fr Brand: Bard Lot number: [id number] Placement method: MST and venipuncture Number of [...] Communication Assessment Patient's communication style: spoken language (Albanian or Bilingual) Hearing Difficulty or Deaf: no [...] agreement with CM sending benefit check to [facility] for IV abx for discharge. The patient stated he feels he can manage this at home. Benefit check was sent. He confirmed his correct address is in the chart and that he has reliable transport for discharge home from the hospital. Layla Hanley RN, BSN Inpatient Care Coordination [facility] [phone] * Lacey Chen MD - 01/31/2024 9:36 AM CDTAssociated Order(s): INFECTIOUS DISEASES IP CONSULT [facility] Infectious Disease Consultation Date of Admission: 01/30/2024 [...] Yes Yes Sig: Take by mouth daily [place]-3 Fatty Acids (FISH OIL) 1200 MG [...] Davis RN - 01/30/2024 9:24 PM CDT [facility] ED Nurse Handoff Report ED Chief complaint: Abnormal Labs . ED Diagnosis: Final diagnoses: Bacteremia Allergies: No Known Allergies Code Status: Full Code Activity level - Baseline/Home: independent. Activity Level - Current: independent. Lift room needed: No. 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 Infection: Not Applicable. [...] replacement in 2009 He was seen in [facility] with a 2-week history of fevers, weakness, [...] positive cocci. Of note, he works on [employer] and frequently has cuts on his hands. [...] Notes I reviewed care everywhere and [facility]. I reviewed last week's records from [place] as noted above Past Medical History Medical [...] PO Multiple Vitamins-Minerals (MULTI FOR HIM PO) [place]-3 Fatty Acids (FISH OIL) 1200 MG [...] 01/30/2024 4:03 PM CDT Pt here from [place] for positive blood cultures growing gram positive [...] Documentation Taken 02/03/2024 1634 by Cheri Davis, deburrer Review/Management: medications reviewed Problem: Infection Goal: Absence [...] Arizmendi RN - 02/02/2024 4:30 AM CDT [id number] Inpatient Progress Note: BP 118/75 (BP Location: [...] Family member via in-person Changes made to PHYSICIST NUCLEAR medication list: Added: Lutein Deleted: Gleason prn (from 2022) Changed: Loratadine to prn, times on some entries Allergies reviewed with patient and updates made in EHR: no Medication History Completed By: Reggie Forman RPH 01/30/2024 11:29 PM PHYSICIST NUCLEAR Med List Medication Sig Last Dose amoxicillin [...] Take by mouth daily 01/30/2024 at am [place]-3 Fatty Acids (FISH OIL) 1200 MG [...] Rocky Fraser [facility] - 01/30/2024 10:24 PM CDT Pharmacy Vancomycin [...] least twice weekly for subsequent weeks. 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 Specialty Care [address] [place] [phone] Martinez Rogers MD [address] [place] [address] Scheduled Referrals Name Type Priority Associated Diagnoses [...] EXAM: XR CHEST PORT 1 VIEW LOCATION: [facility] DATE: 02/05/2024 INDICATION: RN placed PICC, verify tip placement. COMPARISON: 01/30/2024. Procedure Note Patrick Garcia MD - 02/05/2024 EXAM: XR CHEST PORT 1 VIEW LOCATION: [facility] DATE: 02/05/2024 INDICATION: RN placed PICC, verify tip placement. COMPARISON: 01/30/2024. IMPRESSION: Right PICC line tip at the cavoatrial level. No acute airspacedisease. Normal cardiac silhouette. us Danyell Barrett MD IMG DIAGNOSTIC IMAGING ORDERABLE S Final Result * Single Lumen PICC Placement (02/05/2024 6:22 PM CDT) Narrative Kenya Becker RN - 02/05/2024 6:22 PM CDT Kenya Becker RN 02/05/2024 6:43 PM [facility] Single Lumen PICC Placement Date/Time: 02/05/2024 6:22 [...] the procedure a time out was called Oconto Protocol: the Joint Commission Oconto Protocol was followed Preparation: Patient was prepped [...] and valved Catheter size: 4 Fr Brand: [employer] Lot number: [id number] Placement method: MST and venipuncture Number of [...] - BLOOD ORDERABLES Final Res ult LABORATORY [facility] Acute Care Lab [address] Lab (1st floor, no room number) [place] [address] * Platelet count (02/05/2024 6:56 AM CDT) Platelet Count 296 150 - 450 10e3/uL 02/05/2024 7:05 AM CDT [facility] LABORATORY Blood STRUCTURE OF RIGHT HAND / Unknown Venipuncture / Unknown 02/05/2024 6:56 AM CDT 02/05/2024 7:02 AM CDT us Alan Alvarez MD LAB - BLOOD ORDERABLES Final Res ult Performing Organization Address City/[facility]/ZIP Co de Phone Number LABORATORY [facility] Acute [facility] Lab [address] Lab (1st floor, no room number) [place] [phone] [place] [address] * Magnesium (02/05/2024 6:56 AM CDT) Magnesium 2.3 1.7 - 2.3 mg/dL 02/05/2024 7:24 AM CDT [facility] LABORATORY Blood STRUCTURE OF RIGHT HAND / Unknown Venipuncture / Unknown 02/05/2024 6:56 AM CDT 02/05/2024 7:02 AM CDT Osmar Triplett MD LAB - BLOOD ORDERABLES Final Res ult Performing Organization Address [facility]/ZIP Co de Phone Number LABORATORY [facility] Lab [address] Lab (1st floor, no room number) [place] [phone] [place] [address] * Potassium (02/05/2024 6:56 AM CDT) Potassium 3.9 3.4 - 5.3 mmol/L 02/05/2024 7:24 AM CDT [facility] LABORATORY Blood STRUCTURE OF RIGHT HAND / Unknown Venipuncture / Unknown 02/05/2024 6:56 AM CDT 02/05/2024 7:02 AM CDT Osmar Triplett MD LAB - BLOOD ORDERABLES Final Res ult LABORATORY [facility] Lab [address] Lab (1st floor, no room number) [place] [phone] * Extra Purple Top Tube (02/04/2024 7:11 AM CDT) Hold Specimen JIC 02/04/2024 8:31 AM CDT [facility] LABORATORY Blood BLOOD SPECIMEN / Unknown Venipuncture / Unknown 02/04/2024 7:11 AM CDT 02/04/2024 7:18 AM CDT us Alan Alvarez MD LAB - BLOOD ORDERABLES Final Res ult [facility] Acute Care Lab [address] Lab (1st floor, no room number) [place] [address] * Creatinine (02/04/2024 7:11 AM CDT) [...] ORDERABLES Final Res ult Performing Organization Address City/[facility]/ZIP Co de Phone Number [facility] Care Lab [address] Lab (1st floor, no room number) [place] [phone] * (ABNORMAL) Magnesium (02/04/2024 7:11 AM CDT) Magnesium 2.5(H) 1.7 - 2.3 mg/dL 02/04/2024 7:36 AM CDT LABORATORY Blood BLOOD SPECIMEN / Unknown Venipuncture / Unknown 02/04/2024 7:11 AM CDT 02/04/2024 7:17 AM CDT us Osmar Triplett MD LAB - BLOOD ORDERABLES Final Res ult [facility] Care Lab [address] Lab (1st floor, no room number) [place] [address] * Potassium (02/04/2024 7:11 AM CDT) Potassium 4.3 3.4 - 5.3 mmol/L 02/04/2024 7:36 AM CDT [facility] LABORATORY Blood BLOOD SPECIMEN / Unknown Venipuncture / Unknown 02/04/2024 7:11 AM CDT 02/04/2024 7:17 AM CDT Osmar Triplett MD LAB - BLOOD ORDERABLES Final Res ult [facility] Acute Care Lab [address] Lab (1st floor, no room number) [address] [place] [address] * Creatinine (02/03/2024 5:45 AM CDT) Creatinine [...] LAB - BLOOD ORDERABLES Final Res ult [facility] Acute Care Lab [address] Lab (1st floor, no room number) [place] [phone] * (ABNORMAL) Magnesium (02/03/2024 5:45 AM CDT) Magnesium 2.4(H) 1.7 - 2.3 mg/dL 02/03/2024 6:21 AM CDT [facility] LABORATORY Blood STRUCTURE OF LEFT HAND / Unknown Venipuncture / Unknown 02/03/2024 5:45 AM CDT 02/03/2024 6:01 AM CDT Osmar Triplett MD LAB - BLOOD ORDERABLES Final Res ult LABORATORY [facility] Care Lab [address] [employer] Lab (1st floor, no room number) [place] [address] * Potassium (02/03/2024 5:45 AM CDT) Potassium 4.2 3.4 - 5.3 mmol/L 02/03/2024 6:21 AM CDT [facility] LABORATORY Blood STRUCTURE OF LEFT HAND / Unknown Venipuncture / Unknown 02/03/2024 5:45 AM CDT 02/03/2024 6:01 AM CDT Osmar Triplett MD LAB - BLOOD ORDERABLES Final Res ult Performing Organization Address City/[facility]/ZIP Co de Phone Number LABORATORY [facility] Lab [address] Lab (1st floor, no room number) [place] [address] * (ABNORMAL) Basic metabolic [...] BLOOD ORDERABLES Final Res ult [facility] LABORATORY [facility] Acute Care Lab [address] [facility] Lab (1st floor, no room number) [place] [address] * (ABNORMAL) CBC with [...] - BLOOD ORDERABLES Final Res ult LABORATORY [facility] Acute Care Lab [address] Lab (1st floor, no room number) [place] [address] * Magnesium (02/02/2024 6:39 AM CDT) Magnesium 2.3 1.7 - 2.3 mg/dL 02/02/2024 7:49 AM CDT [facility] LABORATORY Blood STRUCTURE OF RIGHT HAND / Unknown Venipuncture / Unknown 02/02/2024 6:39 AM CDT 02/02/2024 7:23 AM CDT us Osmar Triplett MD LAB - BLOOD ORDERABLES Final Res ult [facility] Lab [address] Lab (1st floor, no room number) [place] [address], [facility] * Blood Culture Hand, Right (02/01/2024 4:44 PM CDT) Culture No Growth 02/06/2024 8:46 PM CDT [facility] Blood STRUCTURE OF RIGHT HAND / Unknown Venipuncture / Unknown 02/01/2024 4:44 PM CDT 02/01/2024 4:46 PM CDT us Lacey Chen MD LAB - MICRO GENERAL ORDERABLES F inal Result [facility] LABORATORY [facility] Inf. Diseases Diag. Lab [address] [place] [address] * Potassium (02/01/2024 4:44 PM CDT) Potassium 3.9 3.4 - 5.3 mmol/L 02/01/2024 5:14 PM CDT LABORATORY Blood STRUCTURE OF RIGHT HAND / Unknown Venipuncture / Unknown 02/01/2024 4:44 PM CDT 02/01/2024 4:46 PM CDT Osmar Triplett MD LAB - BLOOD ORDERABLES Final Res ult LABORATORY [facility] Lab [address] [facility] Lab (1st floor, no room number) [place] [address] * ECHO DAVID (02/01/2024 1:42 PM CDT) LVEF 60-65% CARDIOLOGY RESULTS Anatomical Region Laterality Modality Echocardiography 02/01/2024 11:5 3 AM CDT Narrative 02/01/2024 4:16 PM CDT [id number] [facility] [id number]^ARAVIND^[facility] Echocardiography Laboratory [address] [place] [address] Name: MICAH RITCHIE : 1960 Study Date: 02/01/2024 11:53 AM Age: 63 yrs Gender: Male Patient Location: [facility] Reason For Study: Endocarditis Ordering Physician: ALAN ALVAREZ Performed By: [facility] Manju Coto BSA: 2.0 m2 Height: 69 [...] disease, 2009. No evidence of prosthetic or rosebud valve endocarditis. 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 [...] Procedure Note Taina Ignacio MD - 02/01/2024 [id number] [facility] [id number]^ARAVIND^[facility] Echocardiography Laboratory 201 [facility] [place] [address] Name: MICAH RITCHIE : 1960 Study Date: 02/01/2024 11:53 AM Age: 63 yrs Gender: Male Patient Location: [facility] Reason For Study: Endocarditis Ordering Physician: [...] disease, 2009. No evidence of prosthetic or rosebud valve endocarditis. 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 [...] - BLOOD ORDERABLES Final Result RH LABORATORY [facility] Lab [address] [facility] Lab (1st floor, no room number) [place] [address] * (ABNORMAL) CBC with [...] MD LAB - BLOOD ORDERABLES Final Result [facility] Acute Care Lab [address] Lab (1st floor, no room number) [address] * (ABNORMAL) Magnesium (02/01/2024 9:21 AM CDT) Magnesium 2.5(H) 1.7 - 2.3 mg/dL 02/01/2024 10:01 AM CDT LABORATORY Blood STRUCTURE OF LEFT HAND / Unknown Venipuncture / Unknown 02/01/2024 9:21 AM CDT 02/01/2024 9:36 AM CDT Key Penn MD LAB - BLOOD ORDERABLES Final Result Performing Organization Address [facility] Co de Phone Number [facility] Lab [address] Lab (1st floor, no room number) [address] * (ABNORMAL) TSH with free T4 reflex (02/01/2024 9:21 AM CDT) TSH 4.50(H) 0.30 - 4.20 uIU/mL 02/01/2024 10:06 AM CDT LABORATORY Blood STRUCTURE OF LEFT HAND / Unknown Venipuncture / Unknown 02/01/2024 9:21 AM CDT 02/01/2024 9:36 AM CDT Key Penn MD LAB - BLOOD ORDERABLES Final Result [facility] Lab [address] Lab (1st floor, no room number) [address] * Basic metabolic panel (02/01/2024 9:21 [...] LAB - BLOOD ORDERABLES Final Result LABORATORY [facility] Lab [address] Lab (1st floor, no room number) [place] [address], [facility] * Magnesium (01/31/2024 6:53 AM CDT) Pathologist [facility] Magnesium 2.2 1.7 - 2.3 mg/dL 01/31/2024 7:51 AM CDT RH LABORATORY Blood STRUCTURE OF LEFT UPPER LIMB / Unknown Venipuncture / Unknown 01/31/2024 6:53 AM CDT 01/31/2024 7:25 AM CDT Alan Alvarez MD LAB - BLOOD ORDERABLES Final Res ult RH LABORATORY [facility] [address] Lab (1st floor, no room number) [place] [address], [facility] * (ABNORMAL) CBC with platelets (01/31/2024 6:53 AM CDT) Pathologist [facility] WBC Count 8.3 4.0 - 11.0 10e3/uL [...] BLOOD ORDERABLES Final Res ult RH LABORATORY [facility] Lab [address] Lab (1st floor, no room number) [place] [address] * (ABNORMAL) Basic metabolic [...] LAB - BLOOD ORDERABLES Final Res ult [facility] Lab [address] Lab (1st floor, no room number) [place] [address] * EKG 12-lead, tracing only (01/30/2024 9:33 PM CDT) Systolic Blood Pressure mmHg RADIOLOGY RESULTS Diastolic Blood Pressure mmHg RADIOLOGY RESULTS Ventricular Rate 75 BPM RAD IOLOGY RESULTS Atrial Rate 75 BPM RADIOLOG Y RESULTS FL Interval 180 ms RADIOLOG Y RESULTS QRS Duration 90 ms RADIOLO GY RESULTS QT 372 ms RADIOLOGY RESULTS QTc 415 ms RADIOLOGY RESULTS P [place] 34 degrees RADIOLOGY RESULTS R AXIS 43 degrees RADIOLOGY RESULTS T [place] 51 degrees RADIOLOGY RESULTS Interpretation ECG Sinus rhythm Minimal voltage criteria for LVH, may be normal variant ( Sokolow-Tse ) Borderline ECG When compared with ECG of 18-Oct-2022 10:50, No significant change was found Unconfirmed report - interpretation of this ECG is computer generated - see medical record for final interpretation Confirmed by - EMERGENCY ROOM, PHYSICIAN ([id number]), news video editor FARZANA GOLDBERG ([id number]) on 01/31/2024 6:48:46 AM RADIOLOGY RESULTS 01/30/2024 9:33 PM CDT 01/31/2024 6:48 AM CDT us Alan Alvarez MD ECG ORDERABLES Edited Result - Final Performing Organization Address [facility]/ZIP Co de Phone Number RADIOLOGY RESULTS * Chest XR, PA & LAT (01/30/2024 8:34 PM CDT) Anatomical Region Laterality Modality Chest Computed Radiogr aphy 01/30/2024 8:34 PM CDT Impressions 01/30/2024 9:15 PM CDT IMPRESSION: Heart size is normal. Aortic valve replacement. Lungs are clear bilaterally. Mediastinum and visualized bony structures are unremarkable. Narrative 01/30/2024 9:15 PM CDT EXAM: XR CHEST 2 VIEWS LOCATION: [facility] DATE: 01/30/2024 INDICATION: Fever, chills. COMPARISON: 07/16/2009 Procedure Note Sunil Richardson MD - 01/30/2024 EXAM: XR CHEST 2 VIEWS LOCATION: [facility] DATE: 01/30/2024 INDICATION: Fever, chills. COMPARISON: [...] dited Result - Final UU IDD LABORATORY [facility] Inf. Diseases Diag. Lab [address] [facility] [place] [address] * Symptomatic Influenza A/B, RSV, & [...] the Xpert Xpress CoV2/Flu/RSV Assay on the [employer] GeneXpert Instrument. This test should be ordered [...] management. This test was validated by the [facility]. These laboratories are certified under the Clinical Laboratory Improvement Amendments of 1988 (CLIA-88) as qualified to perform high complexity laboratory testing. Joselito Mar MD LAB - MICRO GENERAL ORDERABLES F inal Result [facility] [address] [facility], no room number) [place] [address], [facility] * (ABNORMAL) Verigene GP Panel (01/30/2024 4:28 [...] Streptococcus pyogenes and Streptococcus agalactiae. Performed using MeetingSproutigene multiplex nucleic acid test. Final identification and [...] MYAH BURKS Final Result [facility] IDD LABORATORY [facility] Inf. Diseases Diag. Lab [address] [facility], [address] [place] [address], [facility] * (ABNORMAL) Hepatic function panel (01/30/2024 4:28 [...] - BLOOD ORDERABLES Final Res ult LABORATORY [facility] Lab [address] Lab (1st floor, no room number) [place] [address], [facility] * (ABNORMAL) Procalcitonin (01/30/2024 4:28 PM CDT) [...] See Procalcitonin Guidance document for more details. [email or web address] Factors that may affect PCT levels (not [...] ORDERABLES Final Res ult Performing Organization Address City/[facility]/ZIP Co de Phone Number [facility] Care Lab [address] Lab (1st floor, no room number) [address] * (ABNORMAL) CRP inflammation (01/30/2024 4:28 PM CDT) CRP Inflammation 73.42(H) <5.00 mg/L 01/30/2024 6:23 PM CDT LABORATORY Blood STRUCTURE OF RIGHT UPPER LIMB / Unknown Venipuncture / Unknown 01/30/2024 4:28 PM CDT 01/30/2024 5:01 PM CDT Joselito Mar MD LAB - BLOOD ORDERABLES Final Res ult [facility] Lab [address] Lab (1st floor, no room number) [address] * (ABNORMAL) CBC with platelets and [...] BLOOD ORDERABLES F inal Result RH LABORATORY [facility] Lab [address] Lab (1st floor, no room number) [place] [address] * (ABNORMAL) Blood Culture Arm, Right (01/30/2024 4:28 PM CDT) [facility] Positive on the 1st day [...] ORDE RABLES Final Result UU IDD LABORATORY [facility] Inf. Diseases Diag. Lab [address] [facility], [address] [place] [address] * Lactic acid whole blood (01/30/2024 4:28 PM CDT) Lactic Acid 1.1 0.7 - 2.0 mmol/L 01/30/2024 5:11 PM CDT RH LABORATORY Blood STRUCTURE OF RIGHT UPPER LIMB / Unknown Venipuncture / Unknown 01/30/2024 4:28 PM CDT 01/30/2024 5:01 PM CDT us Tito Waller MD LAB - BLOOD ORDERABLES F inal Result LABORATORY [facility] [address] [facility] (1st floor, no room number) [place] [address] * Basic metabolic panel [...] - BLOOD ORDERABLES F inal Result LABORATORY [facility] Lab [address] [facility] Lab (1st floor, no room number) [place] [address], [facility] documented in this encounter Visit Diagnoses Diagnosis [...] dose, When verbally ordered by the prescriber. [place] throat with 1-4 sprays 5 minutes prior [...] Marilu Adorno, FIDE)1938 ($Given - Provider: Cheri Daivs RN) 1641 ($Given - Provider: Cheri Davis [...] documented as of this encounter Care Teams Director Sales Training Relationship Specialty Start Date End Date Tressa Hanley MD [address] [place] [address] PCP - General Family Medicine 05/13/22 Physicians, [place] [address] [address] [facility] [address] [place] [address] Assigned PCP 07/06/23 Martinez Rogers MD [address] [place] [address] Cardiovascular Disease 12/22/23 documented as of this encounter
--- OUTSIDE RECORDS SUMMARY | 2024-05-14 10:14 | XMS_ITS | Encounter Summary ---
Author Organization [place] Address [address] [place] [address] Care Team Providers Care Lace Finisher Name Role Phone Seferino Hanley MD Primary Care Provider [phone] [phone] [place] Urbina Family Unavailable + -[phone] Martinez Rogers MD Unavailable Martinez Rogers MD Unavailable Reason for Visit * Auth/Cert Specialty Diagnoses / Procedures Referred By Sherif garza Referred To Contact EMERGENCY MEDICINE Diagnoses Bacteremia 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 Specialty Care [address] [facility] [address] [place] [address] Martinez Rogers MD [address], [facility] [address] [place] [address] documented as of this encounter Visit Diagnoses Not on filedocumented in this encounter Care Teams Lace Finisher Relationship Specialty Start Date End Date Seferino Hanley MD [address] [place], [place] [address] PCP - General Family Medicine 05/13/22 Physicians, [address] [place] [address] Assigned PCP 07/06/23 Martinez Rogers MD [address] [facility] [address] [place] [address] Cardiovascular Disease 12/22/23 Martinez Rogers MD [address] [facility] [address] [place] [address] Assigned Heart and Vascular Provider 05/04/24 documented as of this encounter
--- OUTSIDE RECORDS SUMMARY | 2024-05-14 10:14 | XMS_ITS | Encounter Summary ---
Author Organization [place] Address [facility] [place] [address] Care Team Providers Care Blade Sharpener Name Role Phone Seferino Hanley MD Primary Care Provider [phone] PhysiciansBrigida Family Unavailable + -[phone] Martinez Rogers MD Unavailable Reason for Visit * Reason Onset Date Comments Appointment 02/06/2024 Hospital follow up Encounter Details Date Type Department Care Team (Late st Contact Info) Description 02/06/2024 Telephone [facility] [place] [address] [facility] [address] [place] [address] Martinez Rogers MD [address] [facility] [address] [place], [place] [address] Appointment (Hospital follow up ) Social History [...] in an abandoned building, in an overnight assisted, or couch-surfing.) No 01/31/2024 Are you worried [...] on file 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 Martinez Rogers MD Hiljus, Audrey G, RN Cc: P Tere [facility] Heart Team 2 Caller: Unspecified (Yesterday, [...] Rogers. They are willing to come to [place] or [facility] and will meet with an LEI if they feel they need to talk with someone before March. They will all back if they want a visit. * Telephone Encounter - ShajiSally - 02/06/2024 12:46 PM CDT [facility] Call Center Phone Message May a [...] it's ok for them tojust wait until Oct appt to be seen. Please call Ludivina back to further discuss. Action Taken: Other: Cardiology Travel Screening: Not Applicable Thank you! Specialty Access Center documented in this encounter Plan of Treatment Upcoming Encounters Date Type Department Care Team (Late st Contact Info) Description 05/16/2024 3:00 PM MINE WEDGE SAWYER Office Visit [facility] [place] [address] [facility] [place] [phone] Yash Mullins MD [address] [place] [address] 10/01/2024 7:30 AM CDT Appointment [facility] Specialty Care [address] [facility] [address] [place] [address] Martinez Rogers MD [address] [place] [address] documented as of this encounter Visit Diagnoses Not on filedocumented in this encounter Care Teams Blade Sharpener Relationship Specialty Start Date End Date Seferino Hanley MD [address] [place] [address] PCP - General Family Medicine 05/13/22 Physicians, [place] [address] [place] [address] Assigned PCP 07/06/23 Martinez Rogers MD [address] [place] [address] Cardiovascular Disease 12/22/23 documented as of this encounter
--- OUTSIDE RECORDS SUMMARY | 2024-05-14 10:14 | XMS_ITS | Encounter Summary ---
Author Organization [place] Address [address] [place] [address]. [place] [address] Care Team Providers Care Electrical Fitter Name Role Phone Fritz Hitchcock MD Unavailable Unavailab Martinez Fragoso MD Unavailable Seferino Hanley MD Primary Care Provider [phone] Fritz Hitchcock MD Unavailable Unavailab [facility] Unavailable [phone] Martinez Rogers MD Unavailable Martinez Rogers MD Unavailable Reason for Visit * Reason Onset Date Comments Appointment 12/30/2021 Call pt to rekha leal Ascending aorta dilatation & CT Chest w/Contrast in RU in March Encounter Details Date Type Department Care Team (Late st Contact Info) Description 12/30/2021 Telephone [facility] Heart [address] [place] [address] Martinez Rogers MD [address] [facility] [address] [place], [place] [address] Appointment (Call pt to schedule Dr. 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 Gender Identity Not on file Sexual Orientation Not on file documented as of this encounter Miscellaneous Notes * Telephone Encounter - Drea Romano - 12/30/2021 3:56 PM CDT [facility] [...] st Contact Info) Description 05/16/2024 3:00 PM HEALTH SERVICES DIRECTOR Office Visit [facility] Surgery [facility] [address] [place] [phone] Yash Mullins MD [address] [place] [address] 10/01/2024 7:30 AM CDT Appointment [facility] Specialty Care [address] [facility] [address] [place] [phone] Martinez Rogers MD [address] [facility] [address] [place], [place] [address] documented as of this encounter Visit Diagnoses Not on filedocumented in this encounter Additional Health Concerns Infection Onset Date Last Indicated Resolved Time Rule Out COVID-19 01/30/2024 01/30/2024 01/30/2024 7:01 PM CDT documented as of this encounter Care Teams Electrical Fitter Relationship Specialty Start Date End Date Seferino Hanley MD [address] [place] [address] PCP - General Family Medicine 05/13/22 Fritz Hitchcock MD INACTIVE IN [place] 10/09/2020 Assigned PCP 11/22/19 05/27/22 Martinez Rogers MD [address] [place] [address] Assigned Heart and Vascular Provider 03/28/21 11/01/23 Fritz Hitchcock MD INACTIVE IN [place] 10/09/2020 Assigned PCP 08/06/22 03/03/23 Physicians, [address] [place] [phone] Assigned PCP 07/06/23 Martinez Rogers MD [address] [facility] [address] [place] [address] Cardiovascular Disease 12/22/23 Martinez Rogers MD [address] [facility] [address] [place] [address] Assigned Heart and Vascular Provider 05/04/24 documented as of this encounter
--- OUTSIDE RECORDS SUMMARY | 2024-05-14 10:14 | XMS_ITS | Encounter Summary ---
Author Organization [place] Address [address] [facility] 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 Gender Identity Not on file Sexual Orientation Not on file documented as of this encounter Plan of Treatment Upcoming Encounters Date Type Department Care Team (Late st Contact Info) Description 05/16/2024 3:00 PM PIN CHASER Office Visit [facility] [place] [address] [facility] [place] [phone] Yash Mullins MD [address] [place] [address] 10/01/2024 7:30 AM CDT Appointment [facility] Specialty Care [address] [facility] [address] [place] [address] Martinez Rogers MD [address] [place] [address] documented as of this encounter Results * CRP inflammation (03/20/2024 12:12 PM CDT) CRP Inflammation <3.00 <5.00 mg/L 03/20/20 12:31 PM CDT LABORATORY Blood STRUCTURE OF RIGHT UPPER LIMB / Unknown Venipuncture / Unknown 03/20/2024 12:12 PM CDT 03/20/2024 12:13 PM CDT us Lacey Chen MD LAB - BLOOD ORDERABLES Final Res ult RH LABORATORY [facility] Lab [address] [facility], no room number) [place] [address], [facility] documented in this encounter Visit Diagnoses Diagnosis Bacteremia- Primary documented in this encounter Care Teams Product Control And Logistics Analyst Relationship Specialty Start Date End Date Seferino Hanley MD [address] [place] [address] PCP - General Family Medicine 05/13/22 Physicians, [place] [facility] [address] [place] [phone] Assigned PCP 07/06/23 Martinez Rogers MD [address] [place] [address] Cardiovascular Disease 12/22/23 documented as of this encounter
--- OUTSIDE RECORDS SUMMARY | 2024-05-14 10:14 | XMS_ITS | Encounter Summary ---
Author Organization [place] Address [address] [place] [address]. [place] [address] Care Team Providers Care Airfield Operations Specialist Name Role Phone Seferino Hanley MD Primary Care Provider [phone] Physicians, [place] Family Unavailable [phone] [phone] Martinez Rogers MD Unavailable Encounter Details Date [...] on file Legal Sex Male 2:58 AM NEONATAL INTENSIVE CARE NURSE Gender Identity Not on file Sexual Orientation Not on file documented as of this encounter Plan of Treatment Upcoming Encounters Date Type Department Care Team (Late st Contact Info) Description 05/16/2024 3:00 PM NEONATAL INTENSIVE CARE NURSE Office Visit [facility] [place] [address] [facility] [place] [phone] Yash Mullins MD [address] [place], [place] [address] 10/01/2024 7:30 AM CDT Appointment [facility] Specialty Care [address] [facility] [address] [place] [address] Martinez Rogers MD [address] [facility] [address] [place] [address] documented as of this encounter Visit Diagnoses Not on filedocumented in this encounter Care Teams Airfield Operations Specialist Relationship Specialty Start Date End Date Seferino Hanley MD [address] [place] [address] PCP - General Family Medicine 05/13/22 Physicians, [address] [place] [address] Assigned PCP 07/06/23 Martinez Rogers MD [address] [place] [address] Cardiovascular Disease 12/22/23 documented as of this encounter
--- OUTSIDE RECORDS SUMMARY | 2024-05-14 10:14 | XMS_ITS | Encounter Summary ---
Author Organization [place] Address [address] [place] [address] Care Team Providers Care Field Geologist Name Role Phone None, Bfp Primary Care Provider UnavailTia Waldrop MD Primary Care Provider Cynthia vailable Tia Lagunas MD Unavailable Unavailab Barron Gordon MD Unavailable Unavail able Martinez Rogers MD Unavailable Seferino Hanley MD Primary Care Provider [phone] [phone] Tia Lagunas MD Unavailable Unavailab vero [facility] Unavailable + -[phone] Martinez Rogers MD Unavailable Martinez Rogers MD Unavailable Encounter Details Date Type Department Care Team (Late st Contact Info) Description 01/25/2010 Office Visit-[facility] [address] [phone] Barron Cook MD Social History Tobacco Use Types Packs/Day Years Used Date Smoking Tobacco: Never Assessed Sex and Gender Information Value Date Recorded Sex Assigned at Not on file 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 DATE: 01/25/2010 JESSICA CARLOS DATE OF : 1960 AGE: [age] years old Referring Physician: TIA LAGUNAS Referring Clinic: [facility] CURRENT DIAGNOSES 1. - Valve Replacement AV, [...] st Contact Info) Description 05/16/2024 3:00 PM LICENSED INSURANCE AGENT Office Visit [facility] [address] [place] [phone] Yash Mullins MD [address] [place] [address] 10/01/2024 7:30 AM CDT Appointment [facility] [address] [facility] [address] [place] [phone] Martinez Rogers MD [address] [place] [address] documented as of this encounter Visit Diagnoses Not on filedocumented in this encounter Additional Health Concerns Infection Onset Date Last Indicated Resolved Time Rule Out COVID-19 01/30/2024 01/30/2024 01/30/2024 7:01 PM CDT documented as of this encounter Care Teams Field Geologist Relationship Specialty Start Date End Date None, Bfp PCP - General 06/25/99 11/20/11 Tia Lagunas MD PCP - General Family Practice 11/21/11 07/29/20 Seferino Hanley MD [address] [place] [address] PCP - General Family Medicine 05/13/22 Tia Lagunas MD INACTIVE IN [place] 10/09/2020 Assigned PCP 11/22/19 05/27/22 Barron Cook MD Assigned Heart and Vascular Provider 04/03/20 03/27/21 Martinez Rogers MD [address] [place] [address] Assigned Heart and Vascular Provider 03/28/21 11/01/23 Tia Lagunas MD INACTIVE IN [place] 10/09/2020 Assigned PCP 08/06/22 03/03/23 Physicians, [address] [place] [phone] Assigned PCP 07/06/23 Martinez Rogers MD [address] [place] [address] Cardiovascular Disease 12/22/23 Martinez Rogers MD [address] [place] [address] Assigned Heart and Vascular Provider 05/04/24 documented as of this encounter
--- OUTSIDE RECORDS SUMMARY | 2024-05-14 10:15 | XMS_ITS | Encounter Summary ---
Author Organization [place] Address [address] [place] [address] Care Team Providers Care Advertising Designer Name Role Phone None, Bfp Primary Care Provider UnavailFritz Waldrop MD Primary Care Provider Cynthia vailable Fritz Hitchcock MD Unavailable Unavailab Barron Gordon MD Unavailable Unavail able Martinez Rogers MD Unavailable Seferino Hanley MD Primary Care Provider +1 [phone] Fritz Hitchcock MD Unavailable Unavailab vero [facility] Unavailable + -[phone] Martinez Rogers MD Unavailable Martinez Rogers MD Unavailable Encounter Details Date Type Department Care Team (Late st Contact Info) Description 05/06/2009 Office Visit-[facility] [address] [place] [phone] Crystal Key MD HEART [place] [id number] Social History Tobacco Use Types Packs/Day Years Used Date Smoking Tobacco: Never Assessed Sex and Gender Information Value Date Recorded Sex Assigned at Not on file 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 [id number] DATE: 05/06/2009 JESSICA CARLOS DATE OF : 1960 AGE: [age] years old Referring Physician: SCARLETT JACOBSEN Referring Clinic: [facility] CURRENT DIAGNOSES 1. Aortic Valve-Stenosis, 424.1 ALLERGIES [...] with in own home; Place of - [place]; Hours Worked - 60-80 hours per week; [...] left heart catheterization next week prior to surgical evaluation in light of his dyslipidemia and family history. I have emphasized that I would like tohave the evaluation underway as soon as possible [...] Schedule STEPHEN- bicuspid aoritc valve - minimally invasive4. BMP Today Crystal Key M.D. documented in this encounter Plan of Treatment Upcoming Encounters Date Type Department Care Team (Late st Contact Info) Description 05/16/2024 3:00 PM DIRECTOR RIVER RESTORATION Office Visit [facility] [place] [address] [facility] [place] [phone] Yash Mullins MD [address] [place] [address] 10/01/2024 7:[address] [facility] Specialty Care [address] [facility] [address] [place] [phone] Martinez Rogers MD [address] [facility] [address] [place], [place] [phone] documented as of this encounter Visit Diagnoses Not on filedocumented in this encounter Additional Health Concerns Infection Onset Date Last Indicated Resolved Time Rule Out COVID-19 01/30/2024 01/30/2024 01/30/2024 7:01 PM CDT documented as of this encounter Care Teams Advertising Designer Relationship Specialty Start Date End Date None, Bfp PCP - General 06/25/99 11/20/11 Fritz Hitchcock MD PCP - General Family Practice 11/21/11 07/29/20 Seferino Hanley MD [address] [place] [address] PCP - General Family Medicine 05/13/22 Fritz Hitchcock MD INACTIVE IN [place] 10/09/2020 Assigned PCP 11/22/19 05/27/22 Barron Cook MD Assigned Heart and Vascular Provider 04/03/20 03/27/21 Martinez Rogers MD [address] [place] [id number] Assigned Heart and Vascular Provider 03/28/21 11/01/23 Fritz Hitchcock MD [place]IVE IN [place] 10/09/2020 Assigned PCP 08/06/22 03/03/23 Physicians, [address] [place] [phone] Assigned PCP 07/06/23 Martinez Rogers MD [address] [facility] [address] [place] [id number] MD Cardiovascular Disease 12/22/23 Martinez Rogers MD [address] [facility] [address] [place] [address] Assigned Heart and Vascular Provider 05/04/24 documented as of this encounter
--- OUTSIDE RECORDS SUMMARY | 2024-05-14 10:15 | XMS_ITS | Encounter Summary ---
Author Organization [place] Address [address] [place] [address] Care Team Providers Care Transferrer Name Role Phone None, Bfp Primary Care Provider UnavailTia Waldrop MD Primary Care Provider Cynthia vailable Tia Lagunas MD Unavailable Unavailab Barron Gordon MD Unavailable Unavail able Martinez Rogers MD Unavailable Seferino Hanley MD Primary Care Provider [phone] [phone] Tia Lagunas MD Unavailable Unavailab vero [facility] Unavailable + -[phone] Martinez Rogers MD Unavailable Martinez Rogers MD Unavailable Encounter Details Date Type Department Care Team (Late st Contact Info) Description 09/30/2009 Office Visit-[facility] [address] [phone] Justo Harmon MD Social History Tobacco Use Types Packs/Day Years Used Date Smoking Tobacco: Never Assessed Sex and Gender Information Value Date Recorded Sex Assigned at Not on file 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 [id number] DATE: 09/30/2009 JESSICA CARLOS DATE OF : 1960 AGE: [age] years old Referring Physician: TIA LAGUNAS Referring Clinic: [facility] CURRENT DIAGNOSES 1. 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 Aortic Valve-Stenosis, 424.1 3. Qezkelhaxtco-Wrc-ijviseci, 420.91 ALLERGIES NKA MEDICATIONS (prior to changes [...] and an ARB because the articular in [place] Journal of [employer] in patients with Marfan's [...] with in own home; Place of - [place]; Hours Worked - 60-80 hours per [...] Tablet 1 p.o. twice daily #180 ([employer] [place] [employer]) Physician Order and Warfarin 10 mg [...] st Contact Info) Description 05/16/2024 3:00 PM ENAMEL SHADER Office Visit [facility] [place] [address] [facility] [place] [phone] Yash Mullins MD [address] [place] [address] 10/01/2024 7:[address] [facility] Specialty Care [address] [facility] [address] [place] [phone] Martinez Rogers MD [address] [place] [address] documented as of this encounter Visit Diagnoses Not on filedocumented in this encounter Additional Health Concerns Infection Onset Date Last Indicated Resolved Time Rule Out COVID-19 01/30/2024 01/30/2024 01/30/2024 7:01 PM CDT documented as of this encounter Care Teams Transferrer Relationship Specialty Start Date End Date None, Bfp PCP - General 06/25/99 11/20/11 Tia Lagunas MD PCP - General Family Practice 11/21/11 07/29/20 Seferino Hanley MD [address] [place] [address] PCP - General Family Medicine 05/13/22 Tia Lagunas MD INACTIVE IN [place] 10/09/2020 Assigned PCP 11/22/19 05/27/22 Barron Cook MD Assigned Heart and Vascular Provider 04/03/20 03/27/21 Martinez Rogers MD [address] [place] [address] [place] [address] Assigned Heart and Vascular Provider 03/28/21 11/01/23 Tia Lagunas MD INACTIVE IN [place] 10/09/2020 Assigned PCP 08/06/22 03/03/23 Physicians, [address] [place] [phone] Assigned PCP 07/06/23 Martinez Rogers MD [address] [facility] [place] [place] [address] Cardiovascular Disease 12/22/23 Martinez Rogers MD [address] [place] [address] Assigned Heart and Vascular Provider 05/04/24 documented as of this encounter
--- OUTSIDE RECORDS SUMMARY | 2024-05-14 10:15 | XMS_ITS ---
Author Organization [facility] Address [address] [place] [address] Care Team Providers Care Finance Lecturer Name Role Phone Seferino Hanley MD Primary Care Provider +1 [phone] Brigida Urbina Family Unavailable +1 [phone] Martinez Rogers MD Unavailable Martinez Rogers MD Unavailable Home Infusion Status:Closed (Active) Start date:02/15/2024 Enrollment date:02/16/2024 End date:03/18/2024 Close reason:Therapy Completed Related service episodes:Anti-infective (Active) Continued Care and Services Coordination
--- OUTSIDE RECORDS SUMMARY | 2024-05-14 10:15 | XMS_ITS ---
Author Organization [facility] Address [address] [place] [address] Care Team Providers Care Thermal Technician Name Role Phone Seferino Hanley MD Primary Care Provider +1 [phone] Brigida Urbina Family Unavailable + -[phone] Martinez Rogers MD Unavailable Martinez Rogers MD Unavailable Anti-infective Status:Closed (Active) Start date:02/15/2024 Enrollment date:02/16/2024 End date:03/18/2024 Close reason:Therapy Completed Related program episode:Home Infusion (Active) Continued Care and Services Coordination
--- OUTSIDE RECORDS SUMMARY | 2024-05-14 10:15 | XMS_ITS | Encounter Summary ---
Author Organization [facility] Address [address] [place] [address]. [place] [address] Care Team Providers Care Customs Agent Name Role Phone None, Bfp Primary Care Provider Unavailabl Tia Ching MD Primary Care Provider Cynthia vailable Tia Lagunas MD Unavailable Unavailab Barron Gordon MD Unavailable Unavail able Martinez Rogers MD Unavailable Seferino Hanley MD Primary Care Provider [phone] [phone] Tia Lagunas MD Unavailable Unavailab vero [facility] [place] [facility] Unavailable + -[phone] Martinez Rogers MD Unavailable Martinez Rogers MD Unavailable Encounter Details Date Type Department Care Team (Late st Contact Info) Description 07/15/2009 Office Visit-[facility] [place] [address] [facility] [address] [place] [address] Rubi Núñez, LABORER PETROLEUM REFINERY [facility] [address] [facility] [address] [place], [place] [address] Social History Tobacco Use Types Packs/Day Years Used Date Smoking Tobacco: Never Assessed Sex and Gender Information Value Date Recorded Sex Assigned at Not on file 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 [id number] DATE: 07/15/2009 JESSICA CARLOS DATE OF : 1960 AGE: [age] years old Referring Physician: TIA LAGUNAS Referring Clinic: [facility] CURRENT DIAGNOSES 1. 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 Efksfuhsypen-Fsw-fvngiyfn, 420.91 3. Aortic Valve-Stenosis, 424.1 ALLERGIES NKA [...] delightful 48-year-old male who presents to the [facility] today for a followup visit. [...] and a syncopal episode while playing sports. Limaid meet with Dr. Duarte. 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 documented in this encounter Plan of Treatment Upcoming Encounters Date Type Department Care Team (Late st Contact Info) Description 05/16/2024 3:00 PM SUPERVISOR SHAVING AND SPLITTING Office Visit [facility] [place] [address] [place] [phone] Yash Mullins MD [address] [place] [address] 10/01/2024 7:30 AM CDT Appointment [facility] Specialty Care [address] [facility] [address] [place] [phone] Martinez Rogers MD [address], [facility] [address] [place], [place] [address] documented as of this encounter Visit Diagnoses Not on filedocumented in this encounter Additional Health Concerns Infection Onset Date Last Indicated Resolved Time Rule Out COVID-19 01/30/2024 01/30/2024 01/30/2024 7:01 PM CDT documented as of this encounter Care Teams Customs Agent Relationship Specialty Start Date End Date None, Bfp PCP - General 06/25/99 11/20/11 Tia Lagunas MD PCP - General Family Practice 11/21/11 07/29/20 Seferino Hanley MD [address] [place] [address] PCP - General Family Medicine 05/13/22 Tia Lagunas MD INACTIVE IN [place] 10/09/2020 Assigned PCP 11/22/19 05/27/22 Barron Cook MD Assigned Heart and Vascular Provider 04/03/20 03/27/21 Martinez Rogers MD [address], [facility] [address] [place] [address] Assigned Heart and Vascular Provider 03/28/21 11/01/23 Tia Lagunas MD INACTIVE IN [place] 10/09/2020 Assigned PCP 08/06/22 03/03/23 Physicians, [address] [place] [phone] Assigned PCP 07/06/23 Martinez Rogers MD [address], [facility] [address] [place] W[place] [address] Cardiovascular Disease 12/22/23 Martinez Rogers MD [address] [place] [address] Assigned Heart and Vascular Provider 05/04/24 documented as of this encounter
[2024-05-14] MEDS: SODIUM CHLORIDE 0.9 % (FLUSH) 10 ML SYRINGE IVF (10:35)
[2024-05-14] MEDS: 0.9 % SODIUM CHLORIDE 500 ML 500 ML 100 ML IV ×2 (10:35→13:19)
--- NOTE | 2024-05-14 13:19 | W.PM.H&PU ---
History & Physical Update History & Physical Update H&P Reviewed and patient assessed: No changes noted
--- NOTE | 2024-05-14 13:44 | PM.GSPRC ---
Operative Note Date of procedure: 05/14/24 Pre-op diagnosis: 1. Bilateral inguinal hernias. 2. Enlarging right neck mass. Post-op diagnosis: Same Type of Procedure: 1. Laparoscopic bilateral inguinal hernia repair with mesh. 2. Excision of right neck mass. Indications: 63-year-old male was seen in clinic for evaluation of bilateral inguinal hernias and right neck mass. Patient noticed bilateral inguinal bulges over 10 years ago. The bulges have not significantly changed in size and were not painful. However, patient is active and does heavy lifting and is also active with sports. He would like to continue with his activity and desire to proceed with surgical repair. He also complained of right neck soft tissue mass that was initially noted it years ago. The mass has been increasing in size. It has not been painful. An ultrasound of the mass was obtained in April and showed solid subcutaneous fatty mass measuring 1.5 x 1.4 cm. On clinical exam the mass was soft on palpation and measuring approximately 1.5 cm in its largest dimension. Of the patient standing up there was a moderately sized left inguinal hernia and a small right inguinal hernia noted. Bilateral hernias were reducible. Given patient's clinical history and his desire to be active, laparoscopic bilateral inguinal hernia repair was recommended and excision of right neck mass pre the procedures were discussed with the patient in detail. The risks associated procedure including infection, bleeding, injury to preperitoneal organs, hernia recurrence, and mass recurrence were all discussed with the patient, and he agreed to proceed. Procedure Description: After discussing the risks and benefits of the procedure, the patient signed informed consent.? The operative site was marked and the patient was brought to the operating room and placed on the operating table in supine position.? Care was taken to pad the patient's pressure points.?? The patient was then intubated by anesthesia.?? The operative site was then prepped and draped in the usual sterile fashion.? A time-out was then performed. An infraumbilical skin incision was made with a scalpel and subcutaneous tissues were dissected with electrocautery. Anterior sheath was incised with electrocautery and rectus muscle was retracted laterally On the right. On the right side the tissue planes were not clear and scar like tissue was noted. It was difficult to develop a plane behind the rectus muscle And enter the correct space. I elected to switch to the left side. The anterior sheath on the left side was incised with cautery and left sided rectus muscle was retracted laterally. I was able to identify retrorectus space. A 12 mm spacemaker dissector system was introduced into the incision and advanced over the posterior sheath. Preperitoneal space was dissected with manually insufflating air under direct visualization. Once the tissues were dissected, the balloon was deflated and removed.? A laparoscopic balloon was placed into preperitoneal space and balloon was inflated. Preperitoneal space was insufflated with air. No bleeding was identified upon examination of preperitoneal space. We then placed two 5 mm ports suprapubically under direct visualization. ? I first started on the right side. The pubic bone was identified. The preperitoneal tissues were bluntly dissected with graspers near the pubic bone.?? Inferior epigastrics on The right?side were retracted towards the abdominal wall.?? Spermatic cord? was identified and dissected circumferentially.? This was done bluntly. there was a small indirect hernia identified. The peritoneum was dissected cranially with blunt dissectors. A small direct hernia space was seen, and no preperitoneal structures were incarcerated in this hernia space.? When adequate space was developed for mesh placement, I turned my attention to the left side. The left inferior epigastrics were retracted towards the abdominal wall. Preperitoneal space was dissected around the left spermatic cord bluntly. More scar tissue was noted in this plane. Peritoneal edge was identified and there was no evidence of indirect hernia on the left side. There was a moderately sized direct hernia on the left side containing preperitoneal fat. This fat was reduced bluntly. The left spermatic cord was then circumferentially dissected bluntly. A left sided Parietex? mesh was used and positioned around the spermatic cord. The mesh was tacked medially and laterally with?tacks.? similarly, the right-sided parotid takes mesh was positioned around the right spermatic cord. This was tacked medially and laterally. Additional local anesthetic was injected directly into pre-peritoneal space. ? The space was deflated under direct visualization and mesh appeared to be still lying in a good position. The ports were then removed. Anterior sheath On the right and left side was closed with running 0-0 vicryl sutures. Skin was closed with 4-0 monocryl using subcuticular stitch. Steri strips were applied over the laparoscopic?incisions. all drapes were removed and we proceeded with excision of the right neck mass. The surgical site was prepped and draped in the usual sterile fashion. Local anesthetic was injected at the surgical site. A vertical skin incision was made with a scalpel. Dermis was divided with cautery. The sternocleidomastoid muscle was in the field of dissection. With blunt dissection and with cautery infrequent palpation of the mass, the mass was identified. It was tightly adherent to the muscle fibers and accessory nerve. The mass was peeled off the accessory nerve with cautery and bluntly. The mass had an appearance of thickened scarred fatty tissue. This was excised with cautery and sent to pathology. The mass was measuring only about 0.9 x 0.7 cm. The surrounding tissues were palpated and no additional masses were palpable. Additional local anesthetic was injected at the surgical site. The dermis was reapproximated with interrupted 3-0 Vicryl sutures. The skin was closed with a running 4-0 Monocryl stitch. Steri-Strips and sterile pressure dressing were placed over the incision. ? All counts were correct at the end of the case. Patient tolerated the procedure well and was transferred to PACU without any complications. Findings: Small direct and indirect hernia on the right side. A moderately sized direct hernia on the left side. The right neck mass did not have an appearance of lipoma and was tightly adherent to the accessory nerve and sternocleidomastoid muscle. Anesthesia: GETA Surgeon: Wanda Reeves MD Estimated blood loss (mL): 10 Additional Specimen Information: 1. Right neck mass. Condition: stable Disposition: PACU
[2024-05-14] MEDS: CEFAZOLIN 2 GM INJ IVP (13:56)
[2024-05-14] MEDS: LIDOCAINE 1%-EPI 1:100,000 20 ML INFILTRATI (14:11)
[2024-05-14] MEDS: BUPIVACAINE 0.25% 30 ML INJECTION (14:11)
--- NOTE | 2024-05-14 14:25 | W.ANESCHARGE ---
Anesthesia Charges Start Date/Time Anesthesia Start Date: 05/14/24 Anesthesia Start Time: 13:48 Stop Date/Time Anesthesia Stop Date: 05/14/24 Anesthesia Stop Time: 16:29
--- NOTE | 2024-05-14 16:21 | SUR.OPER ---
indentations on left arm from IV after arm tucked post procedure
[2024-05-14] MEDS: HYDROmorphone 0.5 mg/0.5 ml inj IVP ×3 (16:32→17:43)
--- NOTE | 2024-05-14 16:32 | W.ANESCHARGE ---
Anesthesia Charges Start Date/Time Anesthesia Start Date: 05/14/24 Anesthesia Start Time: 13:48 Stop Date/Time Anesthesia Stop Date: 05/14/24 Anesthesia Stop Time: 16:29
--- NOTE | 2024-05-14 21:25 | PC.NURSE ---
Discharge Summary: Patient to 256 from PACU approx 1705. Pleasant and cooperative. Steri strips to abdominal incisions C/D/I. Dressing to right neck C/D/I. Patient tolerating full liquids and crackers with no nausea. Up to bathroom and chair with SBA. Voided x1. Rating pain up to 6/10 and PRN Dilaudid given x1. Patient discharged home at 2002 with all personal belongings accompanied by spouse. Discharge instructions including diagnosis, medications and follow up appointment discussed with patient and voiced understanding. SL removed with tip intact.
== END 2024-05-14 20:03 | disposition home or self-care (01) ==
LOC: OR 13:43 → MEDSURG 17:02
PROVIDERS: PCP Family Medicine; Visit Provider Surgery
PROC: (CPT 49650; principal; 2024-05-14 11:30)
PROC: (CPT 49650; 2024-05-14 11:30)
DX: K40.20 Bilateral inguinal hernia, without obstruction or gangrene, not specified as recurrent (principal); D17.0 Benign lipomatous neoplasm of skin and subcutaneous tissue of head, face and neck
CPT/HCPCS: 49650; 21556; 00860; 88304; C1781; J0330; J0665; J0690; J1100; J1171; J2371; J2405; J2704; J2710; J3010; J3490; J7030

== ENCOUNTER 2024-07-12 09:58 | Outpatient (CLI) | payer OTHER, SELFPAY | END 2024-07-12 09:59 | disposition home or self-care (01) | LOC: NFLDREF 07-17 00:38 | PROVIDERS: PCP Family Medicine; Referring Provider Family Medicine; Visit Provider Family Medicine | DX: E03.9 Hypothyroidism, unspecified (principal) | CPT/HCPCS: 84443 ==

== ENCOUNTER 2025-02-13 09:46 | Outpatient (CLI) | payer OTHER, SELFPAY | END 2025-02-13 09:47 | disposition home or self-care (01) | LOC: LKVREF 09:48 | PROVIDERS: PCP Family Medicine; Visit Provider Family Medicine | DX: I10 Essential (primary) hypertension (principal); E03.9 Hypothyroidism, unspecified; R22.1 Localized swelling, mass and lump, neck | CPT/HCPCS: 80048; 84443 ==

== ENCOUNTER 2025-05-20 09:14 | Outpatient (CLI) | payer OTHER, SELFPAY | END 2025-05-20 09:15 | disposition home or self-care (01) | LOC: NFLDREF 05-26 18:05 | PROVIDERS: PCP Family Medicine; Referring Provider Family Medicine; Visit Provider Family Medicine | DX: E03.9 Hypothyroidism, unspecified (principal); I10 Essential (primary) hypertension; Z00.00 Encounter for general adult medical examination without abnormal findings; R53.83 Other fatigue | CPT/HCPCS: 80053; 80061; 84443; G0103 ==